=== PATIENT | female | born 1985 | race Caucasian/White ===

== ENCOUNTER 2016-06-29 01:50 | Observation (INO) | payer BC, OTHER ==
[2016-06-29] MEDS ORDERED: Sodium Chloride 0.9% 100 ML IVPB 100 ML IV ONE (02:11)
[2016-06-29] MEDS ORDERED: ROCEPHIN 1 Gm-D5w 50 ml Bag** 50 ML IV ONE ×2 (02:11→02:30)
--- NOTE | 2016-06-29 02:11 | ERPHSYRPT ---
- History of Present Illness Time Seen by Provider: 06/29/16 02:08 Source: patient, family, wardsperson Patient Subjective Stated Complaint: REPORTS WITH C/O FLU-SYMPTOMS, FEVER, COUGH PRODUCTIVE OF THICK GREEN SPUTUM, MALAISE - ALL ONSET X 4 DAYS AGO Triage Nursing Assessment: AMBULATORY TO TREATMENT AREA - STEADY GAIT - MOVES ALL EXTREMITIES WITH EQUAL STRENGTH. ALERT/ORIENTED - UNPLEASANT AFFECT. SKIN FLUSHED/HOT/DRY - NO RASH/INJURY. RESPS EASY - NON-LABORED Physician History: pt had similar 5 years ago , has lost voice and has cough , can swallow but gets nauseated when she drinks anything; not short of breath Timing/Duration: day(s) Cough Quality/Degree: productive cough Possible Cause: occasional episodes Modifying Factors: Improves With: nothing Associated Symptoms: fever, cough Allergies/Adverse Reactions: Penicillins Allergy (Verified 06/29/16 01:57) strawberry Allergy (Verified 06/29/16 02:51) Home Medications: Metformin HCl 850 mg [Glucophage 850 MG] 850 mg PO BID 06/29/16 [History] Hx Tetanus, Diphtheria Vaccination/Date Given: Yes Hx Influenza Vaccination/Date Given: No Hx Pneumococcal Vaccination/Date Given: No Immunizations Up to Date: Yes - Review of Systems Constitutional: No Fever, No Chills Eyes: No Symptoms Ears, Nose, & Throat: No Symptoms Respiratory: Cough, No Dyspnea Cardiac: No Chest Pain, No Edema, No Syncope Abdominal/Gastrointestinal: Nausea, No Abdominal Pain, No Vomiting, No Diarrhea Genitourinary Symptoms: No Dysuria Musculoskeletal: No Back Pain, No Neck Pain Skin: No Rash Neurological: No Dizziness, No Focal Weakness, No Sensory Changes Psychological: No Symptoms Endocrine: No Symptoms All Other Systems: Reviewed and Negative - Past Medical History Pertinent Past Medical History: Yes Female Reproductive Disorders: Other Other Medical History: pcos - Past Surgical History Past Surgical History: Yes Gastrointestinal: Cholecystectomy - Social History Smoking Status: Current every day smoker Exposure to second hand smoke: No Drug Use: none Patient Lives Alone: No - Female History Hx Last Menstrual Period: 3 WEEKS - Nursing Vital Signs Nursing Vital Signs: Initial Vital Signs Temperature 100.6 F Temperature Source Oral Pulse Rate 112 Respiratory Rate 16 Blood Pressure [Right Arm] 107/63 Pain Intensity 4 - Physical Exam General Appearance: no apparent distress, alert Eye Exam: PERRL/EOMI, eyes nml inspection Ears, Nose, Throat Exam: normal ENT inspection, TMs normal, moist mucous membranes, pharyngeal erythema Neck Exam: normal inspection, non-tender, supple, full range of motion, lymphadenopathy Respiratory Exam: lungs clear, airway intact, rhonchi (right), No respiratory distress, No wheezing, No stridor Cardiovascular Exam: regular rate/rhythm, normal heart sounds Gastrointestinal/Abdomen Exam: soft, No tenderness Pelvic Exam: deferred Rectal Exam: deferred Back Exam: normal inspection, No CVA tenderness, No vertebral tenderness Extremity Exam: normal inspection, normal range of motion Neurologic Exam: alert, oriented x 3, cooperative, normal mood/affect, sensation nml, No motor deficits Skin Exam: normal color, warm, dry, No rash Lymphatic Exam: No adenopathy SpO2 Interpretation: borderline oxygenation SpO2: 92 Oxygen Delivery: Room Air Comments: 06/29/16 04:29 placed on o2 - Course Nursing assessment & vital signs reviewed: Yes - Radiology Exams Chest X-ray Interpretation: Reviewed by me, Infiltrates (RML) Other X-ray Interpretation: Reviewed by me, Other (laryngeal swelling) Ordered Tests: Active Orders 24 hr Category Date Time Status IV Insertion STAT Care 06/29/16 02:11 Active PO Popsicle STAT Care 06/29/16 02:11 Active Pulse Oximetry (ED) STAT Care 06/29/16 02:11 Active CHEST 2 VIEWS (PA AND LAT) Stat Exams 06/29/16 02:11 Taken NECK SOFT TISSUE Stat Exams 06/29/16 02:12 Taken CBC W DIFF Stat Lab 06/29/16 02:20 Completed CULTURE, THROAT Stat Lab 06/29/16 02:30 Received HCG,QUALITATIVE URINE Stat Lab 06/29/16 03:02 Completed Sharp Screen Stat Lab 06/29/16 02:20 Completed STREP SCREEN-BETA A Stat Lab 06/29/16 02:30 Completed Respiratory Nebulizer STAT RT 06/29/16 02:15 Completed Medication Summary Discontinued Medications Generic Name Dose Route Start Last Admin Trade Name Freq PRN Reason Stop Dose Admin Acetaminophen 500 mg 06/29/16 02:31 06/29/16 02:37 Tylenol Extra Strength 500 Mg PO 06/29/16 02:32 500 mg STAT STA Administration Acetaminophen Confirm 06/29/16 02:37 Tylenol Extra Strength 500 Mg Administered 06/29/16 02:38 Dose 500 mg .ROUTE .STK-MED ONE Albuterol Sulfate 2.5 mg 06/29/16 02:14 06/29/16 02:34 Proventil 2.5 Mg/3 Ml Neb IH 06/29/16 02:15 2.5 mg STAT ONE Administration Albuterol Sulfate Confirm 06/29/16 02:21 Proventil 2.5 Mg/3 Ml Neb Administered 06/29/16 02:22 Dose 2.5 mg IH .STK-MED ONE Dexamethasone Sodium Phosphate 10 mg 06/29/16 02:14 06/29/16 02:35 Decadron 10mg Inj. IV 06/29/16 02:15 10 mg STAT ONE Administration Dexamethasone Sodium Phosphate Confirm 06/29/16 02:30 Decadron 10mg Inj. Administered 06/29/16 02:31 Dose 10 mg .ROUTE .STK-MED ONE Ceftriaxone Sodium/Dextrose 50 mls @ 100 mls/hr 06/29/16 02:11 06/29/16 02:35 Rocephin 1 Gm-D5w 50 Ml Bag IV 06/29/16 02:40 100 mls/hr STAT ONE Administration Sodium Chloride 100 mls @ 100 mls/hr 06/29/16 02:11 06/29/16 02:35 Sodium Chloride 0.9% 100 Ml Ivpb IV 06/29/16 03:10 100 mls/hr .Q1H ONE Administration Sodium Chloride Confirm 06/29/16 02:30 Sodium Chloride 0.9% 1000 Ml Administered 06/29/16 02:31 Dose 1,000 mls @ ud .ROUTE .STK-MED ONE Ceftriaxone Sodium/Dextrose Confirm 06/29/16 02:30 Rocephin 1 Gm-D5w 50 Ml Bag Administered 06/29/16 02:31 Dose 50 mls @ ud IV .STK-MED ONE Ondansetron HCl 4 mg 06/29/16 04:01 06/29/16 04:07 Zofran 4 Mg/2 Ml Vial IV 06/29/16 04:02 4 mg STAT ONE Administration Ondansetron HCl Confirm 06/29/16 04:04 Zofran 4 Mg/2 Ml Vial Administered 06/29/16 04:05 Dose 4 mg .ROUTE .STK-MED ONE Oseltamivir Phosphate 75 mg 06/29/16 04:00 06/29/16 04:10 Tamiflu 75mg Capsule PO 06/29/16 04:01 75 mg STAT ONE Administration Oseltamivir Phosphate Confirm 06/29/16 04:04 Tamiflu 75mg Capsule Administered 06/29/16 04:05 Dose 75 mg PO .STK-MED ONE Lab/Rad Data: Laboratory Result Diagrams 06/29/16 02:20 Laboratory Results 06/29/16 06/29/16 06/29/16 Range/Units 03:02 02:30 02:30 WBC (4.0-10.5) K/mm3 RBC (4.1-5.4) M/mm3 Hgb (12.0-16.0) gm/dl Hct (35-47) % MCV (78-100) fl MCH (26-32) pg MCHC (32-36) g/dl RDW (11.5-14.0) % Plt Count (150-450) K/mm3 MPV (6-9.5) fl Gran % (36.0-66.0) % Lymphocytes % (24.0-44.0) % Monocytes % (0.0-12.0) % Eosinophils % (0.00-5.0) % Basophils % (0.0-0.4) % Basophils # (0-0.4) Urine HCG, Qual NEGATIVE (Negative) Monoscreen (Negative) Influenza Type A Ag POSITIVE (NEGATIVE) Influenza Type B Ag NEGATIVE (NEGATIVE) RSV (PCR) NEGATIVE (Negative) Streptococcus Screen NEGATIVE (Negative) 06/29/16 06/29/16 Range/Units 02:20 02:20 WBC 13.0 H (4.0-10.5) K/mm3 RBC 4.55 (4.1-5.4) M/mm3 Hgb 13.0 (12.0-16.0) gm/dl Hct 39.9 (35-47) % MCV 87.7 (78-100) fl MCH 28.6 (26-32) pg MCHC 32.6 (32-36) g/dl RDW 14.0 (11.5-14.0) % Plt Count 249 (150-450) K/mm3 MPV 10.7 H (6-9.5) fl Gran % 80.2 H (36.0-66.0) % Lymphocytes % 10.4 L (24.0-44.0) % Monocytes % 8.9 (0.0-12.0) % Eosinophils % 0.3 (0.00-5.0) % Basophils % 0.2 (0.0-0.4) % Basophils # 0.02 (0-0.4) Urine HCG, Qual (Negative) Monoscreen NEGATIVE (Negative) Influenza Type A Ag (NEGATIVE) Influenza Type B Ag (NEGATIVE) RSV (PCR) (Negative) Streptococcus Screen (Negative) - Progress Progress: improved, re-examined Air Movement: good Progress Note: 06/29/16 02:52 discussed risk and benefit of rocephin with pcn allergy and possible preg and pt wishes to proceed and has naren keflex in past with no problems. 06/29/16 04:25 pt naren rocephin OK discussed with pt , family and Dr. Roberts and all agree best to place pt in on obs restore fluids , monitor airway and o2 sat , and treat with tamiflu and rocephin Blood Culture(s) Obtained: No Antibiotics given: Yes Discussed with : Armando Will see patient in: hospital (observation) Counseled pt/family regarding: lab results, diagnosis, need for follow-up, rad results - Departure Time of Disposition: 04:26 Departure Disposition: Observation Clinical Impression: Influenza A, RML pneumonia, Dehydration, Laryngitis without obstruction, acute Condition: Good Critical Care Time: No
[2016-06-29] MEDS ORDERED: DECADRON 10MG INJ. IV ONE (02:14)
[2016-06-29] MEDS ORDERED: PROVENTIL 2.5 MG/3 ML NEB IH ONE ×2 (02:14→02:21)
[2016-06-29] MEDS ORDERED: Sodium Chloride 0.9% 1000 ML 1,000 ML ONE (02:30)
[2016-06-29] MEDS ORDERED: DECADRON 10MG INJ. ONE (02:30)
[2016-06-29] MEDS ORDERED: TYLENOL EXTRA STRENGTH 500 MG PO STA (02:31)
[2016-06-29 02:34] LABS: BASOPHIL % 0.2 % (0.0-0.4); Eosinophil % 0.3 % (0.00-5.0); Granulocytes % 80.2 % (36.0-66.0); Lymphocytes % 10.4 % (24.0-44.0); Mean Cell Volume 87.7 fl (78-100); Mean Corpuscular Hemoglobin 28.6 pg (26-32); Mean Platelet Volume 10.7 fl (6-9.5); Monocytes % 8.9 % (0.0-12.0); Platelet Count 249 K/mm3 (150-450); Red Blood Count 4.55 M/mm3 (4.1-5.4)
[2016-06-29] MEDS ORDERED: TYLENOL EXTRA STRENGTH 500 MG ONE (02:37)
[2016-06-29] MEDS ORDERED: Tamiflu 75MG Capsule PO ONE ×2 (04:00→04:04)
[2016-06-29] MEDS ORDERED: Zofran 4 MG/2 ML VIAL IV ONE (04:01)
[2016-06-29] MEDS ORDERED: Zofran 4 MG/2 ML VIAL ONE (04:04)
[2016-06-29] MEDS ORDERED: Sodium Chloride 0.9% 1000 ML 1,000 ML IV STA (04:24)
[2016-06-29] MEDS ORDERED: NovoLIN R SQ PRN (04:59)
[2016-06-29] MEDS ORDERED: DILAUDID 2 MG INJECTION IV PRN (04:59)
[2016-06-29] MEDS ORDERED: Zofran 4 MG/2 ML VIAL IV PRN (04:59)
[2016-06-29] MEDS ORDERED: solu-MEDROL 125 MG IV SCH (05:00)
[2016-06-29] MEDS ORDERED: solu-MEDROL 125 MG ONE (05:08)
[2016-06-29] MEDS: Sodium Chloride 0.9% 1000 ML 1,000 ML IV SCH ×4 (05:25→20:08)
--- NOTE | 2016-06-29 06:41 | PCM.HP ---
History of Present Illness - Chief Complaint Chief Complaint: Shortness of Breath History of Present Illness: is a 30 year old female with no local physician who became ill with a cough about 4 days prior to arrival, she has had green sputum production, hoarseness and fever for the last several days. She has a history of pcos and insulin resistance, no other medical problems. She denies vomiting, blood in the stool or other associated complaints. - Review of Systems Constitutional: Fever, Chills Respiratory: Cough Cardiac: No Chest Pain, No Edema, No Syncope Abdominal/Gastrointestinal: No Abdominal Pain, No Nausea, No Vomiting, No Diarrhea Skin: No Rash All Other Systems: Reviewed and Negative Medications & Allergies Home Medications: Home Medication List Metformin HCl 850 mg [Glucophage 850 MG] 850 mg PO BID 06/29/16 [History Confirmed 06/29/16] Pnv with Ca,No.72/Iron/FA [ Plus Tablet] 1 each PO DAILY 06/29/16 [ History Confirmed 06/29/16] Ranitidine HCl [Zantac] 150 mg PO DAILY 06/29/16 [History Confirmed 06/29/16] Allergies/Adverse Reactions: Allergies Allergy/AdvReac Type Severity Reaction Status Date / Time Penicillins Allergy Verified 06/29/16 01:57 strawberry Allergy Verified 06/29/16 02:51 - Past Medical History Past Medical History: Yes ENT History: No Pertinent History Cardiac History: No Pertinent History Respiratory History: No Pertinent History Endocrine Medical History: Other Reproductive Disorders: Other Comment: pcos, Insulin resistant - Female History Hx Last Menstrual Period: 3 WEEKS Are you now?: No - Past Surgical History Past Surgical History: Yes GI Surgical History: Cholecystectomy - Social History Smoking Status: Current every day smoker Exposure to second hand smoke: No Alcohol: Rarely Drug Use: none - Physical Exam Vital Signs: Vital Signs - 24 hr Temp Pulse Resp BP Pulse Ox 06/29/16 05:47 98.1 F 101 H 24 111/56 94 L 06/29/16 05:14 101 H 18 91 L 06/29/16 04:30 92 L 06/29/16 04:11 112 H 16 90 L 06/29/16 03:16 124 H 22 107/63 92 L 06/29/16 02:51 124 H 20 98 06/29/16 02:37 100.6 F 06/29/16 02:36 113 H 24 94 L 06/29/16 02:15 96 06/29/16 01:59 101.0 F 124 H 24 96/49 99 Oxygen-Last 24 hours O2 Percentage 2 Liters = 28% O2 Percentage 2 Liters = 28% General Appearance: mild distress Neurologic Exam: alert, oriented x 3 Eye Exam: PERRL/EOMI, eyes nml inspection Respiratory Exam: crackles/rales Cardiovascular Exam: regular rate/rhythm, normal heart sounds, normal peripheral pulses Gastrointestinal/Abdomen Exam: soft, normal bowel sounds, No tenderness, No mass Extremity Exam: normal inspection, normal range of motion, pelvis stable Skin Exam: normal color, warm, dry, No rash Results - Other Procedures and Tests Respiratory Therapy 06/29/16 06:11 Oxygen NASAL CANNULA 2 lpm Assessment/Plan (1) Influenza A Current Visit: Yes Status: Acute Assessment & Plan: continue tamiflu at this time and supportive care Code(s): J10.1 - FLU DUE TO OTH IDENT INFLUENZA VIRUS W OTH RESP MANIFEST (2) Dehydration Current Visit: Yes Status: Acute Assessment & Plan: IV fluids Code(s): E86.0 - DEHYDRATION (3) RML pneumonia Current Visit: Yes Status: Acute Assessment & Plan: rocephin and zithromax Code(s): J18.1 - LOBAR PNEUMONIA, UNSPECIFIED ORGANISM
[2016-06-29] MEDS ORDERED: MOTRIN 600 MG PO PRN (06:42)
--- NOTE | 2016-06-29 08:57 | XRAY ---
Indication: Fever and cough. Comparison: None PA/lateral chest demonstrates subtle right middle lobe infiltrate/atelectasis without consolidation or large effusion. Remaining heart, lungs, and bony thorax unremarkable.
--- NOTE | 2016-06-29 08:57 | XRAY ---
Indication: Laryngitis. Comparison: None AP/lateral soft tissue neck demonstrates patent supra and infraglottic airway with normal appearing epiglottis. Visualized cervical spine intact. Impression: Negative soft tissue neck.
[2016-06-29] MEDS: Zithromax 500 MG/ 250 ML NaCl Premix 250 ML IV SCH (09:47)
[2016-06-29] MEDS: Tamiflu 75MG Capsule PO SCH ×2 (09:47→21:19)
[2016-06-29] MEDS: Robitussin 100 MG/5 ML PO PRN (10:18)
[2016-06-29] MEDS: PROVENTIL 2.5 MG/3 ML NEB IH SCH ×4 (15:13→19:46)
[2016-06-29] MEDS: TYLENOL 325 MG PO PRN (16:16)
[2016-06-29] MEDS: ROCEPHIN 1 Gm-D5w 50 ml Bag** 50 ML IV SCH (21:19)
[2016-06-29] MEDS: Ambien 5 MG Tablet PO PRN (23:09)
[2016-06-30] MEDS: PROVENTIL 2.5 MG/3 ML NEB IH SCH ×7 (00:19→23:06)
[2016-06-30] MEDS: Robitussin 100 MG/5 ML PO PRN ×3 (01:08→23:44)
[2016-06-30] MEDS: Sodium Chloride 0.9% 1000 ML 1,000 ML IV SCH ×3 (01:31→20:12)
[2016-06-30 06:15] LABS: BASOPHIL % 0.2 % (0.0-0.4); Eosinophil % 0.1 % (0.00-5.0); Granulocytes % 79.5 % (36.0-66.0); Lymphocytes % 12.9 % (24.0-44.0); Mean Cell Volume 90.1 fl (78-100); Mean Platelet Volume 10.9 fl (6-9.5); Monocytes % 7.3 % (0.0-12.0); Platelet Count 264 K/mm3 (150-450); Red Blood Count 3.84 M/mm3 (4.1-5.4); Red Cell Distribution Width 14.1 % (11.5-14.0); White Blood Count 12.7 K/mm3 (4.0-10.5)
[2016-06-30 06:23] LABS: Mean Corpuscular Hemoglobin 28.3 pg (26-32)
[2016-06-30 06:31] LABS: ANION GAP 12.2 MEQ/L (5-15); BLOOD UREA NITROGEN 11 mg/dL (9-20); CHLORIDE 108 mEq/L (98-107); Carbon Dioxide 25.7 mEq/L (21-32); Glucose 123 MG/DL (70-110); Potassium 3.8 mEq/L (3.5-5.1); SODIUM 142 mEq/L (136-145)
--- NOTE | 2016-06-30 07:55 | PCM.NOTE ---
Date and Time: 06/30/16 0754 Subjective Assessment: patient still has significant cough and feels poorly, requiring oxygen. no new complaints Objective Exam General Appearance: no apparent distress, alert Respiratory Exam: wheezing, No respiratory distress Cardiovascular Exam: regular rate/rhythm, normal heart sounds Gastrointestinal/Abdomen Exam: soft, No tenderness, No mass Extremity Exam: normal inspection, normal range of motion OBJECTIVE DATA Vital Signs: Vital Signs - 24 hr Temp Pulse Resp BP Pulse Ox 06/30/16 06:37 75 18 94 L 06/30/16 04:38 102 H 20 94 L 06/30/16 04:00 98.2 F 89 26 H 111/58 96 06/30/16 00:20 86 20 93 L 06/30/16 00:00 98.6 F 91 H 22 94/53 92 L 06/29/16 20:00 98.4 F 116 H 24 123/72 91 L 06/29/16 19:46 91 H 18 89 L 06/29/16 16:52 99 F 68 20 103/58 98 06/29/16 15:15 89 18 94 L 06/29/16 12:16 98.2 F 95 H 20 106/73 92 L Oxygen-Last 24 hours O2 Percentage 2 Liters = 28% O2 Percentage 2 Liters = 28% O2 Percentage 2 Liters = 28% O2 Percentage 2 Liters = 28% Pain Assessment - Last Documented Pain Intensity 7 Pain Scale Used FLACC Intake and Output: Intake & Output 06/27/16 06/28/16 06/29/16 06/30/16 11:59 11:59 11:59 11:59 Intake Total 240 5247 Output Total 750 2200 Balance -510 3047 Weight 111.947 kg Lab Results: Lab Results-Last 24 Hours 06/30/16 06/30/16 Range/Units 05:50 05:50 WBC 12.7 H (4.0-10.5) K/mm3 RBC 3.84 L (4.1-5.4) M/mm3 Hgb 10.9 L (12.0-16.0) gm/dl Hct 34.6 L (35-47) % MCV 90.1 (78-100) fl MCH 28.3 (26-32) pg MCHC 31.5 L (32-36) g/dl RDW 14.1 H (11.5-14.0) % Plt Count 264 (150-450) K/mm3 MPV 10.9 H (6-9.5) fl Gran % 79.5 H (36.0-66.0) % Lymphocytes % 12.9 L (24.0-44.0) % Monocytes % 7.3 (0.0-12.0) % Eosinophils % 0.1 (0.00-5.0) % Basophils % 0.2 (0.0-0.4) % Basophils # 0.02 (0-0.4) Sodium 142 (136-145) mEq/L Potassium 3.8 (3.5-5.1) mEq/L Chloride 108 H (98-107) mEq/L Carbon Dioxide 25.7 (21-32) mEq/L Anion Gap 12.2 (5-15) MEQ/L BUN 11 (9-20) mg/dL Creatinine 0.75 (0.55-1.30) mg/dl Estimated GFR > 60 ML/MIN Glucose 123 H (70-110) MG/DL Calcium 7.8 L (8.5-10.1) mg/dL Assessment/Plan (1) Influenza A Current Visit: Yes Status: Acute Assessment & Plan: continue supportive care Code(s): J10.1 - FLU DUE TO OTH IDENT INFLUENZA VIRUS W OTH RESP MANIFEST (2) Dehydration Current Visit: Yes Status: Acute Assessment & Plan: has been replaced, reduce fluids to 70mL/hr Code(s): E86.0 - DEHYDRATION (3) RML pneumonia Current Visit: Yes Status: Acute Assessment & Plan: continue rocephin/zithromax and nebs Code(s): J18.1 - LOBAR PNEUMONIA, UNSPECIFIED ORGANISM (4) Acute bronchospasm Current Visit: Yes Status: Acute Assessment & Plan: IV solu medrol ordered along with nebs
[2016-06-30] MEDS: solu-MEDROL 40 MG IV SCH ×3 (08:18→23:44)
[2016-06-30] MEDS: Tamiflu 75MG Capsule PO SCH ×2 (08:19→23:44)
[2016-06-30] MEDS: Zithromax 500 MG/ 250 ML NaCl Premix 250 ML IV SCH (08:19)
[2016-06-30] MEDS: Nicoderm CQ 21 MG TOP SCH (15:07)
[2016-06-30] MEDS ORDERED: Glucophage 850 MG PO SCH (22:00)
[2016-06-30] MEDS: TYLENOL 325 MG PO PRN (23:43)
[2016-06-30] MEDS: ROCEPHIN 1 Gm-D5w 50 ml Bag** 50 ML IV SCH (23:43)
[2016-07-01] MEDS: Pepcid 20 MG PO SCH ×2 (00:13→10:08)
[2016-07-01] MEDS: Ambien 5 MG Tablet PO PRN (00:14)
[2016-07-01] MEDS: THERAGRAN MULTIVITAMIN PO SCH ×2 (00:16→10:08)
[2016-07-01] MEDS: PROVENTIL 2.5 MG/3 ML NEB IH SCH ×3 (02:52→11:01)
[2016-07-01 06:00] LABS: Mean Cell Volume 90.4 fl (78-100); Platelet Count 292 K/mm3 (150-450); Red Blood Count 3.76 M/mm3 (4.1-5.4); Red Cell Distribution Width 14.7 % (11.5-14.0); White Blood Count 13.3 K/mm3 (4.0-10.5)
[2016-07-01 06:09] LABS: Mean Corpuscular Hemoglobin 29.2 pg (26-32)
[2016-07-01] MEDS: solu-MEDROL 40 MG IV SCH (06:19)
[2016-07-01] MEDS: TYLENOL 325 MG PO PRN (06:19)
[2016-07-01 06:27] LABS: Basophil 1 % (0.0-1.0); Total Cells Counted 100
[2016-07-01 06:28] LABS: Platelet Estimate NORMAL (NORMAL)
[2016-07-01 06:37] LABS: ALBUMIN 2.9 g/dL (3.4-5.0); ALKALINE PHOSPHATASE 69 U/L (46-116); ANION GAP 15.3 MEQ/L (5-15); BILIRUBIN,TOTAL 0.1 mg/dL (0.2-1.0); BLOOD UREA NITROGEN 15 mg/dL (9-20); CHLORIDE 107 mEq/L (98-107); Glucose 126 MG/DL (70-110); Potassium 3.7 mEq/L (3.5-5.1); SGOT/AST 48 U/L (15-37); SGPT/ALT 52 U/L (12-78); SODIUM 141 mEq/L (136-145); Total Protein 6.7 gm/dL (6.4-8.2)
[2016-07-01] MEDS ORDERED: Glucophage 850 MG PO SCH (08:00)
--- NOTE | 2016-07-01 09:46 | PCM.DS ---
Discharge Summary Date of Admission: 06/29/16 04:47 Admitting Physician: MELLY PADRON Primary Care Provider: NO FAMILY DOCTOR Allergies Allergies Penicillins Allergy (Verified 06/29/16 01:57) strawberry Allergy (Verified 06/29/16 02:51) Hospital Summary - Hospital Course Hospital Course: patient was admitted with pneumonia, flu and acute bronchospasm. has responded well to treatment. is taking po normally, off oxygen and cough is improved. - Vitals & Intake/Output Vital Signs: Vital Signs Temperature 98.6 F 07/01/16 08:00 Pulse Rate 96 H 07/01/16 08:00 Respiratory Rate 18 07/01/16 08:00 Blood Pressure 128/61 07/01/16 08:00 O2 Sat by Pulse Oximetry 92 L 07/01/16 08:00 Oxygen-Last Documented O2 Percentage 2 Liters = 28% Intake & Output: Intake & Output 06/28/16 06/29/16 06/30/16 07/01/16 11:59 11:59 11:59 11:59 Intake Total 240 5247 3077 Output Total 750 2200 1400 Balance -510 3047 1677 Weight 111.947 kg 119.794 kg - Lab Result Diagrams: 07/01/16 05:30 07/01/16 05:30 Lab Results-Last 24 Hrs: Lab Results-Last 24 Hours 07/01/16 07/01/16 Range/Units 05:30 05:30 WBC 13.3 H (4.0-10.5) K/mm3 RBC 3.76 L (4.1-5.4) M/mm3 Hgb 11.0 L (12.0-16.0) gm/dl Hct 34.0 L (35-47) % MCV 90.4 (78-100) fl MCH 29.2 (26-32) pg MCHC 32.4 (32-36) g/dl RDW 14.7 H (11.5-14.0) % Plt Count 292 (150-450) K/mm3 MPV 11.0 H (6-9.5) fl Segmented Neutrophils 87 H (36.0-66.0) % Lymphocytes (Manual) 11 L (24-44) % Monocytes (Manual) 1 (0.0-12.0) % Basophils (Manual) 1 (0.0-1.0) % Differential Comment NORMAL Platelet Estimate NORMAL (NORMAL) Sodium 141 (136-145) mEq/L Potassium 3.7 (3.5-5.1) mEq/L Chloride 107 (98-107) mEq/L Carbon Dioxide 22.0 (21-32) mEq/L Anion Gap 15.3 H (5-15) MEQ/L BUN 15 (9-20) mg/dL Creatinine 0.84 (0.55-1.30) mg/dl Estimated GFR > 60 ML/MIN Glucose 126 H (70-110) MG/DL Calcium 8.0 L (8.5-10.1) mg/dL Total Bilirubin 0.1 L (0.2-1.0) mg/dL AST 48 H (15-37) U/L ALT 52 (12-78) U/L Alkaline Phosphatase 69 (46-116) U/L Serum Total Protein 6.7 (6.4-8.2) gm/dL Albumin 2.9 L (3.4-5.0) g/dL - Procedures and Test Procedures and Tests throughout Hospitalization: Therapy Orders & Screens 06/29/16 06:11 Oxygen NASAL CANNULA 2 lpm Comment: Diagnosis: Shortness of Breath 06/29/16 06:39 Smoking Cessation Education Comment: Diagnosis: Shortness of Breath Smoking Status: Current every day smoker Approximately how many cigarettes per day: 0.5 packs per day Do you dip or chew tobacco: No 06/29/16 06:52 neb [Respiratory Nebulizer] Comment: Q4PRN Diagnosis: Shortness of Breath Discharge Exam General Appearance: no apparent distress, alert Respiratory Exam: normal breath sounds, lungs clear, No respiratory distress Cardiovascular Exam: regular rate/rhythm, normal heart sounds Gastrointestinal/Abdomen Exam: soft, No tenderness, No mass Extremity Exam: normal inspection, normal range of motion Final Diagnosis/Problem List - Final Discharge Diagnosis/Problem (1) Influenza A Current Visit: Yes Status: Acute Assessment & Plan: continue tamiflu to complete a 5 day course (2) Dehydration Current Visit: Yes Status: Acute Assessment & Plan: resolved (3) RML pneumonia Current Visit: Yes Status: Acute Assessment & Plan: home on po levaquin (4) Acute bronchospasm Current Visit: Yes Status: Acute Assessment & Plan: albuterol hfa and medrol leanna - Discharge Disposition: Home, Self-Care Condition: Good Prescriptions: New Albuterol Sulfate [Albuterol Sulfate Hfa] 2 puffs IH Q4-6HPRN PRN #1 hfa.aer.[email or web address] PRN Reason: Cough Levofloxacin [Levaquin] 500 mg PO DAILY #7 tablet Methylprednisolone [Medrol Dose Pack] 4 mg PO UD #1 pack Oseltamivir 75 mg [Tamiflu 75MG Capsule] 75 mg PO BID #6 cap Continue Metformin HCl 850 mg [Glucophage 850 MG] 850 mg PO BID Ranitidine HCl [Zantac] 150 mg PO DAILY Pnv with Ca,No.72/Iron/FA [ Plus Tablet] 1 each PO DAILY Instructions: Pneumonia -- Adult, Influenza -- Adult Follow up with: MELLY PADRON MD [ACTIVE STAFF] - 1 Week
[2016-07-01] MEDS: Tamiflu 75MG Capsule PO SCH (10:08)
[2016-07-01] MEDS: Zithromax 500 MG/ 250 ML NaCl Premix 250 ML IV SCH (10:08)
[2016-07-01] MEDS: Nicoderm CQ 21 MG TOP SCH (10:09)
[2016-07-01 11:14] VITALS: O2SAT 96
[2016-07-01 12:49] VITALS: BP 116/75; PULSE 71
== END 2016-07-01 13:25 | disposition home or self-care (01) ==
LOC: ED 01:50 → MED SURG 04:47
PROVIDERS: ADMIT Family Medicine; ATTEND Family Medicine
DX: J10.1 Influenza due to other identified influenza virus with other respiratory manifestations (principal); E86.0 Dehydration; J18.9 Pneumonia, unspecified organism; J98.01 Acute bronchospasm; Z79.899 Other long term (current) drug therapy
CPT/HCPCS: 36000; 36415; 70360; 71020; 80048; 80053; 84703; 85025; 86308; 87070; 87430; 87631; 93268; 94640; 94760; 96360; 96361; 96365; 96372; 96374; 99285; G0378; J0456; J0696; J1100; J2405; J2920; J2930; A9270-GY

== ENCOUNTER 2016-12-13 20:00 | Emergency (ER) | payer SELFPAY ==
--- NOTE | 2016-12-13 20:29 | ERPHSYRPT ---
- History of Present Illness Time Seen by Provider: 12/13/16 20:25 Source: patient, family Exam Limitations: no limitations Physician History: pt has had left eyelid inflammation for one week - no trauma, no FB sensation, vision is normal near bilateral in ER; no drainage; neg FB with double lid eversion ; fundi benign, ant chamber clear; no visible abrasion on magnification no conjunctival erythema; sty seen at medial upper left lid margin ; discussed conservative measures and pt wishes to proceed ; advised that sometimes op intervention required and to f/u eye dr / PCP; Timing/Duration: day(s), gradual onset Location: right eye Severity: moderate Apparent Injury: no Associated Symptoms: eyelid swelling Visual Assistive Devices: None Chemical Exposure: No Trauma: No Welding Arc/Tanning Bed Exposure: No Allergies/Adverse Reactions: Penicillins Allergy (Verified 06/29/16 01:57) strawberry Allergy (Verified 06/29/16 02:51) Home Medications: Metformin HCl 850 mg [Glucophage 850 MG] 850 mg PO BID 06/29/16 [History] Pnv with Ca,No.72/Iron/FA [ Plus Tablet] 1 each PO DAILY 06/29/16 [ History] Ranitidine HCl [Zantac] 150 mg PO DAILY 06/29/16 [History] Hx Tetanus, Diphtheria Vaccination/Date Given: Yes Hx Influenza Vaccination/Date Given: No Hx Pneumococcal Vaccination/Date Given: No - Review of Systems Constitutional: No Fever, No Chills Eyes: Other (right eyelid swelling) Ears, Nose, & Throat: Nose Congestion Respiratory: Cough, No Dyspnea Cardiac: No Chest Pain, No Edema, No Syncope Abdominal/Gastrointestinal: No Abdominal Pain, No Nausea, No Vomiting, No Diarrhea Genitourinary Symptoms: No Dysuria Musculoskeletal: No Back Pain, No Neck Pain Skin: No Rash Neurological: No Dizziness, No Focal Weakness, No Sensory Changes Psychological: No Symptoms Endocrine: No Symptoms All Other Systems: Reviewed and Negative - Past Medical History Pertinent Past Medical History: Yes ENT History: No Pertinent History Cardiac History: No Pertinent History Respiratory History: No Pertinent History Endocrine Medical History: Other Female Reproductive Disorders: Other Other Medical History: pcos, Insulin resistant - Past Surgical History Past Surgical History: Yes Gastrointestinal: Cholecystectomy - Social History Smoking Status: Current every day smoker Exposure to second hand smoke: No Drug Use: none Patient Lives Alone: No - Nursing Vital Signs Nursing Vital Signs: Initial Vital Signs Temperature 97.9 F 12/13/16 20:12 Pulse Rate 71 12/13/16 20:12 Respiratory Rate 16 12/13/16 20:12 Blood Pressure 115/73 12/13/16 20:12 O2 Sat by Pulse Oximetry 100 12/13/16 20:12 Pain Scale Pain Intensity 4 - Physical Exam General Appearance: no apparent distress Vision Acuity Degree Evaluation Phase: Uncorrected Vision Acuity Right Eye: 20/20 Vision Acuity Left Eye: 20/20 (near vision both but 20/30 distant both) Eye Exam: right eye: eyelid inflammation, stye, bilateral eye: normal inspection , PERRL, EOMI Ears, Nose, Throat Exam: pharynx normal Neck Exam: normal inspection, non-tender, supple, full range of motion Respiratory Exam: normal breath sounds, lungs clear, airway intact Cardiovascular Exam: regular rate/rhythm, normal heart sounds Gastrointestinal Exam: soft, No tenderness, No distention Extremity Exam: normal inspection, normal range of motion Neurologic: alert, oriented x 3, cooperative, long term care administrator II-XII nml as tested, normal mood/affect, nml station & gait Skin Exam: normal color, warm, dry SpO2 Interpretation: normal SpO2: 100 Oxygen Delivery: Room Air - Course Nursing assessment & vital signs reviewed: Yes Ordered Tests: Active Orders 24 hr Category Date Time Status Visual Acuity STAT Care 12/13/16 20:30 Active Medication Summary Discontinued Medications Generic Name Dose Route Start Last Admin Trade Name Luis PRN Reason Stop Dose Admin Cephalexin HCl 500 mg 12/13/16 20:41 12/13/16 20:48 Keflex 500 Mg PO 12/13/16 20:42 500 mg STAT ONE Administration Cephalexin HCl Confirm 12/13/16 20:47 Keflex 500 Mg Administered 12/13/16 20:48 Dose 500 mg .ROUTE .STK-MED ONE Erythromycin 3.5 gm 12/13/16 20:30 12/13/16 20:34 Erythromycin 3.5 Gm Ophth. OP 12/13/16 20:31 3.5 gm STAT ONE Administration Erythromycin Confirm 12/13/16 20:33 Erythromycin 1 Gm Administered 12/13/16 20:34 Dose 1 gm .ROUTE .STK-MED ONE Tetracaine HCl 4 ml 12/13/16 20:30 12/13/16 20:33 Tetracaine 0.5% Steri-Unit Laura OP 12/13/16 20:31 4 ml STAT STA Administration Tetracaine HCl Confirm 12/13/16 20:33 Tetracaine 0.5% Steri-Unit Laura Administered 12/13/16 20:34 Dose 4 ml OP .STK-MED ONE - Progress Progress: improved, re-examined Progress Note: 12/13/16 20:50 pt previously naren keflex OK Counseled pt/family regarding: diagnosis, need for follow-up - Departure Time of Disposition: 20:45 Departure Disposition: Home Clinical Impression: Sty, external Condition: Good Critical Care Time: No Referrals: MELLY PADRON MD [Primary Care Provider] - Instructions: [facility] Additional Instructions: followup with your Dr for [facility] referral if not resolving this week or return meantime if any concerns; use wet compress several times a day and apply antibiotic 4 times a day ; Prescriptions: Cephalexin Mh 500 mg [Keflex 500 mg] 500 mg PO Q8H #30 capsule Hydrocodone/Acetaminophen [[place] 5-325 Tablet] 1 each PO Q4-6HPRN PRN #14 tablet PRN Reason: Pain
[2016-12-13] MEDS ORDERED: Erythromycin 3.5 GM OPHTH. OP ONE (20:30)
[2016-12-13] MEDS ORDERED: TETRACAINE 0.5% STERI-UNIT SOL OP STA (20:30)
[2016-12-13] MEDS ORDERED: Erythromycin 1 GM ONE (20:33)
[2016-12-13] MEDS ORDERED: TETRACAINE 0.5% STERI-UNIT SOL OP ONE (20:33)
[2016-12-13] MEDS ORDERED: KEFLEX 500 MG PO ONE (20:41)
[2016-12-13] MEDS ORDERED: KEFLEX 500 MG ONE (20:47)
[2016-12-13 21:01] VITALS: BP 107/68; PULSE 76; O2SAT 98
== END 2016-12-13 21:01 | disposition home or self-care (01) ==
LOC: ED 20:00
DX: H00.013 Hordeolum externum right eye, unspecified eyelid (principal); H02.843 Edema of right eye, unspecified eyelid
CPT/HCPCS: 99283; A9270-GY

== ENCOUNTER 2017-03-21 22:49 | Observation (INO) | payer SELFPAY ==
[2017-03-21] MEDS ORDERED: ROCEPHIN 1 Gm-D5w 50 ml Bag** 1 G/50 ML IVPB IV STA (23:13)
[2017-03-21] MEDS ORDERED: DUONEB 0.5-3 MG/3 ml Neb IH ONE ×2 (23:13→23:22)
[2017-03-21] MEDS ORDERED: Zithromax 500 MG/ 250 ML NaCl Premix 500 MG/250 ML IVPB IV STA (23:13)
[2017-03-21] MEDS ORDERED: Sodium Chloride 0.9% 1000 ML 1,000 ML IV STA ×2 (23:13→23:16)
[2017-03-21] MEDS ORDERED: Sodium Chloride 0.9% 1000 ML 1,000 ML ONE (23:18)
[2017-03-21] MEDS ORDERED: Zithromax 500 MG/ 250 ML NaCl Premix 500 MG/250 ML IVPB IV ONE (23:18)
[2017-03-21] MEDS ORDERED: ROCEPHIN 1 Gm-D5w 50 ml Bag** 1 G/50 ML IVPB IV ONE (23:20)
--- NOTE | 2017-03-21 23:23 | ERPHSYRPT ---
- History of Present Illness Source: patient Exam Limitations: clinical condition Patient Subjective Stated Complaint: Pt with cough x 2-3 days, fever, sneezing, headache. Cough is productive with green sputum. Highest temp 99.5. Pt has taken tylenol for discomfort. Rates discomfort 8/10 with pain in head, chest with cough, back. Vomiting after eating. Intermittent nausea. Triage Nursing Assessment: Pt alert, oriented, answers questions appropriately. Skin pink, warm, dry. Resps non-labored. Pt ambulatory to tx room, steady gait noted. Deep dry cough noted. Lung sounds diminished with expiratory wheezes noted right anterior chest. ABD soft, non-tender. Timing/Duration: day(s) Cough Quality/Degree: severe, productive cough Possible Cause: frequent episodes Modifying Factors: Improves With: coughing Associated Symptoms: fever, nasal congestion International travel in last 2 weeks: No Hx Tetanus, Diphtheria Vaccination/Date Given: Yes Hx Influenza Vaccination/Date Given: No Hx Pneumococcal Vaccination/Date Given: No Immunizations Up to Date: Yes <NASIM MERRITT - Last Filed: 03/21/17 23:38> <CHRISTAL RAND - Last Filed: 03/22/17 01:41> - History of Present Illness Time Seen by Provider: 03/21/17 23:20 Physician History: PATIENT WITH A HISTORY OF PNEUMONIA COMPLAIN OF PRODUCTIVE COUGH FOR 3 DAYS, LOW GRADE FEVER, CHEST AND BACK PAINS UPON COUGHING. DENIES SORETHROAT AND FACIAL PAIN. (NASIM MERRITT) Pt recieved in changeover from Dr. Merritt after discussion of pending labs, imaging and potential pathologies for ultimate disposition, and pt introduction. pt now does state that she has had cold symptoms with sore throat also recently and has at this time. (CHRISTAL RAND) Allergies/Adverse Reactions: Penicillins Allergy (Verified 03/21/17 22:55) strawberry Allergy (Verified 03/21/17 22:55) Home Medications: Metformin HCl 850 mg [Glucophage 850 MG] 850 mg PO BID 06/29/16 [History] Pnv,Calcium 72/Iron/Folic Acid [ Plus Tablet] 1 each PO DAILY 06/29/16 [ History] Ranitidine HCl [Zantac] 150 mg PO DAILY 06/29/16 [History] Clomiphene Citrate [Serophene] 50 mg PO DAILY 03/21/17 [History] Sertraline HCl 50 mg PO DAILY 03/21/17 [History] - Review of Systems Constitutional: Fever, No Chills Eyes: No Symptoms Ears, Nose, & Throat: No Symptoms Respiratory: Cough, No Dyspnea Cardiac: No Chest Pain, No Edema, No Syncope Abdominal/Gastrointestinal: No Symptoms, No Abdominal Pain, No Nausea, No Vomiting, No Diarrhea Genitourinary Symptoms: No Symptoms, No Dysuria Musculoskeletal: Arthralgias, No Back Pain, No Neck Pain Skin: No Symptoms, No Rash Neurological: Headache, No Dizziness, No Focal Weakness, No Sensory Changes Psychological: No Symptoms Endocrine: No Symptoms All Other Systems: Reviewed and Negative <NASIM MERRITT Filed: 03/21/17 23:38> - Past Medical History Pertinent Past Medical History: Yes ENT History: No Pertinent History Cardiac History: No Pertinent History Respiratory History: No Pertinent History Endocrine Medical History: Other Female Reproductive Disorders: Other Other Medical History: pcos, Insulin resistant - Past Surgical History Past Surgical History: Yes Gastrointestinal: Cholecystectomy - Social History Smoking Status: Current every day smoker How long have you smoked: 10 Exposure to second hand smoke: Yes Drug Use: none Patient Lives Alone: No - Female History Hx Last Menstrual Period: 2.5 weeks ago Hx Now: No <NASIM MERRITT Filed: 03/21/17 23:38> - Physical Exam General Appearance: no apparent distress, alert Eye Exam: PERRL/EOMI, eyes nml inspection Ears, Nose, Throat Exam: normal ENT inspection, TMs normal, pharynx normal, moist mucous membranes Neck Exam: normal inspection, non-tender, supple, full range of motion Respiratory Exam: normal breath sounds, lungs clear (AT BASES, NO WHEEZES OR RHONCHI.), diminished breath sounds, No respiratory distress Cardiovascular Exam: regular rate/rhythm, normal heart sounds Gastrointestinal/Abdomen Exam: soft, No tenderness Back Exam: normal inspection, No CVA tenderness, No vertebral tenderness Extremity Exam: normal inspection, normal range of motion Neurologic Exam: alert, oriented x 3, cooperative, normal mood/affect, sensation nml, No motor deficits Skin Exam: normal color, warm, dry, No rash Lymphatic Exam: No adenopathy SpO2 Interpretation: normal SpO2: 98 Oxygen Delivery: Room Air <NASIM MERRITT Filed: 03/21/17 23:38> - Nursing Vital Signs Nursing Vital Signs: Initial Vital Signs Temperature 98.3 F 03/21/17 22:56 Pulse Rate 99 H 03/21/17 22:56 Respiratory Rate 16 03/21/17 22:56 Blood Pressure 87/43 03/21/17 22:56 O2 Sat by Pulse Oximetry 98 03/21/17 22:56 Pain Scale Pain Intensity 8 - Course Nursing assessment & vital signs reviewed: Yes EKG Interpreted by Me: Sinus Rhythm, NORMAL AXIS, NORMAL INTERVALS, NORMAL QRS, NORMAL ST-T - Radiology Exams Chest X-ray Interpretation: Interpreted by me, Reviewed by me, Infiltrates, Pneumonia <CHRISTAL RAND - Last Filed: 03/22/17 01:41> Ordered Tests: Active Orders 24 hr Category Date Time Status Clean Catch Urine Specimen STAT Care 03/21/17 23:13 Active EKG-ER Only STAT Care 03/21/17 23:23 Active IV Insertion STAT Care 03/21/17 23:10 Active CHEST 2 VIEWS (PA AND LAT) Stat Exams 03/21/17 23:24 Taken BLOOD CULTURE Stat Lab 03/21/17 23:40 Received BMP Stat Lab 03/21/17 23:05 Completed CBC W DIFF Stat Lab 03/21/17 23:05 Completed CULTURE, THROAT Stat Lab 03/21/17 23:40 Received D-DIMER QUANTITATION Stat Lab 03/21/17 23:05 Completed HCG QUALITATIVE,SERUM Stat Lab 03/21/17 23:30 Completed Lactic Acid Stat Lab 03/21/17 23:40 Completed PROTIME WITH INR Stat Lab 03/21/17 23:05 Completed STREP SCREEN-BETA A Stat Lab 03/21/17 23:40 Completed TROPONIN Q3H Lab 03/21/17 23:30 Completed TROPONIN Q3H Lab 03/22/17 02:30 Ordered TROPONIN Q3H Lab 03/22/17 05:30 Ordered TROPONIN Q3H Lab 03/22/17 08:30 Ordered TROPONIN Q3H Lab 03/22/17 11:30 Ordered UA W/RFX UR CULTURE Stat Lab 03/21/17 23:13 Ordered Respiratory Nebulizer STAT RT 03/21/17 23:15 Completed Medication Summary Generic Name Dose Route Start Last Admin Trade Name Freq PRN Reason Stop Dose Admin Sodium Chloride 1,000 mls @ 999 mls/hr 03/21/17 23:30 03/22/17 01:38 Sodium Chloride 0.9% 1000 Ml IV 03/22/17 02:30 999 mls/hr .Q1H1M LI Administration Discontinued Medications Generic Name Dose Route Start Last Admin Trade Name Siddharthq PRN Reason Stop Dose Admin Albuterol/Ipratropium 3 ml 03/21/17 23:13 03/21/17 23:25 Duoneb 0.5-3 Mg/3 Ml Neb IH 03/21/17 23:14 3 ml STAT ONE Administration Albuterol/Ipratropium Confirm 03/21/17 23:22 Duoneb 0.5-3 Mg/3 Ml Neb Administered 03/21/17 23:23 Dose 3 ml IH .STK-MED ONE Ceftriaxone Sodium/Dextrose 1 g in 50 mls @ 100 mls/hr 03/21/17 23:13 23:25 Rocephin 1 Gm-D5w 50 Ml Bag IV 03/21/17 23:42 100 mls/hr STAT STA Administration Sodium Chloride 1,000 mls @ 999 mls/hr 03/21/17 23:13 03/21/17 23:25 Sodium Chloride 0.9% 1000 Ml IV 03/22/17 00:13 999 mls/hr .Q1H1M STA Administration Azithromycin 500 mg in 250 mls @ 250 mls/hr 03/21/17 23:13 03/21/17 23:25 Zithromax 500 Mg/ 250 Ml Nacl Premix IV 03/22/17 00:12 250 mls/hr STAT STA Administration Sodium Chloride 1,000 mls @ 999 mls/hr 03/21/17 23:16 03/22/17 00:17 Sodium Chloride 0.9% 1000 Ml IV 03/22/17 00:16 999 mls/hr .Q1H1M STA Administration Azithromycin Confirm 03/21/17 23:18 Zithromax 500 Mg/ 250 Ml Nacl Premix Administered 03/21/17 23:19 Dose 500 mg in 250 mls @ ud IV .STK-MED ONE Sodium Chloride Confirm 03/21/17 23:18 Sodium Chloride 0.9% 1000 Ml Administered 03/21/17 23:19 Dose 1,000 mls @ ud .ROUTE .STK-MED ONE Ceftriaxone Sodium/Dextrose Confirm 03/21/17 23:20 Rocephin 1 Gm-D5w 50 Ml Bag Administered 03/21/17 23:21 Dose 1 g in 50 mls @ ud IV .STK-MED ONE Promethazine HCl 18.75 mg 03/22/17 00:27 03/22/17 00:46 Phenergan 6.25 Mg/5 Ml Syrup PO 03/22/17 00:28 18.75 mg STAT ONE Administration Lab/Rad Data: Laboratory Result Diagrams 03/21/17 23:05 03/21/17 23:05 Laboratory Results 03/21/17 03/21/17 03/21/17 Range/Units 23:40 23:40 23:40 WBC (4.0-10.5) K/mm3 RBC (4.1-5.4) M/mm3 Hgb (12.0-16.0) gm/dl Hct (35-47) % MCV (78-100) fl MCH (26-32) pg MCHC (32-36) g/dl RDW (11.5-14.0) % Plt Count (150-450) K/mm3 MPV (6-9.5) fl Gran % (36.0-66.0) % Lymphocytes % (24.0-44.0) % Monocytes % (0.0-12.0) % Eosinophils % (0.00-5.0) % Basophils % (0.0-0.4) % Basophils # (0-0.4) INR (0.8-3.0) D-Dimer (0-500) ng/mL Sodium (136-145) mEq/L Potassium (3.5-5.1) mEq/L Chloride (98-107) mEq/L Carbon Dioxide (21-32) mEq/L Anion Gap (5-15) MEQ/L BUN (9-20) mg/dL Creatinine (0.55-1.30) mg/dl Estimated GFR ML/MIN Glucose (70-110) MG/DL Lactic Acid 1.1 (0.4-2.0) Calcium (8.5-10.1) mg/dL Troponin I (0.000-0.056) ng/ml Serum , Qual (Negative) Influenza Type A Ag NEGATIVE (NEGATIVE) Influenza Type B Ag NEGATIVE (NEGATIVE) RSV (PCR) NEGATIVE (Negative) Streptococcus Screen NEGATIVE (Negative) 03/21/17 03/21/17 03/21/17 Range/Units 23:30 23:30 23:05 WBC (4.0-10.5) K/mm3 RBC (4.1-5.4) M/mm3 Hgb (12.0-16.0) gm/dl Hct (35-47) % MCV (78-100) fl MCH (26-32) pg MCHC (32-36) g/dl RDW (11.5-14.0) % Plt Count (150-450) K/mm3 MPV (6-9.5) fl Gran % (36.0-66.0) % Lymphocytes % (24.0-44.0) % Monocytes % (0.0-12.0) % Eosinophils % (0.00-5.0) % Basophils % (0.0-0.4) % Basophils # (0-0.4) INR 1.19 (0.8-3.0) D-Dimer < 146.58 (0-500) ng/mL Sodium (136-145) mEq/L Potassium (3.5-5.1) mEq/L Chloride (98-107) mEq/L Carbon Dioxide (21-32) mEq/L Anion Gap (5-15) MEQ/L BUN (9-20) mg/dL Creatinine (0.55-1.30) mg/dl Estimated GFR ML/MIN Glucose (70-110) MG/DL Lactic Acid (0.4-2.0) Calcium (8.5-10.1) mg/dL Troponin I < 0.017 (0.000-0.056) ng/ml Serum , Qual NEGATIVE (Negative) Influenza Type A Ag (NEGATIVE) Influenza Type B Ag (NEGATIVE) RSV (PCR) (Negative) Streptococcus Screen (Negative) 03/21/17 03/21/17 Range/Units 23:05 23:05 WBC 9.0 (4.0-10.5) K/mm3 RBC 4.38 (4.1-5.4) M/mm3 Hgb 12.3 (12.0-16.0) gm/dl Hct 38.7 (35-47) % MCV 88.4 (78-100) fl MCH 28.1 (26-32) pg MCHC 31.8 L (32-36) g/dl RDW 14.2 H (11.5-14.0) % Plt Count 298 (150-450) K/mm3 MPV 10.8 H (6-9.5) fl Gran % 56.9 (36.0-66.0) % Lymphocytes % 28.0 (24.0-44.0) % Monocytes % 10.5 (0.0-12.0) % Eosinophils % 4.2 (0.00-5.0) % Basophils % 0.4 (0.0-0.4) % Basophils # 0.04 (0-0.4) INR (0.8-3.0) D-Dimer (0-500) ng/mL Sodium 138 (136-145) mEq/L Potassium 3.4 L (3.5-5.1) mEq/L Chloride 105 (98-107) mEq/L Carbon Dioxide 23.9 (21-32) mEq/L Anion Gap 12.9 (5-15) MEQ/L BUN 14 (9-20) mg/dL Creatinine 0.82 (0.55-1.30) mg/dl Estimated GFR > 60 ML/MIN Glucose 90 (70-110) MG/DL Lactic Acid (0.4-2.0) Calcium 8.6 (8.5-10.1) mg/dL Troponin I (0.000-0.056) ng/ml Serum , Qual (Negative) Influenza Type A Ag (NEGATIVE) Influenza Type B Ag (NEGATIVE) RSV (PCR) (Negative) Streptococcus Screen (Negative) <NASIM MERRITT - Last Filed: 03/21/17 23:38> - Progress Progress: improved, re-examined Air Movement: good Blood Culture(s) Obtained: Yes Antibiotics given: Yes Discussed with : Armando Will see patient in: hospital (observation) Counseled pt/family regarding: lab results, diagnosis, need for follow-up, rad results, smoking cessation <CHRISTAL RAND - Last Filed: 03/22/17 01:41> - Progress Progress Note: 03/21/17 23:41 BLOOD CULTURES X 2 PLACED ON SESPIS PROTOCOL AT 2330, IV FLUIDS 99KG/30MG-3 LITER BOLUS OVER 2 HOURS, ROCEPHIN 1GM, ZITHROMAX 500GM IVPB. DUONEB AEROSOL TX. PATIENT CARE ENDORSED TO DR RAND AT 2330 (NASIM MERRITT) 03/22/17 00:55 BP improved to 105 and HR decreased to 90s after fluid bolus. 03/22/17 01:40 discussed with pt and Dr. Roberts and all agree best to place in hosp on observation and replenish fluids and continue antibiotics. (CHRISTAL RAND) <NASIM MERRITT - Last Filed: 03/21/17 23:38> - Departure Time of Disposition: 01:39 Departure Disposition: Observation Critical Care Time: No <CHRISTAL RAND - Last Filed: 03/22/17 01:41> - Departure Clinical Impression: RML pneumonia, LLL pneumonia Condition: Good Referrals: MELLY ROBERTS MD [Primary Care Provider] -
[2017-03-21 23:27] LABS: BASOPHIL % 0.4 % (0.0-0.4); Eosinophil % 4.2 % (0.00-5.0); Granulocytes % 56.9 % (36.0-66.0); Mean Cell Volume 88.4 fl (78-100); Mean Corpuscular Hemoglobin 28.1 pg (26-32); Mean Platelet Volume 10.8 fl (6-9.5); Monocytes % 10.5 % (0.0-12.0); Platelet Count 298 K/mm3 (150-450); Red Blood Count 4.38 M/mm3 (4.1-5.4); Red Cell Distribution Width 14.2 % (11.5-14.0)
[2017-03-21] MEDS ORDERED: Sodium Chloride 0.9% 1000 ML 1,000 ML IV SCH (23:30)
[2017-03-21 23:47] LABS: INR 1.19 (0.8-3.0); PROTIME 13.3 SECONDS (9.95-12.35)
[2017-03-22 00:14] LABS: ANION GAP 12.9 MEQ/L (5-15); BLOOD UREA NITROGEN 14 mg/dL (9-20); CHLORIDE 105 mEq/L (98-107); Carbon Dioxide 23.9 mEq/L (21-32); Glucose 90 MG/DL (70-110); Potassium 3.4 mEq/L (3.5-5.1); SODIUM 138 mEq/L (136-145)
[2017-03-22] MEDS ORDERED: Sodium Chloride 0.9% 1000 ML 2,000 ML ONE (00:15)
[2017-03-22] MEDS ORDERED: HYDROCODONE-ACETAMIN 2.5-108/5 ML SOLUTION PO STA (00:24)
[2017-03-22] MEDS ORDERED: PHENERGAN 6.25 MG/5 ML PO ONE (00:27)
[2017-03-22] MEDS ORDERED: HYDROCODONE-ACETAMIN 2.5-108/5 ML SOLUTION ONE (00:32)
[2017-03-22] MEDS ORDERED: Phenergan 25 MG INJ IM PRN (02:43)
[2017-03-22] MEDS ORDERED: POTASSIUM CHLORIDE 20 mEq IN WATER 100ML 20 MEQ/100 ML BAG IV ONE (02:43)
[2017-03-22] MEDS ORDERED: PHENERGAN 6.25 MG/5 ML PO PRN (02:43)
[2017-03-22 05:38] LABS: BASOPHIL % 0.5 % (0.0-0.4); Eosinophil % 5.5 % (0.00-5.0); Granulocytes % 45.2 % (36.0-66.0); Lymphocytes % 39.4 % (24.0-44.0); Mean Cell Volume 91.1 fl (78-100); Mean Platelet Volume 11.2 fl (6-9.5); Monocytes % 9.4 % (0.0-12.0); Platelet Count 247 K/mm3 (150-450); Red Blood Count 3.71 M/mm3 (4.1-5.4); Red Cell Distribution Width 14.3 % (11.5-14.0); White Blood Count 7.4 K/mm3 (4.0-10.5)
[2017-03-22 06:04] LABS: ALBUMIN 3.1 g/dL (3.4-5.0); ALKALINE PHOSPHATASE 62 U/L (46-116); ANION GAP 9.7 MEQ/L (5-15); BLOOD UREA NITROGEN 10 mg/dL (9-20); CHLORIDE 109 mEq/L (98-107); Carbon Dioxide 25.7 mEq/L (21-32); Glucose 91 MG/DL (70-110); Potassium 3.8 mEq/L (3.5-5.1); SGOT/AST 10 U/L (15-37); SGPT/ALT 26 U/L (12-78); SODIUM 141 mEq/L (136-145); Total Protein 6.1 gm/dL (6.4-8.2)
[2017-03-22] MEDS: Sodium Chloride 0.9% 1000 ML 1,000 ML IV SCH ×4 (07:32→20:09)
--- NOTE | 2017-03-22 08:07 | PCM.HP ---
History of Present Illness - Chief Complaint Chief Complaint: RML and LLL pneumonia History of Present Illness: is a 31 year old female who arrived to the ER last night with a 3 day history of productive cough, fever and feeling poorly. she was tachycardic on arrival, was admitted for pneumonia and hydration. still feels poorly today. - Review of Systems Constitutional: Fever, Chills Respiratory: Cough, Short Of Breath Cardiac: No Chest Pain, No Edema, No Syncope Abdominal/Gastrointestinal: No Abdominal Pain, No Nausea, No Vomiting, No Diarrhea Skin: No Rash All Other Systems: Reviewed and Negative Medications & Allergies Home Medications: Home Medication List Metformin HCl 850 mg [Glucophage 850 MG] 850 mg PO BID 06/29/16 [History Confirmed 03/21/17] Pnv,Calcium 72/Iron/Folic Acid [ Plus Tablet] 1 each PO DAILY 06/29/16 [ History Confirmed 03/21/17] Ranitidine HCl [Zantac] 150 mg PO DAILY 06/29/16 [History Confirmed 03/21/17] Clomiphene Citrate [Serophene] 50 mg PO DIRECTIONS UNKNOWN 03/21/17 [History Confirmed 03/22/17] Sertraline HCl 50 mg PO DAILY 03/21/17 [History Confirmed 03/21/17] Allergies/Adverse Reactions: Allergies Allergy/AdvReac Type Severity Reaction Status Date / Time Penicillins Allergy Verified 03/21/17 22:55 strawberry Allergy Verified 03/21/17 22:55 - Past Medical History Past Medical History: Yes ENT History: No Pertinent History Cardiac History: No Pertinent History Respiratory History: No Pertinent History Endocrine Medical History: Other Reproductive Disorders: Other Comment: pcos, Insulin resistant - Female History Hx Last Menstrual Period: 2.5 weeks ago Are you now?: No - Past Surgical History Past Surgical History: Yes GI Surgical History: Cholecystectomy - Social History Smoking Status: Current every day smoker How long have you smoked: 10+yrs Exposure to second hand smoke: No Alcohol: Rarely Drug Use: none - Physical Exam Vital Signs: Vital Signs - 24 hr Temp Pulse Resp BP Pulse Ox 03/22/17 06:48 98 F 82 20 112/66 98 03/22/17 04:27 75 24 97 03/22/17 02:59 98.5 F 75 24 113/58 97 03/22/17 01:13 100 H 16 105/62 98 03/21/17 23:47 121 H 16 98/69 97 03/21/17 23:42 98 03/21/17 23:27 88 16 98 03/21/17 22:56 98.3 F 99 H 16 87/43 98 General Appearance: no apparent distress, alert Respiratory Exam: rhonchi Cardiovascular Exam: regular rate/rhythm, normal heart sounds, normal peripheral pulses Gastrointestinal/Abdomen Exam: soft, normal bowel sounds, No tenderness, No mass Extremity Exam: normal inspection, normal range of motion, pelvis stable Skin Exam: normal color, warm, dry, No rash Results - Labs Lab/Micro Results: Lab Results-Last 24 Hours 03/22/17 03/22/17 03/22/17 Range/Units 05:04 05:04 05:04 WBC 7.4 (4.0-10.5) K/mm3 RBC 3.71 L (4.1-5.4) M/mm3 Hgb 10.4 L (12.0-16.0) gm/dl Hct 33.8 L (35-47) % MCV 91.1 (78-100) fl MCH 28.0 (26-32) pg MCHC 30.8 L (32-36) g/dl RDW 14.3 H (11.5-14.0) % Plt Count 247 (150-450) K/mm3 MPV 11.2 H (6-9.5) fl Gran % 45.2 (36.0-66.0) % Lymphocytes % 39.4 (24.0-44.0) % Monocytes % 9.4 (0.0-12.0) % Eosinophils % 5.5 H (0.00-5.0) % Basophils % 0.5 (0.0-0.4) % Basophils # 0.04 (0-0.4) Sodium 141 (136-145) mEq/L Potassium 3.8 (3.5-5.1) mEq/L Chloride 109 H (98-107) mEq/L Carbon Dioxide 25.7 (21-32) mEq/L Anion Gap 9.7 (5-15) MEQ/L BUN 10 (9-20) mg/dL Creatinine 0.73 (0.55-1.30) mg/dl Estimated GFR > 60 ML/MIN Glucose 91 (70-110) MG/DL Calcium 7.6 L (8.5-10.1) mg/dL Total Bilirubin 0.10 L (0.2-1.0) mg/dL AST 10 L (15-37) U/L ALT 26 (12-78) U/L Alkaline Phosphatase 62 (46-116) U/L Troponin I < 0.017 (0.000-0.056) ng/ml Serum Total Protein 6.1 L (6.4-8.2) gm/dL Albumin 3.1 L (3.4-5.0) g/dL - Other Procedures and Tests Respiratory Therapy 03/22/17 07:00 neb [Respiratory Nebulizer] PRN Assessment/Plan (1) Pneumonia Current Visit: Yes Status: Acute Assessment & Plan: continue rocephin/zithromax and IV fluids. tachycardia has resolved now. Code(s): J18.9 - PNEUMONIA, UNSPECIFIED ORGANISM
[2017-03-22] MEDS: HYDROCODONE-ACETAMIN 2.5-108/5 ML SOLUTION PO PRN ×2 (08:23→12:51)
--- NOTE | 2017-03-22 08:25 | XRAY ---
Indication: Fever and cough. Comparison: June 29, 2016. PA/lateral chest clear. Heart and mediastinal structures within normal limits. Bony thorax intact. Impression: Nonacute chest.
[2017-03-22] MEDS ORDERED: Pepcid 20 MG VIAL IV SCH (10:00)
[2017-03-22] MEDS ORDERED: FLUCELVAX QUAD 2017-2018 SYR IM ONE (10:00)
[2017-03-22] MEDS ORDERED: NON-FORMULARY ITEM (Ranitidine Hcl [Zantac] 150 MG) PO SCH (10:00)
[2017-03-22] MEDS: ZOLOFT 50 MG TABLET PO SCH (10:05)
[2017-03-22] MEDS: Pepcid 20 MG PO SCH (10:05)
[2017-03-22] MEDS: NICODERM CQ 14 MG TOP SCH (10:05)
[2017-03-22] MEDS: MORPHINE SULFATE 4 MG INJ IV PRN ×2 (10:07→20:55)
[2017-03-22] MEDS: ROCEPHIN 1 Gm-D5w 50 ml Bag** 1 G/50 ML IVPB IV SCH (20:56)
[2017-03-22] MEDS: Zithromax 500 MG/ 250 ML NaCl Premix 500 MG/250 ML IVPB IV SCH (21:45)
[2017-03-22 22:41] LABS: ADD URINE CULTURE? NO (NO); Bilirubin NEGATIVE (NEGATIVE); Blood NEGATIVE Ery/ul (0-5); COMPLETE URINE MICROSCOPIC? NO; Collection Type CLEAN CATCH; Glucose NEGATIVE (NEGATIVE); Leukocyte Esterase NEGATIVE (NEGATIVE)
[2017-03-23] MEDS: MORPHINE SULFATE 4 MG INJ IV PRN ×3 (04:36→21:43)
[2017-03-23 06:07] LABS: BASOPHIL % 0.9 % (0.0-0.4); Granulocytes % 45.7 % (36.0-66.0); Lymphocytes % 36.7 % (24.0-44.0); Mean Cell Volume 91.8 fl (78-100); Mean Platelet Volume 10.9 fl (6-9.5); Monocytes % 8.7 % (0.0-12.0); Platelet Count 224 K/mm3 (150-450); Red Blood Count 3.78 M/mm3 (4.1-5.4); Red Cell Distribution Width 14.8 % (11.5-14.0); White Blood Count 5.6 K/mm3 (4.0-10.5)
[2017-03-23 06:28] LABS: ALKALINE PHOSPHATASE 64 U/L (46-116); ANION GAP 11.6 MEQ/L (5-15); BLOOD UREA NITROGEN 8 mg/dL (9-20); CHLORIDE 108 mEq/L (98-107); Glucose 96 MG/DL (70-110); Potassium 3.8 mEq/L (3.5-5.1); SGOT/AST 13 U/L (15-37); SGPT/ALT 21 U/L (12-78); SODIUM 142 mEq/L (136-145); Total Protein 6.1 gm/dL (6.4-8.2)
[2017-03-23 06:46] LABS: Mean Corpuscular Hemoglobin 27.7 pg (26-32)
--- NOTE | 2017-03-23 07:46 | PCM.NOTE ---
Date and Time: 03/23/17 0744 Subjective Assessment: patient continues to feel poorly, blood cultures with gram positive cocci. ID and sens pending. Objective Exam General Appearance: no apparent distress, alert Skin Exam: normal color, warm, dry Respiratory Exam: normal breath sounds, lungs clear, No respiratory distress Cardiovascular Exam: regular rate/rhythm, normal heart sounds Gastrointestinal/Abdomen Exam: soft, No tenderness, No mass Extremity Exam: normal inspection, normal range of motion OBJECTIVE DATA Vital Signs: Vital Signs - 24 hr Temp Pulse Resp BP Pulse Ox 03/23/17 07:16 98.4 F 81 20 132/74 96 03/23/17 04:33 98.1 F 80 22 120/73 96 03/23/17 04:00 22 03/23/17 00:00 20 03/22/17 23:31 98.9 F 84 20 139/63 97 03/22/17 20:15 93 H 17 97 03/22/17 20:00 18 03/22/17 19:39 98.3 F 88 24 118/57 96 03/22/17 16:06 97.8 F 84 22 108/60 93 L 03/22/17 12:00 20 03/22/17 11:21 98.4 F 76 20 96/51 95 03/22/17 08:00 20 Pain Assessment - Last Documented Pain Intensity 8 Pain Scale Used 0-10 Pain Scale Intake and Output: Intake & Output 03/20/17 03/21/17 03/22/17 03/23/17 11:59 11:59 11:59 11:59 Intake Total 574 4711 Output Total 200 3500 Balance 374 1211 Weight 110.586 kg 110.705 kg Lab Results: Lab Results-Last 24 Hours 03/22/17 03/22/17 03/22/17 Range/Units 07:30 07:35 11:41 WBC (4.0-10.5) K/mm3 RBC (4.1-5.4) M/mm3 Hgb (12.0-16.0) gm/dl Hct (35-47) % MCV (78-100) fl MCH (26-32) pg MCHC (32-36) g/dl RDW (11.5-14.0) % Plt Count (150-450) K/mm3 MPV (6-9.5) fl Gran % (36.0-66.0) % Lymphocytes % (24.0-44.0) % Monocytes % (0.0-12.0) % Eosinophils % (0.00-5.0) % Basophils % (0.0-0.4) % Basophils # (0-0.4) Sodium (136-145) mEq/L Potassium 3.8 (3.5-5.1) mEq/L Chloride (98-107) mEq/L Carbon Dioxide (21-32) mEq/L Anion Gap (5-15) MEQ/L BUN (9-20) mg/dL Creatinine (0.55-1.30) mg/dl Estimated GFR ML/MIN Glucose (70-110) MG/DL Calcium (8.5-10.1) mg/dL Total Bilirubin (0.2-1.0) mg/dL AST (15-37) U/L ALT (12-78) U/L Alkaline Phosphatase (46-116) U/L Troponin I < 0.017 < 0.017 (0.000-0.056) ng/ml Serum Total Protein (6.4-8.2) gm/dL Albumin (3.4-5.0) g/dL 03/23/17 03/23/17 Range/Units 05:45 05:45 WBC 5.6 (4.0-10.5) K/mm3 RBC 3.78 L (4.1-5.4) M/mm3 Hgb 10.5 L (12.0-16.0) gm/dl Hct 34.7 L (35-47) % MCV 91.8 (78-100) fl MCH 27.7 (26-32) pg MCHC 30.3 L (32-36) g/dl RDW 14.8 H (11.5-14.0) % Plt Count 224 (150-450) K/mm3 MPV 10.9 H (6-9.5) fl Gran % 45.7 (36.0-66.0) % Lymphocytes % 36.7 (24.0-44.0) % Monocytes % 8.7 (0.0-12.0) % Eosinophils % 8.0 H (0.00-5.0) % Basophils % 0.9 (0.0-0.4) % Basophils # 0.05 (0-0.4) Sodium 142 (136-145) mEq/L Potassium 3.8 (3.5-5.1) mEq/L Chloride 108 H (98-107) mEq/L Carbon Dioxide 26.0 (21-32) mEq/L Anion Gap 11.6 (5-15) MEQ/L BUN 8 L (9-20) mg/dL Creatinine 0.83 (0.55-1.30) mg/dl Estimated GFR > 60 ML/MIN Glucose 96 (70-110) MG/DL Calcium 7.9 L (8.5-10.1) mg/dL Total Bilirubin 0.20 (0.2-1.0) mg/dL AST 13 L (15-37) U/L ALT 21 (12-78) U/L Alkaline Phosphatase 64 (46-116) U/L Troponin I (0.000-0.056) ng/ml Serum Total Protein 6.1 L (6.4-8.2) gm/dL Albumin 3.0 L (3.4-5.0) g/dL Assessment/Plan (1) Bacteremia Current Visit: Yes Status: Acute Assessment & Plan: ID and sens pending, currently afebrile and white count is normal. continue rocephin and flagyl while we await blood culture results. Code(s): R78.81 - BACTEREMIA (2) Pneumonia Current Visit: Yes Status: Acute Code(s): J18.9 - PNEUMONIA, UNSPECIFIED ORGANISM
[2017-03-23] MEDS: Sodium Chloride 0.9% 1000 ML 1,000 ML IV SCH ×3 (08:06→22:39)
[2017-03-23] MEDS: HYDROCODONE-ACETAMIN 2.5-108/5 ML SOLUTION PO PRN ×2 (11:16→18:24)
[2017-03-23] MEDS: NICODERM CQ 14 MG TOP SCH (11:17)
[2017-03-23] MEDS: ZOLOFT 50 MG TABLET PO SCH (11:18)
[2017-03-23] MEDS: Pepcid 20 MG PO SCH (11:18)
[2017-03-23] MEDS: DUONEB 0.5-3 MG/3 ml Neb IH PRN (16:18)
[2017-03-23] MEDS: ROCEPHIN 1 Gm-D5w 50 ml Bag** 1 G/50 ML IVPB IV SCH (21:43)
[2017-03-23] MEDS: Zithromax 500 MG/ 250 ML NaCl Premix 500 MG/250 ML IVPB IV SCH (22:41)
[2017-03-24] MEDS: MORPHINE SULFATE 4 MG INJ IV PRN ×3 (03:47→20:52)
[2017-03-24 05:36] LABS: BASOPHIL % 0.5 % (0.0-0.4); Eosinophil % 5.5 % (0.00-5.0); Granulocytes % 51.3 % (36.0-66.0); Lymphocytes % 35.8 % (24.0-44.0); Mean Cell Volume 91.7 fl (78-100); Mean Platelet Volume 10.8 fl (6-9.5); Monocytes % 6.9 % (0.0-12.0); Platelet Count 255 K/mm3 (150-450); Red Blood Count 3.72 M/mm3 (4.1-5.4); Red Cell Distribution Width 14.5 % (11.5-14.0); White Blood Count 7.7 K/mm3 (4.0-10.5)
[2017-03-24 05:39] LABS: Mean Corpuscular Hemoglobin 27.6 pg (26-32)
[2017-03-24 06:01] LABS: ANION GAP 10.9 MEQ/L (5-15); BLOOD UREA NITROGEN 9 mg/dL (9-20); CHLORIDE 107 mEq/L (98-107); Carbon Dioxide 25.8 mEq/L (21-32); Glucose 85 MG/DL (70-110); SODIUM 140 mEq/L (136-145)
[2017-03-24] MEDS ORDERED: Compazine 5 MG PO PRN (08:14)
[2017-03-24] MEDS ORDERED: Cyclobenzaprine 10 MG PO PRN (08:17)
--- NOTE | 2017-03-24 08:18 | PCM.NOTE ---
Date and Time: 03/24/17811 Subjective Assessment: Pt c/o PAINTING since last night, having back pain secondary to coughing that is radiating up to the head. Throbbing pain. Had morphine at 0330 then woke up at 6:30 with PAINTING. Still having cough. Jonah supper last night. Hasn't eaten breakfast yet this morning. - Review of Systems Constitutional: No Fever Respiratory: Cough Objective Exam General Appearance: mild distress (has cold rag on forehead), alert Neurologic Exam: oriented x 3, cooperative Skin Exam: normal color, warm, dry Respiratory Exam: normal breath sounds, wheezing (exp, throughout), No crackles/ rales, No rhonchi Cardiovascular Exam: regular rate/rhythm, normal heart sounds, No murmur Back Exam: normal inspection, No rash OBJECTIVE DATA Vital Signs: Vital Signs - 24 hr Temp Pulse Resp BP Pulse Ox 03/24/17 06:50 97.5 F 82 18 116/62 98 03/24/17 04:00 98.8 F 84 15 115/57 97 03/23/17 23:58 98.7 F 69 18 113/55 95 03/23/17 20:00 98.4 F 84 20 127/59 96 03/23/17 16:20 75 16 96 03/23/17 16:00 98.6 F 82 14 126/64 97 03/23/17 12:28 98.1 F 94 H 20 115/64 96 03/23/17 12:00 20 Pain Assessment - Last Documented Pain Intensity 9 Pain Scale Used 0-10 Pain Scale Intake and Output: Intake & Output 03/21/17 03/22/17 03/23/17 03/24/17 11:59 11:59 11:59 11:59 Intake Total 574 4711 2455 Output Total 200 3500 2300 Balance 374 1211 155 Weight 110.586 kg 110.705 kg 114.759 kg Lab Results: Lab Results-Last 24 Hours 03/24/17 03/24/17 Range/Units 05:29 05:29 WBC 7.7 (4.0-10.5) K/mm3 RBC 3.72 L (4.1-5.4) M/mm3 Hgb 10.3 L (12.0-16.0) gm/dl Hct 34.1 L (35-47) % MCV 91.7 (78-100) fl MCH 27.6 (26-32) pg MCHC 30.2 L (32-36) g/dl RDW 14.5 H (11.5-14.0) % Plt Count 255 (150-450) K/mm3 MPV 10.8 H (6-9.5) fl Gran % 51.3 (36.0-66.0) % Lymphocytes % 35.8 (24.0-44.0) % Monocytes % 6.9 (0.0-12.0) % Eosinophils % 5.5 H (0.00-5.0) % Basophils % 0.5 (0.0-0.4) % Basophils # 0.04 (0-0.4) Sodium 140 (136-145) mEq/L Potassium 4.0 (3.5-5.1) mEq/L Chloride 107 (98-107) mEq/L Carbon Dioxide 25.8 (21-32) mEq/L Anion Gap 10.9 (5-15) MEQ/L BUN 9 (9-20) mg/dL Creatinine 0.73 (0.55-1.30) mg/dl Estimated GFR > 60 ML/MIN Glucose 85 (70-110) MG/DL Calcium 8.2 L (8.5-10.1) mg/dL Assessment/Plan (1) Headache Current Visit: Yes Status: Acute Qualifiers: Headache type: tension-type Headache chronicity pattern: acute headache Intractability: intractable Qualified Code(s): G44.201 - Tension-type headache , unspecified, intractable Assessment & Plan: Try compazine +/- flexeril for PAINTING. Code(s): R51 - HEADACHE (2) Bacteremia Current Visit: Yes Status: Acute Assessment & Plan: Verbal report from lab is for coagulase negative staph, possible contaminant. Will stop the flagyl. Code(s): R78.81 - BACTEREMIA (3) Pneumonia Current Visit: Yes Status: Acute Qualifiers: Pneumonia type: due to unspecified organism Laterality: unspecified laterality Lung location: unspecified part of lung Qualified Code(s): J18.9 - Pneumonia, unspecified organism Assessment & Plan: Add steroid today for her wheezing. She is still not feeling well. Was afebrile overnight. Stay on IV rocephin. Code(s): J18.9 - PNEUMONIA, UNSPECIFIED ORGANISM
[2017-03-24] MEDS: Sodium Chloride 0.9% 1000 ML 1,000 ML IV SCH ×2 (09:12→19:50)
[2017-03-24] MEDS: NICODERM CQ 14 MG TOP SCH (09:55)
[2017-03-24] MEDS: solu-MEDROL 40 MG IV SCH ×3 (09:55→22:15)
[2017-03-24] MEDS: ZOLOFT 50 MG TABLET PO SCH (09:55)
[2017-03-24] MEDS: Pepcid 20 MG PO SCH (09:55)
[2017-03-24] MEDS: Norco 10/325 MG Tablet PO PRN (10:52)
[2017-03-24] MEDS: ROCEPHIN 1 Gm-D5w 50 ml Bag** 1 G/50 ML IVPB IV SCH (20:52)
[2017-03-24] MEDS: DUONEB 0.5-3 MG/3 ml Neb IH PRN (21:40)
[2017-03-24] MEDS: Zithromax 500 MG/ 250 ML NaCl Premix 500 MG/250 ML IVPB IV SCH (22:15)
[2017-03-25] MEDS: MORPHINE SULFATE 4 MG INJ IV PRN ×2 (01:54→06:33)
[2017-03-25] MEDS: Sodium Chloride 0.9% 1000 ML 1,000 ML IV SCH (03:26)
[2017-03-25 07:52] VITALS: BP 104/50; PULSE 66; O2SAT 99
[2017-03-25] MEDS: solu-MEDROL 40 MG IV SCH (09:16)
[2017-03-25] MEDS: ZOLOFT 50 MG TABLET PO SCH (09:16)
[2017-03-25] MEDS: NICODERM CQ 14 MG TOP SCH (09:16)
[2017-03-25] MEDS: Pepcid 20 MG PO SCH (09:16)
--- NOTE | 2017-03-25 09:37 | PCM.DS ---
Discharge Summary Date of Admission: 03/22/17 02:32 Admitting Physician: MELLY PADRON Primary Care Provider: MELLY PADRON Allergies Allergies Penicillins Allergy (Verified 03/21/17 22:55) strawberry Allergy (Verified 03/21/17 22:55) Hospital Summary - Hospital Course Hospital Course: patient was admitted with pneumonia, c/o back pain and chest pain. has been afebrile, sats are good on room air. blood cultures show coag neg staph. overall eating and drinking normally, still states she feels poorly but all clinical parameters are reassuring objectively. - Vitals & Intake/Output Vital Signs: Vital Signs Temperature 98.4 F 03/25/17 07:50 Pulse Rate 66 03/25/17 07:50 Respiratory Rate 16 03/25/17 07:50 Blood Pressure 104/50 03/25/17 07:50 O2 Sat by Pulse Oximetry 99 03/25/17 07:50 Intake & Output: Intake & Output 03/22/17 03/23/17 03/24/17 03/25/17 11:59 11:59 11:59 11:59 Intake Total 574 4711 2455 2852 Output Total 200 3500 2300 2150 Balance 374 1211 155 702 Weight 110.586 kg 110.705 kg 114.759 kg 113.761 kg - Lab Result Diagrams: 03/24/17 05:29 03/24/17 05:29 - Procedures and Test Procedures and Tests throughout Hospitalization: Therapy Orders & Screens 03/22/17 03:22 RT Screen per Nursing Assess ONCE Comment: Protocol Order Physician Instructions: Greater than 3 points order RT Admission Screen Reason For Exam: Triggered on Admission Diagnosis: RML and LLL pneumonia Diagnosis: RML and LLL pneumonia Pneumonia: Yes Home O2: No Asthma: No CHF: No Home CPAP/BIPAP: No Home Nebs/MDI: Yes Total Points: 8 Smoking Cessation Education ONCE Comment: Diagnosis: RML and LLL pneumonia Smoking Status: Current every day smoker How long have you smoked: 10+yrs Have you smoked in the past 12 months: Yes Approximately how many cigarettes per day: 5 Do you dip or chew tobacco: No 03/22/17 07:00 neb [Respiratory Nebulizer] PRN Comment: Q4HPRN Diagnosis: RML and LLL pneumonia Discharge Exam General Appearance: obese Neurologic Exam: alert, oriented x 3 Skin Exam: normal color, warm, dry Respiratory Exam: normal breath sounds, lungs clear, No respiratory distress Cardiovascular Exam: regular rate/rhythm, normal heart sounds Gastrointestinal/Abdomen Exam: soft, No tenderness, No mass Extremity Exam: normal inspection, normal range of motion Final Diagnosis/Problem List - Final Discharge Diagnosis/Problem (1) Bacteremia Current Visit: Yes Status: Acute Assessment & Plan: coag neg staph, bacteremia ruled out at time of discharge. (2) Pneumonia Current Visit: Yes Status: Acute - Discharge Disposition: Home, Self-Care Condition: Good Prescriptions: New Albuterol Sulfate [Albuterol Sulfate Hfa] 2 puffs IH Q4-6HPRN PRN #1 [id number] PRN Reason: Cough Levofloxacin [Levaquin] 500 mg PO DAILY #7 tablet Hydrocodone/APAP 10/325 mg [[place] 10/325 MG Tablet] 1 tab PO QID PRN PRN #10 tablet MDD 4 PRN Reason: Pain Continue Metformin HCl 850 mg [Glucophage 850 MG] 850 mg PO BID Ranitidine HCl [Zantac] 150 mg PO DAILY Pnv,Calcium 72/Iron/Folic Acid [ Plus Tablet] 1 each PO DAILY Sertraline HCl 50 mg PO DAILY Clomiphene Citrate [Serophene] 50 mg PO DIRECTIONS UNKNOWN Follow up with: MELLY PADRON MD [Primary Care Provider] -
[2017-03-25] MEDS: Norco 10/325 MG Tablet PO PRN (09:44)
== END 2017-03-25 10:40 | disposition home or self-care (01) ==
LOC: ED 22:49 → MED SURG 03-22 02:32
PROVIDERS: ADMIT Family Medicine; ATTEND Family Medicine
DX: J18.9 Pneumonia, unspecified organism (principal); R51 Headache; Z72.0 Tobacco use
CPT/HCPCS: 36000; 36415; 71020; 80048; 80053; 81002; 82962; 83036; 83605; 84132; 84484; 84703; 85025; 85379; 85610; 87040; 87070; 87430; 87631; 93005; 93268; 94640; 94760; 96360; 96361; 96365; 96367; 99285; G0008; G0378; J0456; J0696; J2270; J2920; J3480; 90682; A9270-GY

== ENCOUNTER 2017-08-22 23:49 | Emergency (ER) | payer SELFPAY ==
[2017-08-23] MEDS ORDERED: TORAdol 30 mg Injection IM ONE (00:09)
--- NOTE | 2017-08-23 00:13 | ERPHSYRPT ---
- History of Present Illness Time Seen by Provider: 08/23/17 00:10 Historian: patient Exam Limitations: no limitations Patient Subjective Stated Complaint: abdominal pain that she believes is related to her menstrual cycle Triage Nursing Assessment: Pt A&O x3, complains of abdominal pain that starts at the right ovary and radiates up to the right side, pain during palpation but more on release, hx of Polycystic ovary syndrome, pulses normal, vitals wnl, afebrile, appears to be uncomfortable but not in any distress Physician History: Patient is 32-year-old female with significant past medical history of polycystic ovarian syndrome has also recurrent ovarian cyst rupture problem started having a right lower quadrant pain to 3 days ago, which did got better yesterday but then came back again today. She also has had. Menstrual period Recently. Patient denies any fever, chills, nausea, vomiting, blood in the urine or stool. She denies any appetite change. She states that this is a same type of problem happens with her. Menstrual periods In the past. Quality: cramping Abdominal Pain Onset Location: RLQ Pain Radiation: no radiation Modifying Factors: Improves With: nothing Associated Symptoms: denies symptoms Allergies/Adverse Reactions: Penicillins Allergy (Verified 08/23/17 00:10) strawberry Allergy (Verified 03/21/17 22:55) Home Medications: Metformin HCl 850 mg [Glucophage 850 MG] 850 mg PO BID 06/29/16 [History] Pnv,Calcium 72/Iron/Folic Acid [ Plus Tablet] 1 each PO DAILY 06/29/16 [ History] Ranitidine HCl [Zantac] 150 mg PO DAILY 06/29/16 [History] Sertraline HCl 50 mg PO DAILY PRN 03/21/17 [History] Hx Tetanus, Diphtheria Vaccination/Date Given: Yes Hx Influenza Vaccination/Date Given: No Hx Pneumococcal Vaccination/Date Given: No - Review of Systems Constitutional: No Fever, No Chills Eyes: No Symptoms Ears, Nose, & Throat: No Symptoms Respiratory: No Cough, No Dyspnea Cardiac: No Chest Pain, No Edema, No Syncope Abdominal/Gastrointestinal: Abdominal Pain, No Nausea, No Vomiting, No Diarrhea Genitourinary Symptoms: No Dysuria Musculoskeletal: No Back Pain, No Neck Pain Skin: No Rash Neurological: No Dizziness, No Focal Weakness, No Sensory Changes Psychological: No Symptoms Endocrine: No Symptoms All Other Systems: Reviewed and Negative - Past Medical History Pertinent Past Medical History: Yes ENT History: No Pertinent History Cardiac History: No Pertinent History Respiratory History: No Pertinent History Endocrine Medical History: Other Female Reproductive Disorders: Other Other Medical History: pcos, Insulin resistant - Past Surgical History Past Surgical History: Yes Gastrointestinal: Cholecystectomy - Social History Smoking Status: Current every day smoker How long have you smoked: 10 Exposure to second hand smoke: Yes Drug Use: none Patient Lives Alone: No - Female History Hx Last Menstrual Period: 08/20/2017 Hx Now: (?) - Nursing Vital Signs Nursing Vital Signs: Initial Vital Signs Temperature 98.7 F 08/22/17 23:55 Pulse Rate 81 08/22/17 23:55 Blood Pressure 140/92 08/22/17 23:55 O2 Sat by Pulse Oximetry 98 08/22/17 23:55 Pain Scale Pain Intensity 8 - Physical Exam General Appearance: no apparent distress, alert Eye Exam: PERRL/EOMI, eyes nml inspection Ears, Nose, Throat Exam: normal ENT inspection, pharynx normal, moist mucous membranes Neck Exam: normal inspection, non-tender, supple, full range of motion Respiratory Exam: normal breath sounds, lungs clear, No respiratory distress Cardiovascular Exam: regular rate/rhythm, normal heart sounds Gastrointestinal/Abdomen Exam: soft, tenderness (right suprapubic area), No mass Back Exam: normal inspection, normal range of motion, No CVA tenderness, No vertebral tenderness Extremity Exam: normal inspection, normal range of motion, pelvis stable Neurologic Exam: alert, oriented x 3, cooperative, normal mood/affect, nml cerebellar function, sensation nml, No motor deficits Skin Exam: normal color, warm, dry SpO2: 98 Oxygen Delivery: Room Air - Course Nursing assessment & vital signs reviewed: Yes Ordered Tests: Active Orders 24 hr Category Date Time Status AMYLASE Stat Lab 08/23/17 01:00 Completed CBC W DIFF Stat Lab 08/23/17 01:00 Completed CMP Stat Lab 08/23/17 01:00 Completed HCG,QUALITATIVE URINE Stat Lab 08/23/17 00:30 Completed LIPASE Stat Lab 08/23/17 01:00 Completed Medication Summary Generic Name Dose Route Start Last Admin Trade Name Freq PRN Reason Stop Dose Admin Sodium Chloride 1,000 mls @ 999 mls/hr 08/23/17 01:33 08/23/17 01:38 Sodium Chloride 0.9% 1000 Ml IV 08/23/17 02:33 999 mls/hr .Q1H1M STA Administration Discontinued Medications Generic Name Dose Route Start Last Admin Trade Name Luis PRN Reason Stop Dose Admin Ketorolac Tromethamine 60 mg 08/23/17 00:09 08/23/17 00:17 Toradol 30 Mg Injection IM 08/23/17 00:10 60 mg STAT ONE Administration Ketorolac Tromethamine Confirm 08/23/17 00:15 Toradol 30 Mg Injection Administered 08/23/17 00:16 Dose 60 mg .ROUTE .STK-MED ONE Ketorolac Tromethamine Confirm 08/23/17 01:43 Toradol 30 Mg Injection Administered 08/23/17 01:44 Dose 30 mg .ROUTE .STK-MED ONE Lab/Rad Data: Laboratory Result Diagrams 08/23/17 01:00 08/23/17 01:00 Laboratory Results 08/23/17 08/23/17 08/23/17 Range/Units 01:00 01:00 00:30 WBC 9.4 (4.0-10.5) K/mm3 RBC 4.27 (4.1-5.4) M/mm3 Hgb 12.4 (12.0-16.0) gm/dl Hct 38.6 (35-47) % MCV 90.4 (78-100) fl MCH 29.0 (26-32) pg MCHC 32.1 (32-36) g/dl RDW 13.3 (11.5-14.0) % Plt Count 276 (150-450) K/mm3 MPV 10.8 H (6-9.5) fl Gran % 46.0 (36.0-66.0) % Eos # (Auto) 0.56 H (0-0.5) Absolute Lymphs (auto) 3.77 (1.0-4.6) Absolute Monos (auto) 0.70 (0.0-1.3) Lymphocytes % 40.1 (24.0-44.0) % Monocytes % 7.4 (0.0-12.0) % Eosinophils % 6.0 H (0.00-5.0) % Basophils % 0.5 (0.0-0.4) % Absolute Granulocytes 4.33 (1.4-6.9) Basophils # 0.05 (0-0.4) Sodium 141 (137-145) mmol/L Potassium 3.9 (3.5-5.1) mmol/L Chloride 106 (98-107) mmol/L Carbon Dioxide 23 (22-30) mmol/L Anion Gap 15.5 H (5-15) MEQ/L BUN 15 (7-17) mg/dL Creatinine 0.71 (0.52-1.04) mg/dL Estimated GFR > 60.0 ML/MIN Glucose 92 (74-106) mg/dL Calcium 8.9 (8.4-10.2) mg/dL Total Bilirubin < 0.10 L (0.2-1.3) mg/dL AST 15 (14-36) U/L ALT 18 (0-35) U/L Alkaline Phosphatase 91 (38-126) U/L Serum Total Protein 6.7 (6.3-8.2) g/dL Albumin 4.0 (3.5-5.0) g/dL Amylase 62 (30-110) U/L Lipase 114 (23-300) U/L Urine HCG, Qual NEGATIVE (Negative) - Progress Progress: improved, pain not gone completely Counseled pt/family regarding: lab results, diagnosis, need for follow-up - Departure Time of Disposition: 01:48 Departure Disposition: Home Clinical Impression: Ovarian cyst, right, Abdominal pain in female patient Condition: Stable Critical Care Time: No Referrals: MELLY PADRON MD [Primary Care Provider] - Instructions: Acute Abdomen (Belly Pain), Ovarian Cyst (DC) Additional Instructions: ABDOMINAL PAIN 1. There are several different causes for abdominal pain, some of which may not be able to be identified on initial examination. 2. The important thing to remember is that bodily functions can change in a short period of time. If you notice any of the following symptoms, return to the emergency department or consult your doctor immediately: A. Worsening pain or no improvement in the next 12 hours. B. Increasing, severe abdominal pain C. Blood in stool D. Black stools E. Persistent vomiting F. Fever or chills or other symptoms LUISBABATUNDE GEOFFREY was seen on 08/23/17 n the Emergency Room. At that time you were treated for an emergent condition, during your visit Laboratory, Radiology and/or other procedures may have been ordered. It is very important that you follow-up with your Primary Care Physician MELLY PADRON within the next 24-48 hours to review your Emergency Room visit and the final results of testing that was ordered. Some test results such as Urine Cultures, Blood Cultures, and other cultures if ordered will not be finalized for 24-48 hours. If you do not have a Primary Care Provider please call the medical records department at [phone] to obtain a copy of your results or you may sign into our patient portal to obtain these results by visiting us @ [email or web address] and completing the following steps: 1. Click on the Patient Portal link 2. Click the Patient Self Enrollment Link to complete the enrollment form and entering your 3. Once the enrollment form is completed you will receive an email with a temporary ID and password at the email address you provided. 4. Next choose a user name and password. Your user name must be at least 4 characters long and your password must be at least 4 characters long. 5. Choose a security question from the list and provide your answer to the question. If you already have signed into the Health Portal you may access your Health Care Information 03/11 by the following steps: 1. Login to our website @ [email or web address] 2. Enter your original user name and password. FAQS The [facility] Health Portal is an online tool that contains your Lab Results, Radiology Reports, Visit History, Discharge Instructions and Health Summary Lab and Radiology Results will not be available for 72 hours on the portal. The Portal is a secure site, passwords are encryted and URLs are re-written so they cannot be copied and pasted. You and authorized family members are the only ones who can access your Portal. Also there is a timeout feature that protects your information if you leave the Portal page open. If you have technical difficulty please use the Contact Us link on the page this will allow you to submit any questions you have regarding the Portal or you may contact the Medical Record Department at [phone]. Prescriptions: Naproxen 375 mg [Naprosyn 375 mg] 375 mg PO Q8H #30 tablet
[2017-08-23] MEDS ORDERED: TORAdol 30 mg Injection ONE ×2 (00:15→01:43)
[2017-08-23 01:08] LABS: BASOPHIL % 0.5 % (0.0-0.4); Basophil (Absolute #) 0.05 (0-0.4); Eosinophil (Absolute #) 0.56 (0-0.5); Granulocyte Absolute (ANC) 4.33 (1.4-6.9); Hematocrit 38.6 % (35-47); Hemoglobin 12.4 gm/dl (12.0-16.0); Lymphocyte (Absolute #) 3.77 (1.0-4.6); Lymphocytes % 40.1 % (24.0-44.0); Mean Cell Volume 90.4 fl (78-100); Mean Corpuscular Hgb Concent. 32.1 g/dl (32-36); Mean Platelet Volume 10.8 fl (6-9.5); Monocytes % 7.4 % (0.0-12.0); Platelet Count 276 K/mm3 (150-450); Red Blood Count 4.27 M/mm3 (4.1-5.4); Red Cell Distribution Width 13.3 % (11.5-14.0); White Blood Count 9.4 K/mm3 (4.0-10.5)
[2017-08-23 01:23] LABS: ALKALINE PHOSPHATASE 91 U/L (38-126); AMYLASE 62 U/L (30-110); ANION GAP 15.5 MEQ/L (5-15); BILIRUBIN,TOTAL < 0.10 mg/dL (0.2-1.3); BLOOD UREA NITROGEN 15 mg/dL (7-17); CHLORIDE 106 mmol/L (98-107); Calcium 8.9 mg/dL (8.4-10.2); Carbon Dioxide 23 mmol/L (22-30); Creatinine 1 0.71 mg/dL (0.52-1.04); Glucose 92 mg/dL (74-106); LIPASE 114 U/L (23-300); Potassium 3.9 mmol/L (3.5-5.1); SGOT/AST 15 U/L (14-36); SGPT/ALT 18 U/L (0-35); SODIUM 141 mmol/L (137-145); Total Protein 6.7 g/dL (6.3-8.2)
[2017-08-23] MEDS ORDERED: Sodium Chloride 0.9% 1000 ML 1,000 ML IV STA (01:33)
[2017-08-23] MEDS ORDERED: TORAdol 30 mg Injection IV ONE (01:46)
[2017-08-23 01:50] VITALS: PULSE 62; O2SAT 98
[2017-08-23 01:54] LABS: Appearance CLEAR (CLEAR); Bilirubin NEGATIVE (NEGATIVE); Blood 250 Ery/ul (0-5); Glucose NEGATIVE (NEGATIVE); Ketones NEGATIVE (NEGATIVE); Leukocyte Esterase NEGATIVE (NEGATIVE); Nitrite NEGATIVE (NEGATIVE); Protein,Urine Dip NEGATIVE (Negative); RBC 15-25 /HPF (0-2); Specific Gravity 1.025 (1.005-1.025); Urobilinogen NORMAL mg/dL (0-1); WBC 0-2 /HPF (0-5)
[2017-08-23 01:55] LABS: Bacteria FEW /HPF (NEGATIVE); Epithelial Cells MODERATE /HPF (FEW)
[2017-08-23 02:44] VITALS: BP 131/82
[2017-08-23] MEDS ORDERED: Sodium Chloride 0.9% 1000 ML 1,000 ML ONE (11:33)
== END 2017-08-23 02:44 | disposition home or self-care (01) ==
LOC: ED 23:49
DX: N83.201 Unspecified ovarian cyst, right side (principal); R10.31 Right lower quadrant pain; Z79.899 Other long term (current) drug therapy
CPT/HCPCS: 36000; 36415; 80053; 81000; 82150; 83690; 84703; 85025; 96372; 96374; 99283; 99284; J1885

== ENCOUNTER 2017-10-26 19:58 | Emergency (ER) | payer SELFPAY ==
--- NOTE | 2017-10-26 20:23 | ERPHSYRPT ---
- History of Present Illness Time Seen by Provider: 10/26/17 20:07 Source: patient Exam Limitations: no limitations Patient Subjective Stated Complaint: Pt arrives to ER with c/o cough that began 2 days ago, developed SOB and fever 100F today. States had Pneumonia in March and is concerned may have it again. C/o aching pain in chest and generalized fatigue. Triage Nursing Assessment: see above Physician History: Pt has been coughing x 2 days , developed lower sternal pain upon coughing today , coughing up green phlegm, had low grade fever (100 F) this morning. She denies severe SOB, diaphoresis, dizziness, nausea, vomiting, or high fever, no sign of severe pain or distress. she is smoker, denies significant family history of coronary disease, she takes Metformin for prediabetes. Timing/Duration: day(s) (2) Cough Quality/Degree: mild, productive cough Possible Cause: occasional episodes Modifying Factors: Improves With: nothing Associated Symptoms: fever, chills, chest pain/soreness, cough, sore throat Allergies/Adverse Reactions: Penicillins Allergy (Verified 10/26/17 20:12) Anaphylactic Reaction strawberry Allergy (Verified 03/21/17 22:55) sulfamethoxazole [From Bactrim] Adverse Reaction (Verified 10/26/17 20:12) Vomiting trimethoprim [From Bactrim] Adverse Reaction (Verified 10/26/17 20:12) Vomiting Home Medications: Metformin HCl 850 mg [Glucophage 850 MG] 850 mg PO BID 06/29/16 [History] Pnv,Calcium 72/Iron/Folic Acid [ Plus Tablet] 1 each PO DAILY 06/29/16 [ History] Ranitidine HCl [Zantac] 150 mg PO DAILY 06/29/16 [History] Sertraline HCl 50 mg PO DAILY PRN 03/21/17 [History] Hx Tetanus, Diphtheria Vaccination/Date Given: Yes Hx Influenza Vaccination/Date Given: No Hx Pneumococcal Vaccination/Date Given: No - Review of Systems Constitutional: Fever, Chills Respiratory: Cough Cardiac: Chest Pain, No Edema Abdominal/Gastrointestinal: No Abdominal Pain, No Nausea, No Vomiting All Other Systems: Reviewed and Negative - Past Medical History Pertinent Past Medical History: Yes ENT History: No Pertinent History Cardiac History: No Pertinent History Respiratory History: No Pertinent History Endocrine Medical History: Other Female Reproductive Disorders: Other Other Medical History: pcos, Insulin resistant - Past Surgical History Past Surgical History: Yes Gastrointestinal: Cholecystectomy - Social History Smoking Status: Current every day smoker How long have you smoked: 10 Exposure to second hand smoke: No Drug Use: none Patient Lives Alone: No - Female History Hx Now: No - Nursing Vital Signs Nursing Vital Signs: Initial Vital Signs Temperature 98.2 F 10/26/17 20:01 Pulse Rate 88 10/26/17 20:01 Respiratory Rate 22 10/26/17 20:01 Blood Pressure 108/78 10/26/17 20:01 O2 Sat by Pulse Oximetry 97 10/26/17 20:01 Pain Scale Pain Intensity 2 - Physical Exam General Appearance: no apparent distress Eye Exam: eyes nml inspection Ears, Nose, Throat Exam: normal ENT inspection, pharynx normal, moist mucous membranes Neck Exam: normal inspection, non-tender, supple, No carotid bruit, No JVD Respiratory Exam: normal breath sounds, lungs clear, airway intact, No chest tenderness Cardiovascular Exam: regular rate/rhythm, normal heart sounds, normal peripheral pulses, No murmur Gastrointestinal/Abdomen Exam: soft, normal bowel sounds, No tenderness, No mass , No guarding Back Exam: normal inspection, No CVA tenderness Extremity Exam: normal inspection, No calf tenderness, No luda's sign, No pedal edema Neurologic Exam: alert, oriented x 3, normal mood/affect Skin Exam: normal color, warm, dry, No rash Lymphatic Exam: No adenopathy SpO2 Interpretation: normal SpO2: 97 Oxygen Delivery: Room Air - Course Nursing assessment & vital signs reviewed: Yes EKG Interpreted by Me: RATE (89/min), NORMAL AXIS, NORMAL INTERVALS, NORMAL ST-T , Other (unchnaged since 03/22/17, repeat Ek:45 PM; unchanged.) - Radiology Exams Chest X-ray Interpretation: Interpreted by me, Negative Ordered Tests: Active Orders 24 hr Category Date Time Status Chairman President And Chief Executive Officer STAT Care 10/26/17 20:15 Active EKG-ER Only STAT Care 10/26/17 20:14 Active IV Insertion STAT Care 10/26/17 20:14 Active CHEST 2 VIEWS (PA AND LAT) Stat Exams 10/26/17 20:14 Taken BLOOD CULTURE Stat Lab 10/26/17 20:30 Received CBC W DIFF Stat Lab 10/26/17 20:30 Completed CK-Creatinine Phosphokinase Stat Lab 10/26/17 20:30 Completed CMP Stat Lab 10/26/17 20:30 Completed D-DIMER QUANTITATION Stat Lab 10/26/17 20:30 Completed HCG,QUALITATIVE URINE Stat Lab 10/26/17 20:33 Completed Lactic Acid Stat Lab 10/26/17 20:22 Completed [place] Screen Stat Lab 10/26/17 20:30 Completed NT PRO BNP Stat Lab 10/26/17 20:30 Completed PROTIME WITH INR Stat Lab 10/26/17 20:30 Completed PTT Stat Lab 10/26/17 20:30 Completed TROPONIN Q3H Lab 10/26/17 20:30 Completed TROPONIN Q3H Lab 10/26/17 23:17 Completed TROPONIN Q3H Lab 10/27/17 02:15 Ordered TROPONIN Q3H Lab 10/27/17 05:15 Ordered TROPONIN Q3H Lab 10/27/17 08:15 Ordered Urine Triage Profile Stat Lab 10/26/17 20:33 Completed Medication Summary Discontinued Medications Generic Name Dose Route Start Last Admin Trade Name Luis PRN Reason Stop Dose Admin Hydrocodone Bitart/Acetaminophen 1 tab 10/27/17 00:23 10/27/17 00:32 [place] 5/325 Mg PO 10/27/17 00:24 1 tab STAT ONE Administration Ketorolac Tromethamine 30 mg 10/26/17 22:47 10/26/17 22:53 Toradol 30 Mg Injection IV 10/26/17 22:48 30 mg STAT ONE Administration Ketorolac Tromethamine Confirm 10/26/17 22:48 Toradol 30 Mg Injection Administered 10/26/17 22:49 Dose 30 mg .ROUTE .STK-MED ONE Lab/Rad Data: Laboratory Result Diagrams 10/26/17 20:30 10/26/17 20:30 Laboratory Results 10/26/17 10/26/17 10/26/17 Range/Units 23:17 20:33 20:33 WBC (4.0-10.5) K/mm3 RBC (4.1-5.4) M/mm3 Hgb (12.0-16.0) gm/dl Hct (35-47) % MCV (78-100) fl MCH (26-32) pg MCHC (32-36) g/dl RDW (11.5-14.0) % Plt Count (150-450) K/mm3 MPV (6-9.5) fl Gran % (36.0-66.0) % Eos # (Auto) (0-0.5) Absolute Lymphs (auto) (1.0-4.6) Absolute Monos (auto) (0.0-1.3) Lymphocytes % (24.0-44.0) % Monocytes % (0.0-12.0) % Eosinophils % (0.00-5.0) % Basophils % (0.0-0.4) % Absolute Granulocytes (1.4-6.9) Basophils # (0-0.4) PT (9.95-12.35) SECONDS INR (0.8-3.0) APTT (25.3-37.0) SECONDS D-Dimer (215-500) ng/mL Sodium (137-145) mmol/L Potassium (3.5-5.1) mmol/L Chloride (98-107) mmol/L Carbon Dioxide (22-30) mmol/L Anion Gap (5-15) MEQ/L BUN (7-17) mg/dL Creatinine (0.52-1.04) mg/dL Estimated GFR ML/MIN Glucose (74-106) mg/dL Lactic Acid (0.4-2.0) Calcium (8.4-10.2) mg/dL Total Bilirubin (0.2-1.3) mg/dL AST (14-36) U/L ALT (0-35) U/L Alkaline Phosphatase (38-126) U/L Creatine Kinase (30-135) U/L Troponin I < 0.012 (0.000-0.034) ng/mL NT-Pro-B Natriuret Pep (0-450) pg/mL Serum Total Protein (6.3-8.2) g/dL Albumin (3.5-5.0) g/dL Urine HCG, Qual NEGATIVE (Negative) Urine Opiates Level NEGATIVE (NEGATIVE) Ur Methadone NEGATIVE (NEGATIVE) Urine Barbiturates NEGATIVE (NEGATIVE) Ur Phencyclidine (PCP) NEGATIVE (NEGATIVE) Urine Amphetamine NEGATIVE (NEGATIVE) U Benzodiazepine Level NEGATIVE (NEGATIVE) Urine Cocaine NEGATIVE (NEGATIVE) Urine Marijuana (THC) NEGATIVE (NEGATIVE) Monoscreen (Negative) Influenza Type A Ag (NEGATIVE) Influenza Type B Ag (NEGATIVE) RSV (PCR) (Negative) Group A Strep Antibody (NEGATIVE) 10/26/17 10/26/17 10/26/17 Range/Units 20:30 20:30 20:30 WBC (4.0-10.5) K/mm3 RBC (4.1-5.4) M/mm3 Hgb (12.0-16.0) gm/dl Hct (35-47) % MCV (78-100) fl MCH (26-32) pg MCHC (32-36) g/dl RDW (11.5-14.0) % Plt Count (150-450) K/mm3 MPV (6-9.5) fl Gran % (36.0-66.0) % Eos # (Auto) (0-0.5) Absolute Lymphs (auto) (1.0-4.6) Absolute Monos (auto) (0.0-1.3) Lymphocytes % (24.0-44.0) % Monocytes % (0.0-12.0) % Eosinophils % (0.00-5.0) % Basophils % (0.0-0.4) % Absolute Granulocytes (1.4-6.9) Basophils # (0-0.4) PT (9.95-12.35) SECONDS INR (0.8-3.0) APTT (25.3-37.0) SECONDS D-Dimer (215-500) ng/mL Sodium (137-145) mmol/L Potassium (3.5-5.1) mmol/L Chloride (98-107) mmol/L Carbon Dioxide (22-30) mmol/L Anion Gap (5-15) MEQ/L BUN (7-17) mg/dL Creatinine (0.52-1.04) mg/dL Estimated GFR ML/MIN Glucose (74-106) mg/dL Lactic Acid (0.4-2.0) Calcium (8.4-10.2) mg/dL Total Bilirubin (0.2-1.3) mg/dL AST (14-36) U/L ALT (0-35) U/L Alkaline Phosphatase (38-126) U/L Creatine Kinase (30-135) U/L Troponin I < 0.012 (0.000-0.034) ng/mL NT-Pro-B Natriuret Pep (0-450) pg/mL Serum Total Protein (6.3-8.2) g/dL Albumin (3.5-5.0) g/dL Urine HCG, Qual (Negative) Urine Opiates Level (NEGATIVE) Ur Methadone (NEGATIVE) Urine Barbiturates (NEGATIVE) Ur Phencyclidine (PCP) (NEGATIVE) Urine Amphetamine (NEGATIVE) U Benzodiazepine Level (NEGATIVE) Urine Cocaine (NEGATIVE) Urine Marijuana (THC) (NEGATIVE) Monoscreen NEGATIVE (Negative) Influenza Type A Ag NEGATIVE (NEGATIVE) Influenza Type B Ag NEGATIVE (NEGATIVE) RSV (PCR) NEGATIVE (Negative) Group A Strep Antibody NEGATIVE (NEGATIVE) 10/26/17 10/26/17 10/26/17 Range/Units 20:30 20:30 20:30 WBC 13.0 H (4.0-10.5) K/mm3 RBC 4.40 (4.1-5.4) M/mm3 Hgb 13.1 (12.0-16.0) gm/dl Hct 39.4 (35-47) % MCV 89.5 (78-100) fl MCH 29.8 (26-32) pg MCHC 33.2 (32-36) g/dl RDW 14.4 H (11.5-14.0) % Plt Count 307 (150-450) K/mm3 MPV 10.7 H (6-9.5) fl Gran % 54.9 (36.0-66.0) % Eos # (Auto) 0.71 H (0-0.5) Absolute Lymphs (auto) 4.24 (1.0-4.6) Absolute Monos (auto) 0.83 (0.0-1.3) Lymphocytes % 32.7 (24.0-44.0) % Monocytes % 6.4 (0.0-12.0) % Eosinophils % 5.5 H (0.00-5.0) % Basophils % 0.5 (0.0-0.4) % Absolute Granulocytes 7.14 H (1.4-6.9) Basophils # 0.06 (0-0.4) PT 12.4 H (9.95-12.35) SECONDS INR 1.07 (0.8-3.0) APTT 36.7 (25.3-37.0) SECONDS D-Dimer 275 (215-500) ng/mL Sodium 140 (137-145) mmol/L Potassium 3.9 (3.5-5.1) mmol/L Chloride 108 H (98-107) mmol/L Carbon Dioxide 22 (22-30) mmol/L Anion Gap 13.8 (5-15) MEQ/L BUN 11 (7-17) mg/dL Creatinine 0.65 (0.52-1.04) mg/dL Estimated GFR > 60.0 ML/MIN Glucose 93 (74-106) mg/dL Lactic Acid (0.4-2.0) Calcium 9.4 (8.4-10.2) mg/dL Total Bilirubin 0.30 (0.2-1.3) mg/dL AST 17 (14-36) U/L ALT 18 (0-35) U/L Alkaline Phosphatase 90 (38-126) U/L Creatine Kinase 96 (30-135) U/L Troponin I (0.000-0.034) ng/mL NT-Pro-B Natriuret Pep 145 (0-450) pg/mL Serum Total Protein 7.1 (6.3-8.2) g/dL Albumin 4.5 (3.5-5.0) g/dL Urine HCG, Qual (Negative) Urine Opiates Level (NEGATIVE) Ur Methadone (NEGATIVE) Urine Barbiturates (NEGATIVE) Ur Phencyclidine (PCP) (NEGATIVE) Urine Amphetamine (NEGATIVE) U Benzodiazepine Level (NEGATIVE) Urine Cocaine (NEGATIVE) Urine Marijuana (THC) (NEGATIVE) Monoscreen (Negative) Influenza Type A Ag (NEGATIVE) Influenza Type B Ag (NEGATIVE) RSV (PCR) (Negative) Group A Strep Antibody (NEGATIVE) 10/26/17 Range/Units 20:22 WBC (4.0-10.5) K/mm3 RBC (4.1-5.4) M/mm3 Hgb (12.0-16.0) gm/dl Hct (35-47) % MCV (78-100) fl MCH (26-32) pg MCHC (32-36) g/dl RDW (11.5-14.0) % Plt Count (150-450) K/mm3 MPV (6-9.5) fl Gran % (36.0-66.0) % Eos # (Auto) (0-0.5) Absolute Lymphs (auto) (1.0-4.6) Absolute Monos (auto) (0.0-1.3) Lymphocytes % (24.0-44.0) % Monocytes % (0.0-12.0) % Eosinophils % (0.00-5.0) % Basophils % (0.0-0.4) % Absolute Granulocytes (1.4-6.9) Basophils # (0-0.4) PT (9.95-12.35) SECONDS INR (0.8-3.0) APTT (25.3-37.0) SECONDS D-Dimer (215-500) ng/mL Sodium (137-145) mmol/L Potassium (3.5-5.1) mmol/L Chloride (98-107) mmol/L Carbon Dioxide (22-30) mmol/L Anion Gap (5-15) MEQ/L BUN (7-17) mg/dL Creatinine (0.52-1.04) mg/dL Estimated GFR ML/MIN Glucose (74-106) mg/dL Lactic Acid 1.5 (0.4-2.0) Calcium (8.4-10.2) mg/dL Total Bilirubin (0.2-1.3) mg/dL AST (14-36) U/L ALT (0-35) U/L Alkaline Phosphatase (38-126) U/L Creatine Kinase (30-135) U/L Troponin I (0.000-0.034) ng/mL NT-Pro-B Natriuret Pep (0-450) pg/mL Serum Total Protein (6.3-8.2) g/dL Albumin (3.5-5.0) g/dL Urine HCG, Qual (Negative) Urine Opiates Level (NEGATIVE) Ur Methadone (NEGATIVE) Urine Barbiturates (NEGATIVE) Ur Phencyclidine (PCP) (NEGATIVE) Urine Amphetamine (NEGATIVE) U Benzodiazepine Level (NEGATIVE) Urine Cocaine (NEGATIVE) Urine Marijuana (THC) (NEGATIVE) Monoscreen (Negative) Influenza Type A Ag (NEGATIVE) Influenza Type B Ag (NEGATIVE) RSV (PCR) (Negative) Group A Strep Antibody (NEGATIVE) - Progress Progress: improved Air Movement: good Progress Note: 10/27/17 00:26 Pt states, she improved after iv Toradol, denies severe pain, cough or shortness of breath, no sign of distress, second troponin is negative. I discussed our results with her and her , will discharge her in good condition to rest x 2-3 days, apply cold compresses to painful area, return if severe shortness of breath, chest pain, vomiting, or fever> 102 F, otherwise follow up with her physician in 2-3 days. She was given [place] 5/325 mg PO Q6h PRN, #10, Z-Shayan and Albuterol HFA inhaler. Blood Culture(s) Obtained: No Antibiotics given: No Counseled pt/family regarding: lab results, diagnosis, need for follow-up, rad results - Departure Time of Disposition: 00:28 Departure Disposition: Home Clinical Impression: Bronchitis Chest pain Qualifiers: Chest pain type: chest pain on breathing Qualified Code(s): R07.1 - Chest pain on breathing Condition: Stable Critical Care Time: No Referrals: MELLY PADRON MD [Primary Care Provider] - Instructions: Chest Pain That Is Not Caused by the Heart (DC), Acute Bronchitis , Adult (DC), Cough, Adult (DC) Additional Instructions: Rest x 2-3 days, apply cold compresses to painful area, follow up with your physician in 2-3 days, return if severe pain, shortness of breath, fever> 102 F or vomiting! Prescriptions: Albuterol Sulfate [Albuterol Sulfate Hfa] 8.5 gm IH Q4H #1 [email or web address] Azithromycin [Zithromax Tri-Shayan 500 mg] 500 mg PO DAILY #1 pack
[2017-10-26 20:39] LABS: BASOPHIL % 0.5 % (0.0-0.4); Basophil (Absolute #) 0.06 (0-0.4); Eosinophil % 5.5 % (0.00-5.0); Eosinophil (Absolute #) 0.71 (0-0.5); Granulocyte Absolute (ANC) 7.14 (1.4-6.9); Granulocytes % 54.9 % (36.0-66.0); Hematocrit 39.4 % (35-47); Hemoglobin 13.1 gm/dl (12.0-16.0); Lymphocyte (Absolute #) 4.24 (1.0-4.6); Lymphocytes % 32.7 % (24.0-44.0); Mean Cell Volume 89.5 fl (78-100); Mean Corpuscular Hemoglobin 29.8 pg (26-32); Mean Corpuscular Hgb Concent. 33.2 g/dl (32-36); Mean Platelet Volume 10.7 fl (6-9.5); Monocyte (Absolute #) 0.83 (0.0-1.3); Monocytes % 6.4 % (0.0-12.0); Platelet Count 307 K/mm3 (150-450); Red Cell Distribution Width 14.4 % (11.5-14.0)
[2017-10-26 20:58] LABS: Amphetamine,Urine NEGATIVE (NEGATIVE); Barbiturate,Urine NEGATIVE (NEGATIVE); Benzodiazepine,Urine NEGATIVE (NEGATIVE); Cocaine,Urine NEGATIVE (NEGATIVE); Methadone,Urine NEGATIVE (NEGATIVE); Opiate,Urine NEGATIVE (NEGATIVE); PCP,Urine NEGATIVE (NEGATIVE); THC,Urine NEGATIVE (NEGATIVE)
[2017-10-26 20:59] LABS: ALBUMIN 4.5 g/dL (3.5-5.0); ALKALINE PHOSPHATASE 90 U/L (38-126); ANION GAP 13.8 MEQ/L (5-15); BLOOD UREA NITROGEN 11 mg/dL (7-17); CHLORIDE 108 mmol/L (98-107); CK-Creatinine Phosphokinase 96 U/L (30-135); Calcium 9.4 mg/dL (8.4-10.2); Carbon Dioxide 22 mmol/L (22-30); Creatinine 1 0.65 mg/dL (0.52-1.04); Glucose 93 mg/dL (74-106); Potassium 3.9 mmol/L (3.5-5.1); SGOT/AST 17 U/L (14-36); SGPT/ALT 18 U/L (0-35); SODIUM 140 mmol/L (137-145); Total Protein 7.1 g/dL (6.3-8.2)
[2017-10-26 21:01] LABS: INR 1.07 (0.8-3.0)
[2017-10-26 21:04] LABS: PTT 36.7 SECONDS (25.3-37.0)
[2017-10-26 21:09] LABS: NT PRO BNP 145 pg/mL (0-450)
[2017-10-26 21:13] LABS: INFLUENZA A NEGATIVE (NEGATIVE); INFLUENZA B NEGATIVE (NEGATIVE); RESPIRATORY SYNCTIAL VIRUS NEGATIVE (Negative)
[2017-10-26] MEDS ORDERED: TORAdol 30 mg Injection IV ONE (22:47)
[2017-10-26 22:48] VITALS: O2SAT 97
[2017-10-26] MEDS ORDERED: TORAdol 30 mg Injection ONE (22:48)
[2017-10-27] MEDS ORDERED: NORCO 5/325 MG PO ONE (00:23)
[2017-10-27] MEDS ORDERED: NORCO 5/325 MG ONE (00:30)
[2017-10-27 00:35] VITALS: BP 117/71; PULSE 65
--- NOTE | 2017-10-27 09:02 | XRAY ---
Indication: Cough, congestion, and fever. Comparison: March 21, 2017. PA/lateral chest again demonstrates normal heart, lungs, and bony thorax.
== END 2017-10-27 00:47 | disposition home or self-care (01) ==
LOC: ED 19:58
DX: J40 Bronchitis, not specified as acute or chronic (principal); Z79.899 Other long term (current) drug therapy; R07.9 Chest pain, unspecified
CPT/HCPCS: 36000; 36415; 71046; 80053; 80307; 82550; 83605; 83880; 84484; 84703; 85025; 85379; 85610; 85730; 86308; 87040; 87631; 87651; 93005; 93041; 96374; 99284; J1885; A9270-GY

== ENCOUNTER 2018-03-11 21:47 | Emergency (ER) | payer OTHER ==
[2018-03-11] MEDS ORDERED: Zofran 4 MG/2 ML VIAL IV ONE (22:41)
[2018-03-11] MEDS ORDERED: Sodium Chloride 0.9% 1000 ML 1,000 ML IV STA (22:41)
[2018-03-11] MEDS ORDERED: Hydromorphone 1 mg/ml Ampule IV ONE (22:41)
--- NOTE | 2018-03-11 22:41 | ERPHSYRPT ---
- History of Present Illness Time Seen by Provider: 03/11/18 22:36 Historian: patient, family () Exam Limitations: no limitations Patient Subjective Stated Complaint: Right lower abdominal pain Triage Nursing Assessment: Patient ambulated back to ED and transferred self to bed. Patient A+O X 3. Patient complains of right lower abdominal pain that radiates to right side of flank 12/21. Patient states she was dx with kidney stones one month ago. Patient's abdomen soft and round with positive bowel sounds X 4. Patient denies any problems urinating. Physician History: The patient is a obese 32-year-old female with her complaining of right lower quadrant abdominal pain radiating to her right flank for one month. She was seen one month ago for this illness in [facility] and was told she had kidney stones in her kidneys. She is now moving to the region and was seen at [facility] last week for the same problem. She was told she still had kidney stones up in the kidneys. She wanted an ultrasound done of her ovaries but this was not done. Once again today she has right lower quadrant abdominal pain with radiation to her right flank. She took 2 Tylenols earlier today. She denies nausea or vomiting. She denies diarrhea. She states "I am tired of this". Her past medical history is significant for diabetes, cholecystectomy, renal stones, GERD. She has been trying to get for 5-1/2 years and has been unable to. Timing/Duration: week(s) (4), constant, gradual onset, worse Activities at Onset: none Quality: aching Abdominal Pain Onset Location: RLQ Pain Radiation: flank (right) Severity of Pain-Max: moderate Severity of Pain-Current: moderate Modifying Factors: Improves With: nothing Associated Symptoms: No diarrhea, No nausea, No vomiting Previous symptoms: same symptoms as today, recently seen, recently treated Allergies/Adverse Reactions: Penicillins Allergy (Verified 03/11/18 22:05) Anaphylactic Reaction strawberry Allergy (Verified 03/11/18 22:05) sulfamethoxazole [From Bactrim] Adverse Reaction (Verified 03/11/18 22:05) Vomiting trimethoprim [From Bactrim] Adverse Reaction (Verified 03/11/18 22:05) Vomiting Home Medications: Metformin HCl 850 mg [Glucophage 850 MG] 850 mg PO BID 06/29/16 [History] Pnv,Calcium 72/Iron/Folic Acid [ Plus Tablet] 1 each PO DAILY 06/29/16 [ History] Ranitidine HCl [Zantac] 150 mg PO DAILY 06/29/16 [History] Sertraline HCl 50 mg PO DAILY PRN 03/21/17 [History] Hx Tetanus, Diphtheria Vaccination/Date Given: Yes Hx Influenza Vaccination/Date Given: Yes Hx Pneumococcal Vaccination/Date Given: No Immunizations Up to Date: Yes - Review of Systems Constitutional: No Fever, No Chills Eyes: No Symptoms Ears, Nose, & Throat: No Symptoms Respiratory: No Cough, No Dyspnea Cardiac: No Chest Pain, No Edema, No Syncope Abdominal/Gastrointestinal: Abdominal Pain, No Nausea, No Vomiting, No Diarrhea Genitourinary Symptoms: No Dysuria Musculoskeletal: No Back Pain, No Neck Pain Skin: No Rash Neurological: No Dizziness, No Focal Weakness, No Sensory Changes Psychological: No Symptoms Endocrine: No Symptoms Hematologic/Lymphatic: No Symptoms Immunological/Allergic: No Symptoms All Other Systems: Reviewed and Negative - Past Medical History Pertinent Past Medical History: Yes ENT History: No Pertinent History Cardiac History: No Pertinent History Respiratory History: No Pertinent History Endocrine Medical History: Other Musculoskeletal History: No Pertinent History Psycho-Social History: No Pertinent History Female Reproductive Disorders: Other Other Medical History: pcos, Insulin resistant - Past Surgical History Past Surgical History: Yes Gastrointestinal: Cholecystectomy - Social History Smoking Status: Current every day smoker How long have you smoked: 10 Exposure to second hand smoke: Yes Drug Use: none Patient Lives Alone: No - Female History Hx Last Menstrual Period: Currently Hx Now: No - Nursing Vital Signs Nursing Vital Signs: Initial Vital Signs Temperature 97.9 F 03/11/18 21:54 Pulse Rate 72 03/11/18 21:54 Respiratory Rate 18 03/11/18 21:54 Blood Pressure 110/80 03/11/18 21:54 O2 Sat by Pulse Oximetry 98 03/11/18 21:54 Pain Scale Pain Intensity 9 - Physical Exam General Appearance: mild distress, obese Eye Exam: PERRL/EOMI, eyes nml inspection Ears, Nose, Throat Exam: normal ENT inspection, pharynx normal, moist mucous membranes Neck Exam: normal inspection, non-tender, supple, full range of motion Respiratory Exam: normal breath sounds, lungs clear, No respiratory distress Cardiovascular Exam: regular rate/rhythm, normal heart sounds Gastrointestinal/Abdomen Exam: tenderness (RLQ) Pelvic Exam: not done Rectal Exam: not done Back Exam: CVA tenderness (right) Extremity Exam: normal inspection, normal range of motion, pelvis stable Neurologic Exam: alert, oriented x 3, cooperative, normal mood/affect, nml cerebellar function, sensation nml, No motor deficits Skin Exam: normal color, warm, dry SpO2 Interpretation: normal SpO2: 98 Oxygen Delivery: Room Air - CT Exams Abdomen/Pelvis CT Interpretation: Negative, Tele-radiologist Report (per Dr Francisco) Ordered Tests: Active Orders 24 hr Category Date Time Status Clean Catch Urine Specimen STAT Care 03/11/18 22:41 Active IV Insertion STAT Care 03/11/18 22:41 Active ABDOMEN AND PELVIS W/0 CONTRAS [CT] Stat Exams 03/11/18 23:17 Taken CBC W DIFF Stat Lab 03/11/18 22:45 Completed CMP Stat Lab 03/11/18 22:45 Completed HCG QUALITATIVE,SERUM Stat Lab 03/11/18 22:45 Completed LIPASE Stat Lab 03/11/18 22:45 Completed Lactic Acid Stat Lab 03/11/18 22:41 Completed UA W/RFX UR CULTURE Stat Lab 03/11/18 22:45 Completed Urine Triage Profile Stat Lab 03/11/18 22:45 Completed Medication Summary Discontinued Medications Generic Name Dose Route Start Last Admin Trade Name Freq PRN Reason Stop Dose Admin Hydromorphone HCl 1 mg 03/11/18 22:41 03/11/18 22:49 Hydromorphone 1 Mg/Ml Ampule IV 03/11/18 22:42 1 mg STAT ONE Administration Hydromorphone HCl Confirm 03/11/18 22:46 Hydromorphone 1 Mg/Ml Ampule Administered 03/11/18 22:47 Dose 1 mg .ROUTE .STK-MED ONE Sodium Chloride 1,000 mls @ 999 mls/hr 03/11/18 22:41 03/11/18 22:49 Sodium Chloride 0.9% 1000 Ml IV 03/11/18 23:41 999 mls/hr .Q1H1M STA Administration Sodium Chloride Confirm 03/11/18 22:47 Sodium Chloride 0.9% 1000 Ml Administered 03/11/18 22:48 Dose 1,000 mls @ ud .ROUTE .STK-MED ONE Ketorolac Tromethamine 30 mg 03/11/18 23:36 03/11/18 23:42 Toradol 30 Mg Injection IV 03/11/18 23:37 30 mg STAT ONE Administration Ketorolac Tromethamine Confirm 03/11/18 23:40 Toradol 30 Mg Injection Administered 03/11/18 23:41 Dose 30 mg .ROUTE .STK-MED ONE Ondansetron HCl 4 mg 03/11/18 22:41 03/11/18 22:49 Zofran 4 Mg/2 Ml Vial IV 03/11/18 22:42 4 mg STAT ONE Administration Ondansetron HCl Confirm 03/11/18 22:46 Zofran 4 Mg/2 Ml Vial Administered 03/11/18 22:47 Dose 4 mg .ROUTE .STK-MED ONE Lab/Rad Data: Laboratory Result Diagrams 03/11/18 22:45 03/11/18 22:45 Laboratory Results 03/11/18 03/11/18 03/11/18 Range/Units 22:45 22:45 22:45 WBC (4.0-10.5) K/mm3 RBC (4.1-5.4) M/mm3 Hgb (12.0-16.0) gm/dl Hct (35-47) % MCV (78-100) fl MCH (26-32) pg MCHC (32-36) g/dl RDW (11.5-14.0) % Plt Count (150-450) K/mm3 MPV (6-9.5) fl Gran % (36.0-66.0) % Eos # (Auto) (0-0.5) Absolute Lymphs (auto) (1.0-4.6) Absolute Monos (auto) (0.0-1.3) Lymphocytes % (24.0-44.0) % Monocytes % (0.0-12.0) % Eosinophils % (0.00-5.0) % Basophils % (0.0-0.4) % Absolute Granulocytes (1.4-6.9) Basophils # (0-0.4) Sodium (137-145) mmol/L Potassium (3.5-5.1) mmol/L Chloride (98-107) mmol/L Carbon Dioxide (22-30) mmol/L Anion Gap (5-15) MEQ/L BUN (7-17) mg/dL Creatinine (0.52-1.04) mg/dL Estimated GFR ML/MIN Glucose (74-106) mg/dL Lactic Acid (0.4-2.0) Calcium (8.4-10.2) mg/dL Total Bilirubin (0.2-1.3) mg/dL AST (14-36) U/L ALT (0-35) U/L Alkaline Phosphatase (38-126) U/L Serum Total Protein (6.3-8.2) g/dL Albumin (3.5-5.0) g/dL Lipase (23-300) U/L Serum , Qual NEGATIVE (Negative) Urine Color YELLOW (YELLOW) Urine Appearance SLIGHTLY CLOUDY (CLEAR) Urine pH 5.0 (5-6) Ur Specific [place] 1.021 (1.005-1.025) Urine Protein 30 (Negative) Urine Ketones NEGATIVE (NEGATIVE) Urine Blood LARGE (0-5) Bry/ul Urine Nitrite NEGATIVE (NEGATIVE) Urine Bilirubin NEGATIVE (NEGATIVE) Urine Urobilinogen NEGATIVE (0-1) mg/dL Ur Leukocyte Esterase TRACE (NEGATIVE) Urine WBC (Auto) 0-2 (0-5) /HPF Urine RBC (Auto) >101 (0-2) /HPF U Epithel Cells (Auto) RARE (FEW) /HPF Urine Bacteria (Auto) RARE (NEGATIVE) /HPF Urine Mucus (Auto) SLIGHT (NEGATIVE) /HPF Urine Culture Reflexed NO (NO) Urine Glucose NEGATIVE (NEGATIVE) mg/dL Urine Opiates Level NEGATIVE (NEGATIVE) Ur Methadone NEGATIVE (NEGATIVE) Urine Barbiturates NEGATIVE (NEGATIVE) Ur Phencyclidine (PCP) NEGATIVE (NEGATIVE) Urine Amphetamine NEGATIVE (NEGATIVE) U Benzodiazepine Level NEGATIVE (NEGATIVE) Urine Cocaine NEGATIVE (NEGATIVE) Urine Marijuana (THC) NEGATIVE (NEGATIVE) 03/11/18 03/11/18 03/11/18 Range/Units 22:45 22:45 22:41 WBC 10.5 (4.0-10.5) K/mm3 RBC 4.32 (4.1-5.4) M/mm3 Hgb 12.5 (12.0-16.0) gm/dl Hct 39.1 (35-47) % MCV 90.5 (78-100) fl MCH 28.9 (26-32) pg MCHC 32.0 (32-36) g/dl RDW 14.1 H (11.5-14.0) % Plt Count 289 (150-450) K/mm3 MPV 11.1 H (6-9.5) fl Gran % 54.0 (36.0-66.0) % Eos # (Auto) 0.69 H (0-0.5) Absolute Lymphs (auto) 3.37 (1.0-4.6) Absolute Monos (auto) 0.72 (0.0-1.3) Lymphocytes % 32.0 (24.0-44.0) % Monocytes % 6.8 (0.0-12.0) % Eosinophils % 6.6 H (0.00-5.0) % Basophils % 0.6 (0.0-0.4) % Absolute Granulocytes 5.69 (1.4-6.9) Basophils # 0.06 (0-0.4) Sodium 140 (137-145) mmol/L Potassium 3.8 (3.5-5.1) mmol/L Chloride 107 (98-107) mmol/L Carbon Dioxide 22 (22-30) mmol/L Anion Gap 14.3 (5-15) MEQ/L BUN 17 (7-17) mg/dL Creatinine 0.68 (0.52-1.04) mg/dL Estimated GFR > 60.0 ML/MIN Glucose 88 (74-106) mg/dL Lactic Acid 0.8 (0.4-2.0) Calcium 9.6 (8.4-10.2) mg/dL Total Bilirubin 0.30 (0.2-1.3) mg/dL AST 25 (14-36) U/L ALT 19 (0-35) U/L Alkaline Phosphatase 84 (38-126) U/L Serum Total Protein 7.5 (6.3-8.2) g/dL Albumin 4.6 (3.5-5.0) g/dL Lipase 82 (23-300) U/L Serum , Qual (Negative) Urine Color (YELLOW) Urine Appearance (CLEAR) Urine pH (5-6) Ur Specific [place] (1.005-1.025) Urine Protein (Negative) Urine Ketones (NEGATIVE) Urine Blood (0-5) Bry/ul Urine Nitrite (NEGATIVE) Urine Bilirubin (NEGATIVE) Urine Urobilinogen (0-1) mg/dL Ur Leukocyte Esterase (NEGATIVE) Urine WBC (Auto) (0-5) /HPF Urine RBC (Auto) (0-2) /HPF U Epithel Cells (Auto) (FEW) /HPF Urine Bacteria (Auto) (NEGATIVE) /HPF Urine Mucus (Auto) (NEGATIVE) /HPF Urine Culture Reflexed (NO) Urine Glucose (NEGATIVE) mg/dL Urine Opiates Level (NEGATIVE) Ur Methadone (NEGATIVE) Urine Barbiturates (NEGATIVE) Ur Phencyclidine (PCP) (NEGATIVE) Urine Amphetamine (NEGATIVE) U Benzodiazepine Level (NEGATIVE) Urine Cocaine (NEGATIVE) Urine Marijuana (THC) (NEGATIVE) - Progress Progress: improved Progress Note: 03/12/18 00:[address] Trevino who will see pt in office. Pt has started menstrual period today. 03/12/18 00:08 Discussed all radiology and lab findings with pt. Pt will see Dr Trevino tomorrow morning at 8:45. Discussed with .: Uriel Will see patient in: office (tomorr or Thursday at 8:45.) Counseled pt/family regarding: lab results, diagnosis, need for follow-up - Departure Time of Disposition: 00:07 Departure Disposition: Home Clinical Impression: Abdominal pain Condition: Stable Critical Care Time: No Referrals: DOCTOR,NO FAMILY [Primary Care Provider] - Additional Instructions: You have abdominal pain from on explained cause. Your laboratory values including urinalysis are negative. CT of your abdomen and pelvis are normal. You were given Dilaudid 1 mg, Dilaudid 1/2 mg, Toradol 30 mg, and fluids by IV in the ER. You are to see Dr. Trevino tomorrow morning in her office at 8:45.
[2018-03-11] MEDS ORDERED: Zofran 4 MG/2 ML VIAL ONE (22:46)
[2018-03-11] MEDS ORDERED: Hydromorphone 1 mg/ml Ampule ONE (22:46)
[2018-03-11] MEDS ORDERED: Sodium Chloride 0.9% 1000 ML 1,000 ML ONE (22:47)
[2018-03-11 23:12] LABS: BASOPHIL % 0.6 % (0.0-0.4); Basophil (Absolute #) 0.06 (0-0.4); Eosinophil % 6.6 % (0.00-5.0); Eosinophil (Absolute #) 0.69 (0-0.5); Granulocyte Absolute (ANC) 5.69 (1.4-6.9); Hematocrit 39.1 % (35-47); Hemoglobin 12.5 gm/dl (12.0-16.0); Lymphocyte (Absolute #) 3.37 (1.0-4.6); Mean Cell Volume 90.5 fl (78-100); Mean Corpuscular Hemoglobin 28.9 pg (26-32); Mean Platelet Volume 11.1 fl (6-9.5); Monocyte (Absolute #) 0.72 (0.0-1.3); Monocytes % 6.8 % (0.0-12.0); Platelet Count 289 K/mm3 (150-450); Red Blood Count 4.32 M/mm3 (4.1-5.4); Red Cell Distribution Width 14.1 % (11.5-14.0); White Blood Count 10.5 K/mm3 (4.0-10.5)
[2018-03-11 23:28] LABS: Amphetamine,Urine NEGATIVE (NEGATIVE); Barbiturate,Urine NEGATIVE (NEGATIVE); Benzodiazepine,Urine NEGATIVE (NEGATIVE); Cocaine,Urine NEGATIVE (NEGATIVE); Methadone,Urine NEGATIVE (NEGATIVE); Opiate,Urine NEGATIVE (NEGATIVE); PCP,Urine NEGATIVE (NEGATIVE); THC,Urine NEGATIVE (NEGATIVE)
[2018-03-11 23:32] LABS: ALBUMIN 4.6 g/dL (3.5-5.0); ALKALINE PHOSPHATASE 84 U/L (38-126); ANION GAP 14.3 MEQ/L (5-15); BLOOD UREA NITROGEN 17 mg/dL (7-17); CHLORIDE 107 mmol/L (98-107); Calcium 9.6 mg/dL (8.4-10.2); Carbon Dioxide 22 mmol/L (22-30); Creatinine 1 0.68 mg/dL (0.52-1.04); Glucose 88 mg/dL (74-106); LIPASE 82 U/L (23-300); Potassium 3.8 mmol/L (3.5-5.1); SGOT/AST 25 U/L (14-36); SGPT/ALT 19 U/L (0-35); SODIUM 140 mmol/L (137-145); Total Protein 7.5 g/dL (6.3-8.2)
[2018-03-11] MEDS ORDERED: TORAdol 30 mg Injection IV ONE (23:36)
[2018-03-11] MEDS ORDERED: TORAdol 30 mg Injection ONE (23:40)
[2018-03-11 23:53] LABS: Appearance SLIGHTLY CLOUDY (CLEAR); Bilirubin NEGATIVE (NEGATIVE); Blood LARGE Ery/ul (0-5); Glucose NEGATIVE (NEGATIVE); Ketones NEGATIVE (NEGATIVE); Leukocyte Esterase TRACE (NEGATIVE); Nitrite NEGATIVE (NEGATIVE); Protein,Urine Dip 30 (Negative); Specific Gravity 1.021 (1.005-1.025); Urobilinogen NEGATIVE mg/dL (0-1)
[2018-03-12] MEDS ORDERED: Hydromorphone 1 mg/ml Ampule IV ONE (00:09)
[2018-03-12] MEDS ORDERED: Hydromorphone 1 mg/ml Ampule ONE (00:27)
[2018-03-12 00:57] VITALS: BP 107/53; PULSE 77; O2SAT 95
--- NOTE | 2018-03-12 08:55 | XRAY ---
Indication: Right lower quadrant pain. History polycystic ovarian syndrome. Multiple contiguous axial images obtained through the abdomen and pelvis without contrast as ordered. Comparison: None Lung bases are clear. Heart is not enlarged. Noncontrasted stomach and bowel loops appear nonobstructed. Normal appendix. No free fluid/air. Previous cholecystectomy. Nonobstructing micro-calculus in each kidney, largest on the right measuring 3 mm. Remaining liver, pancreas, spleen, adrenal glands, kidneys, ureters, bladder, uterus, and aorta appear unremarkable for noncontrast exam. Osseous structures intact. No ventral or inguinal hernias. Impression: 1. Bilateral nonobstructing micro-calculus. 2. Remaining CT abdomen/pelvis without contrast exam is negative Comment: Preliminary interpretation was made by [facility]. No discrepancy. CT DI 34.34
== END 2018-03-12 01:04 | disposition home or self-care (01) ==
LOC: ED 21:47
DX: R10.31 Right lower quadrant pain (principal); Z79.899 Other long term (current) drug therapy
CPT/HCPCS: 36000; 36415; 74176; 80053; 80307; 81001; 81025; 83605; 83690; 85025; 96360; 96374; 96375; 99284; J1170; J1885; J2405

== ENCOUNTER 2018-03-15 14:03 | Observation (INO) | payer OTHER ==
[2018-03-15] MEDS ORDERED: MORPHINE SULFATE 10 MG/ML IV PRN (14:56)
[2018-03-15] MEDS ORDERED: Sodium Chloride 0.9% 10 ML FLUSH Syringe IV PRN (15:00)
[2018-03-15 15:10] LABS: BASOPHIL % 0.5 % (0.0-0.4); Basophil (Absolute #) 0.05 (0-0.4); Eosinophil % 7.5 % (0.00-5.0); Eosinophil (Absolute #) 0.74 (0-0.5); Granulocyte Absolute (ANC) 5.85 (1.4-6.9); Granulocytes % 59.6 % (36.0-66.0); Hematocrit 39.4 % (35-47); Hemoglobin 12.5 gm/dl (12.0-16.0); Lymphocyte (Absolute #) 2.59 (1.0-4.6); Lymphocytes % 26.4 % (24.0-44.0); Mean Cell Volume 91.8 fl (78-100); Mean Corpuscular Hemoglobin 29.1 pg (26-32); Mean Corpuscular Hgb Concent. 31.7 g/dl (32-36); Mean Platelet Volume 10.6 fl (6-9.5); Monocyte (Absolute #) 0.59 (0.0-1.3); Platelet Count 287 K/mm3 (150-450); Red Blood Count 4.29 M/mm3 (4.1-5.4); Red Cell Distribution Width 14.2 % (11.5-14.0); White Blood Count 9.8 K/mm3 (4.0-10.5)
[2018-03-15 15:27] LABS: ALBUMIN 4.5 g/dL (3.5-5.0); ALKALINE PHOSPHATASE 78 U/L (38-126); ANION GAP 15.6 MEQ/L (5-15); BLOOD UREA NITROGEN 15 mg/dL (7-17); CHLORIDE 107 mmol/L (98-107); Calcium 9.3 mg/dL (8.4-10.2); Carbon Dioxide 24 mmol/L (22-30); Creatinine 1 1.01 mg/dL (0.52-1.04); Glucose 109 mg/dL (74-106); Potassium 3.7 mmol/L (3.5-5.1); SGOT/AST 18 U/L (14-36); SGPT/ALT 18 U/L (0-35); SODIUM 143 mmol/L (137-145); Total Protein 7.2 g/dL (6.3-8.2)
[2018-03-15] MEDS: Zofran 4 MG/2 ML VIAL IV PRN ×2 (16:05→19:40)
[2018-03-15 16:08] LABS: Appearance SLIGHTLY CLOUDY (CLEAR); Bilirubin NEGATIVE (NEGATIVE); Blood MODERATE Ery/ul (0-5); Glucose NEGATIVE (NEGATIVE); Ketones NEGATIVE (NEGATIVE); Leukocyte Esterase NEGATIVE (NEGATIVE); Nitrite NEGATIVE (NEGATIVE); Protein,Urine Dip NEGATIVE (Negative); Specific Gravity 1.021 (1.005-1.025); Urobilinogen NEGATIVE mg/dL (0-1)
[2018-03-15] MEDS ORDERED: Sodium Chloride 0.9% 1000 ML 1,000 ML IV STA (16:14)
--- NOTE | 2018-03-15 16:15 | XRAY ---
Indication: Right pelvic pain. Two-dimensional transvaginal pelvic ultrasound was performed. Comparison: None Uterus anteverted measuring 6.2 x 2.5 x 3.1 cm. No focal solid/cystic mass. Endometrial stripe measures 3.6 mm. No endometrial cavity mass or fluid collection. Right ovary measures 4.1 x 1.4 x 2.5 cm and the left measures 3.4 x 2.1 x 1.9 cm. Normal follicular cysts and color perfusion bilaterally. No suspicious adnexal mass or free fluid. Impression: Negative transvaginal pelvic sonogram.
--- NOTE | 2018-03-15 16:18 | XRAY ---
Indication: Pain. Comparison: None KUB nonacute and nonobstructed with cholecystectomy clips and CT proven right upper pole renal micro-calculus. Remaining solid organs and osseous structures unremarkable. Lung bases clear. Impression: Right renal micro-calculus in an otherwise negative KUB.
[2018-03-15] MEDS: Pepcid 20 MG PO SCH (16:48)
[2018-03-15] MEDS ORDERED: DILAUDID 2 MG INJECTION IV ONE (17:10)
[2018-03-15] MEDS: Lactated Ringers 1,000 ML IV SCH ×2 (17:59→21:12)
[2018-03-15] MEDS: NICODERM CQ 14 MG TOP SCH (18:32)
[2018-03-15] MEDS: DILAUDID 2 MG INJECTION IV PRN (20:18)
[2018-03-15] MEDS: ZOLOFT 50 MG TABLET PO SCH (21:13)
[2018-03-15] MEDS ORDERED: Sodium Chloride 0.9% 10 ML FLUSH Syringe IV SCH (22:00)
[2018-03-16] MEDS: Zofran 4 MG/2 ML VIAL IV PRN ×5 (00:17→19:58)
[2018-03-16] MEDS: DILAUDID 2 MG INJECTION IV PRN ×7 (00:17→23:19)
[2018-03-16] MEDS: Pepcid 20 MG PO SCH (09:17)
--- NOTE | 2018-03-16 09:26 | PCM.NOTE ---
Date and Time: 03/16/18920 Subjective Assessment: Admitted from office - pt still c/o RLQ pain. Dilaudid helps for about 3 hours then her pain is still 8-9/10. Currently 07/21 with dilaudid. Had a runny stool yesterday. Difficulty sleeping due to pain. Would like a popsicle. - Review of Systems Constitutional: No Fever Abdominal/Gastrointestinal: Abdominal Pain Objective Exam General Appearance: no apparent distress, alert, obese Neurologic Exam: oriented x 3, cooperative Skin Exam: normal color, warm, dry Eye Exam: eyes nml inspection Respiratory Exam: normal breath sounds, lungs clear, No crackles/rales, No rhonchi, No wheezing Cardiovascular Exam: regular rate/rhythm, normal heart sounds, No murmur Gastrointestinal/Abdomen Exam: soft, normal bowel sounds, tenderness (RLQ), No distention, No mass, No guarding, No rebound Extremity Exam: No pedal edema, No swelling Back Exam: normal inspection, No rash OBJECTIVE DATA Vital Signs: Vital Signs - 24 hr Temp Pulse Resp BP BP Pulse Ox 03/16/18 07:39 98.1 F 80 18 123/66 98 03/16/18 04:00 97.5 F 77 12 106/51 97 03/16/18 00:00 97.6 F 83 12 122/66 97 03/15/18 19:33 98.3 F 94 H 16 120/58 95 03/15/18 15:53 97.9 F 105 H 18 127/78 127/78 97 03/15/18 14:45 97.9 F 105 H 18 127/78 97 03/15/18 14:37 97.9 F 105 H 18 127/78 97 Pain Assessment - Last Documented Pain Intensity 7 Pain Scale Used 0-10 Pain Scale Intake and Output: Intake & Output 03/13/18 03/14/18 03/15/18 03/16/18 11:59 11:59 11:59 11:59 Intake Total 2097 Output Total 900 Balance 1197 Weight 122.9 kg Lab Results: Lab Results-Last 24 Hours 03/15/18 03/15/18 03/15/18 Range/Units 15:00 15:00 Unknown WBC 9.8 (4.0-10.5) K/mm3 RBC 4.29 (4.1-5.4) M/mm3 Hgb 12.5 (12.0-16.0) gm/dl Hct 39.4 (35-47) % MCV 91.8 (78-100) fl MCH 29.1 (26-32) pg MCHC 31.7 L (32-36) g/dl RDW 14.2 H (11.5-14.0) % Plt Count 287 (150-450) K/mm3 MPV 10.6 H (6-9.5) fl Gran % 59.6 (36.0-66.0) % Eos # (Auto) 0.74 H (0-0.5) Absolute Lymphs (auto) 2.59 (1.0-4.6) Absolute Monos (auto) 0.59 (0.0-1.3) Lymphocytes % 26.4 (24.0-44.0) % Monocytes % 6.0 (0.0-12.0) % Eosinophils % 7.5 H (0.00-5.0) % Basophils % 0.5 (0.0-0.4) % Absolute Granulocytes 5.85 (1.4-6.9) Basophils # 0.05 (0-0.4) Sodium 143 (137-145) mmol/L Potassium 3.7 (3.5-5.1) mmol/L Chloride 107 (98-107) mmol/L Carbon Dioxide 24 (22-30) mmol/L Anion Gap 15.6 H (5-15) MEQ/L BUN 15 (7-17) mg/dL Creatinine 1.01 (0.52-1.04) mg/dL Estimated GFR > 60.0 ML/MIN Glucose 109 H (74-106) mg/dL Calcium 9.3 (8.4-10.2) mg/dL Total Bilirubin 0.20 (0.2-1.3) mg/dL AST 18 (14-36) U/L ALT 18 (0-35) U/L Alkaline Phosphatase 78 (38-126) U/L Serum Total Protein 7.2 (6.3-8.2) g/dL Albumin 4.5 (3.5-5.0) g/dL Urine Color YELLOW (YELLOW) Urine Appearance SLIGHTLY CLOUDY (CLEAR) Urine pH 5.0 (5-6) Ur Specific [place] 1.021 (1.005-1.025) Urine Protein NEGATIVE (Negative) Urine Ketones NEGATIVE (NEGATIVE) Urine Blood MODERATE (0-5) Bry/ul Urine Nitrite NEGATIVE (NEGATIVE) Urine Bilirubin NEGATIVE (NEGATIVE) Urine Urobilinogen NEGATIVE (0-1) mg/dL Ur Leukocyte Esterase NEGATIVE (NEGATIVE) Urine WBC (Auto) NONE (0-5) /HPF Urine RBC (Auto) 0-2 (0-2) /HPF U Epithel Cells (Auto) RARE (FEW) /HPF Urine Bacteria (Auto) NONE (NEGATIVE) /HPF Urine Mucus (Auto) SLIGHT (NEGATIVE) /HPF Urine Culture Reflexed NO (NO) Urine Glucose NEGATIVE (NEGATIVE) mg/dL Radiology Exams: Radiology Procedures Category Date Time Status KUB Routine Exams 03/15/18 14:45 Completed PELVIS TRANS VAGINAL [US] Routine Exams 03/15/18 15:13 Completed Assessment/Plan (1) Abdominal pain Current Visit: Yes Status: Acute Onset Date: ~03/15/18 Assessment & Plan: Unsure the etiology. Could be nephrolithiasis. Pt was so uncomfortable on admission that she was pacing in the office. Labs non acute. Will go ahead and check amylase/lipase although I don't expect this is the issue with her RLQ pain. Have requested recent CT scan done within the week at [facility] x 2 and have not received it yet. Will have to have CT scan result from there or repeat here before surgery sees her this afternoon. It was reported by pt, and verbal report from ER doctor to me, that appendix was visualized and normal. Ultrasound ovaries normal. Keep pt NPO. Code(s): R10.9 - UNSPECIFIED ABDOMINAL PAIN (2) Pelvic pain Current Visit: Yes Status: Acute Onset Date: ~03/15/18 Code(s): R10.2 - PELVIC AND PERINEAL PAIN
[2018-03-16] MEDS: Dextrose 5% -0.45 NaCl 1000 ML 1,000 ML IV SCH ×2 (09:53→18:59)
[2018-03-16] MEDS ORDERED: NON-FORMULARY ITEM (Ranitidine Hcl [Zantac] 150 MG) PO SCH (10:00)
[2018-03-16] MEDS: Phenergan 25 MG INJ IV PRN ×2 (11:09→23:20)
[2018-03-16 11:26] LABS: AMYLASE 68 U/L (30-110); LIPASE 69 U/L (23-300)
--- NOTE | 2018-03-16 14:24 | CONS ---
CONSULT DATE: 03/16/2018 REASON FOR CONSULT: Abdominal pain. HISTORY: The patient was normal until just a few months ago. She was told that she had [place]. [place] were intrarenal in nature and were not supposed to necessarily be symptomatic. She has had intermittent right flank pain radiating down towards the pelvis. All of this has been up above the pelvis. She has ovarian cystic disease and she had a normal pelvic sonogram today. She states this pain is not like her pelvic cystic disease at all. It is always on the right side of the body and is always a little up above the pelvis and more back towards the flank. PAST SURGICAL HISTORY: She has had a cholecystectomy for dyskinesia a few years ago. She does not have any general surgical disorder. PHYSICAL EXAMINATION: ABDOMEN: She has a benign abdomen. NEURO: Alert, oriented. IMPRESSION: I feel she is intermittently having pain from her renal issues and she needs to be evaluated by an urologist. She has not passed a stone yet, said she does not know the composition of the stone. She is concerned about dietary concern. I think these could all be addressed by a urologist.
[2018-03-16] MEDS: NICODERM CQ 14 MG TOP SCH (18:07)
[2018-03-16] MEDS: ZOLOFT 50 MG TABLET PO SCH (21:21)
[2018-03-17] MEDS: Zofran 4 MG/2 ML VIAL IV PRN ×4 (02:20→18:26)
[2018-03-17] MEDS: DILAUDID 2 MG INJECTION IV PRN ×6 (02:20→21:36)
[2018-03-17] MEDS ORDERED: TYLENOL 325 MG PO PRN (03:38)
[2018-03-17] MEDS: Dextrose 5% -0.45 NaCl 1000 ML 1,000 ML IV SCH ×2 (04:56→17:06)
[2018-03-17] MEDS: Phenergan 25 MG INJ IV PRN ×3 (06:07→21:39)
[2018-03-17 08:46] LABS: BASOPHIL % 0.6 % (0.0-0.4); Basophil (Absolute #) 0.04 (0-0.4); Eosinophil % 6.6 % (0.00-5.0); Eosinophil (Absolute #) 0.46 (0-0.5); Granulocyte Absolute (ANC) 3.49 (1.4-6.9); Hematocrit 36.8 % (35-47); Hemoglobin 11.5 gm/dl (12.0-16.0); Lymphocyte (Absolute #) 2.46 (1.0-4.6); Lymphocytes % 35.3 % (24.0-44.0); Mean Cell Volume 92.9 fl (78-100); Mean Corpuscular Hgb Concent. 31.3 g/dl (32-36); Monocyte (Absolute #) 0.52 (0.0-1.3); Monocytes % 7.5 % (0.0-12.0); Platelet Count 233 K/mm3 (150-450); Red Blood Count 3.96 M/mm3 (4.1-5.4); Red Cell Distribution Width 14.1 % (11.5-14.0)
[2018-03-17 09:07] LABS: ALBUMIN 4.1 g/dL (3.5-5.0); ALKALINE PHOSPHATASE 64 U/L (38-126); ANION GAP 13.9 MEQ/L (5-15); BLOOD UREA NITROGEN 13 mg/dL (7-17); CHLORIDE 105 mmol/L (98-107); Calcium 8.6 mg/dL (8.4-10.2); Carbon Dioxide 27 mmol/L (22-30); Creatinine 1 0.82 mg/dL (0.52-1.04); Glucose 83 mg/dL (74-106); Potassium 3.8 mmol/L (3.5-5.1); SGOT/AST 22 U/L (14-36); SGPT/ALT 19 U/L (0-35); SODIUM 142 mmol/L (137-145); Total Protein 6.9 g/dL (6.3-8.2)
[2018-03-17] MEDS: Pepcid 20 MG PO SCH (09:28)
--- NOTE | 2018-03-17 16:40 | PCM.NOTE ---
Date and Time: 03/17/18 1634 Subjective Assessment: She is having pain 4/10 with the med (6.5-7.5 without the dilaudid). Would like to try a popsicle. Surgery consult, thank you. They thought pain most likely related to kidney stones. Pt has never seen a urologist. Has nausea but may be because she hasn't been eating. - Review of Systems Constitutional: No Fever Abdominal/Gastrointestinal: Abdominal Pain, Nausea Objective Exam General Appearance: no apparent distress, obese Neurologic Exam: alert, oriented x 3, cooperative Skin Exam: normal color, warm, dry, No rash Respiratory Exam: normal breath sounds, lungs clear, No crackles/rales, No rhonchi, No wheezing Cardiovascular Exam: regular rate/rhythm, normal heart sounds, No murmur Gastrointestinal/Abdomen Exam: soft, tenderness (RLQ, less than yesterday), No normal bowel sounds (hypoactive but present) Extremity Exam: normal inspection, No pedal edema, No swelling Back Exam: normal inspection, No rash OBJECTIVE DATA Vital Signs: Vital Signs - 24 hr Temp Pulse Resp BP Pulse Ox 03/17/18 12:00 98.5 F 84 18 121/67 99 03/17/18 07:31 98.7 F 80 18 117/63 90 L 03/17/18 04:00 98.4 F 79 18 117/68 95 03/17/18 00:00 98.8 F 84 20 120/58 95 03/16/18 19:59 98.4 F 86 19 107/65 96 Oxygen-Last 24 hours O2 Percentage 2 Liters = 28% Pain Assessment - Last Documented Pain Intensity 7 Pain Scale Used 0-10 Pain Scale Intake and Output: Intake & Output 03/15/18 03/16/18 03/17/18 03/18/18 11:59 11:59 11:59 11:59 Intake Total 2117 3178 40 Output Total 900 2950 600 Balance 1217 228 -560 Weight 122.9 kg Lab Results: Lab Results-Last 24 Hours 03/17/18 03/17/18 Range/Units 07:41 07:41 WBC 7.0 (4.0-10.5) K/mm3 RBC 3.96 L (4.1-5.4) M/mm3 Hgb 11.5 L (12.0-16.0) gm/dl Hct 36.8 (35-47) % MCV 92.9 (78-100) fl MCH 29.0 (26-32) pg MCHC 31.3 L (32-36) g/dl RDW 14.1 H (11.5-14.0) % Plt Count 233 (150-450) K/mm3 MPV 11.0 H (6-9.5) fl Gran % 50.0 (36.0-66.0) % Eos # (Auto) 0.46 (0-0.5) Absolute Lymphs (auto) 2.46 (1.0-4.6) Absolute Monos (auto) 0.52 (0.0-1.3) Lymphocytes % 35.3 (24.0-44.0) % Monocytes % 7.5 (0.0-12.0) % Eosinophils % 6.6 H (0.00-5.0) % Basophils % 0.6 (0.0-0.4) % Absolute Granulocytes 3.49 (1.4-6.9) Basophils # 0.04 (0-0.4) Sodium 142 (137-145) mmol/L Potassium 3.8 (3.5-5.1) mmol/L Chloride 105 (98-107) mmol/L Carbon Dioxide 27 (22-30) mmol/L Anion Gap 13.9 (5-15) MEQ/L BUN 13 (7-17) mg/dL Creatinine 0.82 (0.52-1.04) mg/dL Estimated GFR > 60.0 ML/MIN Glucose 83 (74-106) mg/dL Calcium 8.6 (8.4-10.2) mg/dL Total Bilirubin 0.40 (0.2-1.3) mg/dL AST 22 (14-36) U/L ALT 19 (0-35) U/L Alkaline Phosphatase 64 (38-126) U/L Serum Total Protein 6.9 (6.3-8.2) g/dL Albumin 4.1 (3.5-5.0) g/dL Radiology Exams: Radiology Procedures Category Date Time Status Renal Ultrasound [KIDNEY] [US] Routine Exams 03/18/18 08:00 Ordered Assessment/Plan (1) Abdominal pain Current Visit: Yes Status: Acute Onset Date: ~03/15/18 Qualifiers: Abdominal location: right lower quadrant Qualified Code(s): R10.31 - Right lower quadrant pain Assessment & Plan: Appreciate surgery consult. CT scan from 03/05/18 showed neg appendix and small stones in renal cortex. U/s pelvis neg. I would like to repeat the CT scan but insurance does not agree to pay. I spoke with urology (Richa Nunez) and she suggested renal u/s, which will be done tomorrow. Will also check for gonorrhea and chlamydia. Pt on dilaudid. Starting CLD. Code(s): R10.9 - UNSPECIFIED ABDOMINAL PAIN (2) Pelvic pain Current Visit: Yes Status: Acute Onset Date: ~03/15/18 Code(s): R10.2 - PELVIC AND PERINEAL PAIN
[2018-03-17] MEDS: NICODERM CQ 14 MG TOP SCH (18:18)
[2018-03-17] MEDS: ZOLOFT 50 MG TABLET PO SCH (21:35)
[2018-03-18] MEDS: Zofran 4 MG/2 ML VIAL IV PRN ×3 (01:59→14:04)
[2018-03-18] MEDS: DILAUDID 2 MG INJECTION IV PRN ×2 (01:59→05:20)
[2018-03-18] MEDS: Dextrose 5% -0.45 NaCl 1000 ML 1,000 ML IV SCH ×2 (02:09→12:11)
[2018-03-18] MEDS: Phenergan 25 MG INJ IV PRN (05:27)
[2018-03-18 06:18] LABS: BASOPHIL % 0.6 % (0.0-0.4); Basophil (Absolute #) 0.04 (0-0.4); Eosinophil % 6.8 % (0.00-5.0); Eosinophil (Absolute #) 0.48 (0-0.5); Granulocyte Absolute (ANC) 4.13 (1.4-6.9); Granulocytes % 58.3 % (36.0-66.0); Hematocrit 35.1 % (35-47); Lymphocyte (Absolute #) 1.78 (1.0-4.6); Lymphocytes % 25.2 % (24.0-44.0); Mean Cell Volume 93.4 fl (78-100); Mean Corpuscular Hgb Concent. 31.3 g/dl (32-36); Mean Platelet Volume 10.7 fl (6-9.5); Monocyte (Absolute #) 0.64 (0.0-1.3); Monocytes % 9.1 % (0.0-12.0); Platelet Count 238 K/mm3 (150-450); Red Blood Count 3.76 M/mm3 (4.1-5.4); White Blood Count 7.1 K/mm3 (4.0-10.5)
[2018-03-18 06:22] LABS: ALKALINE PHOSPHATASE 64 U/L (38-126); ANION GAP 13.1 MEQ/L (5-15); BLOOD UREA NITROGEN 9 mg/dL (7-17); CHLORIDE 105 mmol/L (98-107); Calcium 8.6 mg/dL (8.4-10.2); Carbon Dioxide 27 mmol/L (22-30); Creatinine 1 0.77 mg/dL (0.52-1.04); Glucose 98 mg/dL (74-106); Potassium 3.6 mmol/L (3.5-5.1); SGOT/AST 23 U/L (14-36); SGPT/ALT 20 U/L (0-35); SODIUM 141 mmol/L (137-145); Total Protein 6.5 g/dL (6.3-8.2)
[2018-03-18 06:36] LABS: Mean Corpuscular Hemoglobin 29.2 pg (26-32)
[2018-03-18 07:45] VITALS: O2SAT 96
[2018-03-18] MEDS ORDERED: PHENERGAN 25 MG PO PRN (08:43)
--- NOTE | 2018-03-18 08:49 | PCM.NOTE ---
Date and Time: 03/18/18 0845 Subjective Assessment: Pt still having RLQ pain, a "pulling," from -12/21 with some R lower back pain. She was NPO overnight for renal u/s this morning, suggested by urology when I spoke wiht them yesterday. Pt c/o feeling "achy" all over and also bilateral sinus pressure, both x 1 d. Did tolerate popsicle yesterday. Interested in some ice cream. - Review of Systems Constitutional: Chills, No Fever Ears, Nose, & Throat: Other (sinus pressure) Objective Exam General Appearance: no apparent distress, alert, obese Neurologic Exam: oriented x 3, cooperative Skin Exam: normal color, warm, dry, No rash Ears, Nose, Throat Exam: moist mucous membranes Respiratory Exam: normal breath sounds, lungs clear, No crackles/rales, No rhonchi, No wheezing Cardiovascular Exam: regular rate/rhythm, normal heart sounds, No murmur Gastrointestinal/Abdomen Exam: soft, normal bowel sounds, tenderness (RLQ), No mass, No guarding, No rebound Extremity Exam: normal inspection, No pedal edema, No swelling Back Exam: normal inspection, No rash OBJECTIVE DATA Vital Signs: Vital Signs - 24 hr Temp Pulse Resp BP BP Pulse Ox 03/18/18 07:45 96 03/18/18 07:20 98.8 F 78 17 102/55 95 03/18/18 03:48 99.0 F 81 17 122/56 94 L 03/18/18 00:00 98.9 F 79 17 135/65 95 03/17/18 20:00 98.6 F 68 18 121/68 94 L 03/17/18 19:38 96 03/17/18 16:00 98.0 F 65 18 122/61 99 03/17/18 12:00 98.5 F 84 18 121/67 99 Oxygen-Last 24 hours O2 Percentage 2 Liters = 28% Pain Assessment - Last Documented Pain Intensity 6 Pain Scale Used 0-10 Pain Scale Intake and Output: Intake & Output 03/15/18 03/16/18 03/17/18 03/18/18 11:59 11:59 11:59 11:59 Intake Total 2795 0808 7583 Output Total 900 2950 2600 Balance 1217 228 263 Weight 122.9 kg Lab Results: Lab Results-Last 24 Hours 03/17/18 03/17/18 03/17/18 Range/Units 07:41 07:41 Unknown WBC 7.0 (4.0-10.5) K/mm3 RBC 3.96 L (4.1-5.4) M/mm3 Hgb 11.5 L (12.0-16.0) gm/dl Hct 36.8 (35-47) % MCV 92.9 (78-100) fl MCH 29.0 (26-32) pg MCHC 31.3 L (32-36) g/dl RDW 14.1 H (11.5-14.0) % Plt Count 233 (150-450) K/mm3 MPV 11.0 H (6-9.5) fl Gran % 50.0 (36.0-66.0) % Eos # (Auto) 0.46 (0-0.5) Absolute Lymphs (auto) 2.46 (1.0-4.6) Absolute Monos (auto) 0.52 (0.0-1.3) Lymphocytes % 35.3 (24.0-44.0) % Monocytes % 7.5 (0.0-12.0) % Eosinophils % 6.6 H (0.00-5.0) % Basophils % 0.6 (0.0-0.4) % Absolute Granulocytes 3.49 (1.4-6.9) Basophils # 0.04 (0-0.4) Sodium 142 (137-145) mmol/L Potassium 3.8 (3.5-5.1) mmol/L Chloride 105 (98-107) mmol/L Carbon Dioxide 27 (22-30) mmol/L Anion Gap 13.9 (5-15) MEQ/L BUN 13 (7-17) mg/dL Creatinine 0.82 (0.52-1.04) mg/dL Estimated GFR > 60.0 ML/MIN Glucose 83 (74-106) mg/dL Calcium 8.6 (8.4-10.2) mg/dL Total Bilirubin 0.40 (0.2-1.3) mg/dL AST 22 (14-36) U/L ALT 19 (0-35) U/L Alkaline Phosphatase 64 (38-126) U/L Serum Total Protein 6.9 (6.3-8.2) g/dL Albumin 4.1 (3.5-5.0) g/dL Ur Chlamydia DNA Probe NEGATIVE Urine GC DNA Probe NEGATIVE 03/18/18 03/18/18 Range/Units 05:46 05:46 WBC 7.1 (4.0-10.5) K/mm3 RBC 3.76 L (4.1-5.4) M/mm3 Hgb 11.0 L (12.0-16.0) gm/dl Hct 35.1 (35-47) % MCV 93.4 (78-100) fl MCH 29.2 (26-32) pg MCHC 31.3 L (32-36) g/dl RDW 14.0 (11.5-14.0) % Plt Count 238 (150-450) K/mm3 MPV 10.7 H (6-9.5) fl Gran % 58.3 (36.0-66.0) % Eos # (Auto) 0.48 (0-0.5) Absolute Lymphs (auto) 1.78 (1.0-4.6) Absolute Monos (auto) 0.64 (0.0-1.3) Lymphocytes % 25.2 (24.0-44.0) % Monocytes % 9.1 (0.0-12.0) % Eosinophils % 6.8 H (0.00-5.0) % Basophils % 0.6 (0.0-0.4) % Absolute Granulocytes 4.13 (1.4-6.9) Basophils # 0.04 (0-0.4) Sodium 141 (137-145) mmol/L Potassium 3.6 (3.5-5.1) mmol/L Chloride 105 (98-107) mmol/L Carbon Dioxide 27 (22-30) mmol/L Anion Gap 13.1 (5-15) MEQ/L BUN 9 (7-17) mg/dL Creatinine 0.77 (0.52-1.04) mg/dL Estimated GFR > 60.0 ML/MIN Glucose 98 (74-106) mg/dL Calcium 8.6 (8.4-10.2) mg/dL Total Bilirubin 0.40 (0.2-1.3) mg/dL AST 23 (14-36) U/L ALT 20 (0-35) U/L Alkaline Phosphatase 64 (38-126) U/L Serum Total Protein 6.5 (6.3-8.2) g/dL Albumin 4.0 (3.5-5.0) g/dL Ur Chlamydia DNA Probe Urine GC DNA Probe Radiology Exams: Radiology Procedures Category Date Time Status Renal Ultrasound [KIDNEY] [US] Routine Exams 03/18/18 08:00 Ordered Assessment/Plan (1) Abdominal pain Current Visit: Yes Status: Acute Onset Date: ~03/15/18 Qualifiers: Abdominal location: right lower quadrant Qualified Code(s): R10.31 - Right lower quadrant pain Assessment & Plan: Still of uncertain etiology. U/S kidneys today to r/o hydronephrosis or obstruction. If negative, urology would not be accepting pt in transfer. Would then more seriously consider adhesions (pt with prior cholecystectomy approx 5 yrs ago) or endometriosis. after u/s, try to transition to FLD, po pain meds, po phenergan. Will add PPI. Code(s): R10.9 - UNSPECIFIED ABDOMINAL PAIN (2) Pelvic pain Current Visit: Yes Status: Acute Onset Date: ~03/15/18 Assessment & Plan: negative for gonorrhea/chlamydia Code(s): R10.2 - PELVIC AND PERINEAL PAIN (3) Myalgia Current Visit: Yes Status: Acute Assessment & Plan: check flu swab Code(s): M79.10 - MYALGIA, UNSPECIFIED SITE (4) Sinus pressure Current Visit: Yes Status: Acute Assessment & Plan: add flonase Code(s): J34.89 - OTHER SPECIFIED DISORDERS OF NOSE AND NASAL SINUSES
[2018-03-18] MEDS: Pepcid 20 MG PO SCH (09:39)
[2018-03-18] MEDS: OXYCODONE-ACETAMINOPHEN 10-325 PO PRN ×2 (09:39→14:04)
[2018-03-18] MEDS ORDERED: PROTONIX 40 MG IV IV SCH (10:00)
[2018-03-18] MEDS ORDERED: Flonase NASAL NS SCH (10:00)
--- NOTE | 2018-03-18 10:41 | XRAY ---
Indication: Kidney stone. Two-dimensional renal sonogram performed. Comparison: None Garment Sewing Machine Operator notes technically difficult exam due to patient body habitus. Both kidneys normal in reniform shape with normal color perfusion. Right kidney measures 11.9 x 3.7 x 4.3 cm and the left measures 11.6 x 4.8 x 4.9 cm. Tiny 2 mm hyperechogenicity in the left upper renal calyx probable calculus. No hydronephrosis or evidence for obstructive uropathy in either system. Cortical medullary differentiation preserved without cortical thinning. Images of the minimally distended urinary bladder are unremarkable with normal left and right ureteral jets. Impression: Left renal micro-calculus. Otherwise negative for hydronephrosis or obstructive uropathy.
[2018-03-18 11:24] LABS: INFLUENZA A NEGATIVE (NEGATIVE); INFLUENZA B NEGATIVE (NEGATIVE); RESPIRATORY SYNCTIAL VIRUS NEGATIVE (Negative)
[2018-03-18 12:09] VITALS: BP 114/56; PULSE 87
--- NOTE | 2018-03-18 14:39 | PCM.DS ---
Discharge Summary Date of Admission: 03/15/18 14:03 Admitting Physician: PHILIPP STRICKLAND Consults: Consults on Case 03/15/18 16:42 Consult Surgery ROUTINE Primary Care Provider: PHILIPP STRICKLAND Allergies Allergies strawberry Allergy (Severe, Verified 03/15/18 14:33) Tightness of Throat Penicillins Allergy (Verified 03/15/18 14:33) Anaphylactic Reaction sulfamethoxazole [From Bactrim] Adverse Reaction (Verified 03/15/18 14:33) Vomiting trimethoprim [From Bactrim] Adverse Reaction (Verified 03/15/18 14:33) Vomiting Hospital Summary - Hospital Course Hospital Course: Pt is a 32 yo female admitted from office with R lower quadrant abdominal pain. Had been to outside ER and gotten CT abd/pelvis without contrast showing bilat renal calculi, nl appendix, nonacute. She was quite uncomfortable in the office and was admitted for further workup. Ultrasound pelvis was normal. Surgery was consulted, who did not feel the patient needed surgery. I attempted to get a CT scan with contrast but was denied by her insurance. Labs were unremarkable, including CMP, CBC, UA, urine CT/NG, amylase, and lipase. I spoke with Richa Nunez for Dr. Guajardo, urologist, and ordered a renal ultrasound, which showed L renal calculus only, no hydronephrosis. Pt started taking po last night and has been tolerating it. Her WBC continues to be normal with no left shift, so quite unlikely to be infectious or appendicitis. She continues to have abdominal pain, whether from passing tiny renal stone or from endometriosis or other unknown abnormality. She will be discharged to home on po percocet prn x 1 week, follow up with urology [facility] (will have to find a urologist in her network), and f/u with GI within the week. - Vitals & Intake/Output Vital Signs: Vital Signs Temperature 98.9 F 03/18/18 12:00 Pulse Rate 87 03/18/18 12:00 Respiratory Rate 16 03/18/18 12:00 Blood Pressure 114/56 03/18/18 12:00 O2 Sat by Pulse Oximetry 96 03/18/18 12:00 Oxygen-Last Documented O2 Percentage 2 Liters = 28% Intake & Output: Intake & Output 03/16/18 03/17/18 03/18/18 03/19/18 11:59 11:59 11:59 11:59 Intake Total 9475 3058 5044 Output Total 409 1340 3200 250 Balance 4434 915 9527 -250 Weight 122.9 kg - Lab Result Diagrams: 03/18/18 05:46 03/18/18 05:46 Lab Results-Last 24 Hrs: Lab Results-Last 24 Hours 03/17/18 03/18/18 03/18/18 Range/Units Unknown 05:46 05:46 WBC 7.1 (4.0-10.5) K/mm3 RBC 3.76 L (4.1-5.4) M/mm3 Hgb 11.0 L (12.0-16.0) gm/dl Hct 35.1 (35-47) % MCV 93.4 (78-100) fl MCH 29.2 (26-32) pg MCHC 31.3 L (32-36) g/dl RDW 14.0 (11.5-14.0) % Plt Count 238 (150-450) K/mm3 MPV 10.7 H (6-9.5) fl Gran % 58.3 (36.0-66.0) % Eos # (Auto) 0.48 (0-0.5) Absolute Lymphs (auto) 1.78 (1.0-4.6) Absolute Monos (auto) 0.64 (0.0-1.3) Lymphocytes % 25.2 (24.0-44.0) % Monocytes % 9.1 (0.0-12.0) % Eosinophils % 6.8 H (0.00-5.0) % Basophils % 0.6 (0.0-0.4) % Absolute Granulocytes 4.13 (1.4-6.9) Basophils # 0.04 (0-0.4) Sodium 141 (137-145) mmol/L Potassium 3.6 (3.5-5.1) mmol/L Chloride 105 (98-107) mmol/L Carbon Dioxide 27 (22-30) mmol/L Anion Gap 13.1 (5-15) MEQ/L BUN 9 (7-17) mg/dL Creatinine 0.77 (0.52-1.04) mg/dL Estimated GFR > 60.0 ML/MIN Glucose 98 (74-106) mg/dL Calcium 8.6 (8.4-10.2) mg/dL Total Bilirubin 0.40 (0.2-1.3) mg/dL AST 23 (14-36) U/L ALT 20 (0-35) U/L Alkaline Phosphatase 64 (38-126) U/L Serum Total Protein 6.5 (6.3-8.2) g/dL Albumin 4.0 (3.5-5.0) g/dL Ur Chlamydia DNA Probe NEGATIVE Urine GC DNA Probe NEGATIVE Influenza Type A Ag (NEGATIVE) Influenza Type B Ag (NEGATIVE) RSV (PCR) (Negative) 03/18/18 Range/Units 11:05 WBC (4.0-10.5) K/mm3 RBC (4.1-5.4) M/mm3 Hgb (12.0-16.0) gm/dl Hct (35-47) % MCV (78-100) fl MCH (26-32) pg MCHC (32-36) g/dl RDW (11.5-14.0) % Plt Count (150-450) K/mm3 MPV (6-9.5) fl Gran % (36.0-66.0) % Eos # (Auto) (0-0.5) Absolute Lymphs (auto) (1.0-4.6) Absolute Monos (auto) (0.0-1.3) Lymphocytes % (24.0-44.0) % Monocytes % (0.0-12.0) % Eosinophils % (0.00-5.0) % Basophils % (0.0-0.4) % Absolute Granulocytes (1.4-6.9) Basophils # (0-0.4) Sodium (137-145) mmol/L Potassium (3.5-5.1) mmol/L Chloride (98-107) mmol/L Carbon Dioxide (22-30) mmol/L Anion Gap (5-15) MEQ/L BUN (7-17) mg/dL Creatinine (0.52-1.04) mg/dL Estimated GFR ML/MIN Glucose (74-106) mg/dL Calcium (8.4-10.2) mg/dL Total Bilirubin (0.2-1.3) mg/dL AST (14-36) U/L ALT (0-35) U/L Alkaline Phosphatase (38-126) U/L Serum Total Protein (6.3-8.2) g/dL Albumin (3.5-5.0) g/dL Ur Chlamydia DNA Probe Urine GC DNA Probe Influenza Type A Ag NEGATIVE (NEGATIVE) Influenza Type B Ag NEGATIVE (NEGATIVE) RSV (PCR) NEGATIVE (Negative) - Radiology Exams Ordered Rad Exams-Entire Visit: Radiology Procedures Category Date Time Status Renal Ultrasound [KIDNEY] [US] Routine Exams 03/18/18 08:00 Completed - Procedures and Test Procedures and Tests throughout Hospitalization: Therapy Orders & Screens 03/15/18 15:08 Smoking Cessation Education ONCE Comment: Diagnosis: Abdominal pain, Pelvic pain Smoking Status: Current every day smoker How long have you smoked: 10 years Have you smoked in the past 12 months: Yes Approximately how many cigarettes per day: 1/2 pack Do you dip or chew tobacco: No 03/17/18 19:37 Oxygen NASAL CANNULA 2 lpm Comment: Diagnosis: Abdominal pain, Pelvic pain Discharge Exam General Appearance: no apparent distress, alert, other (pt examined this morning ) Neurologic Exam: oriented x 3, cooperative Skin Exam: normal color, warm, dry Respiratory Exam: normal breath sounds, lungs clear, No crackles/rales, No rhonchi, No wheezing Cardiovascular Exam: regular rate/rhythm, normal heart sounds, No murmur Gastrointestinal/Abdomen Exam: soft, normal bowel sounds, tenderness (RLQ), No distention, No mass, No guarding, No rebound Extremity Exam: No pedal edema, No swelling Back Exam: normal inspection, No rash Final Diagnosis/Problem List - Final Discharge Diagnosis/Problem (1) Abdominal pain Current Visit: Yes Status: Acute Onset Date: ~03/15/18 Assessment & Plan: Etiology could be related to renal calculus - on u/s there was a stone visible on the L but not on the R, where patient's pain was. On CT there were bilateral calculi. She will follow up with urology - appointment will be called to patient. She will follow up with GI within the week. Also consider endometriosis. (2) Pelvic pain Current Visit: Yes Status: Acute Onset Date: ~03/15/18 (3) Myalgia Current Visit: Yes Status: Acute Assessment & Plan: rapid flu swabs negative. (4) Sinus pressure Current Visit: Yes Status: Acute - Discharge Disposition: Home, Self-Care Condition: Stable Prescriptions: New Oxycodone / APAP 10/325 mg [Oxycodone-Acetaminophen 10-325] 1 tab PO Q4H PRN #42 tablet MDD 6 PRN Reason: Pain Promethazine HCl 25 mg [Phenergan 25 mg] 12.5 mg PO BID PRN PRN #8 tablet MDD 2 PRN Reason: Nausea Tamsulosin HCl 0.4 mg [Flomax 0.4 MG] 0.4 mg PO DAILY #7 cap Continue Metformin HCl 850 mg [Glucophage 850 MG] 850 mg PO BID Ranitidine HCl [Zantac] 150 mg PO DAILY Pnv,Calcium 72/Iron/Folic Acid [ Plus Tablet] 1 each PO DAILY Sertraline HCl 50 mg PO HS Follow up with: PHILIPP STRICKLAND [Primary Care Provider] - 03/24/18 11:45 am LORI SIBLEY FNP, [NON-STAFF PHY W/O PRIVILEGES] - 03/23/18 2:15 pm ( Follow up with 's DISPLAY DEPARTMENT MANAGER Lori Sibley at [facility] at [facility] [address].)
== END 2018-03-18 15:35 | disposition home or self-care (01) ==
LOC: MED SURG 14:03
PROVIDERS: ADMIT Family Medicine; ATTEND Family Medicine
DX: R10.31 Right lower quadrant pain (principal); R10.2 Pelvic and perineal pain; M79.10 Myalgia, unspecified site; J34.89 Other specified disorders of nose and nasal sinuses; E28.2 Polycystic ovarian syndrome; E88.81 Metabolic syndrome and other insulin resistance
CPT/HCPCS: 36415; 74018; 76770; 76830; 80053; 81001; 82150; 83690; 85025; 87491; 87591; 87631; 93268; 94760; G0378; J1170; J2270; J2405; J2550; A9270-GY

== ENCOUNTER 2018-05-16 20:27 | Emergency (ER) | payer MEDICAID, OTHER ==
[2018-05-16] MEDS ORDERED: Sodium Chloride 0.9% 1000 ML 1,000 ML IV STA (20:50)
[2018-05-16] MEDS ORDERED: Zofran 4 MG/2 ML VIAL IV ONE (21:04)
[2018-05-16] MEDS ORDERED: Hydromorphone 1 mg/ml Ampule IV ONE (21:05)
[2018-05-16] MEDS ORDERED: Zofran 4 MG/2 ML VIAL ONE (21:06)
[2018-05-16] MEDS ORDERED: Sodium Chloride 0.9% 1000 ML 1,000 ML ONE (21:06)
[2018-05-16] MEDS ORDERED: Hydromorphone 1 mg/ml Ampule ONE (21:13)
--- NOTE | 2018-05-16 21:16 | ERPHSYRPT ---
- History of Present Illness Time Seen by Provider: 05/16/18 20:45 Historian: patient Exam Limitations: clinical condition Patient Subjective Stated Complaint: Hypotension Triage Nursing Assessment: Patient ambulated into ED and transferred to bed. Patient A+O X 3. Patient's skin pink, warm and dry. Patient complains of low blood pressure. Patient checked blood pressure by an automatic arm blood pressure cuff at 1845, which read 98/76. Patient stated she cont not feeling well and ate causing her to be nauseaous. Patient re-checked her blood pressure using the same automatic cuff 1 hour and half after the first check and b/p read 78/64. Patient complains of right lower abdomen and back pain she thinks related to her menstrual cycle. BS present x 4. Lungs clear a/p denise. Physician History: PATIENT WITH A HISTORY OF POLYCYSTIC OVARIAN DISEASE, AND KIDNEY STONES COMPLAINS OF RIGHT FLANK PAIN SINCE LAST NIGHT WITH OCCASIONAL RADIATION INTO RIGHT LOWER ABDOMEN. DENIES URINARY SYMPTOMS, FEVER, COUGH, NAUSEA, EMESIS OR DIARRHEA. Timing/Duration: yesterday Activities at Onset: none Quality: sharpness, throbbing Abdominal Pain Onset Location: flank Pain Radiation: RLQ Severity of Pain-Max: moderate Severity of Pain-Current: moderate Modifying Factors: Improves With: nothing Associated Symptoms: nausea, vomiting Previous symptoms: same symptoms as today Allergies/Adverse Reactions: strawberry Allergy (Severe, Verified 05/16/18 20:43) Tightness of Throat Penicillins Allergy (Verified 05/16/18 20:43) Anaphylactic Reaction sulfamethoxazole [From Bactrim] Adverse Reaction (Verified 05/16/18 20:43) Vomiting trimethoprim [From Bactrim] Adverse Reaction (Verified 05/16/18 20:43) Vomiting Home Medications: Metformin HCl 850 mg [Glucophage 850 MG] 850 mg PO BID 06/29/16 [History] Pnv,Calcium 72/Iron/Folic Acid [ Plus Tablet] 1 each PO DAILY 06/29/16 [ History] Ranitidine HCl [Zantac] 150 mg PO DAILY 06/29/16 [History] Sertraline HCl 50 mg PO HS 03/21/17 [History] Hx Tetanus, Diphtheria Vaccination/Date Given: Yes Hx Influenza Vaccination/Date Given: Yes Hx Pneumococcal Vaccination/Date Given: No Immunizations Up to Date: Yes - Review of Systems Constitutional: No Fever, No Chills Eyes: No Symptoms Ears, Nose, & Throat: No Symptoms Respiratory: No Symptoms, No Cough, No Dyspnea Cardiac: No Symptoms, No Chest Pain, No Edema, No Syncope Abdominal/Gastrointestinal: Abdominal Pain, No Nausea, No Vomiting, No Diarrhea Genitourinary Symptoms: No Dysuria Musculoskeletal: No Back Pain, No Neck Pain Skin: No Rash Neurological: No Dizziness, No Focal Weakness, No Sensory Changes Psychological: No Symptoms Endocrine: No Symptoms All Other Systems: Reviewed and Negative - Past Medical History Pertinent Past Medical History: Yes ENT History: No Pertinent History Cardiac History: No Pertinent History Respiratory History: No Pertinent History Endocrine Medical History: Other Musculoskeletal History: No Pertinent History Psycho-Social History: No Pertinent History Female Reproductive Disorders: Other Other Medical History: pcos, Insulin resistant - Past Surgical History Past Surgical History: Yes Neuro Surgical History: No Pertinent History Cardiac: No Pertinent History Respiratory: No Pertinent History Gastrointestinal: Cholecystectomy Genitourinary: No Pertinent History Musculoskeletal: No Pertinent History Female Surgical History: No Pertinent History - Social History Smoking Status: Current every day smoker How long have you smoked: 10 years Exposure to second hand smoke: Yes Drug Use: none Patient Lives Alone: No - Female History Hx Last Menstrual Period: Currently on Hx Now: (unknown) - Nursing Vital Signs Nursing Vital Signs: Initial Vital Signs Temperature 98.2 F 05/16/18 20:28 Pulse Rate 100 H 05/16/18 20:28 Respiratory Rate 20 05/16/18 20:28 Blood Pressure 124/75 05/16/18 20:28 O2 Sat by Pulse Oximetry 97 05/16/18 20:28 Pain Scale Pain Intensity 8 - Physical Exam General Appearance: no apparent distress, alert Eye Exam: PERRL/EOMI, eyes nml inspection Ears, Nose, Throat Exam: normal ENT inspection, pharynx normal, moist mucous membranes Neck Exam: normal inspection, non-tender, supple, full range of motion Respiratory Exam: normal breath sounds, lungs clear, No respiratory distress Cardiovascular Exam: regular rate/rhythm, normal heart sounds Gastrointestinal/Abdomen Exam: soft, normal bowel sounds, tenderness (RIGHT LATERAL ABDOMINAL TENDERNESS ANTERIOR TO RIGHT CVA AREA), No mass Back Exam: normal inspection, normal range of motion, CVA tenderness (BILATERAL CVA TENDERNESS R > L), No vertebral tenderness Extremity Exam: normal inspection, normal range of motion, pelvis stable Neurologic Exam: alert, oriented x 3, cooperative, normal mood/affect, nml cerebellar function, sensation nml, No motor deficits Skin Exam: normal color, warm, dry SpO2: 97 - CT Exams Abdomen/Pelvis CT Interpretation: Tele-radiologist Report (NORMAL APPENDIX, THERE ARE 1 OR MORE NONOBSTRUCTING RIGHT RENAL CALYCEAL STONES, THERE ARE 1 OR MORE NONOBSTRUCTING LEFT RENAL CALYCEAL STONE) Ordered Tests: Active Orders 24 hr Category Date Time Status IV Insertion STAT Care 05/16/18 20:50 Active ABDOMEN AND PELVIS W/0 CONTRAS [CT] Stat Exams 05/16/18 21:03 Taken AMYLASE Stat Lab 05/16/18 20:50 Completed CBC W DIFF Stat Lab 05/16/18 20:50 Completed CMP Stat Lab 05/16/18 20:50 Completed HCG,QUALITATIVE URINE Stat Lab 05/16/18 21:15 Completed LIPASE Stat Lab 05/16/18 20:50 Completed UA W/RFX UR CULTURE Stat Lab 05/16/18 21:15 Completed Urine Triage Profile Stat Lab 05/16/18 21:15 Completed Medication Summary Discontinued Medications Generic Name Dose Route Start Last Admin Trade Name Freq PRN Reason Stop Dose Admin Hydromorphone HCl 1 mg 05/16/18 21:05 05/16/18 21:14 Hydromorphone 1 Mg/Ml Ampule IV 05/16/18 21:06 1 mg STAT ONE Administration Hydromorphone HCl Confirm 05/16/18 21:13 Hydromorphone 1 Mg/Ml Ampule Administered 05/16/18 21:14 Dose 1 mg .ROUTE .STK-MED ONE Sodium Chloride 1,000 mls @ 999 mls/hr 05/16/18 20:50 05/16/18 21:11 Sodium Chloride 0.9% 1000 Ml IV 05/16/18 21:50 999 mls/hr .Q1H1M STA Administration Sodium Chloride Confirm 05/16/18 21:06 Sodium Chloride 0.9% 1000 Ml Administered 05/16/18 21:07 Dose 1,000 mls @ ud .ROUTE .STK-MED ONE Ketorolac Tromethamine 30 mg 05/16/18 22:35 05/16/18 22:38 Toradol 30 Mg Injection IV 05/16/18 22:36 30 mg STAT ONE Administration Ketorolac Tromethamine Confirm 05/16/18 22:36 Toradol 30 Mg Injection Administered 05/16/18 22:37 Dose 30 mg .ROUTE .STK-MED ONE Ondansetron HCl 4 mg 05/16/18 21:04 05/16/18 21:09 Zofran 4 Mg/2 Ml Vial IV 05/16/18 21:05 4 mg STAT ONE Administration Ondansetron HCl Confirm 05/16/18 21:06 Zofran 4 Mg/2 Ml Vial Administered 05/16/18 21:07 Dose 4 mg .ROUTE .K-MED ONE Lab/Rad Data: Laboratory Result Diagrams 05/16/18 20:50 05/16/18 20:50 Laboratory Results 05/16/18 05/16/18 05/16/18 Range/Units 21:15 21:15 21:15 WBC (4.0-10.5) K/mm3 RBC (4.1-5.4) M/mm3 Hgb (12.0-16.0) gm/dl Hct (35-47) % MCV (78-100) fl MCH (26-32) pg MCHC (32-36) g/dl RDW (11.5-14.0) % Plt Count (150-450) K/mm3 MPV (6-9.5) fl Gran % (36.0-66.0) % Eos # (Auto) (0-0.5) Absolute Lymphs (auto) (1.0-4.6) Absolute Monos (auto) (0.0-1.3) Lymphocytes % (24.0-44.0) % Monocytes % (0.0-12.0) % Eosinophils % (0.00-5.0) % Basophils % (0.0-0.4) % Absolute Granulocytes (1.4-6.9) Basophils # (0-0.4) Sodium (137-145) mmol/L Potassium (3.5-5.1) mmol/L Chloride (98-107) mmol/L Carbon Dioxide (22-30) mmol/L Anion Gap (5-15) MEQ/L BUN (7-17) mg/dL Creatinine (0.52-1.04) mg/dL Estimated GFR ML/MIN Glucose (74-106) mg/dL Calcium (8.4-10.2) mg/dL Total Bilirubin (0.2-1.3) mg/dL AST (14-36) U/L ALT (0-35) U/L Alkaline Phosphatase (38-126) U/L Serum Total Protein (6.3-8.2) g/dL Albumin (3.5-5.0) g/dL Amylase (30-110) U/L Lipase (23-300) U/L Urine Color YELLOW (YELLOW) Urine Appearance CLEAR (CLEAR) Urine pH 7.0 (5-6) Ur Specific [place] 1.021 (1.005-1.025) Urine Protein NEGATIVE (Negative) Urine Ketones NEGATIVE (NEGATIVE) Urine Blood NEGATIVE (0-5) Bry/ul Urine Nitrite NEGATIVE (NEGATIVE) Urine Bilirubin NEGATIVE (NEGATIVE) Urine Urobilinogen 2 (0-1) mg/dL Ur Leukocyte Esterase NEGATIVE (NEGATIVE) Urine WBC (Auto) NONE (0-5) /HPF Urine RBC (Auto) NONE (0-2) /HPF U Epithel Cells (Auto) RARE (FEW) /HPF Urine Bacteria (Auto) NONE (NEGATIVE) /HPF Urine Mucus (Auto) SLIGHT (NEGATIVE) /HPF Urine Culture Reflexed NO (NO) Urine Glucose NEGATIVE (NEGATIVE) mg/dL Urine HCG, Qual NEGATIVE (Negative) Urine Opiates Level NEGATIVE (NEGATIVE) Ur Methadone NEGATIVE (NEGATIVE) Urine Barbiturates NEGATIVE (NEGATIVE) Ur Phencyclidine (PCP) NEGATIVE (NEGATIVE) Urine Amphetamine NEGATIVE (NEGATIVE) U Benzodiazepine Level NEGATIVE (NEGATIVE) Urine Cocaine NEGATIVE (NEGATIVE) Urine Marijuana (THC) NEGATIVE (NEGATIVE) 05/16/18 05/16/18 Range/Units 20:50 20:50 WBC 8.1 (4.0-10.5) K/mm3 RBC 4.40 (4.1-5.4) M/mm3 Hgb 12.7 (12.0-16.0) gm/dl Hct 40.6 (35-47) % MCV 92.3 (78-100) fl MCH 28.9 (26-32) pg MCHC 31.3 L (32-36) g/dl RDW 13.9 (11.5-14.0) % Plt Count 312 (150-450) K/mm3 MPV 10.7 H (6-9.5) fl Gran % 47.0 (36.0-66.0) % Eos # (Auto) 0.55 H (0-0.5) Absolute Lymphs (auto) 3.10 (1.0-4.6) Absolute Monos (auto) 0.62 (0.0-1.3) Lymphocytes % 38.1 (24.0-44.0) % Monocytes % 7.6 (0.0-12.0) % Eosinophils % 6.8 H (0.00-5.0) % Basophils % 0.5 (0.0-0.4) % Absolute Granulocytes 3.82 (1.4-6.9) Basophils # 0.04 (0-0.4) Sodium 141 (137-145) mmol/L Potassium 3.6 (3.5-5.1) mmol/L Chloride 105 (98-107) mmol/L Carbon Dioxide 26 (22-30) mmol/L Anion Gap 13.4 (5-15) MEQ/L BUN 13 (7-17) mg/dL Creatinine 0.85 (0.52-1.04) mg/dL Estimated GFR > 60.0 ML/MIN Glucose 82 (74-106) mg/dL Calcium 9.1 (8.4-10.2) mg/dL Total Bilirubin 0.30 (0.2-1.3) mg/dL AST 16 (14-36) U/L ALT 18 (0-35) U/L Alkaline Phosphatase 94 (38-126) U/L Serum Total Protein 7.2 (6.3-8.2) g/dL Albumin 4.3 (3.5-5.0) g/dL Amylase 56 (30-110) U/L Lipase 110 (23-300) U/L Urine Color (YELLOW) Urine Appearance (CLEAR) Urine pH (5-6) Ur Specific [place] (1.005-1.025) Urine Protein (Negative) Urine Ketones (NEGATIVE) Urine Blood (0-5) Bry/ul Urine Nitrite (NEGATIVE) Urine Bilirubin (NEGATIVE) Urine Urobilinogen (0-1) mg/dL Ur Leukocyte Esterase (NEGATIVE) Urine WBC (Auto) (0-5) /HPF Urine RBC (Auto) (0-2) /HPF U Epithel Cells (Auto) (FEW) /HPF Urine Bacteria (Auto) (NEGATIVE) /HPF Urine Mucus (Auto) (NEGATIVE) /HPF Urine Culture Reflexed (NO) Urine Glucose (NEGATIVE) mg/dL Urine HCG, Qual (Negative) Urine Opiates Level (NEGATIVE) Ur Methadone (NEGATIVE) Urine Barbiturates (NEGATIVE) Ur Phencyclidine (PCP) (NEGATIVE) Urine Amphetamine (NEGATIVE) U Benzodiazepine Level (NEGATIVE) Urine Cocaine (NEGATIVE) Urine Marijuana (THC) (NEGATIVE) - Progress Progress Note: 05/16/18 22:34 IV NORMAL SALINE 500ML/HR, ZOFRAN 4MG, DILAUDID 1 MG IV, TORADOL 30MG IV Counseled pt/family regarding: lab results, diagnosis, need for follow-up, rad results - Departure Time of Disposition: 23:20 Departure Disposition: Home Clinical Impression: ACUTE RIGHT RENAL COLIC, BILATERAL RENAL NONOBSTRUCTIVE STONES Condition: Stable Critical Care Time: No Referrals: PHILIPP STRICKLAND [Primary Care Provider] - Additional Instructions: STRAIN YOUR URINE WITH A STRAINER FOR 4 DAYS. FLOMAX 0.4MG DAILY FOR 10 DAYS TO HELP RELAX THE URETERS. TORADOL 10MG EVERY 6 HOURS FOR PAIN NEEDED. FOLLOWUP WITH YOUR FAMILY PHYSICIAN TOMORROW FOR REVIEW OF EMERGENCY ROOM RECORD. CALL UROLOGIST DR STONER FOR APPOINTMENT. TAKE COPY OF CT SCAN DISK TO YOUR UROLOGY APPOINTMENT. RETURN TO EMERGENCY ROOM FOR INCREASING PAIN. Prescriptions: Tamsulosin HCl 0.4 mg [Flomax 0.4 MG] 0.4 mg PO QHS #10 cap Ketorolac Tromethamine [Toradol] 10 mg PO Q6HPRN PRN #20 tablet PRN Reason: Pain
[2018-05-16 21:34] LABS: BASOPHIL % 0.5 % (0.0-0.4); Basophil (Absolute #) 0.04 (0-0.4); Eosinophil % 6.8 % (0.00-5.0); Eosinophil (Absolute #) 0.55 (0-0.5); Granulocyte Absolute (ANC) 3.82 (1.4-6.9); Hematocrit 40.6 % (35-47); Hemoglobin 12.7 gm/dl (12.0-16.0); Lymphocytes % 38.1 % (24.0-44.0); Mean Cell Volume 92.3 fl (78-100); Mean Corpuscular Hemoglobin 28.9 pg (26-32); Mean Corpuscular Hgb Concent. 31.3 g/dl (32-36); Mean Platelet Volume 10.7 fl (6-9.5); Monocyte (Absolute #) 0.62 (0.0-1.3); Monocytes % 7.6 % (0.0-12.0); Platelet Count 312 K/mm3 (150-450); Red Cell Distribution Width 13.9 % (11.5-14.0); White Blood Count 8.1 K/mm3 (4.0-10.5)
[2018-05-16 21:43] LABS: Appearance CLEAR (CLEAR); Bilirubin NEGATIVE (NEGATIVE); Blood NEGATIVE Ery/ul (0-5); Epithelial Cells RARE /HPF (FEW); Glucose NEGATIVE (NEGATIVE); Ketones NEGATIVE (NEGATIVE); Leukocyte Esterase NEGATIVE (NEGATIVE); Mucus SLIGHT /HPF (NEGATIVE); Nitrite NEGATIVE (NEGATIVE); Protein,Urine Dip NEGATIVE (Negative); Specific Gravity 1.021 (1.005-1.025); Urobilinogen 2 mg/dL (0-1)
[2018-05-16 21:45] LABS: ALBUMIN 4.3 g/dL (3.5-5.0); ALKALINE PHOSPHATASE 94 U/L (38-126); AMYLASE 56 U/L (30-110); ANION GAP 13.4 MEQ/L (5-15); BLOOD UREA NITROGEN 13 mg/dL (7-17); CHLORIDE 105 mmol/L (98-107); Calcium 9.1 mg/dL (8.4-10.2); Carbon Dioxide 26 mmol/L (22-30); Creatinine 1 0.85 mg/dL (0.52-1.04); Glucose 82 mg/dL (74-106); LIPASE 110 U/L (23-300); Potassium 3.6 mmol/L (3.5-5.1); SGOT/AST 16 U/L (14-36); SGPT/ALT 18 U/L (0-35); SODIUM 141 mmol/L (137-145); Total Protein 7.2 g/dL (6.3-8.2)
[2018-05-16 21:57] LABS: Amphetamine,Urine NEGATIVE (NEGATIVE); Barbiturate,Urine NEGATIVE (NEGATIVE); Benzodiazepine,Urine NEGATIVE (NEGATIVE); Methadone,Urine NEGATIVE (NEGATIVE); Opiate,Urine NEGATIVE (NEGATIVE); PCP,Urine NEGATIVE (NEGATIVE); THC,Urine NEGATIVE (NEGATIVE)
[2018-05-16 22:05] LABS: Cocaine,Urine NEGATIVE (NEGATIVE)
[2018-05-16] MEDS ORDERED: TORAdol 30 mg Injection IV ONE (22:35)
[2018-05-16 22:36] VITALS: O2SAT 97
[2018-05-16] MEDS ORDERED: TORAdol 30 mg Injection ONE (22:36)
[2018-05-16 23:05] VITALS: BP 115/67; PULSE 68
[2018-05-16] MEDS ORDERED: NORCO 5/325 MG ONE (23:19)
[2018-05-16] MEDS ORDERED: NORCO 5/325 MG PO ONE (23:20)
--- NOTE | 2018-05-17 08:46 | XRAY ---
Indication: Right flank pain. Multiple contiguous axial images obtained through the abdomen and pelvis without contrast as ordered. Comparison: March 11, 2018. Lung bases remain clear. Heart is not enlarged. Stomach is distended with food/fluid. Noncontrasted stomach and bowel loops appear nonobstructed. Normal appendix. There is mild diffuse scattered colonic fecal debris throughout. No free fluid/air. Stable nonobstructing micro-calculus in each kidney and previous cholecystectomy. Remaining liver, pancreas, spleen, adrenal glands, kidneys, ureters, bladder, uterus, and aorta appear unremarkable for noncontrast exam. Osseous structures intact. No ventral or inguinal hernias. Impression: 1. New fecal stasis without obstruction. 2. Stable bilateral nonobstructing micro-calculus. 3. Remaining CT abdomen/pelvis without contrast exam is negative Comment: Preliminary interpretation was made by [facility]. No critical discrepancy. CT DI 23.68
== END 2018-05-16 23:30 | disposition home or self-care (01) ==
LOC: ED 20:27
DX: N23 Unspecified renal colic (principal); N20.0 Calculus of kidney; Z79.899 Other long term (current) drug therapy
CPT/HCPCS: 36000; 36415; 74176; 80053; 80307; 81001; 82150; 83690; 84703; 85025; 96360; 96374; 96375; 99284; J1170; J1885; J2405; A9270-GY

== ENCOUNTER 2018-10-28 20:25 | Emergency (ER) | payer OTHER ==
[2018-10-28] MEDS ORDERED: BABY ASPIRIN 81 MG CHEW PO ONE (20:46)
--- NOTE | 2018-10-28 20:46 | ERPHSYRPT ---
- History of Present Illness Time Seen by Provider: 10/28/18 20:45 Source: patient, family Exam Limitations: no limitations Physician History: 33 y/o diabetic obese female pt of dr. du who has been placed on bp meds in the last couple of months, and has h/o gerdz. they have been adjusting her bp. pt complains of dizziness, chest tightness and cardiac palpitations. pt has h/o pcos and an acute renal injury recently. Timing/Duration: today, intermittent, worse Quality: tightness Location: substernal Chest Pain Radiation: no radiation Severity of Pain-Max: mild Severity of Pain-Current: mild Nitro Today/Relief: no nitro taken today Aspirin Treatment Today: 81 mg x 4 Associated Symptoms: heartburn, chest pain, No nausea, No vomiting, No abdominal pain, No shortness of breath Prior Chest Pain/Cardiac Workup: recently seen/treated Allergies/Adverse Reactions: strawberry Allergy (Severe, Verified 05/16/18 20:43) Tightness of Throat Penicillins Allergy (Verified 05/16/18 20:43) Anaphylactic Reaction sulfamethoxazole [From Bactrim] Adverse Reaction (Verified 05/16/18 20:43) Vomiting trimethoprim [From Bactrim] Adverse Reaction (Verified 05/16/18 20:43) Vomiting Home Medications: Metformin HCl 850 mg [Glucophage 850 MG] 850 mg PO BID 06/29/16 [History] Pnv,Calcium 72/Iron/Folic Acid [ Plus Tablet] 1 each PO DAILY 06/29/16 [ History] raNITIdine HCl [Zantac] 150 mg PO DAILY 06/29/16 [History] Sertraline HCl 50 mg PO HS 03/21/17 [History] Hx Tetanus, Diphtheria Vaccination/Date Given: Yes Hx Influenza Vaccination/Date Given: Yes Hx Pneumococcal Vaccination/Date Given: No - Review of Systems Constitutional: No Symptoms Eyes: No Symptoms Ears, Nose, & Throat: No Symptoms, Throat Swelling Respiratory: No Symptoms Cardiac: Chest Pain (described as tightness), Palpitations Abdominal/Gastrointestinal: No Symptoms Genitourinary Symptoms: No Symptoms Musculoskeletal: No Symptoms Skin: No Symptoms Neurological: No Symptoms Psychological: Anxiety Endocrine: No Symptoms Hematologic/Lymphatic: No Symptoms Immunological/Allergic: No Symptoms All Other Systems: Reviewed and Negative - Past Medical History Pertinent Past Medical History: Yes ENT History: No Pertinent History Cardiac History: No Pertinent History Respiratory History: No Pertinent History Endocrine Medical History: Other Musculoskeletal History: No Pertinent History Psycho-Social History: No Pertinent History Female Reproductive Disorders: Other Other Medical History: pcos, Insulin resistant - Past Surgical History Past Surgical History: Yes Neuro Surgical History: No Pertinent History Cardiac: No Pertinent History Respiratory: No Pertinent History Gastrointestinal: Cholecystectomy Genitourinary: No Pertinent History Musculoskeletal: No Pertinent History Female Surgical History: No Pertinent History - Social History Smoking Status: Current every day smoker How long have you smoked: 10 years Exposure to second hand smoke: Yes Drug Use: none Patient Lives Alone: No - Nursing Vital Signs Nursing Vital Signs: Initial Vital Signs Pulse Rate 83 10/28/18 20:38 Respiratory Rate 18 10/28/18 20:38 Blood Pressure 127/68 10/28/18 20:38 O2 Sat by Pulse Oximetry 100 10/28/18 20:38 Pain Scale Pain Intensity 6 - Physical Exam General Appearance: no apparent distress, alert, anxiety Ears, Nose, Throat Exam: normal ENT inspection, moist mucous membranes Neck Exam: normal inspection, non-tender, supple, full range of motion Respiratory Exam: normal breath sounds, chest tenderness, lungs clear, airway intact, No respiratory distress Cardiovascular Exam: regular rate/rhythm, normal heart sounds, normal peripheral pulses Gastrointestinal/Abdomen Exam: soft, normal bowel sounds, No tenderness Pelvic Exam: not done Rectal Exam: not done Back Exam: normal inspection, normal range of motion, No CVA tenderness, No vertebral tenderness Extremity Exam: normal inspection, normal range of motion, pelvis stable Neurologic Exam: alert, oriented x 3, cooperative, special librarian II-XII nml as tested Skin Exam: normal color, warm, dry Lymphatic Exam: No adenopathy SpO2 Interpretation: normal O2 Delivery: Room Air - Course Nursing assessment & vital signs reviewed: Yes EKG Interpreted by Me: RATE (73), Sinus Rhythm, NORMAL AXIS, NORMAL INTERVALS, NORMAL QRS, Other (no changes from normal comparison ekg dated 10/26/17) Ordered Tests: Active Orders 24 hr Category Date Time Status Psychologist Personnel STAT Care 10/28/18 20:46 Active EKG-ER Only STAT Care 10/28/18 20:46 Active IV Insertion STAT Care 10/28/18 20:46 Active Pulse Oximetry (ED) STAT Care 10/28/18 20:46 Active CHEST 1 VIEW (PORTABLE) Stat Exams 10/28/18 21:00 Taken CBC W DIFF Stat Lab 10/28/18 21:10 Completed CMP Stat Lab 10/28/18 21:10 Completed D-DIMER QUANTITATION Stat Lab 10/28/18 21:10 Completed NT PRO BNP Stat Lab 10/28/18 21:10 Completed TROPONIN Q3H Lab 10/28/18 21:10 Completed TROPONIN Q3H Lab 10/29/18 00:00 Ordered TROPONIN Q3H Lab 10/29/18 03:00 Ordered TROPONIN Q3H Lab 10/29/18 06:00 Ordered TROPONIN Q3H Lab 10/29/18 09:00 Ordered Medication Summary Discontinued Medications Generic Name Dose Route Start Last Admin Trade Name Freq PRN Reason Stop Dose Admin Al Hydrox/Mg Hydrox/Simethicone Confirm 10/28/18 21:29 Maalox Es 30 Ml Unit Dose Administered 10/28/18 21:30 Dose 30 ml .ROUTE .STK-MED ONE Aspirin 324 mg 10/28/18 20:46 10/28/18 21:16 Baby Aspirin 81 Mg Chew PO 10/28/18 20:47 324 mg STAT ONE Administration Aspirin Confirm 10/28/18 21:28 Baby Aspirin 81 Mg Chew Administered 10/28/18 21:29 Dose 324 mg .ROUTE .STK-MED ONE Lidocaine HCl Confirm 10/28/18 21:29 Xylocaine Hcl Viscous * Administered 10/28/18 21:30 Dose 15 ml .ROUTE .STK-MED ONE Magnesium Hydroxide 45 ml 10/28/18 21:26 10/28/18 21:35 Gi Cocktail 45 Ml (Maalox/Lidocaine) PO 10/28/18 21:27 45 ml STAT ONE Administration Morphine Sulfate 2 mg 10/28/18 21:42 Morphine Sulfate 2 Mg Inj IV 10/28/18 21:43 STAT ONE Morphine Sulfate Confirm 10/28/18 21:59 Morphine Sulfate 2 Mg Inj Administered 10/28/18 22:00 Dose 2 mg .ROUTE .STK-MED ONE Lab/Rad Data: Laboratory Result Diagrams 10/28/18 21:10 10/28/18 21:10 Laboratory Results 10/28/18 10/28/18 10/28/18 Range/Units 21:10 21:10 21:10 WBC (4.0-10.5) K/mm3 RBC (4.1-5.4) M/mm3 Hgb (12.0-16.0) gm/dl Hct (35-47) % MCV (78-100) fl MCH (26-32) pg MCHC (32-36) g/dl RDW (11.5-14.0) % Plt Count (150-450) K/mm3 MPV (6-9.5) fl Gran % (36.0-66.0) % Eos # (Auto) (0-0.5) Absolute Lymphs (auto) (1.0-4.6) Absolute Monos (auto) (0.0-1.3) Lymphocytes % (24.0-44.0) % Monocytes % (0.0-12.0) % Eosinophils % (0.00-5.0) % Basophils % (0.0-0.4) % Absolute Granulocytes (1.4-6.9) Basophils # (0-0.4) D-Dimer 367 (215-500) ng/mL Sodium 140 (137-145) mmol/L Potassium 3.8 (3.5-5.1) mmol/L Chloride 107 (98-107) mmol/L Carbon Dioxide 26 (22-30) mmol/L Anion Gap 11.9 (5-15) MEQ/L BUN 17 (7-17) mg/dL Creatinine 0.73 (0.52-1.04) mg/dL Estimated GFR > 60.0 ML/MIN Glucose 84 (74-106) mg/dL Calcium 9.5 (8.4-10.2) mg/dL Total Bilirubin 0.30 (0.2-1.3) mg/dL AST 15 (14-36) U/L ALT 15 (0-35) U/L Alkaline Phosphatase 81 (38-126) U/L Troponin I < 0.012 (0.000-0.034) ng/mL NT-Pro-B Natriuret Pep 69.1 (0-450) pg/mL Serum Total Protein 7.2 (6.3-8.2) g/dL Albumin 4.2 (3.5-5.0) g/dL 10/28/18 Range/Units 21:10 WBC 10.1 (4.0-10.5) K/mm3 RBC 4.34 (4.1-5.4) M/mm3 Hgb 12.4 (12.0-16.0) gm/dl Hct 39.0 (35-47) % MCV 89.9 (78-100) fl MCH 28.6 (26-32) pg MCHC 31.8 L (32-36) g/dl RDW 14.6 H (11.5-14.0) % Plt Count 311 (150-450) K/mm3 MPV 10.7 H (6-9.5) fl Gran % 57.3 (36.0-66.0) % Eos # (Auto) 0.64 H (0-0.5) Absolute Lymphs (auto) 2.77 (1.0-4.6) Absolute Monos (auto) 0.86 (0.0-1.3) Lymphocytes % 27.4 (24.0-44.0) % Monocytes % 8.5 (0.0-12.0) % Eosinophils % 6.3 H (0.00-5.0) % Basophils % 0.5 (0.0-0.4) % Absolute Granulocytes 5.79 (1.4-6.9) Basophils # 0.05 (0-0.4) D-Dimer (215-500) ng/mL Sodium (137-145) mmol/L Potassium (3.5-5.1) mmol/L Chloride (98-107) mmol/L Carbon Dioxide (22-30) mmol/L Anion Gap (5-15) MEQ/L BUN (7-17) mg/dL Creatinine (0.52-1.04) mg/dL Estimated GFR ML/MIN Glucose (74-106) mg/dL Calcium (8.4-10.2) mg/dL Total Bilirubin (0.2-1.3) mg/dL AST (14-36) U/L ALT (0-35) U/L Alkaline Phosphatase (38-126) U/L Troponin I (0.000-0.034) ng/mL NT-Pro-B Natriuret Pep (0-450) pg/mL Serum Total Protein (6.3-8.2) g/dL Albumin (3.5-5.0) g/dL - Progress Progress: re-examined Air Movement: good Progress Note: 07/18/19 21:48 cxr no acute process Blood Culture(s) Obtained: No Antibiotics given: No Counseled pt/family regarding: lab results, diagnosis, need for follow-up, rad results - Departure Departure Disposition: Home Clinical Impression: Palpitations, Tightness in chest, Dizziness Condition: Stable Critical Care Time: No Referrals: PHILIPP DU [Primary Care Provider] - Additional Instructions: hold tonights blood pressure medication. follow up with your primary doctor next week. return to ED for worsening symptoms
[2018-10-28 21:16] LABS: BASOPHIL % 0.5 % (0.0-0.4); Basophil (Absolute #) 0.05 (0-0.4); Eosinophil % 6.3 % (0.00-5.0); Eosinophil (Absolute #) 0.64 (0-0.5); Granulocyte Absolute (ANC) 5.79 (1.4-6.9); Granulocytes % 57.3 % (36.0-66.0); Hemoglobin 12.4 gm/dl (12.0-16.0); Lymphocyte (Absolute #) 2.77 (1.0-4.6); Lymphocytes % 27.4 % (24.0-44.0); Mean Cell Volume 89.9 fl (78-100); Mean Corpuscular Hemoglobin 28.6 pg (26-32); Mean Corpuscular Hgb Concent. 31.8 g/dl (32-36); Mean Platelet Volume 10.7 fl (6-9.5); Monocyte (Absolute #) 0.86 (0.0-1.3); Monocytes % 8.5 % (0.0-12.0); Platelet Count 311 K/mm3 (150-450); Red Blood Count 4.34 M/mm3 (4.1-5.4); Red Cell Distribution Width 14.6 % (11.5-14.0); White Blood Count 10.1 K/mm3 (4.0-10.5)
[2018-10-28] MEDS ORDERED: GI COCKTAIL 45 ML (Maalox/Lidocaine) PO ONE (21:26)
[2018-10-28 21:27] VITALS: O2SAT 96
[2018-10-28] MEDS ORDERED: BABY ASPIRIN 81 MG CHEW ONE (21:28)
[2018-10-28] MEDS ORDERED: MAALOX ES 30 ML UNIT DOSE ONE (21:29)
[2018-10-28] MEDS ORDERED: XYLOCAINE HCl Viscous ONE (21:29)
[2018-10-28 21:34] LABS: ALBUMIN 4.2 g/dL (3.5-5.0); ALKALINE PHOSPHATASE 81 U/L (38-126); ANION GAP 11.9 MEQ/L (5-15); BLOOD UREA NITROGEN 17 mg/dL (7-17); CHLORIDE 107 mmol/L (98-107); Calcium 9.5 mg/dL (8.4-10.2); Carbon Dioxide 26 mmol/L (22-30); Creatinine 1 0.73 mg/dL (0.52-1.04); Glucose 84 mg/dL (74-106); NT PRO BNP 69.1 pg/mL (0-450); Potassium 3.8 mmol/L (3.5-5.1); SGOT/AST 15 U/L (14-36); SGPT/ALT 15 U/L (0-35); SODIUM 140 mmol/L (137-145); Total Protein 7.2 g/dL (6.3-8.2)
[2018-10-28] MEDS ORDERED: MORPHINE SULFATE 2 MG INJ IV ONE (21:42)
[2018-10-28] MEDS ORDERED: MORPHINE SULFATE 2 MG INJ ONE (21:59)
[2018-10-28 22:44] VITALS: BP 98/63; PULSE 72
--- NOTE | 2018-10-29 09:29 | XRAY ---
Indication: Short of breath. Comparison: October 26, 2017. Portable chest again demonstrates normal heart, lungs, and bony thorax.
== END 2018-10-28 22:46 | disposition home or self-care (01) ==
LOC: ED 20:25
DX: R07.89 Other chest pain (principal); R00.2 Palpitations; R42 Dizziness and giddiness; Z79.899 Other long term (current) drug therapy
CPT/HCPCS: 36000; 36415; 71045; 80053; 83880; 84484; 85025; 85379; 93041; 94760; 96374; 99284; J2270; A9270-GY

== ENCOUNTER 2018-11-30 12:00 | Emergency (ER) | payer OTHER ==
[2018-11-30] MEDS ORDERED: Zofran 4 MG/2 ML VIAL IV ONE (12:19)
[2018-11-30] MEDS ORDERED: Sodium Chloride 0.9% 1000 ML 1,000 ML IV STA (12:19)
[2018-11-30] MEDS ORDERED: Pepcid 20 MG VIAL IV ONE ×2 (12:19→12:34)
[2018-11-30] MEDS ORDERED: TORAdol 30 mg Injection IV ONE (12:19)
--- NOTE | 2018-11-30 12:26 | ERPHSYRPT ---
- History of Present Illness Time Seen by Provider: 11/30/18 12:14 Historian: patient Exam Limitations: no limitations Patient Subjective Stated Complaint: Pt states "I got a flu and a pneumonia shot on thursday and ever since, I have had body aches, diarrhea and just felt horrible." Triage Nursing Assessment: Pt presented through the front, alert and oriented X 3, skin pwd. Pt ambulates with an upright steady gait, able to speak, in clear full sentences Physician History: Pt states, she has received Pneumonia and Flu shots 3 days ago, she became ill, started vomiting, had diarrhea and diffuse abdominal pain ever since. She denies fever, chills, cough, congestion, chest pain ( except some tightness upon sneezing), no bloody or black diarrhea, no hematemesis, or urinary complaints. Timing/Duration: day(s) (3) Activities at Onset: none Quality: sharpness Abdominal Pain Onset Location: generalized abdomen Pain Radiation: no radiation Severity of Pain-Max: severe Severity of Pain-Current: moderate Modifying Factors: Improves With: nothing Associated Symptoms: diarrhea, loss of appetite, nausea, vomiting Previous symptoms: no prior history Allergies/Adverse Reactions: strawberry Allergy (Severe, Verified 05/16/18 20:43) Tightness of Throat shrimp Allergy (Intermediate, Verified 11/30/18 12:12) itch Penicillins Allergy (Verified 05/16/18 20:43) Anaphylactic Reaction sulfamethoxazole [From Bactrim] Adverse Reaction (Verified 05/16/18 20:43) Vomiting trimethoprim [From Bactrim] Adverse Reaction (Verified 05/16/18 20:43) Vomiting Home Medications: Metformin HCl 850 mg [Glucophage 850 MG] 850 mg PO BID 06/29/16 [History] Pnv,Calcium 72/Iron/Folic Acid [ Plus Tablet] 1 each PO DAILY 06/29/16 [ History] raNITIdine HCl [Zantac] 150 mg PO DAILY 06/29/16 [History] Sertraline HCl 100 mg PO HS 03/21/17 [History] Hx Tetanus, Diphtheria Vaccination/Date Given: Yes Hx Influenza Vaccination/Date Given: Yes Hx Pneumococcal Vaccination/Date Given: Yes Immunizations Up to Date: Yes - Review of Systems Constitutional: No Symptoms Eyes: No Symptoms Ears, Nose, & Throat: No Symptoms Respiratory: No Symptoms Cardiac: No Symptoms Abdominal/Gastrointestinal: Abdominal Pain, Nausea, Vomiting, Diarrhea Genitourinary Symptoms: No Symptoms Musculoskeletal: No Symptoms Skin: No Symptoms Neurological: No Symptoms All Other Systems: Reviewed and Negative - Past Medical History Pertinent Past Medical History: Yes ENT History: No Pertinent History Cardiac History: No Pertinent History Respiratory History: No Pertinent History Endocrine Medical History: Other Musculoskeletal History: No Pertinent History GI Medical History: No Pertinent History History: Other Psycho-Social History: No Pertinent History Female Reproductive Disorders: Other Other Medical History: pcos, Insulin resistant - Past Surgical History Past Surgical History: Yes Neuro Surgical History: No Pertinent History Cardiac: No Pertinent History Respiratory: No Pertinent History Gastrointestinal: Cholecystectomy Genitourinary: No Pertinent History Musculoskeletal: No Pertinent History Female Surgical History: No Pertinent History - Social History Smoking Status: Current every day smoker How long have you smoked: years Exposure to second hand smoke: Yes Drug Use: none Patient Lives Alone: No - Female History Hx Last Menstrual Period: 11/04/2018 Hx Now: (unknown) - Nursing Vital Signs Nursing Vital Signs: Initial Vital Signs Temperature 99.3 F 11/30/18 12:07 Pulse Rate 94 H 11/30/18 12:07 Respiratory Rate 20 11/30/18 12:07 Blood Pressure 101/75 11/30/18 12:07 O2 Sat by Pulse Oximetry 99 11/30/18 12:07 Pain Scale Pain Intensity 4 - Physical Exam General Appearance: no apparent distress Eye Exam: eyes nml inspection Ears, Nose, Throat Exam: normal ENT inspection, pharynx normal, moist mucous membranes Neck Exam: normal inspection, non-tender, supple, No JVD Respiratory Exam: normal breath sounds, lungs clear, airway intact, No chest tenderness Cardiovascular Exam: regular rate/rhythm, normal heart sounds, normal peripheral pulses, capillary refill <2 sec, No murmur Gastrointestinal/Abdomen Exam: soft, tenderness (mild, diffuse), other ( diminished bowel sounds), No distention, No mass, No guarding, No ecchymosis, No pulsatile mass, No rebound, No organomegaly Back Exam: normal inspection, No CVA tenderness Extremity Exam: normal inspection, No calf tenderness, No pedal edema Neurologic Exam: alert, oriented x 3, cooperative, normal mood/affect Skin Exam: normal color, warm, dry, No rash, No petechiae, No jaundice, No cyanosis, No diaphoresis Lymphatic Exam: No adenopathy SpO2 Interpretation: normal SpO2: 99 O2 Delivery: Room Air - Course Nursing assessment & vital signs reviewed: Yes EKG Interpreted by Me: RATE (77/min), NORMAL AXIS, NORMAL INTERVALS, NORMAL QRS , Non-specific ST Changes - Radiology Exams Chest X-ray Interpretation: Reviewed by me, Negative - CT Exams Abdomen/Pelvis CT Interpretation: Tele-radiologist Report, Normal Appendix, Other (ileus vs enteritis) Ordered Tests: Active Orders 24 hr Category Date Time Status EKG-ER Only STAT Care 11/30/18 12:19 Active IV Insertion STAT Care 11/30/18 12:19 Active ABDOMEN AND PELVIS W/0 CONTRAS [CT] Stat Exams 11/30/18 13:30 Completed CHEST 1 VIEW (PORTABLE) Stat Exams 11/30/18 12:20 Completed AMYLASE Stat Lab 11/30/18 12:30 Completed CBC W DIFF Stat Lab 11/30/18 12:30 Completed CK-Creatinine Phosphokinase Stat Lab 11/30/18 12:30 Completed CMP Stat Lab 11/30/18 12:30 Completed HCG QUALITATIVE,SERUM Stat Lab 11/30/18 12:30 Completed LIPASE Stat Lab 11/30/18 12:30 Completed Lactic Acid Stat Lab 11/30/18 12:19 Completed TROPONIN Q3H Lab 11/30/18 12:30 Completed TROPONIN Q3H Lab 11/30/18 15:30 Ordered TROPONIN Q3H Lab 11/30/18 18:30 Ordered TROPONIN Q3H Lab 11/30/18 21:30 Ordered TROPONIN Q3H Lab 12/01/18 00:30 Ordered UA W/RFX UR CULTURE Stat Lab 11/30/18 14:12 Completed Medication Summary Discontinued Medications Generic Name Dose Route Start Last Admin Trade Name Freq PRN Reason Stop Dose Admin Famotidine 20 mg 11/30/18 12:19 11/30/18 12:36 Pepcid 20 Mg Vial IV 11/30/18 12:20 20 mg STAT ONE Administration Famotidine Confirm 11/30/18 12:34 Pepcid 20 Mg Vial Administered 11/30/18 12:35 Dose 20 mg IV .STK-MED ONE Fentanyl Citrate 50 mcg 11/30/18 13:30 11/30/18 13:44 Sublimaze 100 Mcg/2 Ml IV 11/30/18 13:31 50 mcg STAT ONE Administration Fentanyl Citrate Confirm 11/30/18 13:43 Sublimaze 100 Mcg/2 Ml Administered 11/30/18 13:44 Dose 100 mcg .ROUTE .STK-MED ONE Sodium Chloride 1,000 mls @ 999 mls/hr 11/30/18 12:19 11/30/18 13:55 Sodium Chloride 0.9% 1000 Ml IV 11/30/18 13:19 Infused .Q1H1M STA Infusion Sodium Chloride Confirm 11/30/18 12:34 Sodium Chloride 0.9% 1000 Ml Administered 11/30/18 12:35 Dose 1,000 mls @ ud .ROUTE .STK-MED ONE Ketorolac Tromethamine 30 mg 11/30/18 12:19 11/30/18 12:37 Toradol 30 Mg Injection IV 11/30/18 12:20 30 mg STAT ONE Administration Ketorolac Tromethamine Confirm 11/30/18 12:34 Toradol 30 Mg Injection Administered 11/30/18 12:35 Dose 30 mg .ROUTE .STK-MED ONE Ondansetron HCl 4 mg 11/30/18 12:19 11/30/18 12:37 Zofran 4 Mg/2 Ml Vial IV 11/30/18 12:20 4 mg STAT ONE Administration Ondansetron HCl Confirm 11/30/18 12:34 Zofran 4 Mg/2 Ml Vial Administered 11/30/18 12:35 Dose 4 mg .ROUTE .STK-MED ONE Lab/Rad Data: Laboratory Result Diagrams 11/30/18 12:30 11/30/18 12:30 Laboratory Results 11/30/18 11/30/18 11/30/18 Range/Units 14:12 12:30 12:30 WBC (4.0-10.5) K/mm3 RBC (4.1-5.4) M/mm3 Hgb (12.0-16.0) gm/dl Hct (35-47) % MCV (78-100) fl MCH (26-32) pg MCHC (32-36) g/dl RDW (11.5-14.0) % Plt Count (150-450) K/mm3 MPV (6-9.5) fl Gran % (36.0-66.0) % Eos # (Auto) (0-0.5) Absolute Lymphs (auto) (1.0-4.6) Absolute Monos (auto) (0.0-1.3) Lymphocytes % (24.0-44.0) % Monocytes % (0.0-12.0) % Eosinophils % (0.00-5.0) % Basophils % (0.0-0.4) % Absolute Granulocytes (1.4-6.9) Basophils # (0-0.4) Sodium (137-145) mmol/L Potassium (3.5-5.1) mmol/L Chloride (98-107) mmol/L Carbon Dioxide (22-30) mmol/L Anion Gap (5-15) MEQ/L BUN (7-17) mg/dL Creatinine (0.52-1.04) mg/dL Estimated GFR ML/MIN Glucose (74-106) mg/dL Lactic Acid (0.4-2.0) Calcium (8.4-10.2) mg/dL Total Bilirubin (0.2-1.3) mg/dL AST (14-36) U/L ALT (0-35) U/L Alkaline Phosphatase (38-126) U/L Creatine Kinase (30-135) U/L Troponin I < 0.012 (0.000-0.034) ng/mL Serum Total Protein (6.3-8.2) g/dL Albumin (3.5-5.0) g/dL Amylase (30-110) U/L Lipase (23-300) U/L Serum , Qual NEGATIVE (Negative) Urine Color YELLOW (YELLOW) Urine Appearance SLIGHTLY CLOUDY (CLEAR) Urine pH 5.0 (5-6) Ur Specific Waterman 1.025 (1.005-1.025) Urine Protein NEGATIVE (Negative) Urine Ketones NEGATIVE (NEGATIVE) Urine Blood NEGATIVE (0-5) Bry/ul Urine Nitrite NEGATIVE (NEGATIVE) Urine Bilirubin NEGATIVE (NEGATIVE) Urine Urobilinogen NEGATIVE (0-1) mg/dL Ur Leukocyte Esterase NEGATIVE (NEGATIVE) Urine WBC (Auto) 0-2 (0-5) /HPF Urine RBC (Auto) NONE (0-2) /HPF U Epithel Cells (Auto) RARE (FEW) /HPF Urine Bacteria (Auto) NONE (NEGATIVE) /HPF Urine Mucus (Auto) SLIGHT (NEGATIVE) /HPF Urine Culture Reflexed NO (NO) Urine Glucose NEGATIVE (NEGATIVE) mg/dL 11/30/18 11/30/18 11/30/18 Range/Units 12:30 12:30 12:19 WBC 10.7 H (4.0-10.5) K/mm3 RBC 4.45 (4.1-5.4) M/mm3 Hgb 12.6 (12.0-16.0) gm/dl Hct 40.0 (35-47) % MCV 89.9 (78-100) fl MCH 28.3 (26-32) pg MCHC 31.5 L (32-36) g/dl RDW 14.3 H (11.5-14.0) % Plt Count 314 (150-450) K/mm3 MPV 10.2 H (6-9.5) fl Gran % 67.7 H (36.0-66.0) % Eos # (Auto) 0.74 H (0-0.5) Absolute Lymphs (auto) 1.91 (1.0-4.6) Absolute Monos (auto) 0.80 (0.0-1.3) Lymphocytes % 17.8 L (24.0-44.0) % Monocytes % 7.4 (0.0-12.0) % Eosinophils % 6.9 H (0.00-5.0) % Basophils % 0.2 (0.0-0.4) % Absolute Granulocytes 7.27 H (1.4-6.9) Basophils # 0.02 (0-0.4) Sodium 141 (137-145) mmol/L Potassium 3.7 (3.5-5.1) mmol/L Chloride 108 H (98-107) mmol/L Carbon Dioxide 23 (22-30) mmol/L Anion Gap 13.7 (5-15) MEQ/L BUN 16 (7-17) mg/dL Creatinine 0.61 (0.52-1.04) mg/dL Estimated GFR > 60.0 ML/MIN Glucose 85 (74-106) mg/dL Lactic Acid 0.7 (0.4-2.0) Calcium 8.6 (8.4-10.2) mg/dL Total Bilirubin 0.40 (0.2-1.3) mg/dL AST 21 (14-36) U/L ALT 16 (0-35) U/L Alkaline Phosphatase 90 (38-126) U/L Creatine Kinase 77 (30-135) U/L Troponin I (0.000-0.034) ng/mL Serum Total Protein 7.5 (6.3-8.2) g/dL Albumin 4.3 (3.5-5.0) g/dL Amylase 59 (30-110) U/L Lipase 55 (23-300) U/L Serum , Qual (Negative) Urine Color (YELLOW) Urine Appearance (CLEAR) Urine pH (5-6) Ur Specific Waterman (1.005-1.025) Urine Protein (Negative) Urine Ketones (NEGATIVE) Urine Blood (0-5) Bry/ul Urine Nitrite (NEGATIVE) Urine Bilirubin (NEGATIVE) Urine Urobilinogen (0-1) mg/dL Ur Leukocyte Esterase (NEGATIVE) Urine WBC (Auto) (0-5) /HPF Urine RBC (Auto) (0-2) /HPF U Epithel Cells (Auto) (FEW) /HPF Urine Bacteria (Auto) (NEGATIVE) /HPF Urine Mucus (Auto) (NEGATIVE) /HPF Urine Culture Reflexed (NO) Urine Glucose (NEGATIVE) mg/dL - Progress Progress: improved Progress Note: 11/30/18 14:41 Pt feels better, denies pain, nausea resolved, afebrile, reviewed her results, discussed with her, she had a popsickle, will discharge her to rest x 1-2 days and drink plenty of fluids, follow up with her physician in 2-3 days. Counseled pt/family regarding: lab results, diagnosis, need for follow-up, rad results - Departure Departure Disposition: Home Clinical Impression: Gastroenteritis Condition: Stable Critical Care Time: No Referrals: PHILIPP STRICKLAND [Primary Care Provider] - Instructions: Vomiting -- Adult, Diarrhea and Traveler's Diarrhea -- Adult Additional Instructions: Rest x 1-2 days, drink plenty of fluids, and follow up with your physician in 2- 3 days, return if severe pain, vomiting, fever> 102 F! Prescriptions: Ondansetron ODT 4 MG [Zofran Odt 4 mg] 4 mg PO Q6H PRN PRN #10 tab.rapdis PRN Reason: Nausea/Vomiting
[2018-11-30] MEDS ORDERED: Zofran 4 MG/2 ML VIAL ONE (12:34)
[2018-11-30] MEDS ORDERED: Sodium Chloride 0.9% 1000 ML 1,000 ML ONE (12:34)
[2018-11-30] MEDS ORDERED: TORAdol 30 mg Injection ONE (12:34)
[2018-11-30 12:35] LABS: BASOPHIL % 0.2 % (0.0-0.4); Basophil (Absolute #) 0.02 (0-0.4); Eosinophil % 6.9 % (0.00-5.0); Eosinophil (Absolute #) 0.74 (0-0.5); Granulocyte Absolute (ANC) 7.27 (1.4-6.9); Granulocytes % 67.7 % (36.0-66.0); Hemoglobin 12.6 gm/dl (12.0-16.0); Lymphocyte (Absolute #) 1.91 (1.0-4.6); Lymphocytes % 17.8 % (24.0-44.0); Mean Cell Volume 89.9 fl (78-100); Mean Corpuscular Hemoglobin 28.3 pg (26-32); Mean Corpuscular Hgb Concent. 31.5 g/dl (32-36); Mean Platelet Volume 10.2 fl (6-9.5); Monocytes % 7.4 % (0.0-12.0); Platelet Count 314 K/mm3 (150-450); Red Blood Count 4.45 M/mm3 (4.1-5.4); Red Cell Distribution Width 14.3 % (11.5-14.0); White Blood Count 10.7 K/mm3 (4.0-10.5)
[2018-11-30 12:57] LABS: ALBUMIN 4.3 g/dL (3.5-5.0); ALKALINE PHOSPHATASE 90 U/L (38-126); AMYLASE 59 U/L (30-110); ANION GAP 13.7 MEQ/L (5-15); BLOOD UREA NITROGEN 16 mg/dL (7-17); CHLORIDE 108 mmol/L (98-107); CK-Creatinine Phosphokinase 77 U/L (30-135); Calcium 8.6 mg/dL (8.4-10.2); Carbon Dioxide 23 mmol/L (22-30); Creatinine 1 0.61 mg/dL (0.52-1.04); Glucose 85 mg/dL (74-106); LIPASE 55 U/L (23-300); Potassium 3.7 mmol/L (3.5-5.1); SGOT/AST 21 U/L (14-36); SGPT/ALT 16 U/L (0-35); SODIUM 141 mmol/L (137-145); Total Protein 7.5 g/dL (6.3-8.2)
--- NOTE | 2018-11-30 13:20 | XRAY ---
Indication: Chest pain and vomiting. Comparison: October 28, 2018. Portable chest again demonstrates normal heart, lungs, and bony thorax.
[2018-11-30] MEDS ORDERED: SUBLIMAZE 100 MCG/2 ML IV ONE (13:30)
[2018-11-30] MEDS ORDERED: SUBLIMAZE 100 MCG/2 ML ONE (13:43)
--- NOTE | 2018-11-30 14:22 | XRAY ---
Indication: Vomiting, diarrhea, weakness, and flulike symptoms. Multiple contiguous axial images obtained through the abdomen and pelvis without contrast as ordered. Comparison: May 16, 2018. Lung bases remain clear. Heart is not enlarged. Noncontrasted stomach and bowel loops appear nonobstructed. Several small bowel loops are now mildly fluid distended with some fluid leveling, ileus versus enteritis. Normal appendix. No free fluid/air. Faint bilateral nephrocalcinosis without hydronephrosis or hydroureter. Again previous cholecystectomy. Remaining liver, pancreas, spleen, adrenal glands, kidneys, ureters, bladder, uterus, and aorta appear unremarkable for noncontrast exam. Osseous structures intact. Impression: 1. Mild fluid distended small bowel loops with fluid leveling, ileus versus enteritis. 2. Faint nonobstructing bilateral nephrocalcinosis. 3. Remaining CT abdomen/pelvis without contrast exam is negative. CTDI 28.13
[2018-11-30 14:30] LABS: Appearance SLIGHTLY CLOUDY (CLEAR); Bilirubin NEGATIVE (NEGATIVE); Blood NEGATIVE Ery/ul (0-5); Epithelial Cells RARE /HPF (FEW); Glucose NEGATIVE (NEGATIVE); Ketones NEGATIVE (NEGATIVE); Leukocyte Esterase NEGATIVE (NEGATIVE); Mucus SLIGHT /HPF (NEGATIVE); Nitrite NEGATIVE (NEGATIVE); Protein,Urine Dip NEGATIVE (Negative); Specific Gravity 1.025 (1.005-1.025); Urobilinogen NEGATIVE mg/dL (0-1); WBC 0-2 /HPF (0-5)
[2018-11-30 14:44] VITALS: O2SAT 99
[2018-11-30 14:45] VITALS: BP 99/55; PULSE 70
== END 2018-11-30 15:00 | disposition home or self-care (01) ==
LOC: ED 12:00
DX: K52.9 Noninfective gastroenteritis and colitis, unspecified (principal)
CPT/HCPCS: 36000; 36415; 71045; 74176; 80053; 81001; 81025; 82150; 82550; 83605; 83690; 84484; 85025; 93005; 96360; 96374; 96375; 99285; J1885; J2405; J3010

== ENCOUNTER 2019-01-02 19:20 | Emergency (ER) | payer OTHER ==
[2019-01-02 19:33] VITALS: PULSE 90
[2019-01-02] MEDS ORDERED: MORPHINE SULFATE 4 MG INJ IV ONE ×2 (20:30→22:32)
[2019-01-02] MEDS ORDERED: Sodium Chloride 0.9% 1000 ML 1,000 ML IV STA (20:30)
[2019-01-02] MEDS ORDERED: BENADRYL 50 MG/ML IV ONE (20:30)
--- NOTE | 2019-01-02 20:30 | ERPHSYRPT ---
- History of Present Illness Time Seen by Provider: 01/02/19 20:20 Historian: patient Exam Limitations: no limitations Patient Subjective Stated Complaint: pt states, "low back pain on right side x24 hrs, denies any n,v,d". Triage Nursing Assessment: pt c/o rt flank pain, rates it a 8 on 0-10 scale, lungs clear, heart tones reg, abd lg, obese with active bs x4 quad. Pt has hx of kidney stones, states, "I think it's another one". Physician History: Patient has had right flank pain for 24 hours that has been constant. Patient has a history of kidney stones and it feels similar. Timing/Duration: hour(s) (24) Activities at Onset: none Quality: aching, cramping, dullness, stabbing Abdominal Pain Onset Location: flank (right) Pain Radiation: no radiation Severity of Pain-Max: severe Severity of Pain-Current: severe Modifying Factors: Improves With: nothing Associated Symptoms: No back, No chest pain, No diaphoresis, No diarrhea, No fever/chills, No fatigue, No headache, No heartburn, No loss of appetite, No nausea, No neck pain, No rash, No shortness of breath, No syncope, No vomiting, No weakness Previous symptoms: same symptoms as today (history of kidney stones) Allergies/Adverse Reactions: strawberry Allergy (Severe, Verified 05/16/18 20:43) Tightness of Throat shrimp Allergy (Intermediate, Verified 11/30/18 12:12) itch Penicillins Allergy (Verified 05/16/18 20:43) Anaphylactic Reaction sulfamethoxazole [From Bactrim] Adverse Reaction (Verified 05/16/18 20:43) Vomiting trimethoprim [From Bactrim] Adverse Reaction (Verified 05/16/18 20:43) Vomiting Home Medications: Metformin HCl 850 mg [Glucophage 850 MG] 850 mg PO BID 06/29/16 [History] Pnv,Calcium 72/Iron/Folic Acid [ Plus Tablet] 1 each PO DAILY 06/29/16 [ History] raNITIdine HCl [Zantac] 150 mg PO DAILY 06/29/16 [History] Sertraline HCl 100 mg PO HS 03/21/17 [History] Amlodipine Besylate 5 mg [Norvasc 5 mg] 5 mg PO BID 01/02/19 [History] Carvedilol 3.125 mg [Coreg 3.125 MG] 3.125 mg PO BID 01/02/19 [History] Ergocalciferol (Vitamin D2) [Vitamin D2] 50,000 unit PO Q7D 01/02/19 [History] Ferrous Gluconate 324 mg PO BID 01/02/19 [History] Hx Tetanus, Diphtheria Vaccination/Date Given: Yes Hx Influenza Vaccination/Date Given: Yes Hx Pneumococcal Vaccination/Date Given: Yes Immunizations Up to Date: Yes - Review of Systems Constitutional: No Fever, No Chills Eyes: No Eye Pain, No Photophobia Ears, Nose, & Throat: No Nose Pain, No Nose Discharge, No Epistaxis, No Mouth Swelling Respiratory: No Cough, No Dyspnea Cardiac: No Chest Pain, No Edema, No Syncope Abdominal/Gastrointestinal: No Abdominal Pain, No Nausea, No Vomiting, No Diarrhea Genitourinary Symptoms: Flank Pain, No Dysuria, No Frequency, No Hematuria, No Vaginal Bleeding, No Vaginal Discharge Musculoskeletal: No Back Pain, No Neck Pain Skin: No Rash Neurological: No Dizziness, No Focal Weakness, No Sensory Changes Psychological: No Anxiety Endocrine: No Polyuria, No Excessive Sweating Hematologic/Lymphatic: No Easy Bleeding, No Easy Bruising All Other Systems: Reviewed and Negative - Past Medical History Pertinent Past Medical History: Yes Neurological History: No Pertinent History ENT History: No Pertinent History Cardiac History: Hypertension Respiratory History: No Pertinent History Endocrine Medical History: Other Musculoskeletal History: No Pertinent History GI Medical History: Gallbladder Disease History: Other Psycho-Social History: Anxiety, Depression Female Reproductive Disorders: Other Other Medical History: pcos, Insulin resistant, kidney stone - Past Surgical History Past Surgical History: Yes Neuro Surgical History: No Pertinent History Cardiac: No Pertinent History Respiratory: No Pertinent History Gastrointestinal: Cholecystectomy Genitourinary: No Pertinent History Musculoskeletal: No Pertinent History Female Surgical History: No Pertinent History - Social History Smoking Status: Current every day smoker How long have you smoked: 15 yrs Exposure to second hand smoke: Yes Drug Use: none Patient Lives Alone: No - Female History Hx Last Menstrual Period: 2 weeks ago Hx Now: No - Nursing Vital Signs Nursing Vital Signs: Initial Vital Signs Temperature 98.0 F 01/02/19 19:32 Pulse Rate 90 09/22/19 19:32 Respiratory Rate 18 01/02/19 19:32 Blood Pressure 126/74 01/02/19 19:32 O2 Sat by Pulse Oximetry 97 01/02/19 19:32 Pain Scale Pain Intensity 7 - Physical Exam General Appearance: no apparent distress, alert Eye Exam: PERRL/EOMI, eyes nml inspection Ears, Nose, Throat Exam: pharynx normal, moist mucous membranes Neck Exam: normal inspection, non-tender, supple, full range of motion Respiratory Exam: normal breath sounds, lungs clear, airway intact, No respiratory distress, No crackles/rales Cardiovascular Exam: regular rate/rhythm, normal heart sounds, capillary refill <2 sec Gastrointestinal/Abdomen Exam: soft, normal bowel sounds, No tenderness, No distention, No mass, No guarding, No ecchymosis, No rebound Back Exam: normal inspection, normal range of motion, No CVA tenderness, No vertebral tenderness Extremity Exam: normal inspection, normal range of motion, pelvis stable Neurologic Exam: alert, oriented x 3, cooperative, rate setter II-XII nml as tested, normal mood/affect, nml cerebellar function, sensation nml, No motor deficits Skin Exam: normal color, warm, dry SpO2 Interpretation: normal SpO2: 97 O2 Delivery: Room Air - Course Nursing assessment & vital signs reviewed: Yes - CT Exams Abdomen/Pelvis CT Interpretation: Tele-radiologist Report, Other (per radiologist interpretation: negative for acute inflammatory process. Cholecystectomy. Constipation. No signs of hydronephrosis. No signs of nephrolithiasis. No free air or any significant fluid collection. Liver, pancreas, spleen, adrenal , kidneys, stomach, appendix, normal; no evidence of appendicitis. No abdominal aortic aneurysm. No large lymph nodes.) Ordered Tests: Active Orders 24 hr Category Date Time Status IV Insertion STAT Care 01/02/19 20:30 Active ABDOMEN AND PELVIS W/0 CONTRAS [CT] Stat Exams 01/02/19 22:33 Taken CBC W DIFF Stat Lab 01/02/19 20:46 Completed CMP Stat Lab 01/02/19 20:46 Completed HCG,QUALITATIVE URINE Stat Lab 01/02/19 22:20 Completed Lactic Acid Stat Lab 01/02/19 20:45 Completed UA W/RFX UR CULTURE Stat Lab 01/02/19 20:41 Completed Medication Summary Discontinued Medications Generic Name Dose Route Start Last Admin Trade Name Freq PRN Reason Stop Dose Admin Diphenhydramine HCl 25 mg 01/02/19 20:30 01/02/19 21:06 Benadryl 50 Mg/Ml IV 01/02/19 20:31 25 mg STAT ONE Administration Diphenhydramine HCl Confirm 01/02/19 21:00 Benadryl 50 Mg/Ml Administered 01/02/19 21:01 Dose 50 mg .ROUTE .STK-MED ONE Sodium Chloride 1,000 mls @ 999 mls/hr 01/02/19 20:30 01/02/19 22:33 Sodium Chloride 0.9% 1000 Ml IV 01/02/19 21:30 Infused .Q1H1M STA Infusion Sodium Chloride Confirm 01/02/19 21:01 Sodium Chloride 0.9% 1000 Ml Administered 01/02/19 21:02 Dose 1,000 mls @ ud .ROUTE .STK-MED ONE Morphine Sulfate 4 mg 01/02/19 20:30 01/02/19 21:11 Morphine Sulfate 4 Mg Inj IV 01/02/19 20:31 4 mg STAT ONE Administration Morphine Sulfate Confirm 01/02/19 21:01 Morphine Sulfate 4 Mg Inj Administered 01/02/19 21:02 Dose 4 mg .ROUTE .STK-MED ONE Morphine Sulfate 4 mg 01/02/19 22:32 01/02/19 22:43 Morphine Sulfate 4 Mg Inj IV 01/02/19 22:33 4 mg STAT ONE Administration Morphine Sulfate Confirm 01/02/19 22:41 Morphine Sulfate 4 Mg Inj Administered 01/02/19 22:42 Dose 4 mg .ROUTE .STK-MED ONE Lab/Rad Data: Laboratory Result Diagrams 01/02/19 20:46 01/02/19 20:46 Laboratory Results 01/02/19 01/02/19 01/02/19 Range/Units 22:20 20:46 20:46 WBC 10.2 (4.0-10.5) K/mm3 RBC 4.36 (4.1-5.4) M/mm3 Hgb 12.5 (12.0-16.0) gm/dl Hct 39.4 (35-47) % MCV 90.4 (78-100) fl MCH 28.7 (26-32) pg MCHC 31.7 L (32-36) g/dl RDW 14.9 H (11.5-14.0) % Plt Count 322 (150-450) K/mm3 MPV 10.6 H (6-9.5) fl Gran % 54.6 (36.0-66.0) % Eos # (Auto) 0.98 H (0-0.5) Absolute Lymphs (auto) 2.87 (1.0-4.6) Absolute Monos (auto) 0.71 (0.0-1.3) Lymphocytes % 28.2 (24.0-44.0) % Monocytes % 7.0 (0.0-12.0) % Eosinophils % 9.6 H (0.00-5.0) % Basophils % 0.6 (0.0-0.4) % Absolute Granulocytes 5.57 (1.4-6.9) Basophils # 0.06 (0-0.4) Sodium 142 (137-145) mmol/L Potassium 4.3 (3.5-5.1) mmol/L Chloride 106 (98-107) mmol/L Carbon Dioxide 27 (22-30) mmol/L Anion Gap 13.2 (5-15) MEQ/L BUN 17 (7-17) mg/dL Creatinine 0.62 (0.52-1.04) mg/dL Estimated GFR > 60.0 ML/MIN Glucose 88 (74-106) mg/dL Lactic Acid (0.4-2.0) Calcium 9.3 (8.4-10.2) mg/dL Total Bilirubin 0.20 (0.2-1.3) mg/dL AST 27 (14-36) U/L ALT 15 (0-35) U/L Alkaline Phosphatase 78 (38-126) U/L Serum Total Protein 7.2 (6.3-8.2) g/dL Albumin 4.1 (3.5-5.0) g/dL Urine Color (YELLOW) Urine Appearance (CLEAR) Urine pH (5-6) Ur Specific [place] (1.005-1.025) Urine Protein (Negative) Urine Ketones (NEGATIVE) Urine Blood (0-5) Bry/ul Urine Nitrite (NEGATIVE) Urine Bilirubin (NEGATIVE) Urine Urobilinogen (0-1) mg/dL Ur Leukocyte Esterase (NEGATIVE) Urine WBC (Auto) (0-5) /HPF Urine RBC (Auto) (0-2) /HPF U Epithel Cells (Auto) (FEW) /HPF Urine Bacteria (Auto) (NEGATIVE) /HPF Urine Mucus (Auto) (NEGATIVE) /HPF Urine Culture Reflexed (NO) Urine Glucose (NEGATIVE) mg/dL Urine HCG, Qual NEGATIVE (Negative) 01/02/19 01/02/19 Range/Units 20:45 20:41 WBC (4.0-10.5) K/mm3 RBC (4.1-5.4) M/mm3 Hgb (12.0-16.0) gm/dl Hct (35-47) % MCV (78-100) fl MCH (26-32) pg MCHC (32-36) g/dl RDW (11.5-14.0) % Plt Count (150-450) K/mm3 MPV (6-9.5) fl Gran % (36.0-66.0) % Eos # (Auto) (0-0.5) Absolute Lymphs (auto) (1.0-4.6) Absolute Monos (auto) (0.0-1.3) Lymphocytes % (24.0-44.0) % Monocytes % (0.0-12.0) % Eosinophils % (0.00-5.0) % Basophils % (0.0-0.4) % Absolute Granulocytes (1.4-6.9) Basophils # (0-0.4) Sodium (137-145) mmol/L Potassium (3.5-5.1) mmol/L Chloride (98-107) mmol/L Carbon Dioxide (22-30) mmol/L Anion Gap (5-15) MEQ/L BUN (7-17) mg/dL Creatinine (0.52-1.04) mg/dL Estimated GFR ML/MIN Glucose (74-106) mg/dL Lactic Acid 1.0 (0.4-2.0) Calcium (8.4-10.2) mg/dL Total Bilirubin (0.2-1.3) mg/dL AST (14-36) U/L ALT (0-35) U/L Alkaline Phosphatase (38-126) U/L Serum Total Protein (6.3-8.2) g/dL Albumin (3.5-5.0) g/dL Urine Color YELLOW (YELLOW) Urine Appearance CLEAR (CLEAR) Urine pH 6.0 (5-6) Ur Specific [place] 1.020 (1.005-1.025) Urine Protein NEGATIVE (Negative) Urine Ketones NEGATIVE (NEGATIVE) Urine Blood NEGATIVE (0-5) Bry/ul Urine Nitrite NEGATIVE (NEGATIVE) Urine Bilirubin NEGATIVE (NEGATIVE) Urine Urobilinogen NEGATIVE (0-1) mg/dL Ur Leukocyte Esterase NEGATIVE (NEGATIVE) Urine WBC (Auto) 0-2 (0-5) /HPF Urine RBC (Auto) NONE (0-2) /HPF U Epithel Cells (Auto) RARE (FEW) /HPF Urine Bacteria (Auto) NONE SEEN (NEGATIVE) /HPF Urine Mucus (Auto) SLIGHT (NEGATIVE) /HPF Urine Culture Reflexed NO (NO) Urine Glucose NEGATIVE (NEGATIVE) mg/dL Urine HCG, Qual (Negative) - Progress Progress: improved Counseled pt/family regarding: lab results, diagnosis, need for follow-up, rad results - Departure Departure Disposition: Home Clinical Impression: Right flank pain, Elevated blood pressure reading without diagnosis of hypertension Constipation Qualifiers: Constipation type: unspecified constipation type Qualified Code(s): K59.00 - Constipation, unspecified Condition: Good Critical Care Time: No Referrals: PHILIPP STRICKLAND [Primary Care Provider] - 01/04/19 Instructions: DASH Diet, Flank Pain Additional Instructions: Return immediately back to the emergency room if any worsening pain, any fever, new blood in the urine, any change in bowel habits, any weakness, or any other concerning signs or symptoms that were not present at today's visit for immediate reevaluation in the emergency department. Prescriptions: Etodolac 400 mg [Lodine 400 mg] 400 mg PO BID PRN PRN #20 tablet PRN Reason: Pain Polyethylene Glycol 3350 17 gm [Miralax Powder 17GM PACKET] 17 gm PO DAILY PRN #7 packet PRN Reason: Constipation
[2019-01-02] MEDS ORDERED: BENADRYL 50 MG/ML ONE (21:00)
[2019-01-02] MEDS ORDERED: Sodium Chloride 0.9% 1000 ML 1,000 ML ONE (21:01)
[2019-01-02] MEDS ORDERED: MORPHINE SULFATE 4 MG INJ ONE ×2 (21:01→22:41)
[2019-01-02 21:04] LABS: BASOPHIL % 0.6 % (0.0-0.4); Basophil (Absolute #) 0.06 (0-0.4); Eosinophil % 9.6 % (0.00-5.0); Eosinophil (Absolute #) 0.98 (0-0.5); Granulocyte Absolute (ANC) 5.57 (1.4-6.9); Granulocytes % 54.6 % (36.0-66.0); Hematocrit 39.4 % (35-47); Hemoglobin 12.5 gm/dl (12.0-16.0); Lymphocyte (Absolute #) 2.87 (1.0-4.6); Lymphocytes % 28.2 % (24.0-44.0); Mean Cell Volume 90.4 fl (78-100); Mean Corpuscular Hemoglobin 28.7 pg (26-32); Mean Corpuscular Hgb Concent. 31.7 g/dl (32-36); Mean Platelet Volume 10.6 fl (6-9.5); Monocyte (Absolute #) 0.71 (0.0-1.3); Platelet Count 322 K/mm3 (150-450); Red Blood Count 4.36 M/mm3 (4.1-5.4); Red Cell Distribution Width 14.9 % (11.5-14.0); White Blood Count 10.2 K/mm3 (4.0-10.5)
[2019-01-02 21:16] LABS: CHLORIDE 106 mmol/L (98-107)
[2019-01-02 22:14] LABS: ALBUMIN 4.1 g/dL (3.5-5.0); ALKALINE PHOSPHATASE 78 U/L (38-126); ANION GAP 13.2 MEQ/L (5-15); BLOOD UREA NITROGEN 17 mg/dL (7-17); Calcium 9.3 mg/dL (8.4-10.2); Carbon Dioxide 27 mmol/L (22-30); Creatinine 1 0.62 mg/dL (0.52-1.04); Glucose 88 mg/dL (74-106); Potassium 4.3 mmol/L (3.5-5.1); SGOT/AST 27 U/L (14-36); SGPT/ALT 15 U/L (0-35); SODIUM 142 mmol/L (137-145); Total Protein 7.2 g/dL (6.3-8.2)
[2019-01-02 22:31] LABS: Appearance CLEAR (CLEAR); Bilirubin NEGATIVE (NEGATIVE); Blood NEGATIVE Ery/ul (0-5); Epithelial Cells RARE /HPF (FEW); Glucose NEGATIVE (NEGATIVE); Ketones NEGATIVE (NEGATIVE); Leukocyte Esterase NEGATIVE (NEGATIVE); Mucus SLIGHT /HPF (NEGATIVE); Nitrite NEGATIVE (NEGATIVE); Protein,Urine Dip NEGATIVE (Negative); Urobilinogen NEGATIVE mg/dL (0-1); WBC 0-2 /HPF (0-5)
[2019-01-02 22:43] LABS: Bacteria NONE SEEN /HPF (NEGATIVE)
[2019-01-03 00:41] VITALS: BP 111/66; O2SAT 97
--- NOTE | 2019-01-03 16:57 | XRAY ---
Exam: CT of the abdomen and pelvis without IV contrast from 01/02/2019. CTDI: 28.13 mGy Comparison: CT of the abdomen and pelvis without IV contrast from 11/30/2018. Indication: 33-year-old female with right flank pain for 2 days with frequent urination, history of renal stones and prior cholecystectomy, no hematuria. Technique: Non-IV contrast axial images were obtained through the abdomen and pelvis. Reconstructed coronal and sagittal images were created and reviewed. Findings: The lung bases appear clear. Evaluation of the solid organs is limited on a non-IV contrast study, but no gross abnormality of the liver, spleen, pancreas, or adrenal glands is seen. Surgical clips consistent with prior cholecystectomy are seen within the right upper quadrant. I believe there are a couple tiny calcifications within the right kidney, best seen on coronal image #100. Faint nephrocalcinosis was seen on the prior CT study from 11/30/2018 as well. There is a question of a tiny cortical calcification at the medial margin of the lower pole of the left kidney representing no change. No other renal calculi or hydronephrosis is seen. No definite renal mass is seen. The ureters are not dilated and reveal no definite ureterolith. The urinary bladder is almost completely empty. The abdominal aorta appears of normal diameter. No abnormal retroperitoneal lymphadenopathy is seen. The patient is noted to be obese. Moderate intraperitoneal fat is seen. There is no evidence of free intraperitoneal air or bowel containing ventral hernia. There is minimal protrusion of intraperitoneal fat into the subcutaneous fat at the level of the umbilicus on sagittal images #88 through #91. The bowel is not distended. Scattered colonic stool is evident. The appendix appears normal. There is no free intraperitoneal fluid or enlarged pelvic lymph nodes. The deep pelvic sidewalls appear unremarkable. The uterus is markedly anteflexed. The urinary bladder is again noted to be almost completely empty. No other pelvic mass seen. The inguinal/femoral regions reveal no significant abnormality. The skeleton reveals no acute fracture or aggressive bone lesion. I again see minimal focal sclerosis on both sides of a portion of the left sacroiliac joint on axial image #88, no change. Impression: 1. I note a couple tiny nonobstructing stones within the right kidney, best seen on coronal image #100. I don't believe this represents significant change from 11/30/2018. There is also a suggestion of a tiny cortical calcification at the medial margin of the lower pole of the left kidney, stable. 2. No obstructing renal calculi, hydronephrosis, ureterolith, or bladder stone is seen. The urinary bladder appears essentially empty. 3. Normal appendix. 4. Status post cholecystectomy. 5. Mild colonic stool retention.
== END 2019-01-03 01:11 | disposition home or self-care (01) ==
LOC: ED 19:20
DX: R10.9 Unspecified abdominal pain (principal); R03.0 Elevated blood-pressure reading, without diagnosis of hypertension; I10 Essential (primary) hypertension; K59.00 Constipation, unspecified
CPT/HCPCS: 36000; 36415; 74176; 80053; 81001; 83605; 84703; 85025; 96360; 96374; 96375; 96376; 99284; J1200; J2270

== ENCOUNTER 2019-02-18 16:52 | Emergency (ER) | payer OTHER ==
--- NOTE | 2019-02-18 17:53 | ERPHSYRPT ---
- History of Present Illness Time Seen by Provider: 02/18/19 17:23 Source: patient Exam Limitations: no limitations Patient Subjective Stated Complaint: Dee Dee states she has had sore throat since Thursday with chest tighness and back pain. Patient talks in a whisper Triage Nursing Assessment: patient wtih complaint of chest conjestion and sore throat Physician History: 33-year-old female endorses 2 days of constant coughing unable to sleep accompanied by upper back pain. Endorses subjective fevers and chills at home. Yesterday with several episodes of nausea and vomiting without abdominal pain diarrhea or constipation. No recent travel rashes or sick contacts. No sore throat or ear pain or sinus congestion. PMH: Patient has PCOS and hypertension Social: Patient endorses continued tobacco use Allergies/Adverse Reactions: strawberry Allergy (Severe, Verified 02/18/19 17:39) Tightness of Throat shrimp Allergy (Intermediate, Verified 02/18/19 17:39) itch Iodinated Contrast Media Allergy (Verified 02/18/19 17:39) Itching Penicillins Allergy (Verified 02/18/19 17:39) Anaphylactic Reaction sulfamethoxazole [From Bactrim] Adverse Reaction (Verified 02/18/19 17:39) Vomiting trimethoprim [From Bactrim] Adverse Reaction (Verified 02/18/19 17:39) Vomiting Home Medications: Metformin HCl 850 mg [Glucophage 850 MG] 1,000 mg PO BID 06/29/16 [History ] Pnv,Calcium 72/Iron/Folic Acid [ Plus Tablet] 1 each PO DAILY 06/29/16 [ History] raNITIdine HCl [Zantac] 150 mg PO DAILY 06/29/16 [History] Sertraline HCl 100 mg PO HS 03/21/17 [History] Amlodipine Besylate 5 mg [Norvasc 5 mg] 5 mg PO BID 01/02/19 [History] Carvedilol 3.125 mg [Coreg 3.125 MG] 3.125 mg PO BID 01/02/19 [History] Ergocalciferol (Vitamin D2) [Vitamin D2] 50,000 unit PO Q7D 01/02/19 [History] Ferrous Gluconate 324 mg PO BID 01/02/19 [History] Hx Tetanus, Diphtheria Vaccination/Date Given: Yes Hx Influenza Vaccination/Date Given: Yes Hx Pneumococcal Vaccination/Date Given: Yes Immunizations Up to Date: Yes - Review of Systems Constitutional: No Fever, No Chills Eyes: No Symptoms Ears, Nose, & Throat: No Symptoms Respiratory: Cough, No Dyspnea, No Wheezing Cardiac: No Chest Pain, No Edema, No Syncope Abdominal/Gastrointestinal: Nausea, Vomiting, No Abdominal Pain, No Diarrhea Genitourinary Symptoms: No Dysuria Musculoskeletal: Back Pain (upper thoracic), No Neck Pain Skin: No Rash Neurological: No Dizziness, No Focal Weakness, No Sensory Changes Psychological: No Symptoms Endocrine: No Symptoms All Other Systems: Reviewed and Negative - Past Medical History Pertinent Past Medical History: Yes Neurological History: No Pertinent History ENT History: No Pertinent History Cardiac History: Hypertension Respiratory History: No Pertinent History Endocrine Medical History: Other Musculoskeletal History: No Pertinent History GI Medical History: Gallbladder Disease History: Other Psycho-Social History: Anxiety, Depression Female Reproductive Disorders: Other Other Medical History: pcos, Insulin resistant, kidney stone - Past Surgical History Past Surgical History: Yes Neuro Surgical History: No Pertinent History Cardiac: No Pertinent History Respiratory: No Pertinent History Gastrointestinal: Cholecystectomy Genitourinary: No Pertinent History Musculoskeletal: No Pertinent History Female Surgical History: No Pertinent History - Social History Smoking Status: Current every day smoker How long have you smoked: 15 yrs Exposure to second hand smoke: Yes Drug Use: none Patient Lives Alone: No - Female History Hx Last Menstrual Period: one month ago Hx Now: No - Nursing Vital Signs Nursing Vital Signs: Initial Vital Signs Temperature 97.5 F 02/18/19 17:30 Pulse Rate 88 02/18/19 17:30 Respiratory Rate 20 02/18/19 17:30 Blood Pressure 156/81 02/18/19 17:30 Pain Scale Pain Intensity 0 - Physical Exam General Appearance: no apparent distress, alert Eye Exam: PERRL/EOMI, eyes nml inspection Ears, Nose, Throat Exam: normal ENT inspection, TMs normal, pharynx normal, moist mucous membranes Neck Exam: normal inspection, non-tender, supple, full range of motion Respiratory Exam: normal breath sounds, lungs clear, No respiratory distress Cardiovascular Exam: regular rate/rhythm, normal heart sounds, normal peripheral pulses Gastrointestinal/Abdomen Exam: soft, normal bowel sounds, No tenderness, No mass Back Exam: normal inspection, normal range of motion, No CVA tenderness, No vertebral tenderness Extremity Exam: normal inspection, normal range of motion, pelvis stable Neurologic Exam: alert, oriented x 3, cooperative, normal mood/affect, nml cerebellar function, nml station & gait, sensation nml, No motor deficits Skin Exam: normal color, warm, dry, No rash Lymphatic Exam: No adenopathy - Radiology Exams Chest X-ray Interpretation: Interpreted by me, Reviewed by me, Infiltrates Ordered Tests: Active Orders 24 hr Category Date Time Status CHEST 2 VIEWS (PA AND LAT) Stat Exams 02/18/19 17:46 Completed Medication Summary Discontinued Medications Generic Name Dose Route Start Last Admin Trade Name Luis PRN Reason Stop Dose Admin Dexamethasone 12 mg 02/18/19 17:55 02/18/19 18:49 Decadron 4 Mg PO 02/18/19 17:56 Not Given ONCE ONE Dexamethasone Sodium Phosphate Confirm 02/18/19 18:12 Decadron 4 Mg Inj Administered 02/18/19 18:13 Dose 12 mg .ROUTE .STK-MED ONE Dexamethasone Sodium Phosphate 12 mg 02/18/19 18:26 02/18/19 18:29 Decadron 10mg Inj. PO 02/18/19 18:27 12 mg STAT ONE Administration Ondansetron HCl 4 mg 02/18/19 17:56 02/18/19 18:16 Zofran Odt 4 Mg PO 02/18/19 17:57 4 mg STAT ONE Administration Ondansetron HCl Confirm 02/18/19 18:12 Zofran Odt 4 Mg Administered 02/18/19 18:13 Dose 4 mg .ROUTE .STK-MED ONE - Progress Progress: unchanged Progress Note: normal vital signs. Nontoxic and hemodynamically stable. Nontender requirement. Possible early infiltrate on chest x-ray which is consistent with her presentation, will treat accordingly for pneumonia. Antibiotics prescribed. History as given in the emergency department. Patient appropriate for discharge with outpatient management, recommended primary care followup or return here for new or concerning symptoms. 02/19/19 01:42 - Departure Departure Disposition: Home Clinical Impression: Cough, Fever and chills Back pain Qualifiers: Back pain location: thoracic back pain Chronicity: acute Back pain laterality: bilateral Qualified Code(s): M54.6 - Pain in thoracic spine Condition: Good Critical Care Time: No Referrals: PHILIPP STRICKLAND [Primary Care Provider] - Instructions: Fever, Adult (DC) Prescriptions: Doxycycline Hyclate 100 mg [Vibramycin 100 MG] 100 mg PO BID #14 tab
[2019-02-18] MEDS ORDERED: Decadron 4 MG INJ ONE (18:12)
[2019-02-18] MEDS ORDERED: ZOFRAN ODT 4 MG ONE (18:12)
[2019-02-18] MEDS: ZOFRAN ODT 4 MG PO ONE (18:16)
[2019-02-18 18:26] VITALS: BP 142/74; O2SAT 98
[2019-02-18] MEDS: DECADRON 10MG INJ. PO ONE (18:29)
[2019-02-18] MEDS: Decadron 4 MG PO ONE (18:49)
[2019-02-18 18:58] VITALS: PULSE 80
--- NOTE | 2019-02-18 22:48 | XRAY ---
Indication: Cough, short of breath, and fever. Comparison: November 30, 2018. PA/lateral chest now demonstrates subtle right lower lobe infiltrate. Remaining heart, left lung, and bony thorax normal.
== END 2019-02-18 18:58 | disposition home or self-care (01) ==
LOC: ED 16:52
DX: R05 Cough (principal); R50.9 Fever, unspecified; M54.6 Pain in thoracic spine
CPT/HCPCS: 71046; 99283; 99291; 99292; J1100; Q0162

== ENCOUNTER 2019-04-08 20:05 | Emergency (ER) | payer OTHER ==
[2019-04-08] MEDS ORDERED: Tussionex Pennkinetic Susp PO ONE (20:41)
--- NOTE | 2019-04-08 20:41 | ERPHSYRPT ---
- History of Present Illness Time Seen by Provider: 04/08/19 20:39 Source: patient, family Exam Limitations: no limitations Patient Subjective Stated Complaint: pt states that she has been congested for the past 3 days, pt states that she feels like she has pneumonia again, pt states that she has had n/v/d for the past few days, pt states that she has fever for the past few days, pt states that she has pain in chest and back 10/20 Triage Nursing Assessment: pt ambulated into the er, pt axo x4, lung sound are clear, no redness present to throat, pt lost voice, vital wnl Physician History: patient states that she has been congested for the past 3 days, She states that she feels like she has pneumonia again, She states that she has had n/v/d for the past few days, patient states that she has fever for the past few days, She states that she has pain in chest and back 10/20 Timing/Duration: day(s) (2-3 days) Cough Quality/Degree: dry cough Possible Cause: frequent episodes Modifying Factors: Improves With: nothing Associated Symptoms: chest pain/soreness, cough International travel in last 2 weeks: No Allergies/Adverse Reactions: strawberry Allergy (Severe, Verified 04/08/19 20:25) Tightness of Throat shrimp Allergy (Intermediate, Verified 04/08/19 20:25) itch Iodinated Contrast Media Allergy (Verified 04/08/19 20:25) Itching Penicillins Allergy (Verified 04/08/19 20:25) Anaphylactic Reaction sulfamethoxazole [From Bactrim] Adverse Reaction (Verified 04/08/19 20:25) Vomiting trimethoprim [From Bactrim] Adverse Reaction (Verified 04/08/19 20:25) Vomiting Home Medications: Metformin HCl 850 mg [Glucophage 850 MG] 1,000 mg PO BID 06/29/16 [History ] Pnv,Calcium 72/Iron/Folic Acid [ Plus Tablet] 1 each PO DAILY 06/29/16 [ History] Sertraline HCl 100 mg PO HS 03/21/17 [History] Amlodipine Besylate 5 mg [Norvasc 5 mg] 5 mg PO BID 01/02/19 [History] Carvedilol 3.125 mg [Coreg 3.125 MG] 3.125 mg PO BID 01/02/19 [History] Ergocalciferol (Vitamin D2) [Vitamin D2] 50,000 unit PO Q7D 01/02/19 [History] Ferrous Gluconate 324 mg PO BID 01/02/19 [History] Omeprazole 20 mg PO HS 04/08/19 [History] Hx Tetanus, Diphtheria Vaccination/Date Given: Yes Hx Influenza Vaccination/Date Given: Yes Hx Pneumococcal Vaccination/Date Given: Yes - Review of Systems Constitutional: No Fever, No Chills Eyes: No Symptoms Ears, Nose, & Throat: No Symptoms Respiratory: Cough, No Dyspnea Cardiac: Chest Pain, No Edema, No Syncope Abdominal/Gastrointestinal: No Abdominal Pain, No Nausea, No Vomiting, No Diarrhea Genitourinary Symptoms: No Dysuria Musculoskeletal: No Back Pain, No Neck Pain Skin: No Rash Neurological: No Dizziness, No Focal Weakness, No Sensory Changes Psychological: No Symptoms Endocrine: No Symptoms All Other Systems: Reviewed and Negative - Past Medical History Pertinent Past Medical History: Yes Neurological History: No Pertinent History ENT History: No Pertinent History Cardiac History: Hypertension Respiratory History: No Pertinent History Endocrine Medical History: Other Musculoskeletal History: No Pertinent History GI Medical History: Gallbladder Disease History: Other Psycho-Social History: Anxiety, Depression Female Reproductive Disorders: Other Other Medical History: pcos, Insulin resistant, kidney stone, iron def - Past Surgical History Past Surgical History: Yes Neuro Surgical History: No Pertinent History Cardiac: No Pertinent History Respiratory: No Pertinent History Gastrointestinal: Cholecystectomy Genitourinary: No Pertinent History Musculoskeletal: No Pertinent History Female Surgical History: No Pertinent History - Social History Smoking Status: Current every day smoker How long have you smoked: 15 yrs Exposure to second hand smoke: Yes Drug Use: none Patient Lives Alone: No - Female History Hx Last Menstrual Period: 04/08/19 Hx Now: No - Nursing Vital Signs Nursing Vital Signs: Initial Vital Signs Temperature 98.4 F 04/08/19 20:13 Pulse Rate 104 H 04/08/19 20:13 Respiratory Rate 22 04/08/19 20:13 Blood Pressure 127/73 04/08/19 20:13 O2 Sat by Pulse Oximetry 99 04/08/19 20:13 Pain Scale Pain Intensity 8 - Physical Exam General Appearance: no apparent distress, alert Eye Exam: PERRL/EOMI, eyes nml inspection Ears, Nose, Throat Exam: normal ENT inspection, TMs normal, pharynx normal, moist mucous membranes Neck Exam: normal inspection, non-tender, supple, full range of motion Respiratory Exam: normal breath sounds, lungs clear, No respiratory distress Cardiovascular Exam: regular rate/rhythm, normal heart sounds Gastrointestinal/Abdomen Exam: soft, No tenderness Back Exam: normal inspection, No CVA tenderness, No vertebral tenderness Extremity Exam: normal inspection, normal range of motion Neurologic Exam: alert, oriented x 3, cooperative, normal mood/affect, sensation nml, No motor deficits Skin Exam: normal color, warm, dry, No rash Lymphatic Exam: No adenopathy SpO2: 99 - Course Nursing assessment & vital signs reviewed: Yes - Radiology Exams Chest X-ray Interpretation: Reviewed by me (right lower lobe infiltrate) Ordered Tests: Active Orders 24 hr Category Date Time Status CHEST 2 VIEWS (PA AND LAT) Stat Exams 04/08/19 21:12 Taken BMP Stat Lab 04/08/19 21:15 Completed CBC W DIFF Stat Lab 04/08/19 21:15 Completed Medication Summary Generic Name Dose Route Start Last Admin Trade Name Freq PRN Reason Stop Dose Admin Azithromycin 500 mg in 250 mls @ 250 mls/hr 04/08/19 21:45 Zithromax 500 Mg/ 250 Ml Nacl Premix IV 04/08/19 22:44 STAT STA Discontinued Medications Generic Name Dose Route Start Last Admin Trade Name Freq PRN Reason Stop Dose Admin Chlorphenir/Hydrocodone Polistirex 5 ml 04/08/19 20:41 04/08/19 21:21 Tussionex Pennkinetic Susp PO 04/08/19 20:42 5 ml STAT ONE Administration Sodium Chloride 1,000 mls @ 999 mls/hr 04/08/19 20:42 04/08/19 21:20 Sodium Chloride 0.9% 1000 Ml IV 04/08/19 21:42 999 mls/hr .Q1H1M STA Administration Sodium Chloride Confirm 04/08/19 21:16 Sodium Chloride 0.9% 1000 Ml Administered 04/08/19 21:17 Dose 1,000 mls @ ud .ROUTE .STK-MED ONE Ketorolac Tromethamine 30 mg 04/08/19 21:28 04/08/19 21:31 Toradol 30 Mg Injection IV 04/08/19 21:29 30 mg STAT ONE Administration Ketorolac Tromethamine Confirm 04/08/19 21:30 Toradol 30 Mg Injection Administered 04/08/19 21:31 Dose 30 mg .ROUTE .STK-MED ONE Ondansetron HCl 4 mg 04/08/19 21:03 04/08/19 21:20 Zofran 4 Mg/2 Ml Vial IV 04/08/19 21:04 4 mg STAT ONE Administration Ondansetron HCl Confirm 04/08/19 21:16 Zofran 4 Mg/2 Ml Vial Administered 04/08/19 21:17 Dose 4 mg .ROUTE .STK-MED ONE Lab/Rad Data: Laboratory Result Diagrams 04/08/19 21:15 04/08/19 21:15 Laboratory Results 04/08/19 04/08/19 04/08/19 Range/Units 21:15 21:15 20:50 WBC 12.1 H (4.0-10.5) K/mm3 RBC 4.29 (4.1-5.4) M/mm3 Hgb 12.3 (12.0-16.0) gm/dl Hct 38.5 (35-47) % MCV 89.7 (78-100) fl MCH 28.7 (26-32) pg MCHC 31.9 L (32-36) g/dl RDW 14.5 H (11.5-14.0) % Plt Count 307 (150-450) K/mm3 MPV 10.7 H (6-9.5) fl Gran % 60.0 (36.0-66.0) % Eos # (Auto) 0.76 H (0-0.5) Absolute Lymphs (auto) 3.26 (1.0-4.6) Absolute Monos (auto) 0.78 (0.0-1.3) Lymphocytes % 26.9 (24.0-44.0) % Monocytes % 6.4 (0.0-12.0) % Eosinophils % 6.3 H (0.00-5.0) % Basophils % 0.4 (0.0-0.4) % Absolute Granulocytes 7.27 H (1.4-6.9) Basophils # 0.05 (0-0.4) Sodium 139 (137-145) mmol/L Potassium 3.4 L (3.5-5.1) mmol/L Chloride 106 (98-107) mmol/L Carbon Dioxide 25 (22-30) mmol/L Anion Gap 10.6 (5-15) MEQ/L BUN 16 (7-17) mg/dL Creatinine 0.61 (0.52-1.04) mg/dL Estimated GFR > 60.0 ML/MIN Glucose 99 (74-106) mg/dL Calcium 9.2 (8.4-10.2) mg/dL Influenza Type A Ag NEGATIVE (NEGATIVE) Influenza Type B Ag NEGATIVE (NEGATIVE) RSV (PCR) NEGATIVE (Negative) Group A Strep Antibody NEGATIVE (NEGATIVE) - Progress Progress: improved Air Movement: good Blood Culture(s) Obtained: No Antibiotics given: Yes Counseled pt/family regarding: lab results, diagnosis, need for follow-up, rad results - Departure Departure Disposition: Home Clinical Impression: Pneumonia of right lower lobe due to infectious organism Condition: Stable Critical Care Time: Yes Critical Care Time(excluding separately billable procedures): Critical 30-74 mins Referrals: PHILIPP STRICKLAND [Primary Care Provider] - Instructions: Pneumonia, Adult (DC) Additional Instructions: Discharge/Care Plan BABATUNDE SMITH GEOFFREY was seen on 04/08/19 in the Emergency Room. The patient was counseled regarding Diagnosis,Lab results, Imaging studies, need for follow up and when to return to the Emergency Room. Prescriptions given: Discharge Note I have spoken with the patient and/or caregivers. I have explained the patient' s condition, diagnosis and treatment plan based on the information available to me at this time. I have answered the patient's and/or caregiver's questions and addressed any concerns. The patient and/or caregivers have as good understanding of the patient's diagnosis, condition and treatment plan as can be expected at this point. The vital signs have been stable. The patient's condition is stable and appropriate for discharge from the emergency department. The patient will pursue further outpatient evaluation with the primary care physician or other designated or consulting physician as outlined in the discharge instructions. The patient and/or caregivers are agreeable to this plan of care and follow-up instructions have been explained in detail. The patient and/or caregivers have received these instruction. The patient/and or caregivers are aware that any significant change in condition or worsening of symptoms should prompt an immediate return to this or the closest emergency department or call 911. BABATUNDE SMITH was seen on 04/08/19 n the Emergency Room. At that time you were treated for an emergent condition, during your visit Laboratory, Radiology and/or other procedures may have been ordered. It is very important that you follow-up with your Primary Care Physician PHILIPP STRICKLAND within the next 24-48 hours to review your Emergency Room visit and the final results of testing that was ordered. Some test results such as Urine Cultures, Blood Cultures, and other cultures if ordered will not be finalized for 24-48 hours. If you do not have a Primary Care Provider please call the medical records department at [phone] ext [phone] to obtain a copy of your results or you may sign into our patient portal to obtain these results by visiting us @ [email or web address] and completing the following steps: 1. Click on the Patient Portal link 2. Click the Patient Self Enrollment Link to complete the enrollment form and entering your 3. Once the enrollment form is completed you will receive an email with a temporary ID and password at the email address you provided. 4. Next choose a user name and password. Your user name must be at least 4 characters long and your password must be at least 4 characters long. 5. Choose a security question from the list and provide your answer to the question. If you already have signed into the Health Portal you may access your Health Care Information 03/11 by the following steps: 1. Login to our website @ [email or web address] 2. Enter your original user name and password. FAQS The [facility] Health Portal is an online tool that contains your Lab Results, Radiology Reports, Visit History, Discharge Instructions and Health Summary Lab and Radiology Results will not be available for 72 hours on the portal. The Portal is a secure site, passwords are encryted and URLs are re-written so they cannot be copied and pasted. You and authorized family members are the only ones who can access your Portal. Also there is a timeout feature that protects your information if you leave the Portal page open. If you have technical difficulty please use the Contact Us link on the page this will allow you to submit any questions you have regarding the Portal or you may contact the Medical Record Department at [phone] ext [phone]. Prescriptions: Benzonatate [Tessalon Perle] 100 mg PO QID #30 capsule Azithromycin [Zithromax] 250 mg PO UD 5 Days #6 tablet
[2019-04-08] MEDS ORDERED: Sodium Chloride 0.9% 1000 ML 1,000 ML IV STA (20:42)
[2019-04-08] MEDS ORDERED: Zofran 4 MG/2 ML VIAL IV ONE (21:03)
[2019-04-08] MEDS ORDERED: Zofran 4 MG/2 ML VIAL ONE (21:16)
[2019-04-08] MEDS ORDERED: Sodium Chloride 0.9% 1000 ML 1,000 ML ONE (21:16)
[2019-04-08] MEDS ORDERED: TORAdol 30 mg Injection IV ONE (21:28)
[2019-04-08 21:29] LABS: Group A Strep NEGATIVE (NEGATIVE)
[2019-04-08 21:29] LABS: Absolute Neutrophil Ct (ANC) 7.27 (1.4-6.9); BASOPHIL % 0.4 % (0.0-0.4); Basophil (Absolute #) 0.05 (0-0.4); Eosinophil % 6.3 % (0.00-5.0); Eosinophil (Absolute #) 0.76 (0-0.5); Hematocrit 38.5 % (35-47); Hemoglobin 12.3 gm/dl (12.0-16.0); Lymphocyte (Absolute #) 3.26 (1.0-4.6); Lymphocytes % 26.9 % (24.0-44.0); Mean Cell Volume 89.7 fl (78-100); Mean Corpuscular Hemoglobin 28.7 pg (26-32); Mean Corpuscular Hgb Concent. 31.9 g/dl (32-36); Mean Platelet Volume 10.7 fl (6-9.5); Monocyte (Absolute #) 0.78 (0.0-1.3); Monocytes % 6.4 % (0.0-12.0); Platelet Count 307 K/mm3 (150-450); Red Blood Count 4.29 M/mm3 (4.1-5.4); Red Cell Distribution Width 14.5 % (11.5-14.0); White Blood Count 12.1 K/mm3 (4.0-10.5)
[2019-04-08 21:30] LABS: INFLUENZA A NEGATIVE (NEGATIVE); INFLUENZA B NEGATIVE (NEGATIVE); RESPIRATORY SYNCTIAL VIRUS NEGATIVE (Negative)
[2019-04-08] MEDS ORDERED: TORAdol 30 mg Injection ONE (21:30)
[2019-04-08 21:43] LABS: ANION GAP 10.6 MEQ/L (5-15); BLOOD UREA NITROGEN 16 mg/dL (7-17); CHLORIDE 106 mmol/L (98-107); Calcium 9.2 mg/dL (8.4-10.2); Carbon Dioxide 25 mmol/L (22-30); Creatinine 1 0.61 mg/dL (0.52-1.04); Glucose 99 mg/dL (74-106); Potassium 3.4 mmol/L (3.5-5.1); SODIUM 139 mmol/L (137-145)
[2019-04-08] MEDS ORDERED: Zithromax 500 MG/ 250 ML NaCl Premix 500 MG/250 ML IVPB IV STA (21:45)
[2019-04-08] MEDS ORDERED: K-LYTE 25 MEQ PO ONE (21:46)
[2019-04-08] MEDS ORDERED: Zithromax 500 MG/ 250 ML NaCl Premix 500 MG/250 ML IVPB IV ONE (21:47)
[2019-04-08] MEDS ORDERED: SUBLIMAZE 100 MCG/2 ML IV ONE (21:54)
[2019-04-08] MEDS ORDERED: SUBLIMAZE 100 MCG/2 ML ONE (21:58)
[2019-04-08] MEDS ORDERED: K-LYTE 25 MEQ ONE (21:58)
[2019-04-08 22:54] VITALS: BP 103/58; PULSE 89; O2SAT 97
--- NOTE | 2019-04-09 11:35 | XRAY ---
Indication: Fever and cough. Comparison: February 18, 2019. PA/lateral chest again demonstrates subtle right base infiltrate/atelectasis. Remaining heart, left lung, and bony thorax are normal.
== END 2019-04-08 23:07 | disposition home or self-care (01) ==
LOC: ED 20:05
DX: J16.8 Pneumonia due to other specified infectious organisms (principal); R11.2 Nausea with vomiting, unspecified; R19.7 Diarrhea, unspecified; R07.89 Other chest pain; R05 Cough; R07.9 Chest pain, unspecified; Z79.899 Other long term (current) drug therapy; I10 Essential (primary) hypertension
CPT/HCPCS: 36415; 71046; 80048; 85025; 87631; 87651; 96360; 96361; 96365; 96374; 96375; 99284; 99291; J0456; J1885; J2405; J3010; A9270-GY

== ENCOUNTER 2019-04-11 18:51 | Inpatient (IN) | payer OTHER ==
[2019-04-11] MEDS ORDERED: PROVENTIL 2.5 MG/3 ML NEB IH ONE (20:36)
[2019-04-11] MEDS: PROVENTIL 2.5 MG/3 ML NEB IH SCH (20:54)
[2019-04-11] MEDS ORDERED: Zithromax 500 MG/ 250 ML NaCl Premix 500 MG/250 ML IVPB IV SCH (23:00)
[2019-04-11] MEDS ORDERED: ROCEPHIN 1 Gm-D5w 50 ml Bag** 1 G/50 ML IVPB IV SCH (23:00)
[2019-04-11] MEDS ORDERED: Tussionex Pennkinetic Susp PO PRN (23:08)
[2019-04-11] MEDS ORDERED: NORCO 5/325 MG PO PRN (23:08)
[2019-04-11] MEDS ORDERED: NORCO 5/325 MG ONE (23:59)
[2019-04-12] MEDS: Lactated Ringers 1,000 ML IV SCH ×2 (00:09→13:48)
[2019-04-12] MEDS: solu-MEDROL 40 MG IV SCH ×3 (00:09→22:06)
[2019-04-12] MEDS ORDERED: Protonix 40MG Tablet PO SCH (01:23)
[2019-04-12] MEDS ORDERED: ZOLOFT 50 MG TABLET PO SCH (01:25)
[2019-04-12] MEDS ORDERED: Norco 10/325 MG Tablet PO PRN (01:28)
[2019-04-12] MEDS ORDERED: Norco 10/325 MG Tablet ONE (01:36)
[2019-04-12] MEDS: Zofran 4 MG/2 ML VIAL IV PRN ×3 (01:42→13:40)
[2019-04-12] MEDS: Coreg 3.125 MG PO SCH ×3 (01:43→22:05)
[2019-04-12] MEDS: NORVASC 5 MG PO SCH ×2 (01:43→22:05)
[2019-04-12] MEDS: NICODERM CQ 14 MG TOP SCH (01:43)
[2019-04-12] MEDS ORDERED: MORPHINE SULFATE 4 MG INJ IV ONE (04:43)
[2019-04-12] MEDS ORDERED: OXYCODONE-ACETAMINOPHEN 10-325 PO PRN (05:00)
[2019-04-12] MEDS ORDERED: MORPHINE SULFATE 4 MG INJ IV PRN ×2 (05:23→08:34)
[2019-04-12 06:06] LABS: ANION GAP 12.1 MEQ/L (5-15); BLOOD UREA NITROGEN 13 mg/dL (7-17); CHLORIDE 105 mmol/L (98-107); Calcium 9.1 mg/dL (8.4-10.2); Carbon Dioxide 24 mmol/L (22-30); Creatinine 1 0.63 mg/dL (0.52-1.04); Glucose 145 mg/dL (74-106); SODIUM 137 mmol/L (137-145)
[2019-04-12 06:29] LABS: Hematocrit 37.6 % (35-47); Hemoglobin 11.9 gm/dl (12.0-16.0); Mean Cell Volume 91.3 fl (78-100); Mean Corpuscular Hemoglobin 28.9 pg (26-32); Mean Corpuscular Hgb Concent. 31.6 g/dl (32-36); Mean Platelet Volume 11.2 fl (6-9.5); Platelet Count 296 K/mm3 (150-450); Red Blood Count 4.12 M/mm3 (4.1-5.4); Red Cell Distribution Width 14.7 % (11.5-14.0); White Blood Count 9.3 K/mm3 (4.0-10.5)
[2019-04-12] MEDS: PROVENTIL 2.5 MG/3 ML NEB IH SCH ×2 (06:49→11:00)
[2019-04-12] MEDS ORDERED: Ativan 2 MG/1 ML VIAL IV PRN (08:34)
--- NOTE | 2019-04-12 08:34 | PCM.HP ---
History of Present Illness - Chief Complaint Chief Complaint: Pneumonia History of Present Illness: is a 33 year old female pt of mine from [facility] with HTN who was admitted directly yesterday with pneumonia. She had been dx 3d previously at [facility] ER with pneumonia and started on zithromax po. Yesterday she called the office still not feeling well. Repeat CXR and labs were done- they were non acute and CXR unchanged but I did see the pt in radiology, she c/o running fevers, lots of cough and not feeling better so was admitted for failed OP therapy. - Review of Systems Constitutional: Fever, Weakness Respiratory: Cough, Short Of Breath (at night) Abdominal/Gastrointestinal: Abdominal Pain (cramps, currently on menses) Musculoskeletal: Back Pain All Other Systems: Reviewed and Negative Medications & Allergies Home Medications: Home Medication List Metformin HCl 850 mg [Glucophage 850 MG] 1,000 mg PO BID 06/29/16 [ History Confirmed 04/12/19] Pnv,Calcium 72/Iron/Folic Acid [ Plus Tablet] 1 each PO DAILY 06/29/16 [ History Confirmed 04/12/19] Sertraline HCl 100 mg PO HS 03/21/17 [History Confirmed 04/12/19] Ondansetron ODT 4 MG [Zofran Odt 4 mg] 4 mg PO Q6H PRN PRN #10 tab.rapdis 11/30/18 [Rx Confirmed 04/12/19] Amlodipine Besylate 5 mg [Norvasc 5 mg] 5 mg PO HS 01/02/19 [History Confirmed 04/12/19] Carvedilol 3.125 mg [Coreg 3.125 MG] 3.125 mg PO BID 01/02/19 [History Confirmed 04/12/19] Ergocalciferol (Vitamin D2) [Vitamin D2] 50,000 unit PO Q7D 01/02/19 [History Confirmed 04/12/19] Ferrous Gluconate 324 mg PO BID 01/02/19 [History Confirmed 04/12/19] Azithromycin [Zithromax] 250 mg PO UD 5 Days #6 tablet 04/08/19 [Rx Confirmed ] Omeprazole 20 mg PO HS 04/08/19 [History Confirmed 04/12/19] Meloxicam 15 mg PO BID PRN 04/12/19 [History Confirmed 04/12/19] Allergies/Adverse Reactions: Allergies Allergy/AdvReac Type Severity Reaction Status Date / Time strawberry Allergy Severe Tightness Verified 04/08/19 20:25 of Throat shrimp Allergy Intermediate itch Verified 04/08/19 20:25 Iodinated Contrast Media Allergy Itching Verified 04/08/19 20:25 Penicillins Allergy Anaphylactic Verified 04/08/19 20:25 Reaction sulfamethoxazole AdvReac Vomiting Verified 04/08/19 20:25 [From Bactrim] trimethoprim [From Bactrim] AdvReac Vomiting Verified 04/08/19 20:25 - Past Medical History Past Medical History: No Neurological History: No Pertinent History ENT History: No Pertinent History Cardiac History: No Pertinent History Respiratory History: No Pertinent History Endocrine Medical History: No Pertinent History Musculoskelatal History: No Pertinent History GI Medical History: No Pertinent History History: No Pertinent History Pyscho-Social History: No Pertinent History Reproductive Disorders: No Pertinent History Comment: pcos, Insulin resistant, kidney stone, iron def - Female History Are you now?: No - Past Surgical History Past Surgical History: No Neuro Surgical History: No Pertinent History Cardiac History: No Pertinent History Respiratory Surgery: No Pertinent History GI Surgical History: No Pertinent History Genitourinary Surgical Hx: No Pertinent History Musculskeletal Surgical Hx: No Pertinent History Female Surgical History: No Pertinent History - Social History Smoking Status: Current every day smoker How long have you smoked: 10 years Exposure to second hand smoke: Yes Alcohol: Rarely Drug Use: none - Physical Exam Vital Signs: Vital Signs - 24 hr Temp Pulse Resp BP Pulse Ox 04/12/19 07:11 86 18 95 04/12/19 04:00 98.2 F 84 18 111/59 96 04/12/19 00:58 97.9 F 82 20 127/71 96 04/11/19 22:47 83 18 98 04/11/19 21:00 98.9 F 84 20 134/73 97 04/11/19 19:23 98.9 F 84 20 134/73 97 Oxygen-Last 24 hours Oxygen Flowrate (L/min)-RT 0 General Appearance: mild distress, alert Neurologic Exam: oriented x 3, cooperative Eye Exam: eyes nml inspection Ears, Nose, Throat Exam: moist mucous membranes Neck Exam: normal inspection, non-tender, No lymphadenopathy Respiratory Exam: lungs clear, diminished breath sounds, No crackles/rales, No rhonchi, No wheezing Cardiovascular Exam: regular rate/rhythm, normal heart sounds, No murmur Gastrointestinal/Abdomen Exam: soft, normal bowel sounds, No tenderness, No distention, No mass, No guarding, No rebound Extremity Exam: normal inspection, No pedal edema, No swelling Skin Exam: normal color, warm, dry, No rash Results - Labs Lab/Micro Results: Lab Results-Last 24 Hours 04/11/19 04/12/19 04/12/19 Range/Units 19:45 05:00 05:00 WBC 9.3 (4.0-10.5) K/mm3 RBC 4.12 (4.1-5.4) M/mm3 Hgb 11.9 L (12.0-16.0) gm/dl Hct 37.6 (35-47) % MCV 91.3 (78-100) fl MCH 28.9 (26-32) pg MCHC 31.6 L (32-36) g/dl RDW 14.7 H (11.5-14.0) % Plt Count 296 (150-450) K/mm3 MPV 11.2 H (6-9.5) fl Sodium 137 (137-145) mmol/L Potassium 4.0 (3.5-5.1) mmol/L Chloride 105 (98-107) mmol/L Carbon Dioxide 24 (22-30) mmol/L Anion Gap 12.1 (5-15) MEQ/L BUN 13 (7-17) mg/dL Creatinine 0.63 (0.52-1.04) mg/dL Estimated GFR > 60.0 ML/MIN Glucose 145 H (74-106) mg/dL Calcium 9.1 (8.4-10.2) mg/dL Troponin I < 0.012 (0.000-0.034) ng/mL - Other Procedures and Tests Respiratory Therapy 04/11/19 20:58 Respiratory Therapy Assessment DAILY 04/11/19 20:59 Peak Expiratory Flow Rate ONCE Assessment/Plan (1) Pneumonia of right lower lobe due to infectious organism Current Visit: No Status: Acute Assessment & Plan: On rocephin and zithromax IV day #2; if not feeling better by this evening would change her to [facility] or tomorrow. Code(s): J18.9 - PNEUMONIA, UNSPECIFIED ORGANISM (2) Back pain Current Visit: No Status: Acute Assessment & Plan: sometimes has some radiation of pain from her cough into her back. Code(s): M54.9 - DORSALGIA, UNSPECIFIED (3) Menorrhagia Current Visit: Yes Status: Acute Qualifiers: Menorrahagia type: with regular cycle Qualified Code(s): N92.0 - Excessive and frequent menstruation with regular cycle Assessment & Plan: will try some NSAIDs. Code(s): N92.0 - EXCESSIVE AND FREQUENT MENSTRUATION WITH REGULAR CYCLE
[2019-04-12] MEDS ORDERED: MOTRIN 600 MG PO PRN (08:35)
[2019-04-12] MEDS: Mucinex 600MG ER Tabs PO SCH ×3 (10:09→22:05)
[2019-04-12] MEDS ORDERED: PROVENTIL 2.5 MG/3 ML NEB IH PRN (15:00)
[2019-04-12] MEDS ORDERED: Levofloxacin 500MG/100ML D5W 500 MG/100 ML BAG IV SCH (18:00)
[2019-04-12] MEDS: DILAUDID 2 MG INJECTION IV PRN ×2 (18:55→22:04)
[2019-04-12] MEDS: Phenergan 25 MG INJ IV PRN (20:13)
[2019-04-12] MEDS ORDERED: Zithromax 500 MG/ 250 ML NaCl Premix 500 MG/250 ML IVPB IV SCH (22:00)
[2019-04-12] MEDS ORDERED: ROCEPHIN 1 Gm-D5w 50 ml Bag** 1 G/50 ML IVPB IV SCH (22:00)
[2019-04-12] MEDS: Protonix 40MG Tablet PO SCH (22:06)
[2019-04-12] MEDS: ZOLOFT 50 MG TABLET PO SCH (22:15)
[2019-04-13] MEDS: Lactated Ringers 1,000 ML IV SCH ×3 (01:12→23:37)
[2019-04-13] MEDS: NICODERM CQ 14 MG TOP SCH (01:17)
[2019-04-13] MEDS: DILAUDID 2 MG INJECTION IV PRN ×4 (03:09→21:23)
[2019-04-13] MEDS: Phenergan 25 MG INJ IV PRN ×3 (04:49→23:30)
[2019-04-13 06:34] LABS: ANION GAP 12.4 MEQ/L (5-15); BLOOD UREA NITROGEN 13 mg/dL (7-17); CHLORIDE 105 mmol/L (98-107); Carbon Dioxide 25 mmol/L (22-30); Creatinine 1 0.57 mg/dL (0.52-1.04); Glucose 147 mg/dL (74-106); Potassium 4.1 mmol/L (3.5-5.1); SODIUM 138 mmol/L (137-145)
[2019-04-13 06:40] LABS: Hematocrit 35.8 % (35-47); Mean Cell Volume 92.7 fl (78-100); Mean Corpuscular Hemoglobin 28.5 pg (26-32); Mean Corpuscular Hgb Concent. 30.7 g/dl (32-36); Mean Platelet Volume 11.4 fl (6-9.5); Platelet Count 302 K/mm3 (150-450); Red Blood Count 3.86 M/mm3 (4.1-5.4); Red Cell Distribution Width 14.9 % (11.5-14.0); White Blood Count 14.3 K/mm3 (4.0-10.5)
[2019-04-13] MEDS: Mucinex 600MG ER Tabs PO SCH ×2 (09:19→21:09)
[2019-04-13] MEDS: Coreg 3.125 MG PO SCH ×2 (09:19→21:09)
[2019-04-13] MEDS: solu-MEDROL 40 MG IV SCH ×2 (09:19→21:07)
[2019-04-13] MEDS ORDERED: Colace 100 MG PO PRN (13:01)
--- NOTE | 2019-04-13 14:30 | PCM.NOTE ---
Date and Time: 04/13/19 142 Subjective Assessment: Patient reports no stool but does not feel constipated. She does not take pain medication at home. She reports her cough is better. She continues to have some right upper shoulder blade pain at times. She reports she gets winded with activity. Objective Exam General Appearance: no apparent distress, obese Neurologic Exam: alert, cooperative, normal mood/affect Skin Exam: normal color, warm, dry, No rash Respiratory Exam: other (decreased breath sounds in right lower lung field, no crackles, no wheezes, good air exchange in right upper and left lung carter) Gastrointestinal/Abdomen Exam: soft, normal bowel sounds, No tenderness, No distention, No mass Extremity Exam: normal inspection, other (no c/c/e) OBJECTIVE DATA Vital Signs: Vital Signs - 24 hr Temp Pulse Resp BP Pulse Ox 04/13/19 12:24 98 F 72 18 130/65 96 04/13/19 12:17 75 16 95 04/13/19 07:48 98.6 F 80 20 118/66 96 04/13/19 04:00 98.7 F 87 16 116/58 97 04/13/19 00:00 98.5 F 74 20 118/57 95 04/12/19 20:47 66 16 96 04/12/19 20:00 97.8 F 89 17 124/71 96 04/12/19 16:11 92 H 20 04/12/19 16:00 98.4 F 78 17 122/61 93 L Pain Assessment - Last Documented Pain Intensity 4 Pain Scale Used 0-10 Pain Scale Intake and Output: Intake & Output 04/11/19 04/12/19 04/13/19 04/14/19 06:59 06:59 06:59 06:59 Intake Total 1620 2899 Output Total 300 500 Balance 1320 2399 Weight 119.6 kg Lab Results: Lab Results-Last 24 Hours 04/12/19 04/13/19 04/13/19 Range/Units 18:10 06:00 06:00 WBC 14.3 H (4.0-10.5) K/mm3 RBC 3.86 L (4.1-5.4) M/mm3 Hgb 11.0 L (12.0-16.0) gm/dl Hct 35.8 (35-47) % MCV 92.7 (78-100) fl MCH 28.5 (26-32) pg MCHC 30.7 L (32-36) g/dl RDW 14.9 H (11.5-14.0) % Plt Count 302 (150-450) K/mm3 MPV 11.4 H (6-9.5) fl D-Dimer 345 (215-500) ng/mL Sodium 138 (137-145) mmol/L Potassium 4.1 (3.5-5.1) mmol/L Chloride 105 (98-107) mmol/L Carbon Dioxide 25 (22-30) mmol/L Anion Gap 12.4 (5-15) MEQ/L BUN 13 (7-17) mg/dL Creatinine 0.57 (0.52-1.04) mg/dL Estimated GFR > 60.0 ML/MIN Glucose 147 H (74-106) mg/dL Calcium 9.0 (8.4-10.2) mg/dL Assessment/Plan (1) Pneumonia Current Visit: Yes Status: Acute Qualifiers: Laterality: right Lung location: lower lobe of lung Assessment & Plan: Changed to levofloxacin yesterday. Continue this. Code(s): J18.9 - PNEUMONIA, UNSPECIFIED ORGANISM (2) Essential hypertension Current Visit: Yes Status: Acute Assessment & Plan: Continue home medication. Code(s): I10 - ESSENTIAL (PRIMARY) HYPERTENSION (3) Chest wall pain Current Visit: Yes Status: Acute Assessment & Plan: D-dimer neg, on IV pain medication per Dr. Trevino at this time. Code(s): R07.89 - OTHER CHEST PAIN
[2019-04-13] MEDS ORDERED: Levofloxacin 500MG/100ML D5W 500 MG/100 ML BAG IV SCH (18:00)
[2019-04-13] MEDS: Protonix 40MG Tablet PO SCH (21:07)
[2019-04-13] MEDS: NORVASC 5 MG PO SCH (21:08)
[2019-04-13] MEDS: ZOLOFT 50 MG TABLET PO SCH (21:09)
[2019-04-13] MEDS ORDERED: NICODERM CQ 14 MG TOP SCH (22:00)
[2019-04-14] MEDS ORDERED: Hydromorphone 1 mg/ml Ampule ONE (04:14)
[2019-04-14] MEDS: DILAUDID 2 MG INJECTION IV PRN (04:20)
[2019-04-14 07:49] VITALS: O2SAT 95
[2019-04-14] MEDS ORDERED: Norco 10/325 MG Tablet PO PRN (09:26)
--- NOTE | 2019-04-14 09:26 | PCM.DS ---
Discharge Summary Date of Admission: 04/11/19 18:51 Admitting Physician: PHILIPP STRICKLAND Primary Care Provider: PHILIPP STRICKLAND Allergies Allergies strawberry Allergy (Severe, Verified 04/08/19 20:25) Tightness of Throat shrimp Allergy (Intermediate, Verified 04/08/19 20:25) itch Iodinated Contrast Media Allergy (Verified 04/08/19 20:25) Itching Penicillins Allergy (Verified 04/08/19 20:25) Anaphylactic Reaction sulfamethoxazole [From Bactrim] Adverse Reaction (Verified 04/08/19 20:25) Vomiting trimethoprim [From Bactrim] Adverse Reaction (Verified 04/08/19 20:25) Vomiting Hospital Summary - Hospital Course Hospital Course: Pt is 33 yo female pt of mine from [facility] with HTN who was admitted directly with pneumonia, failed outpatient treatment. She was feeling poorly despite zithromax at home, short of breath, with pain in R shoulder blade area and chest pain. Her d-dimer was negative. She did not require oxygen during her stay. Initially she received rocephin and zithromax IV, changed to IV levaquin after 24 hours. Has received IV steroid as well, 40mg BID. Today she is feeling better, though still tired. Will change to po pain meds today and will be sent home on levaquin, prednisone, small amt of pain med, and po phenergan. Discussed return to work, pt wants to return in 3d, I stated ok to try, if having any issues she will call and would put off work until next Thursday. - Vitals & Intake/Output Vital Signs: Vital Signs Temperature 97.8 F 04/14/19 07:20 Pulse Rate 71 04/14/19 07:20 Respiratory Rate 16 04/14/19 07:20 Blood Pressure 118/61 04/14/19 07:20 O2 Sat by Pulse Oximetry 95 04/14/19 07:48 Intake & Output: Intake & Output 04/11/19 04/12/19 04/13/19 04/14/19 11:59 11:59 11:59 11:59 Intake Total 1620 2899 3175 Output Total 342 307 4686 Balance 1320 2399 175 Weight 119.6 kg - Lab Result Diagrams: 04/13/19 06:00 04/13/19 06:00 - Procedures and Test Procedures and Tests throughout Hospitalization: Therapy Orders & Screens 04/11/19 19:45 EKG ROUTINE Comment: Diagnosis: pne Respiratory Nebulizer UD Comment: alb QID Diagnosis: pne 04/11/19 20:58 Respiratory Therapy Assessment DAILY Comment: Diagnosis: pne 04/11/19 20:59 Peak Expiratory Flow Rate ONCE Comment: Reason For Exam: Diagnosis: pne Discharge Exam General Appearance: no apparent distress, alert Neurologic Exam: oriented x 3, cooperative Eye Exam: eyes nml inspection Ears, Nose, Throat Exam: moist mucous membranes Neck Exam: normal inspection Respiratory Exam: normal breath sounds, lungs clear, No crackles/rales, No rhonchi, No wheezing Cardiovascular Exam: regular rate/rhythm, normal heart sounds, No murmur Gastrointestinal/Abdomen Exam: soft, normal bowel sounds, No tenderness, No distention, No mass, No guarding, No rebound Extremity Exam: normal inspection, No pedal edema, No swelling Skin Exam: normal color, warm, dry, No rash Final Diagnosis/Problem List - Final Discharge Diagnosis/Problem (1) Pneumonia of right lower lobe due to infectious organism Current Visit: No Status: Acute Assessment & Plan: Improved. Home on levaquin today. Code(s): J18.9 - PNEUMONIA, UNSPECIFIED ORGANISM (2) Back pain Current Visit: No Status: Acute Assessment & Plan: Trial po pain meds today and anticipate home this afternoon. Code(s): M54.9 - DORSALGIA, UNSPECIFIED (3) Menorrhagia Current Visit: Yes Status: Acute Assessment & Plan: still c/o lower abd cramps. Code(s): N92.0 - EXCESSIVE AND FREQUENT MENSTRUATION WITH REGULAR CYCLE - Discharge Disposition: Home, Self-Care Condition: Good Prescriptions: New Prednisone 20 mg [Deltasone 20 mg] 20 mg PO DAILY #17 tablet Levofloxacin [Levaquin] 500 mg PO DAILY #7 tablet Nicotine 14 mg [Nicoderm Cq 14 mg] 14 mg TOP HS #10 patch Hydrocodone/Acetaminophen [[place] 10-325 Tablet] 1 each PO TID PRN #10 tablet MDD 3 PRN Reason: Severe Pain Promethazine HCl 25 mg [Phenergan 25 mg] 25 mg PO BID PRN #14 tablet PRN Reason: Nausea Continue Metformin HCl 850 mg [Glucophage 850 MG] 1,000 mg PO BID Pnv,Calcium 72/Iron/Folic Acid [ Plus Tablet] 1 each PO DAILY Sertraline HCl 100 mg PO HS Ondansetron ODT 4 MG [Zofran Odt 4 mg] 4 mg PO Q6H PRN PRN #10 tab.rapdis PRN Reason: Nausea/Vomiting Ferrous Gluconate 324 mg PO BID Carvedilol 3.125 mg [Coreg 3.125 MG] 3.125 mg PO BID Amlodipine Besylate 5 mg [Norvasc 5 mg] 5 mg PO HS Ergocalciferol (Vitamin D2) [Vitamin D2] 50,000 unit PO Q7D Omeprazole 20 mg PO HS Meloxicam 15 mg PO BID PRN PRN Reason: PERIODS Discontinued Azithromycin [Zithromax] 250 mg PO UD 5 Days #6 tablet Follow up with: PHILIPP STRICKLAND [Primary Care Provider] - 1 Week Forms: Work/School Release Form
[2019-04-14] MEDS: Mucinex 600MG ER Tabs PO SCH (09:55)
[2019-04-14] MEDS: solu-MEDROL 40 MG IV SCH (09:55)
[2019-04-14] MEDS: Coreg 3.125 MG PO SCH (09:55)
[2019-04-14] MEDS: Phenergan 25 MG INJ IV PRN (10:03)
[2019-04-14 11:44] VITALS: BP 133/67; PULSE 75
== END 2019-04-14 13:27 | disposition home or self-care (01) | DRG 195 ==
LOC: INTOOBSV 18:51 → OBSVTOIN 18:51 → MED SURG 18:51
PROVIDERS: ADMIT Family Medicine; ATTEND Family Medicine
DX: J18.9 Pneumonia, unspecified organism (principal); I10 Essential (primary) hypertension; R07.9 Chest pain, unspecified; M25.511 Pain in right shoulder; M54.9 Dorsalgia, unspecified; N92.0 Excessive and frequent menstruation with regular cycle; Z79.899 Other long term (current) drug therapy
CPT/HCPCS: 36415; 71046; 80048; 83735; 84484; 85025; 85027; 85379; 87631; 87651; 93005; 94150; 94640; 94760; 94762; 96360; 96361; 96365; 96374; 96375; 99284; 99291; J0456; J0696; J1170; J1885; J1956; J2060; J2270; J2405; J2550; J2920; J3010; J7609; A9270-GY

== ENCOUNTER 2019-06-23 13:18 | Observation (INO) | payer OTHER ==
[2019-06-23] MEDS ORDERED: MORPHINE SULFATE 10 MG/ML IV PRN (13:39)
[2019-06-23] MEDS ORDERED: Zofran 4 MG/2 ML VIAL IV PRN (13:40)
[2019-06-23] MEDS ORDERED: Sodium Chloride 0.9% 1000 ML 1,000 ML IV SCH (14:00)
[2019-06-23] MEDS: VANCOMYCIN 1 GRAM/200 ML BAG 1 GM/200 ML PIGGYBACK IV SCH ×2 (14:15→22:48)
[2019-06-23 14:19] LABS: BASOPHIL % 0.4 % (0.0-0.4); Basophil (Absolute #) 0.04 (0-0.4); Eosinophil % 7.7 % (0.00-5.0); Eosinophil (Absolute #) 0.69 (0-0.5); Hematocrit 37.8 % (35-47); Hemoglobin 12.1 gm/dl (12.0-16.0); Lymphocyte (Absolute #) 2.51 (1.0-4.6); Mean Cell Volume 90.4 fl (78-100); Mean Corpuscular Hemoglobin 28.9 pg (26-32); Mean Platelet Volume 10.4 fl (7.5-11.0); Monocyte (Absolute #) 0.62 (0.0-1.3); Monocytes % 6.9 % (0.0-12.0); Platelet Count 338 K/mm3 (150-450); Red Blood Count 4.18 M/mm3 (4.1-5.4); Red Cell Distribution Width 14.9 % (11.5-14.0)
[2019-06-23 14:34] LABS: ALBUMIN 4.5 g/dL (3.5-5.0); ALKALINE PHOSPHATASE 76 U/L (38-126); ANION GAP 12.4 MEQ/L (5-15); BLOOD UREA NITROGEN 15 mg/dL (7-17); CHLORIDE 106 mmol/L (98-107); Calcium 9.2 mg/dL (8.4-10.2); Carbon Dioxide 24 mmol/L (22-30); Creatinine 1 0.56 mg/dL (0.52-1.04); Glucose 88 mg/dL (74-106); Potassium 3.8 mmol/L (3.5-5.1); SGOT/AST 23 U/L (14-36); SGPT/ALT 20 U/L (0-35); SODIUM 138 mmol/L (137-145); Total Protein 7.8 g/dL (6.3-8.2)
[2019-06-23] MEDS: Lactated Ringers 1,000 ML IV SCH ×2 (14:52→17:19)
[2019-06-23] MEDS ORDERED: SUBLIMAZE 100 MCG/2 ML ONE ×3 (14:56→16:35)
[2019-06-23] MEDS ORDERED: Versed 2 MG/2 ML Injection ONE (14:56)
[2019-06-23] MEDS ORDERED: DIPRIVAN 200 MG/20 ML IV ONE (14:56)
[2019-06-23] MEDS ORDERED: Sensorcaine 0.25% 10 ML ONE (15:09)
[2019-06-23] MEDS ORDERED: Lactated Ringers 1,000 ML IV SCH (15:30)
[2019-06-23 15:54] LABS: Appearance SLIGHTLY CLOUDY (CLEAR); Bilirubin NEGATIVE (NEGATIVE); Blood NEGATIVE Ery/ul (0-5); Epithelial Cells FEW /HPF (FEW); Glucose NEGATIVE (NEGATIVE); Ketones NEGATIVE (NEGATIVE); Leukocyte Esterase NEGATIVE (NEGATIVE); Mucus SLIGHT /HPF (NEGATIVE); Nitrite NEGATIVE (NEGATIVE); Protein,Urine Dip NEGATIVE (Negative); Specific Gravity 1.017 (1.005-1.025); Urobilinogen NEGATIVE mg/dL (0-1)
[2019-06-23] MEDS ORDERED: MORPHINE SULFATE 10 MG/ML ONE (16:35)
[2019-06-23] MEDS ORDERED: SUBLIMAZE 100 MCG/2 ML IV ONE (17:26)
[2019-06-23] MEDS ORDERED: Morphine PCA 1 MG/ML 30 ML IV PRN (18:19)
[2019-06-23] MEDS ORDERED: NON-FORMULARY ITEM (Ferrous Gluconate [Ferrous Gluconate] 324 MG) PO SCH (22:00)
[2019-06-23] MEDS ORDERED: Protonix 40MG Tablet PO SCH (22:00)
[2019-06-23] MEDS ORDERED: NORVASC 5 MG PO SCH (22:00)
[2019-06-23] MEDS ORDERED: ZOLOFT 50 MG TABLET PO SCH (22:00)
[2019-06-23] MEDS: Coreg 3.125 MG PO SCH (22:47)
[2019-06-23] MEDS: FEOSOL 325 MG PO SCH (22:47)
[2019-06-23] MEDS ORDERED: NICODERM CQ 14 MG TOP SCH (23:15)
[2019-06-24] MEDS: Lactated Ringers 1,000 ML IV SCH (05:11)
[2019-06-24] MEDS: VANCOMYCIN 1 GRAM/200 ML BAG 1 GM/200 ML PIGGYBACK IV SCH ×2 (05:45→14:12)
[2019-06-24] MEDS ORDERED: BENADRYL 25 MG CAPSULE PO PRN (06:20)
--- NOTE | 2019-06-24 08:47 | CONS ---
CONSULT DATE: 06/23/2019 REASON FOR CONSULT: Infection right chest wall. HISTORY: The patient has an abscess right chest wall just behind the breast-mid axillary line. It is going transversely and is about 6 cm. It clearly requires I&D. She had a CT scan ordered and this has been canceled. Procedure discussed with her. She wishes to proceed.
--- NOTE | 2019-06-24 08:57 | PCM.HP.ADD ---
Addendum to History & Physical - History & Physical Addendum Addendum to History & Physical: This certifies that the History & Physical in the electronic chart reflects the current health status of the patient. If there are changes in the H&P these changes/exceptions are listed as follows.
--- NOTE | 2019-06-24 08:58 | OP ---
SURGERY DATE/TIME: 06/23/2019 1539 PREOPERATIVE DIAGNOSIS: Abscess right lateral chest wall right behind the breast in the mid axillary line. POSTOPERATIVE DIAGNOSIS: Abscess right lateral chest wall right behind the breast in the mid axillary line size 6 cm. PROCEDURE: Incision and drainage. SURGEON: Davion Smiley M.D. BINDER CHAINSTITCH: Juju Andersen N.P. ANESTHESIA: General. COMPLICATIONS: None. CONDITION: Stable. DRAIN: One drain. INDICATION: A patient with acute abscess verified at the bedside. Procedure discussed. DESCRIPTION OF PROCEDURE: Taken to surgery. General anesthetic. Routine prep and drape. This side was also bumped up. The field was excellent. A 1.25 inch incision was marked transversely along the skin line in the axilla. The initial score was with electrocautery then it was taken down with coagulation cautery. In the mid portion purulence is expressed. A plastic suction was pushed in and then the superior portion, inferior portion were widened with cautery. The field was totally dry. A 0.75 inch modern nonsuctioning fluted drain was placed. It was secured in mid portion with 0 chromic and then the residual anterior corner was closed with vertical mattress sutures loosely of 0 chromic. This looked excellent. It had been drained well. It had been irrigated. It was closed loosely. Drain was clearly functional. Sterile dressing applied. The patient should be able to be discharged tomorrow. She is on Vancomycin IV. I presume this is a Staph infection.
--- NOTE | 2019-06-24 09:02 | PCM.DS ---
Discharge Summary Date of Admission: 06/23/19 13:21 Admitting Physician: PHILIPP STRICKLAND Consults: Consults on Case 06/23/19 14:06 Consult Surgery ROUTINE Primary Care Provider: PHILIPP STRICKLAND Allergies Allergies strawberry Allergy (Severe, Verified 04/08/19 20:25) Tightness of Throat shrimp Allergy (Intermediate, Verified 04/08/19 20:25) itch Iodinated Contrast Media Allergy (Verified 04/08/19 20:25) Itching Penicillins Allergy (Verified 04/08/19 20:25) Anaphylactic Reaction sulfamethoxazole [From Bactrim] Adverse Reaction (Verified 04/08/19 20:25) Vomiting trimethoprim [From Bactrim] Adverse Reaction (Verified 04/08/19 20:25) Vomiting Hospital Summary - Hospital Course Hospital Course: Pt is 33 yo female pt of mine from [facility] with metabolic syndrome and PCOS who came to see me in office yesterday complaining of cellulitis. She had been to ER and received po clindamycin, which she took for several days with no improvement. In office there was felt to be abscess on palpation; pt was admitted to [facility] on IV vancomycin and surgery was consulted. I&D done, thank you, and wound culture pending. Pt is still having 7-8/10 pain in the area, better with morphine STREETCAR DISPATCHER and ice pack. She's only using the STREETCAR DISPATCHER about every 2h per her report. If we can control pt's pain with po pain meds, and if surgery agrees, could send pt back home today to resume her po clindamycin. - Vitals & Intake/Output Vital Signs: Vital Signs Temperature 98.1 F 06/24/19 07:29 Pulse Rate 82 06/24/19 07:29 Respiratory Rate 18 06/24/19 07:29 Blood Pressure 113/58 06/24/19 07:29 O2 Sat by Pulse Oximetry 95 06/24/19 07:32 Intake & Output: Intake & Output 06/21/19 06/22/19 06/23/19 06/24/19 11:59 11:59 11:59 11:59 Intake Total 3390 Output Total 600 Balance 2790 Weight 116.1 kg - Lab Result Diagrams: 06/23/19 14:05 06/23/19 14:05 Lab Results-Last 24 Hrs: Lab Results-Last 24 Hours 06/23/19 06/23/19 06/23/19 Range/Units 14:05 14:05 14:05 WBC 9.0 (4.0-10.5) K/mm3 RBC 4.18 (4.1-5.4) M/mm3 Hgb 12.1 (12.0-16.0) gm/dl Hct 37.8 (35-47) % MCV 90.4 (78-100) fl MCH 28.9 (26-32) pg MCHC 32.0 (32-36) g/dl RDW 14.9 H (11.5-14.0) % Plt Count 338 (150-450) K/mm3 MPV 10.4 (7.5-11.0) fl Gran % 57.0 (36.0-66.0) % Eos # (Auto) 0.69 H (0-0.5) Absolute Lymphs (auto) 2.51 (1.0-4.6) Absolute Monos (auto) 0.62 (0.0-1.3) Lymphocytes % 28.0 (24.0-44.0) % Monocytes % 6.9 (0.0-12.0) % Eosinophils % 7.7 H (0.00-5.0) % Basophils % 0.4 (0.0-0.4) % Absolute Granulocytes 5.10 (1.4-6.9) Basophils # 0.04 (0-0.4) Sodium 138 (137-145) mmol/L Potassium 3.8 (3.5-5.1) mmol/L Chloride 106 (98-107) mmol/L Carbon Dioxide 24 (22-30) mmol/L Anion Gap 12.4 (5-15) MEQ/L BUN 15 (7-17) mg/dL Creatinine 0.56 (0.52-1.04) mg/dL Estimated GFR > 60.0 ML/MIN Glucose 88 (74-106) mg/dL Hemoglobin A1c (4.5-6.0) % Calcium 9.2 (8.4-10.2) mg/dL Total Bilirubin 0.40 (0.2-1.3) mg/dL AST 23 (14-36) U/L ALT 20 (0-35) U/L Alkaline Phosphatase 76 (38-126) U/L Serum Total Protein 7.8 (6.3-8.2) g/dL Albumin 4.5 (3.5-5.0) g/dL Serum , Qual NEGATIVE (Negative) Urine Color (YELLOW) Urine Appearance (CLEAR) Urine pH (5-6) Ur Specific [place] (1.005-1.025) Urine Protein (Negative) Urine Ketones (NEGATIVE) Urine Blood (0-5) Bry/ul Urine Nitrite (NEGATIVE) Urine Bilirubin (NEGATIVE) Urine Urobilinogen (0-1) mg/dL Ur Leukocyte Esterase (NEGATIVE) Urine WBC (Auto) (0-5) /HPF Urine RBC (Auto) (0-2) /HPF U Epithel Cells (Auto) (FEW) /HPF Urine Bacteria (Auto) (NEGATIVE) /HPF Urine Mucus (Auto) (NEGATIVE) /HPF Urine Culture Reflexed (NO) Urine Glucose (NEGATIVE) mg/dL 06/23/19 06/24/19 Range/Units 14:10 08:04 WBC (4.0-10.5) K/mm3 RBC (4.1-5.4) M/mm3 Hgb (12.0-16.0) gm/dl Hct (35-47) % MCV (78-100) fl MCH (26-32) pg MCHC (32-36) g/dl RDW (11.5-14.0) % Plt Count (150-450) K/mm3 MPV (7.5-11.0) fl Gran % (36.0-66.0) % Eos # (Auto) (0-0.5) Absolute Lymphs (auto) (1.0-4.6) Absolute Monos (auto) (0.0-1.3) Lymphocytes % (24.0-44.0) % Monocytes % (0.0-12.0) % Eosinophils % (0.00-5.0) % Basophils % (0.0-0.4) % Absolute Granulocytes (1.4-6.9) Basophils # (0-0.4) Sodium (137-145) mmol/L Potassium (3.5-5.1) mmol/L Chloride (98-107) mmol/L Carbon Dioxide (22-30) mmol/L Anion Gap (5-15) MEQ/L BUN (7-17) mg/dL Creatinine (0.52-1.04) mg/dL Estimated GFR ML/MIN Glucose (74-106) mg/dL Hemoglobin A1c 5.15 (4.5-6.0) % Calcium (8.4-10.2) mg/dL Total Bilirubin (0.2-1.3) mg/dL AST (14-36) U/L ALT (0-35) U/L Alkaline Phosphatase (38-126) U/L Serum Total Protein (6.3-8.2) g/dL Albumin (3.5-5.0) g/dL Serum , Qual (Negative) Urine Color YELLOW (YELLOW) Urine Appearance SLIGHTLY CLOUDY (CLEAR) Urine pH 5.0 (5-6) Ur Specific [place] 1.017 (1.005-1.025) Urine Protein NEGATIVE (Negative) Urine Ketones NEGATIVE (NEGATIVE) Urine Blood NEGATIVE (0-5) Bry/ul Urine Nitrite NEGATIVE (NEGATIVE) Urine Bilirubin NEGATIVE (NEGATIVE) Urine Urobilinogen NEGATIVE (0-1) mg/dL Ur Leukocyte Esterase NEGATIVE (NEGATIVE) Urine WBC (Auto) NONE (0-5) /HPF Urine RBC (Auto) NONE (0-2) /HPF U Epithel Cells (Auto) FEW (FEW) /HPF Urine Bacteria (Auto) NONE (NEGATIVE) /HPF Urine Mucus (Auto) SLIGHT (NEGATIVE) /HPF Urine Culture Reflexed NO (NO) Urine Glucose NEGATIVE (NEGATIVE) mg/dL Micro Results-Entire Visit: Microbiology 06/23/19 15:55 Wound Culture - Preliminary Chest - Not Known GRAM POSITIVE ID AND SENSITIVITY PENDING - Procedures and Test Procedures and Tests throughout Hospitalization: Therapy Orders & Screens 06/23/19 14:20 OT Screen per Nursing Assess ONCE Comment: Protocol Order Physician Instructions: Greater than 3 points order OT Admission Screening Reason For Exam: Triggered on Admission Diagnosis: Cellulitis right trunk, possible abscess,Failed Outpatient Open Wound/Cellutlitis/Pressure Ulcers: Yes Acute Fx/ORIF/Change in wt bearing status: No Severe MUSCULOSKELETAL pain: No ADL Dysfunction: No Acute CVA w/Hemiparesis/Hemiplegia: No Decreased Functional Mobility/Strength: No Sprain/Strain: No Acute Post-op Mobility Dysfunction: No Total Points: 5 PT Screen per Nursing Assess ONCE Comment: Protocol Order Physician Instructions: Greater than 3 points order PT Admission Screenin Reason For Exam: Triggered on Admission Diagnosis: Cellulitis right trunk, possible abscess,Failed Outpatient Open Wound/Cellutlitis/Pressure Ulcers: Yes Acute Fx/ORIF/Change in wt bearing status: No Severe MUSCULOSKELETAL pain: No ADL Dysfunction: No Acute CVA w/Hemiparesis/Hemiplegia: No Decreased Functional Mobility/Strength: No Sprain/Strain: No Acute Post-op Mobility Dysfunction: No Total Points: 5 Smoking Cessation Education ONCE Comment: Diagnosis: Cellulitis right trunk, possible abscess,Failed Outpatient Smoking Status: Current every day smoker How long have you smoked: 10 Have you smoked in the past 12 months: Yes Approximately how many cigarettes per day: 10 Do you dip or chew tobacco: No 06/23/19 18:35 Oxygen NASAL CANNULA 2 lpm Comment: Diagnosis: Cellulitis right trunk, possible abscess,Failed Outpatient Discharge Exam General Appearance: no apparent distress, alert, obese Neurologic Exam: oriented x 3, cooperative Eye Exam: eyes nml inspection Ears, Nose, Throat Exam: moist mucous membranes Neck Exam: normal inspection Respiratory Exam: normal breath sounds, lungs clear, No crackles/rales, No rhonchi, No wheezing Cardiovascular Exam: regular rate/rhythm, normal heart sounds, No murmur Extremity Exam: normal inspection, No pedal edema, No swelling Skin Exam: warm, dry, other (Inferior to R axilla there is a dressing with some old blood medially, no extension. No surrounding erythema.), No rash Wound Assessment: Skin/Wound Assessment Wound/Incision Assessment Start: 06/23/19 13: 45 Text: Status: Active Freq: Q6H Protocol: Document 06/24/19 08:00 (Rec: 06/24/19 08:50 [id number]) Wound/Incision Assessment Right Lateral Chest Wound Assessment Shift Assessment Wound Type Incision Wound Stage Non Pressure Wound Dressing Status Dry & Intact Drainage Amount None Surrounding Tissue [place] Primary Dressing Absorbant Pad Comment I&D completed on rt lateral chest wall, dressing CDI, drainage marked Right Lateral Chest Drain Type [place] Wound Photo Photo Taken No Final Diagnosis/Problem List - Final Discharge Diagnosis/Problem (1) Abscess Current Visit: Yes Status: Acute Assessment & Plan: Drained, thank you, and culture pending. On IV vancomycin day #2 today; if can control pain & OK with surgery will send home on po pain meds and po clindamycin. Code(s): L02.91 - CUTANEOUS ABSCESS, UNSPECIFIED (2) Cellulitis Current Visit: Yes Status: Acute Code(s): L03.90 - CELLULITIS, UNSPECIFIED (3) Failure of outpatient treatment Current Visit: Yes Status: Acute Code(s): Z78.9 - OTHER SPECIFIED HEALTH STATUS - Discharge Disposition: Home, Self-Care Condition: Stable Prescriptions: Continue Metformin HCl 850 mg [Glucophage 850 MG] 1,000 mg PO BID Pnv,Calcium 72/Iron/Folic Acid [ Plus Tablet] 1 each PO DAILY Sertraline HCl 100 mg PO HS Ondansetron ODT 4 MG [Zofran Odt 4 mg] 4 mg PO Q6H PRN PRN #10 tab.rapdis PRN Reason: Nausea/Vomiting Ferrous Gluconate 324 mg PO BID Carvedilol 3.125 mg [Coreg 3.125 MG] 3.125 mg PO BID Amlodipine Besylate 5 mg [Norvasc 5 mg] 5 mg PO HS Ergocalciferol (Vitamin D2) [Vitamin D2] 50,000 unit PO Q7D Omeprazole 20 mg PO HS Meloxicam 15 mg PO Q12H PRN PRN PRN Reason: Pain Additional Instructions: F/U with on this thursday06/28/19 if released from hospital. Follow up with: FRITZ FRANCISCO [ACTIVE STAFF] - 1 Week PHILIPP STRICKLAND [Primary Care Provider] - 1 Week
[2019-06-24] MEDS: FEOSOL 325 MG PO SCH (11:22)
[2019-06-24] MEDS: Coreg 3.125 MG PO SCH (11:22)
[2019-06-24] MEDS: OXYCODONE-ACETAMINOPHEN 10-325 PO PRN ×2 (12:47→16:49)
[2019-06-24] MEDS ORDERED: Colace 100 MG PO PRN (14:20)
[2019-06-24 16:31] VITALS: BP 105/57; PULSE 80; O2SAT 97
[2019-06-25] MEDS ORDERED: TROUGH DRUG LEVELS IJ ONE (05:30)
== END 2019-06-24 18:20 | disposition home or self-care (01) ==
LOC: INTOOBSV 13:21 → MED SURG 13:21
PROVIDERS: ADMIT Family Medicine; ATTEND Family Medicine
DX: L02.213 Cutaneous abscess of chest wall (principal); L03.313 Cellulitis of chest wall; E88.81 Metabolic syndrome and other insulin resistance; E28.2 Polycystic ovarian syndrome; Z79.899 Other long term (current) drug therapy
CPT/HCPCS: 36415; 80053; 81001; 81025; 83036; 85025; 87070; 87077; 87186; 94762; G0378; J2250; J2270; J2405; J2704; J3010; A9270-GY; J3370

== ENCOUNTER 2019-09-24 20:50 | Emergency (ER) | payer OTHER ==
[2019-09-24] MEDS ORDERED: Sodium Chloride 0.9% 1000 ML 1,000 ML IV STA (22:15)
--- NOTE | 2019-09-24 22:15 | ERPHSYRPT ---
- History of Present Illness Time Seen by Provider: 09/24/19 22:11 Source: patient, family Exam Limitations: no limitations Patient Subjective Stated Complaint: pt states she had an unprovoked coughing spell, bystanders say she got very red in the face, went stiff and then went lethargic. pt states she stayed sitting in a chair during this episode, and pt "woke" to her tapping her on the shoulder. pt states she is not sure if she lost consciousness or not. pt states she now feels muscle weakness and soreness. Triage Nursing Assessment: pt appears tired, but is a/o x3 and ambulatory. pt states she has not had any other coughing this past 2 weeks. Physician History: pt seemed to have loss of awareness/LOC with eyes open after coughing spell - no further coughing. 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 no chest or abd pain no trauma no fever, no vomiting or nausea. but has muscle aches now Timing/Duration: today Severity: moderate Modifying Factors: Improves With: nothing Associated Symptoms: syncope Allergies/Adverse Reactions: strawberry Allergy (Severe, Verified 04/08/19 20:25) Tightness of Throat shrimp Allergy (Intermediate, Verified 04/08/19 20:25) itch Iodinated Contrast Media Allergy (Verified 04/08/19 20:25) Itching Penicillins Allergy (Verified 04/08/19 20:25) Anaphylactic Reaction sulfamethoxazole [From Bactrim] Adverse Reaction (Verified 04/08/19 20:25) Vomiting trimethoprim [From Bactrim] Adverse Reaction (Verified 04/08/19 20:25) Vomiting Home Medications: Metformin HCl 850 mg [Glucophage 850 MG] 1,000 mg PO BID 06/29/16 [History ] Pnv,Calcium 72/Iron/Folic Acid [ Plus Tablet] 1 each PO DAILY 06/29/16 [ History] Sertraline HCl 100 mg PO HS 03/21/17 [History] Amlodipine Besylate 5 mg [Norvasc 5 mg] 5 mg PO HS 01/02/19 [History] Carvedilol 3.125 mg [Coreg 3.125 MG] 3.125 mg PO BID 01/02/19 [History] Ergocalciferol (Vitamin D2) [Vitamin D2] 50,000 unit PO Q7D 01/02/19 [History] Ferrous Gluconate 324 mg PO BID 01/02/19 [History] Omeprazole 20 mg PO HS 04/08/19 [History] Meloxicam 15 mg PO Q12H PRN PRN 06/23/19 [History] Hx Tetanus, Diphtheria Vaccination/Date Given: Yes Hx Influenza Vaccination/Date Given: Yes Hx Pneumococcal Vaccination/Date Given: Yes Immunizations Up to Date: Yes Travel Risk - International Travel Have you traveled outside of the country in past 3 weeks: No (n) If Yes, where;: n - Coronavirus Screening Are you exhibiting any of the following symptoms?: No Close contact with a COVID-19 positive Pt in past 14-21 Days: No - Review of Systems Constitutional: No Fever, No Chills Eyes: No Symptoms Ears, Nose, & Throat: No Symptoms Respiratory: No Cough, No Dyspnea Cardiac: No Chest Pain, No Edema, No Syncope Abdominal/Gastrointestinal: No Abdominal Pain, No Nausea, No Vomiting, No Diarrhea Genitourinary Symptoms: No Dysuria Musculoskeletal: Myalgias, No Back Pain, No Neck Pain Skin: No Rash Neurological: No Dizziness, No Focal Weakness, No Sensory Changes Psychological: No Symptoms Endocrine: No Symptoms All Other Systems: Reviewed and Negative - Past Medical History Pertinent Past Medical History: No Neurological History: No Pertinent History ENT History: No Pertinent History Cardiac History: No Pertinent History Respiratory History: No Pertinent History Endocrine Medical History: Diabetes Type II Musculoskeletal History: No Pertinent History GI Medical History: No Pertinent History History: No Pertinent History Psycho-Social History: No Pertinent History Female Reproductive Disorders: Other Other Medical History: pcos, Insulin resistant, kidney stone, iron def, VIT D DEF - Past Surgical History Past Surgical History: No Neuro Surgical History: No Pertinent History Cardiac: No Pertinent History Respiratory: No Pertinent History Gastrointestinal: Cholecystectomy Genitourinary: No Pertinent History Musculoskeletal: No Pertinent History Female Surgical History: No Pertinent History - Social History Smoking Status: Current every day smoker How long have you smoked: 10 Exposure to second hand smoke: No Drug Use: none Patient Lives Alone: No - Female History Hx Last Menstrual Period: 08/26/19 Hx Now: No - Nursing Vital Signs Nursing Vital Signs: Initial Vital Signs Temperature 98.7 F 09/24/19 21:41 Pulse Rate 92 H 09/24/19 21:41 Respiratory Rate 18 09/24/19 21:41 Blood Pressure 129/85 09/24/19 21:41 O2 Sat by Pulse Oximetry 98 09/24/19 21:41 Pain Scale Pain Intensity 6 - Physical Exam General Appearance: no apparent distress, alert Eye Exam: PERRL/EOMI, eyes nml inspection Ears, Nose, Throat Exam: normal ENT inspection, TMs normal, pharynx normal, moist mucous membranes Neck Exam: normal inspection, non-tender, supple, full range of motion Respiratory Exam: normal breath sounds, lungs clear, No respiratory distress Cardiovascular Exam: regular rate/rhythm, normal heart sounds, normal peripheral pulses Gastrointestinal/Abdomen Exam: soft, normal bowel sounds, No tenderness, No mass Back Exam: normal inspection, normal range of motion, No CVA tenderness, No vertebral tenderness Extremity Exam: normal inspection, normal range of motion, pelvis stable Neurologic Exam: alert, oriented x 3, cooperative, normal mood/affect, nml cerebellar function, nml station & gait, sensation nml, No motor deficits Skin Exam: normal color, warm, dry, No rash Lymphatic Exam: No adenopathy SpO2 Interpretation: normal SpO2: 98 O2 Delivery: Room Air - Course Nursing assessment & vital signs reviewed: Yes EKG Interpreted by Me: Sinus Rhythm, NORMAL AXIS, NORMAL QRS, Non-specific ST Changes Ordered Tests: Active Orders 24 hr Category Date Time Status EKG-ER Only STAT Care 09/24/19 22:15 Active IV Insertion STAT Care 09/24/19 22:15 Active CHEST 2 VIEWS (PA AND LAT) Stat Exams 09/24/19 22:16 Taken CBC W DIFF Stat Lab 09/24/19 22:47 Completed CK-Creatinine Phosphokinase Stat Lab 09/24/19 22:47 Completed CMP Stat Lab 09/24/19 22:47 Completed HCG QUALITATIVE,SERUM Stat Lab 09/24/19 22:47 Completed Lactic Acid Stat Lab 09/24/19 22:45 Completed TROPONIN Q3H Lab 09/24/19 22:47 Completed TROPONIN Q3H Lab 09/25/19 01:30 Ordered TROPONIN Q3H Lab 09/25/19 04:30 Ordered TROPONIN Q3H Lab 09/25/19 07:30 Ordered TROPONIN Q3H Lab 09/25/19 10:30 Ordered TSH [TSH, 3RD Generation] Stat Lab 09/24/19 22:47 Completed UA W/RFX UR CULTURE Stat Lab 09/24/19 22:24 Completed Medication Summary Discontinued Medications Generic Name Dose Route Start Last Admin Trade Name Luis PRN Reason Stop Dose Admin Sodium Chloride 1,000 mls @ 999 mls/hr 09/24/19 22:15 09/24/19 23:59 Sodium Chloride 0.9% 1000 Ml IV 09/24/19 23:15 Infused .Q1H1M STA Infusion Lorazepam 1 mg 09/25/19 00:08 09/25/19 00:35 Ativan 1 Mg PO 09/25/19 00:09 1 mg STAT ONE Administration Lorazepam Confirm 09/25/19 00:33 Ativan 1 Mg Administered 09/25/19 00:34 Dose 1 mg .ROUTE .STK-MED ONE Promethazine HCl 25 mg 09/24/19 23:37 09/24/19 23:42 Phenergan 25 Mg Inj IM 09/24/19 23:38 25 mg STAT ONE Administration Promethazine HCl Confirm 09/24/19 23:41 Phenergan 25 Mg Inj Administered 09/24/19 23:42 Dose 25 mg .ROUTE .STK-MED ONE Lab/Rad Data: Laboratory Result Diagrams 09/24/19 22:47 09/24/19 22:47 Laboratory Results 09/24/19 09/24/19 09/24/19 Range/Units 22:47 22:47 22:47 WBC (4.0-10.5) K/mm3 RBC (4.1-5.4) M/mm3 Hgb (12.0-16.0) gm/dl Hct (35-47) % MCV (78-100) fl MCH (26-32) pg MCHC (32-36) g/dl RDW (11.5-14.0) % Plt Count (150-450) K/mm3 MPV (7.5-11.0) fl Gran % (36.0-66.0) % Eos # (Auto) (0-0.5) Absolute Lymphs (auto) (1.0-4.6) Absolute Monos (auto) (0.0-1.3) Lymphocytes % (24.0-44.0) % Monocytes % (0.0-12.0) % Eosinophils % (0.00-5.0) % Basophils % (0.0-0.4) % Absolute Granulocytes (1.4-6.9) Basophils # (0-0.4) Sodium (137-145) mmol/L Potassium (3.5-5.1) mmol/L Chloride (98-107) mmol/L Carbon Dioxide (22-30) mmol/L Anion Gap (5-15) MEQ/L BUN (7-17) mg/dL Creatinine (0.52-1.04) mg/dL Estimated GFR ML/MIN Glucose (74-106) mg/dL Lactic Acid (0.4-2.0) Calcium (8.4-10.2) mg/dL Total Bilirubin (0.2-1.3) mg/dL AST (14-36) U/L ALT (0-35) U/L Alkaline Phosphatase (38-126) U/L Creatine Kinase (30-135) U/L Troponin I < 0.012 (0.000-0.034) ng/mL Serum Total Protein (6.3-8.2) g/dL Albumin (3.5-5.0) g/dL TSH 3rd Generation 1.840 (0.47-4.68) mIU/L Serum , Qual NEGATIVE (Negative) Urine Color (YELLOW) Urine Appearance (CLEAR) Urine pH (5-6) Ur Specific [place] (1.005-1.025) Urine Protein (Negative) Urine Ketones (NEGATIVE) Urine Blood (0-5) Bry/ul Urine Nitrite (NEGATIVE) Urine Bilirubin (NEGATIVE) Urine Urobilinogen (0-1) mg/dL Ur Leukocyte Esterase (NEGATIVE) Urine WBC (Auto) (0-5) /HPF Urine RBC (Auto) (0-2) /HPF U Epithel Cells (Auto) (FEW) /HPF Urine Bacteria (Auto) (NEGATIVE) /HPF Urine Mucus (Auto) (NEGATIVE) /HPF Urine Culture Reflexed (NO) Urine Glucose (NEGATIVE) mg/dL 09/24/19 09/24/19 09/24/19 Range/Units 22:47 22:47 22:45 WBC 10.6 H (4.0-10.5) K/mm3 RBC 4.28 (4.1-5.4) M/mm3 Hgb 12.1 (12.0-16.0) gm/dl Hct 38.1 (35-47) % MCV 89.0 (78-100) fl MCH 28.3 (26-32) pg MCHC 31.8 L (32-36) g/dl RDW 14.7 H (11.5-14.0) % Plt Count 333 (150-450) K/mm3 MPV 10.3 (7.5-11.0) fl Gran % 60.5 (36.0-66.0) % Eos # (Auto) 0.71 H (0-0.5) Absolute Lymphs (auto) 2.74 (1.0-4.6) Absolute Monos (auto) 0.68 (0.0-1.3) Lymphocytes % 25.8 (24.0-44.0) % Monocytes % 6.4 (0.0-12.0) % Eosinophils % 6.7 H (0.00-5.0) % Basophils % 0.6 (0.0-0.4) % Absolute Granulocytes 6.45 (1.4-6.9) Basophils # 0.06 (0-0.4) Sodium 141 (137-145) mmol/L Potassium 3.9 (3.5-5.1) mmol/L Chloride 106 (98-107) mmol/L Carbon Dioxide 24 (22-30) mmol/L Anion Gap 15.5 H (5-15) MEQ/L BUN 20 H (7-17) mg/dL Creatinine 0.83 (0.52-1.04) mg/dL Estimated GFR > 60.0 ML/MIN Glucose 103 (74-106) mg/dL Lactic Acid 1.2 (0.4-2.0) Calcium 9.1 (8.4-10.2) mg/dL Total Bilirubin 0.30 (0.2-1.3) mg/dL AST 20 (14-36) U/L ALT 17 (0-35) U/L Alkaline Phosphatase 87 (38-126) U/L Creatine Kinase 130 (30-135) U/L Troponin I (0.000-0.034) ng/mL Serum Total Protein 7.7 (6.3-8.2) g/dL Albumin 4.6 (3.5-5.0) g/dL TSH 3rd Generation (0.47-4.68) mIU/L Serum , Qual (Negative) Urine Color (YELLOW) Urine Appearance (CLEAR) Urine pH (5-6) Ur Specific [place] (1.005-1.025) Urine Protein (Negative) Urine Ketones (NEGATIVE) Urine Blood (0-5) Bry/ul Urine Nitrite (NEGATIVE) Urine Bilirubin (NEGATIVE) Urine Urobilinogen (0-1) mg/dL Ur Leukocyte Esterase (NEGATIVE) Urine WBC (Auto) (0-5) /HPF Urine RBC (Auto) (0-2) /HPF U Epithel Cells (Auto) (FEW) /HPF Urine Bacteria (Auto) (NEGATIVE) /HPF Urine Mucus (Auto) (NEGATIVE) /HPF Urine Culture Reflexed (NO) Urine Glucose (NEGATIVE) mg/dL 09/24/19 Range/Units 22:24 WBC (4.0-10.5) K/mm3 RBC (4.1-5.4) M/mm3 Hgb (12.0-16.0) gm/dl Hct (35-47) % MCV (78-100) fl MCH (26-32) pg MCHC (32-36) g/dl RDW (11.5-14.0) % Plt Count (150-450) K/mm3 MPV (7.5-11.0) fl Gran % (36.0-66.0) % Eos # (Auto) (0-0.5) Absolute Lymphs (auto) (1.0-4.6) Absolute Monos (auto) (0.0-1.3) Lymphocytes % (24.0-44.0) % Monocytes % (0.0-12.0) % Eosinophils % (0.00-5.0) % Basophils % (0.0-0.4) % Absolute Granulocytes (1.4-6.9) Basophils # (0-0.4) Sodium (137-145) mmol/L Potassium (3.5-5.1) mmol/L Chloride (98-107) mmol/L Carbon Dioxide (22-30) mmol/L Anion Gap (5-15) MEQ/L BUN (7-17) mg/dL Creatinine (0.52-1.04) mg/dL Estimated GFR ML/MIN Glucose (74-106) mg/dL Lactic Acid (0.4-2.0) Calcium (8.4-10.2) mg/dL Total Bilirubin (0.2-1.3) mg/dL AST (14-36) U/L ALT (0-35) U/L Alkaline Phosphatase (38-126) U/L Creatine Kinase (30-135) U/L Troponin I (0.000-0.034) ng/mL Serum Total Protein (6.3-8.2) g/dL Albumin (3.5-5.0) g/dL TSH 3rd Generation (0.47-4.68) mIU/L Serum , Qual (Negative) Urine Color YELLOW (YELLOW) Urine Appearance SLIGHTLY CLOUDY (CLEAR) Urine pH 5.0 (5-6) Ur Specific [place] 1.030 (1.005-1.025) Urine Protein NEGATIVE (Negative) Urine Ketones NEGATIVE (NEGATIVE) Urine Blood NEGATIVE (0-5) Bry/ul Urine Nitrite NEGATIVE (NEGATIVE) Urine Bilirubin NEGATIVE (NEGATIVE) Urine Urobilinogen 2 (0-1) mg/dL Ur Leukocyte Esterase NEGATIVE (NEGATIVE) Urine WBC (Auto) NONE (0-5) /HPF Urine RBC (Auto) NONE (0-2) /HPF U Epithel Cells (Auto) RARE (FEW) /HPF Urine Bacteria (Auto) NONE SEEN (NEGATIVE) /HPF Urine Mucus (Auto) SLIGHT (NEGATIVE) /HPF Urine Culture Reflexed NO (NO) Urine Glucose NEGATIVE (NEGATIVE) mg/dL - Progress Progress: improved, re-examined Progress Note: 09/25/19 00:55 pt symptoms have improved. she does not wish further w/u in ER or admission to [facility] after discussion of risks and benefits including CT and with complications including or cardic or neurologic or other conditions she understands that undetected pathology may be evolving and the need for defiinitive workup and will return meantime if any concerns or furhter symptoms. 09/25/19 01:00 Counseled pt/family regarding: lab results, diagnosis, need for follow-up, rad results - Departure Departure Disposition: Home Clinical Impression: siezure vs near syncope Condition: Good Critical Care Time: No Referrals: PHILIPP STRICKLAND [Primary Care Provider] - Instructions: Seizures, Adult (DC), Near Fainting (DC) Additional Instructions: followup with your for further workup of what may have been a seizure - we advise not driving until then. we have included seizure instructions although this may be a different condition later discovered in workup..
[2019-09-24 22:30] LABS: Appearance SLIGHTLY CLOUDY (CLEAR); Bilirubin NEGATIVE (NEGATIVE); Blood NEGATIVE Ery/ul (0-5); Epithelial Cells RARE /HPF (FEW); Glucose NEGATIVE (NEGATIVE); Ketones NEGATIVE (NEGATIVE); Leukocyte Esterase NEGATIVE (NEGATIVE); Mucus SLIGHT /HPF (NEGATIVE); Nitrite NEGATIVE (NEGATIVE); Protein,Urine Dip NEGATIVE (Negative); Urobilinogen 2 mg/dL (0-1)
[2019-09-24 22:51] LABS: Bacteria NONE SEEN /HPF (NEGATIVE)
[2019-09-24 22:51] LABS: Absolute Neutrophil Ct (ANC) 6.45 (1.4-6.9); BASOPHIL % 0.6 % (0.0-0.4); Basophil (Absolute #) 0.06 (0-0.4); Eosinophil % 6.7 % (0.00-5.0); Eosinophil (Absolute #) 0.71 (0-0.5); Hematocrit 38.1 % (35-47); Hemoglobin 12.1 gm/dl (12.0-16.0); Lymphocyte (Absolute #) 2.74 (1.0-4.6); Lymphocytes % 25.8 % (24.0-44.0); Mean Corpuscular Hemoglobin 28.3 pg (26-32); Mean Corpuscular Hgb Concent. 31.8 g/dl (32-36); Mean Platelet Volume 10.3 fl (7.5-11.0); Monocyte (Absolute #) 0.68 (0.0-1.3); Monocytes % 6.4 % (0.0-12.0); Neutrophil % 60.5 % (36.0-66.0); Platelet Count 333 K/mm3 (150-450); Red Blood Count 4.28 M/mm3 (4.1-5.4); Red Cell Distribution Width 14.7 % (11.5-14.0); White Blood Count 10.6 K/mm3 (4.0-10.5)
[2019-09-24 23:06] LABS: ALBUMIN 4.6 g/dL (3.5-5.0); ALKALINE PHOSPHATASE 87 U/L (38-126); ANION GAP 15.5 MEQ/L (5-15); BLOOD UREA NITROGEN 20 mg/dL (7-17); CHLORIDE 106 mmol/L (98-107); CK-Creatinine Phosphokinase 130 U/L (30-135); Calcium 9.1 mg/dL (8.4-10.2); Carbon Dioxide 24 mmol/L (22-30); Creatinine 1 0.83 mg/dL (0.52-1.04); Glucose 103 mg/dL (74-106); Potassium 3.9 mmol/L (3.5-5.1); SGOT/AST 20 U/L (14-36); SGPT/ALT 17 U/L (0-35); SODIUM 141 mmol/L (137-145); Total Protein 7.7 g/dL (6.3-8.2)
[2019-09-24] MEDS ORDERED: Phenergan 25 MG INJ IM ONE (23:37)
[2019-09-24] MEDS ORDERED: Phenergan 25 MG INJ ONE (23:41)
[2019-09-25] MEDS ORDERED: Ativan 1 MG PO ONE (00:08)
[2019-09-25] MEDS ORDERED: Ativan 1 MG ONE (00:33)
[2019-09-25 00:55] VITALS: O2SAT 98
[2019-09-25 01:27] VITALS: BP 111/91; PULSE 84
--- NOTE | 2019-09-25 06:58 | XRAY ---
Indication: Weakness. Seizure. Comparison: April 11, 2019. PA/lateral chest is clear. Heart is not enlarged. Bony thorax intact. Impression: Nonacute chest.
== END 2019-09-25 01:19 | disposition home or self-care (01) ==
LOC: ED 20:50
DX: R56.9 Unspecified convulsions (principal); R55 Syncope and collapse; E11.9 Type 2 diabetes mellitus without complications; Z87.442 Personal history of urinary calculi; Z87.898 Personal history of other specified conditions; Z72.0 Tobacco use
CPT/HCPCS: 36000; 36415; 71046; 80053; 81001; 81025; 82550; 83605; 84443; 84484; 85025; 93005; 96360; 96372; 99284; J2550; A9270-GY

== ENCOUNTER 2020-03-31 20:40 | Emergency (ER) | payer OTHER ==
[2020-03-31 21:15] VITALS: O2SAT 98
[2020-03-31] MEDS ORDERED: MORPHINE SULFATE 4 MG INJ IV ONE (21:17)
[2020-03-31] MEDS ORDERED: Zofran 4 MG/2 ML VIAL IV ONE (21:17)
[2020-03-31] MEDS ORDERED: Sodium Chloride 0.9% 1000 ML 1,000 ML IV STA (21:17)
[2020-03-31] MEDS ORDERED: Zofran 4 MG/2 ML VIAL ONE (21:21)
[2020-03-31] MEDS ORDERED: Sodium Chloride 0.9% 1000 ML 1,000 ML ONE (21:22)
[2020-03-31] MEDS ORDERED: MORPHINE SULFATE 4 MG INJ ONE (21:22)
--- NOTE | 2020-03-31 21:27 | ERPHSYRPT ---
- History of Present Illness Time Seen by Provider: 03/31/20 21:10 Historian: patient Exam Limitations: no limitations Patient Subjective Stated Complaint: pt states she has been having intermitent pain in the rt abd and rt lower back for the last week. pain started today at 1500 and has not stopped tonight Triage Nursing Assessment: pt alert and oriented, answers questions approp. pt ambulatory with slow steady gait noted. respirations nonlabored with lungs cta. abd soft and nontender to light palpation. skin pink warm and dry. Physician History: 44 years old female with history of kidney stones in the past presented in the ER with 1 week history of intermittent right flank/right lower quadrant pain moderate intensity, sharp in nature, radiating to right upper quadrant/back without any significant aggravating or relieving factors. Associated with nausea but no vomiting. Patient reports since 3 PM this afternoon pain is continuous and progressively getting worse. Denies any associated urinary symptoms. No vaginal bleeding or discharge. Timing/Duration: week(s) (1), intermittent, gradual onset, worse Activities at Onset: rest Quality: sharpness Abdominal Pain Onset Location: RLQ, flank Pain Radiation: back Severity of Pain-Max: moderate Severity of Pain-Current: moderate Modifying Factors: Improves With: nothing Associated Symptoms: nausea Previous symptoms: same symptoms as today Allergies/Adverse Reactions: strawberry Allergy (Severe, Verified 03/31/20 21:15) Tightness of Throat shrimp Allergy (Intermediate, Verified 03/31/20 21:15) itch Iodinated Contrast Media Allergy (Verified 03/31/20 21:15) Itching Penicillins Allergy (Verified 03/31/20 21:15) Anaphylactic Reaction sulfamethoxazole [From Bactrim] Adverse Reaction (Verified 03/31/20 21:15) Vomiting trimethoprim [From Bactrim] Adverse Reaction (Verified 03/31/20 21:15) Vomiting Home Medications: Metformin HCl 850 mg [Glucophage 850 MG] 1,000 mg PO BID 06/29/16 [History] Pnv,Calcium 72/Iron/Folic Acid [ Plus Tablet] 1 each PO DAILY 06/29/16 [History] Sertraline HCl 100 mg PO HS 03/21/17 [History] Amlodipine Besylate 5 mg [Norvasc 5 mg] 5 mg PO HS 01/02/19 [History] Carvedilol 3.125 mg [Coreg 3.125 MG] 3.125 mg PO BID 01/02/19 [History] Ergocalciferol (Vitamin D2) [Vitamin D2] 50,000 unit PO Q7D 01/02/19 [History] Ferrous Gluconate 324 mg PO BID 01/02/19 [History] Omeprazole 20 mg PO BID 04/08/19 [History] Meloxicam 15 mg PO Q12H PRN PRN 06/23/19 [History] Levetiracetam [Keppra 500 mg ] 500 mg PO BID 03/31/20 [History] Naratriptan HCl [Amerge] 2.5 mg PO UD 03/31/20 [History] Oxcarbazepine 300 mg [Trileptal 300 MG Tablet] 300 mg PO BID 03/31/20 [History] Hx Tetanus, Diphtheria Vaccination/Date Given: Yes Hx Influenza Vaccination/Date Given: Yes Hx Pneumococcal Vaccination/Date Given: Yes Immunizations Up to Date: Yes Travel Risk - International Travel Have you traveled outside of the country in past 3 weeks: No - Coronavirus Screening Are you exhibiting any of the following symptoms?: No Close contact with a COVID-19 positive Pt in past 14-21 Days: No - Review of Systems Constitutional: No Symptoms Eyes: No Symptoms Ears, Nose, & Throat: No Symptoms Respiratory: No Symptoms Cardiac: No Symptoms Abdominal/Gastrointestinal: Abdominal Pain, Nausea Genitourinary Symptoms: No Symptoms Musculoskeletal: No Symptoms Skin: No Symptoms Neurological: No Symptoms Psychological: No Symptoms Endocrine: No Symptoms Hematologic/Lymphatic: No Symptoms Immunological/Allergic: No Symptoms - Past Medical History Pertinent Past Medical History: Yes Neurological History: No Pertinent History ENT History: No Pertinent History Cardiac History: No Pertinent History Respiratory History: No Pertinent History Endocrine Medical History: Diabetes Type II Musculoskeletal History: No Pertinent History GI Medical History: No Pertinent History History: No Pertinent History Psycho-Social History: No Pertinent History Female Reproductive Disorders: Other Other Medical History: pcos, Insulin resistant, kidney stone, iron def, VIT D DEF - Past Surgical History Past Surgical History: Yes Neuro Surgical History: No Pertinent History Cardiac: No Pertinent History Respiratory: No Pertinent History Gastrointestinal: Cholecystectomy Genitourinary: No Pertinent History Musculoskeletal: No Pertinent History Female Surgical History: No Pertinent History - Social History Smoking Status: Current every day smoker How long have you smoked: 12 Exposure to second hand smoke: No Drug Use: none Patient Lives Alone: No - Female History Hx Last Menstrual Period: 2.5wks Hx Now: No - Nursing Vital Signs Nursing Vital Signs: Initial Vital Signs Temperature 98.6 F 03/31/20 21:05 Pulse Rate 95 H 03/31/20 21:05 Respiratory Rate 18 03/31/20 21:05 Blood Pressure 126/66 03/31/20 21:05 O2 Sat by Pulse Oximetry 98 03/31/20 21:05 Pain Scale Pain Intensity 6 - Physical Exam General Appearance: no apparent distress Eye Exam: eyes nml inspection Ears, Nose, Throat Exam: normal ENT inspection, pharynx normal Neck Exam: normal inspection, non-tender, supple, full range of motion Respiratory Exam: normal breath sounds, lungs clear Cardiovascular Exam: regular rate/rhythm, normal heart sounds Gastrointestinal/Abdomen Exam: soft, normal bowel sounds, tenderness (Right lower quadrant/flank) Back Exam: normal inspection, normal range of motion, CVA tenderness (Right) Extremity Exam: normal inspection, normal range of motion Neurologic Exam: alert, oriented x 3, cooperative Skin Exam: normal color SpO2 Interpretation: normal SpO2: 98 O2 Delivery: Room Air Ordered Tests: Active Orders 24 hr Category Date Time Status IV Insertion STAT Care 03/31/20 21:17 Active ABDOMEN AND PELVIS W/0 CONTRAS [CT] Stat Exams 03/31/20 21:17 Taken CBC W DIFF Stat Lab 03/31/20 21:22 Completed CMP Stat Lab 03/31/20 21:22 Completed HCG,QUALITATIVE URINE Stat Lab 03/31/20 21:22 Completed LIPASE Stat Lab 03/31/20 21:22 Completed UA W/RFX UR CULTURE Stat Lab 03/31/20 21:22 Completed Medication Summary Discontinued Medications Generic Name Dose Route Start Last Admin Trade Name Freq PRN Reason Stop Dose Admin Sodium Chloride 1,000 mls @ 999 mls/hr 03/31/20 21:17 03/31/20 22:55 Sodium Chloride 0.9% 1000 Ml IV 03/31/20 22:17 Infused .Q1H1M STA Infusion Sodium Chloride Confirm 03/31/20 21:22 Sodium Chloride 0.9% 1000 Ml Administered 03/31/20 21:23 Dose 1,000 mls @ ud .ROUTE .STK-MED ONE Ketorolac Tromethamine 30 mg 03/31/20 22:26 03/31/20 22:27 Toradol 30 Mg Injection IV 03/31/20 22:27 30 mg STAT ONE Administration Ketorolac Tromethamine Confirm 03/31/20 22:26 Toradol 30 Mg Injection Administered 03/31/20 22:27 Dose 30 mg .ROUTE .STK-MED ONE Morphine Sulfate 4 mg 03/31/20 21:17 03/31/20 21:27 Morphine Sulfate 4 Mg Inj IV 03/31/20 21:18 4 mg STAT ONE Administration Morphine Sulfate Confirm 03/31/20 21:22 Morphine Sulfate 4 Mg Inj Administered 03/31/20 21:23 Dose 4 mg .ROUTE .STK-MED ONE Ondansetron HCl 4 mg 03/31/20 21:17 03/31/20 21:25 Zofran 4 Mg/2 Ml Vial IV 03/31/20 21:18 4 mg STAT ONE Administration Ondansetron HCl Confirm 03/31/20 21:21 Zofran 4 Mg/2 Ml Vial Administered 03/31/20 21:22 Dose 4 mg .ROUTE .STK-MED ONE Oxycodone/Acetaminophen 2 tab 03/31/20 23:36 Percocet Tablet 5/325mg PO 03/31/20 23:37 STAT ONE Lab/Rad Data: Laboratory Result Diagrams 03/31/20 21:22 03/31/20 21:22 Laboratory Results 03/31/20 03/31/20 03/31/20 Range/Units 21:22 21:22 21:22 WBC 12.0 H (4.0-10.5) K/mm3 RBC 4.17 (4.1-5.4) M/mm3 Hgb 11.6 L (12.0-16.0) gm/dl Hct 37.2 (35-47) % MCV 89.2 (78-100) fl MCH 27.8 (26-32) pg MCHC 31.2 L (32-36) g/dl RDW 15.4 H (11.5-14.0) % Plt Count 305 (150-450) K/mm3 MPV 10.6 (7.5-11.0) fl Gran % 56.4 (36.0-66.0) % Eos # (Auto) 1.01 H (0-0.5) Absolute Lymphs (auto) 3.34 (1.0-4.6) Absolute Monos (auto) 0.82 (0.0-1.3) Lymphocytes % 27.9 (24.0-44.0) % Monocytes % 6.9 (0.0-12.0) % Eosinophils % 8.4 H (0.00-5.0) % Basophils % 0.4 (0.0-0.4) % Absolute Granulocytes 6.74 (1.4-6.9) Basophils # 0.05 (0-0.4) Sodium 138 (137-145) mmol/L Potassium 3.7 (3.5-5.1) mmol/L Chloride 106 (98-107) mmol/L Carbon Dioxide 24 (22-30) mmol/L Anion Gap 11.3 (5-15) MEQ/L BUN 17 (7-17) mg/dL Creatinine 0.62 (0.52-1.04) mg/dL Estimated GFR > 60.0 ML/MIN Glucose 97 (74-106) mg/dL Calcium 9.2 (8.4-10.2) mg/dL Total Bilirubin 0.20 (0.2-1.3) mg/dL AST 22 (14-36) U/L ALT 19 (0-35) U/L Alkaline Phosphatase 79 (38-126) U/L Serum Total Protein 7.4 (6.3-8.2) g/dL Albumin 4.3 (3.5-5.0) g/dL Lipase 139 (23-300) U/L Urine Color (YELLOW) Urine Appearance (CLEAR) Urine pH (5-6) Ur Specific [place] (1.005-1.025) Urine Protein (Negative) Urine Ketones (NEGATIVE) Urine Blood (0-5) Bry/ul Urine Nitrite (NEGATIVE) Urine Bilirubin (NEGATIVE) Urine Urobilinogen (0-1) mg/dL Ur Leukocyte Esterase (NEGATIVE) Urine WBC (Auto) (0-5) /HPF Urine RBC (Auto) (0-2) /HPF U Epithel Cells (Auto) (FEW) /HPF Urine Bacteria (Auto) (NEGATIVE) /HPF Urine Mucus (Auto) (NEGATIVE) /HPF Urine Culture Reflexed (NO) Urine Glucose (NEGATIVE) mg/dL Urine HCG, Qual NEGATIVE (Negative) 03/31/20 Range/Units 21:22 WBC (4.0-10.5) K/mm3 RBC (4.1-5.4) M/mm3 Hgb (12.0-16.0) gm/dl Hct (35-47) % MCV (78-100) fl MCH (26-32) pg MCHC (32-36) g/dl RDW (11.5-14.0) % Plt Count (150-450) K/mm3 MPV (7.5-11.0) fl Gran % (36.0-66.0) % Eos # (Auto) (0-0.5) Absolute Lymphs (auto) (1.0-4.6) Absolute Monos (auto) (0.0-1.3) Lymphocytes % (24.0-44.0) % Monocytes % (0.0-12.0) % Eosinophils % (0.00-5.0) % Basophils % (0.0-0.4) % Absolute Granulocytes (1.4-6.9) Basophils # (0-0.4) Sodium (137-145) mmol/L Potassium (3.5-5.1) mmol/L Chloride (98-107) mmol/L Carbon Dioxide (22-30) mmol/L Anion Gap (5-15) MEQ/L BUN (7-17) mg/dL Creatinine (0.52-1.04) mg/dL Estimated GFR ML/MIN Glucose (74-106) mg/dL Calcium (8.4-10.2) mg/dL Total Bilirubin (0.2-1.3) mg/dL AST (14-36) U/L ALT (0-35) U/L Alkaline Phosphatase (38-126) U/L Serum Total Protein (6.3-8.2) g/dL Albumin (3.5-5.0) g/dL Lipase (23-300) U/L Urine Color YELLOW (YELLOW) Urine Appearance CLEAR (CLEAR) Urine pH 6.0 (5-6) Ur Specific [place] 1.028 (1.005-1.025) Urine Protein NEGATIVE (Negative) Urine Ketones TRACE (NEGATIVE) Urine Blood NEGATIVE (0-5) Bry/ul Urine Nitrite NEGATIVE (NEGATIVE) Urine Bilirubin NEGATIVE (NEGATIVE) Urine Urobilinogen 2 (0-1) mg/dL Ur Leukocyte Esterase NEGATIVE (NEGATIVE) Urine WBC (Auto) NONE (0-5) /HPF Urine RBC (Auto) NONE (0-2) /HPF U Epithel Cells (Auto) RARE (FEW) /HPF Urine Bacteria (Auto) NONE (NEGATIVE) /HPF Urine Mucus (Auto) SLIGHT (NEGATIVE) /HPF Urine Culture Reflexed NO (NO) Urine Glucose NEGATIVE (NEGATIVE) mg/dL Urine HCG, Qual (Negative) - Progress Progress: improved, pain not gone completely, re-examined Progress Note: 03/31/20 23:37 She is given fluid bolus and morphine along with Toradol, on reevaluation her pain is much better but still have some discomfort. Work-up showed white count of 12, grossly unremarkable chemistries, no UTI. I have obtained CT abdomen pelvis without contrast which did not show any obstructive stone, negative for appendicitis but does have some ovarian cyst. Patient does have history of polycystic ovarian disease and has similar pains in the past with cyst rupture. This could be the reason for her pain. She is given Percocet here for tonight and recommended taking Tylenol ibuprofen to go home and outpatient follow-up with her primary care. With her symptoms going on for a week I do not think patient has ovarian torsion going on and do not think patient needs immediate ultrasound in the ER but can have outpatient. Discussed signs symptoms of worsening needing return to ER which she seemed understanding. Counseled pt/family regarding: lab results, diagnosis, need for follow-up, rad results - Departure Departure Disposition: Home Clinical Impression: Right ovarian cyst Condition: Stable Critical Care Time: No Referrals: PHILIPP EATON [Primary Care Provider] - Follow Up with PCP/3 days Instructions: Ovarian Cyst (DC) Additional Instructions: Take Tylenol/meloxicam as needed for pain. Follow-up with your primary care for reevaluation as scheduled in 3 days. Return to ER for worsening pain.
[2020-03-31 21:40] LABS: ALBUMIN 4.3 g/dL (3.5-5.0); ALKALINE PHOSPHATASE 79 U/L (38-126); ANION GAP 11.3 MEQ/L (5-15); Appearance CLEAR (CLEAR); BLOOD UREA NITROGEN 17 mg/dL (7-17); Bilirubin NEGATIVE (NEGATIVE); Blood NEGATIVE Ery/ul (0-5); CHLORIDE 106 mmol/L (98-107); Calcium 9.2 mg/dL (8.4-10.2); Carbon Dioxide 24 mmol/L (22-30); Creatinine 1 0.62 mg/dL (0.52-1.04); EST GLOMERULAR FILTRATION RATE > 60.0 ML/MIN; Epithelial Cells RARE /HPF (FEW); Glucose 97 mg/dL (74-106); Glucose NEGATIVE (NEGATIVE); Ketones TRACE (NEGATIVE); LIPASE 139 U/L (23-300); Leukocyte Esterase NEGATIVE (NEGATIVE); Mucus SLIGHT /HPF (NEGATIVE); Nitrite NEGATIVE (NEGATIVE); Potassium 3.7 mmol/L (3.5-5.1); Protein,Urine Dip NEGATIVE (Negative); SGOT/AST 22 U/L (14-36); SGPT/ALT 19 U/L (0-35); SODIUM 138 mmol/L (137-145); Specific Gravity 1.028 (1.005-1.025); Total Protein 7.4 g/dL (6.3-8.2); Urobilinogen 2 mg/dL (0-1)
[2020-03-31 21:41] LABS: Absolute Neutrophil Ct (ANC) 6.74 (1.4-6.9); BASOPHIL % 0.4 % (0.0-0.4); Basophil (Absolute #) 0.05 (0-0.4); Eosinophil % 8.4 % (0.00-5.0); Eosinophil (Absolute #) 1.01 (0-0.5); Hematocrit 37.2 % (35-47); Hemoglobin 11.6 gm/dl (12.0-16.0); Lymphocyte (Absolute #) 3.34 (1.0-4.6); Lymphocytes % 27.9 % (24.0-44.0); Mean Cell Volume 89.2 fl (78-100); Mean Corpuscular Hemoglobin 27.8 pg (26-32); Mean Corpuscular Hgb Concent. 31.2 g/dl (32-36); Mean Platelet Volume 10.6 fl (7.5-11.0); Monocyte (Absolute #) 0.82 (0.0-1.3); Monocytes % 6.9 % (0.0-12.0); Neutrophil % 56.4 % (36.0-66.0); Platelet Count 305 K/mm3 (150-450); Red Blood Count 4.17 M/mm3 (4.1-5.4); Red Cell Distribution Width 15.4 % (11.5-14.0)
[2020-03-31] MEDS ORDERED: TORAdol 30 mg Injection ONE (22:26)
[2020-03-31] MEDS ORDERED: TORAdol 30 mg Injection IV ONE (22:26)
[2020-03-31] MEDS ORDERED: PERCOCET TABLET 5/325MG PO ONE (23:36)
[2020-03-31] MEDS ORDERED: PERCOCET TABLET 5/325MG ONE (23:53)
[2020-04-01 00:53] VITALS: BP 99/58; PULSE 97
--- NOTE | 2020-04-01 08:06 | XRAY ---
Indication: Right flank pain and elevated WBC. History renal stone. Multiple contiguous axial images obtained through the abdomen and pelvis without contrast as ordered. Comparison: January 02, 2019. Lung bases are clear. Heart is not enlarged. Stomach is mildly fluid distended with intraluminal radiodensities either medication versus bismuth versus barium. Noncontrasted bowel loops appear nonobstructed. Normal appendix. No free fluid/air. Stable nonobstructing right renal punctate calculus and cholecystectomy. Right ovary is now prominent measuring 2.8 x 4.3 cm. Remaining liver, pancreas, spleen, adrenal glands, kidneys, ureters, bladder, uterus, and aorta appear unremarkable for noncontrast exam. Osseous structures intact. Impression: 1. New prominent right ovary better evaluated with sonogram if clinically warranted. 2. Again nonobstructing renal microcalculus. 3. Remaining CT abdomen/pelvis without contrast exam is negative.. Comment: Preliminary interpretation was made by [facility]. No critical discrepancy.
== END 2020-04-01 00:05 | disposition home or self-care (01) ==
LOC: ED 20:40
DX: N83.201 Unspecified ovarian cyst, right side (principal)
CPT/HCPCS: 36000; 36415; 74176; 80053; 81001; 83690; 84703; 85025; 96374; 96375; 99284; J1885; J2270; J2405; A9270-GY

== ENCOUNTER 2020-07-18 19:35 | Emergency (ER) | payer OTHER ==
[2020-07-18] MEDS ORDERED: TORAdol 30 mg Injection IV ONE (20:18)
[2020-07-18] MEDS ORDERED: BENADRYL 50 MG/ML IV ONE (20:18)
[2020-07-18] MEDS ORDERED: Sodium Chloride 0.9% 1000 ML 1,000 ML IV STA (20:18)
[2020-07-18] MEDS ORDERED: Reglan 10 MG/2 ML IV ONE (20:18)
[2020-07-18] MEDS ORDERED: BENADRYL 50 MG/ML ONE (20:21)
[2020-07-18] MEDS ORDERED: TORAdol 30 mg Injection ONE (20:21)
[2020-07-18] MEDS ORDERED: Reglan 10 MG/2 ML ONE (20:22)
[2020-07-18] MEDS ORDERED: Sodium Chloride 0.9% 1000 ML 1,000 ML ONE (20:22)
[2020-07-18] MEDS ORDERED: MORPHINE SULFATE 4 MG INJ IV ONE (21:19)
[2020-07-18] MEDS ORDERED: MORPHINE SULFATE 4 MG INJ ONE (21:19)
--- NOTE | 2020-07-18 21:55 | ERPHSYRPT ---
- History of Present Illness Time Seen by Provider: 07/18/20 19:43 Source: patient Exam Limitations: no limitations Patient Subjective Stated Complaint: Patient states " I have had a migraine since I woke up yesterday morning and I have tried everything from lights off, medication, sleep, and other numerous tricks and I cannot get it to ease up". Triage Nursing Assessment: Patient arrived to ED and ambulated to room without difficulty. Patient gait steady. Patient A/O times 4. Patient able to follow instructions without difficulty. Lungs clear bilateral A/P throughout. Patient denies SOB. Patient denies any chest pain. Cap refill < 3 seconds. 02 sat > 95% on room air. No S/S of respiratory distress noted. Bilateral pupils brisk and reactive to light. Bilateral hand transport company manager strong and equal. Neuro WNL. + BS times 4 quads. ABD soft, round, non-distended. Patient denies any pain upon palpitation. No dependent edema noted. + radial and pedal pulses bilateral. Patient denies any dizziness. Patient states she has had nausea and she did take a zofran early this am but it didn't help. Patient denies any vomiting. Patient states pain is in the back of head and it feels like her head is going to explode. Patient stated she was at [facility] ER last week where she had a CT of her head which she states the MD stated it was negative. Patient stated they gave her a phenergan IM in right hip where she states she hasn't been able to feel since they gave her the injection. Patient states she does see a neurologist. Call light given to patient upon leaving room. Physician History: 34 years old female with history of PCOS, hypertension, poorly controlled migraines on multiple medications presented in the ER with sudden onset occipital headache waking her up from sleep yesterday morning, continuous, moderate to severe intensity, sharp throbbing in nature, aggravated with light, noise and partial relief with taking her routine migraine medications. Denies any neck pain or stiffness. No difficulty vision. No numbness tingling or focal weakness. Patient report having multiple episodes every week and lately getting worse. She was evaluated at [facility] last week with a negative CT head. Patient does not think this is the worst headache of her life and her headache is similar to previous episodes but is not getting controlled with her medications. No fever or chills reported Timing/Duration: day(s) (1), sudden, worse Quality: sharpness Head Pain Location: frontal, occipital Severity of Pain-Max: moderate Severity of Pain-Current: moderate Recent Head Trauma: no recent headache/trauma, frequent headaches Modifying Factors: Improves With: medication, noise. Worsens With: exposure to light Associated Symptoms: sensitive to light, No confusion, No dizziness, No facial pain, No fever/chills, No light-headedness, No loss of consciousness, No nasal congestion, No nasal drainage, No neck pain, No numbness in legs/feet, No rash, No sweating, No seizures, No sinus infection, No speech problems, No stiff neck, No trouble walking, No vision changes, No visual disturbance, No weakness Previous symptoms: same symptoms as today Allergies/Adverse Reactions: strawberry Allergy (Severe, Verified 07/18/20 19:49) Tightness of Throat shrimp Allergy (Intermediate, Verified 07/18/20 19:49) itch Iodinated Contrast Media Allergy (Verified 07/18/20 19:49) Itching Penicillins Allergy (Verified 07/18/20 19:49) Anaphylactic Reaction sulfamethoxazole [From Bactrim] Adverse Reaction (Verified 07/18/20 19:49) Vomiting Home Medications: Metformin HCl 850 mg [Glucophage 850 MG] 1,000 mg PO BID 06/29/16 [History] Pnv,Calcium 72/Iron/Folic Acid [ Plus Tablet] 1 each PO DAILY 06/29/16 [History] Sertraline HCl 50 mg PO HS 03/21/17 [History] Amlodipine Besylate 5 mg [Norvasc 5 mg] 5 mg PO HS 01/02/19 [History] Carvedilol 3.125 mg [Coreg 3.125 MG] 3.125 mg PO BID 01/02/19 [History] Ergocalciferol (Vitamin D2) [Vitamin D2] 50,000 unit PO Q7D 01/02/19 [History] Ferrous Gluconate 324 mg PO DAILY 01/02/19 [History] Omeprazole 20 mg PO BID 04/08/19 [History] Meloxicam 15 mg PO Q12H PRN PRN 06/23/19 [History] Levetiracetam [Keppra 500 mg ] 500 mg PO BID 03/31/20 [History] Naratriptan HCl [Amerge] 2.5 mg PO UD 03/31/20 [History] Oxcarbazepine 300 mg [Trileptal 300 MG Tablet] 300 mg PO BID 03/31/20 [History] Topiramate 25 mg PO BID 07/18/20 [History] Hx Tetanus, Diphtheria Vaccination/Date Given: Yes Hx Influenza Vaccination/Date Given: Yes Hx Pneumococcal Vaccination/Date Given: Yes Immunizations Up to Date: Yes Travel Risk - International Travel Have you traveled outside of the country in past 3 weeks: No - Coronavirus Screening Are you exhibiting any of the following symptoms?: No - Vaccine Status Have you recieved a Covid-19 vaccination: No - Review of Systems Constitutional: No Symptoms Eyes: No Symptoms Ears, Nose, & Throat: No Symptoms Respiratory: No Symptoms Cardiac: No Symptoms Abdominal/Gastrointestinal: Nausea, No Vomiting Genitourinary Symptoms: No Symptoms Musculoskeletal: No Symptoms Neurological: Headache Psychological: No Symptoms Endocrine: No Symptoms Hematologic/Lymphatic: No Symptoms Immunological/Allergic: No Symptoms - Past Medical History Pertinent Past Medical History: Yes Neurological History: No Pertinent History ENT History: No Pertinent History Cardiac History: No Pertinent History Respiratory History: No Pertinent History Endocrine Medical History: Diabetes Type II Musculoskeletal History: No Pertinent History GI Medical History: No Pertinent History History: No Pertinent History Psycho-Social History: No Pertinent History Female Reproductive Disorders: Other Other Medical History: PCOS, HX Kidney Stone, Iron Def, VIT D DEF - Past Surgical History Past Surgical History: Yes Neuro Surgical History: No Pertinent History Cardiac: No Pertinent History Respiratory: No Pertinent History Gastrointestinal: Cholecystectomy Genitourinary: No Pertinent History Musculoskeletal: No Pertinent History Female Surgical History: No Pertinent History - Social History Smoking Status: Current every day smoker How long have you smoked: 12 years Exposure to second hand smoke: Yes Drug Use: none Patient Lives Alone: No - Female History Hx Last Menstrual Period: 07/05/20 Hx Now: No - Nursing Vital Signs Nursing Vital Signs: Initial Vital Signs Temperature 98.3 F 07/18/20 19:56 Pulse Rate 93 H 07/18/20 19:56 Respiratory Rate 20 07/18/20 19:56 Blood Pressure 117/71 07/18/20 19:56 O2 Sat by Pulse Oximetry 97 07/18/20 19:56 Pain Scale Pain Intensity 6 - Physical Exam General Appearance: no apparent distress, alert Eye Exam: PERRL/EOMI, eyes nml inspection Ears, Nose, Throat Exam: normal ENT inspection, TMs normal, pharynx normal Neck Exam: normal inspection, non-tender, supple, full range of motion, No Brudzinski, No Kernig's Respiratory Exam: normal breath sounds, lungs clear Cardiovascular Exam: regular rate/rhythm, normal heart sounds Gastrointestinal/Abdominal Exam: soft, No tenderness Back Exam: normal inspection, normal range of motion Extremity Exam: normal inspection, normal range of motion, pelvis stable Mental Status Exam: alert, oriented x 3, cooperative attendant self service store Exam: normal hearing, normal speech, PERRL Coordination/Gait Exam: normal finger to nose, normal gait, normal cerebellar function, negative Romberg's sign Motor/Sensory Exam: no motor deficit, no sensory deficit, no pronator drift, negative Babinski's sign DTR Exam: bicep (R): 2+, bicep (L): 2+, knee (R): 2+, knee (L): 2+ Skin Exam: normal color SpO2 Interpretation: normal SpO2: 97 O2 Delivery: Room Air Ordered Tests: Active Orders 24 hr Category Date Time Status IV Insertion STAT Care 07/18/20 20:18 Active Medication Summary Discontinued Medications Generic Name Dose Route Start Last Admin Trade Name Luis PRN Reason Stop Dose Admin Diphenhydramine HCl 25 mg 07/18/20 20:18 07/18/20 20:26 Benadryl 50 Mg/Ml IV 07/18/20 20:19 25 mg STAT ONE Administration Diphenhydramine HCl Confirm 07/18/20 20:21 Benadryl 50 Mg/Ml Administered 07/18/20 20:22 Dose 50 mg .ROUTE .STK-MED ONE Sodium Chloride 1,000 mls @ 999 mls/hr 07/18/20 20:18 07/18/20 21:26 Sodium Chloride 0.9% 1000 Ml IV 07/18/20 21:18 Infused .Q1H1M STA Infusion Sodium Chloride Confirm 07/18/20 20:22 Sodium Chloride 0.9% 1000 Ml Administered 07/18/20 20:23 Dose 1,000 mls @ ud .ROUTE .STK-MED ONE Ketorolac Tromethamine 30 mg 07/18/20 20:18 07/18/20 20:26 Toradol 30 Mg Injection IV 07/18/20 20:19 30 mg STAT ONE Administration Ketorolac Tromethamine Confirm 07/18/20 20:21 Toradol 30 Mg Injection Administered 07/18/20 20:22 Dose 30 mg .ROUTE .STK-MED ONE Metoclopramide HCl 10 mg 07/18/20 20:18 07/18/20 20:25 Reglan 10 Mg/2 Ml IV 07/18/20 20:19 10 mg STAT ONE Administration Metoclopramide HCl Confirm 07/18/20 20:22 Reglan 10 Mg/2 Ml Administered 07/18/20 20:23 Dose 10 mg .ROUTE .STK-MED ONE Morphine Sulfate 4 mg 07/18/20 21:19 07/18/20 21:20 Morphine Sulfate 4 Mg Inj IV 07/18/20 21:20 4 mg STAT ONE Administration Morphine Sulfate Confirm 07/18/20 21:19 Morphine Sulfate 4 Mg Inj Administered 07/18/20 21:20 Dose 4 mg .ROUTE .STK-MED ONE - Progress Progress: improved, re-examined Air Movement: good Progress Note: 07/18/20 21:54 She is given fluid bolus and migraine cocktail with much improvement in her headache but still not completely resolved, given 1 dose morphine and on reevaluation feeling better. Her headache is almost resolved. Nonfocal neuro exam throughout her stay in the ER. Headache is similar to previous episodes, no signs of meningismus, do not think needs imaging or any other work-up and is stable for discharge. Recommended outpatient follow-up with primary care and neurology for medication adjustment. Discussed signs symptoms of worsening needing return to ER which she seems understanding. Blood Culture(s) Obtained: No Antibiotics given: No Counseled pt/family regarding: diagnosis, need for follow-up - Departure Departure Disposition: Home Clinical Impression: Migraine headache without aura Qualifiers: Status migrainosus presence: without status migrainosus Intractability: not intractable Qualified Code(s): G43.009 - Migraine without aura, not intractable, without status migrainosus Condition: Stable Critical Care Time: No Referrals: PHILIPP EATON [Primary Care Provider] - (1-2 days for reevaluation) DURAN CASTANEDA [NON-STAFF PHY W/O PRIVILEGES] - (1-2 days for reevaluation) Instructions: Headache, Adult (DC) Additional Instructions: Continue with your current migraine medications as recommended. Follow-up with primary care and neurology for reevaluation. Return to ER for intractable headache or if develop numbness tingling weakness, visual disturbance, difficulty speech etc.
[2020-07-18 22:14] VITALS: BP 102/65; PULSE 86; O2SAT 98
== END 2020-07-18 22:15 | disposition home or self-care (01) ==
LOC: ED 19:35
DX: G43.009 Migraine without aura, not intractable, without status migrainosus (principal)
CPT/HCPCS: 36000; 96360; 96374; 96375; 99284; J1200; J1885; J2270

== ENCOUNTER 2020-08-01 21:53 | Emergency (ER) | payer OTHER ==
[2020-08-01] MEDS ORDERED: PERCOCET TABLET 5/325MG PO ONE (22:45)
[2020-08-01] MEDS ORDERED: PERCOCET TABLET 5/325MG ONE ×2 (23:13→23:15)
--- NOTE | 2020-08-01 23:23 | ERPHSYRPT ---
- History of Present Illness Time Seen by Provider: 08/01/20 22:01 Source: patient Exam Limitations: no limitations Patient Subjective Stated Complaint: pt states she has had pain in her rt hip since she had an IM phenergan shot 1 month ago. states she has numbness and tin gling and tenderness to light touch. Triage Nursing Assessment: pt alert and oriented, answers questions approp. pt ambulatory with steady gait noted. slight limping noted. pt reports tenderness to rt outer thigh with light palpation. Physician History: 34 years old female with history of PCOS, migraines poorly controlled presented in the ER with chief complaint of right lateral hip/upper thigh pain for almost 1 month. Patient reports she was seen at [facility] for migraine, was given IM Phenergan shot and later on started to have pain with some numbness in the upper lateral thigh/hip area. Patient was evaluated outpatient with negative DVT scan. She has a CT right lower extremity with contrast done yesterday which did not show any acute findings in the area of pain but does have some heterogenous mass in the right ovarian area but no pain in the pelvis. Pain is moderate to severe sharp shooting, aggravated with touching, movements and palpation. She is currently on Medrol Dosepak as well. She is taking Tylenol with no significant relief. No weakness in right lower extremity. No apparent redness or swelling of involved area. No limitation of movements of right hip. Timing/Duration: week(s) (4), gradual onset, worse Context: other Quality: sharpness Hip Pain Location: hip (R) Severity of Pain-Max: severe Severity of Pain-Current: moderate Modifying Factors: Improves With: immobilization. Worsens With: movement Symptoms prior to fall: none Associated Symptoms: muscle aches Allergies/Adverse Reactions: strawberry Allergy (Severe, Verified 08/01/20 23:09) Tightness of Throat shrimp Allergy (Intermediate, Verified 08/01/20 23:09) itch Iodinated Contrast Media Allergy (Verified 08/01/20 23:09) Itching Penicillins Allergy (Verified 08/01/20 23:09) Anaphylactic Reaction sulfamethoxazole [From Bactrim] Adverse Reaction (Verified 08/01/20 23:09) Vomiting Home Medications: Metformin HCl 850 mg [Glucophage 850 MG] 1,000 mg PO BID 06/29/16 [History] Pnv,Calcium 72/Iron/Folic Acid [ Plus Tablet] 1 each PO DAILY 06/29/16 [History] Sertraline HCl 50 mg PO HS 03/21/17 [History] Amlodipine Besylate 5 mg [Norvasc 5 mg] 5 mg PO HS 01/02/19 [History] Carvedilol 3.125 mg [Coreg 3.125 MG] 3.125 mg PO BID 01/02/19 [History] Ergocalciferol (Vitamin D2) [Vitamin D2] 50,000 unit PO Q7D 01/02/19 [History] Ferrous Gluconate 324 mg PO DAILY 01/02/19 [History] Omeprazole 20 mg PO BID 04/08/19 [History] Meloxicam 15 mg PO Q12H PRN PRN 06/23/19 [History] Levetiracetam [Keppra 500 mg ] 500 mg PO BID 03/31/20 [History] Naratriptan HCl [Amerge] 2.5 mg PO UD 03/31/20 [History] Oxcarbazepine 300 mg [Trileptal 300 MG Tablet] 300 mg PO BID 03/31/20 [History] Topiramate 25 mg PO BID 07/18/20 [History] Hx Tetanus, Diphtheria Vaccination/Date Given: Yes Hx Influenza Vaccination/Date Given: Yes Hx Pneumococcal Vaccination/Date Given: Yes Immunizations Up to Date: Yes Travel Risk - International Travel Have you traveled outside of the country in past 3 weeks: No - Coronavirus Screening Are you exhibiting any of the following symptoms?: No Close contact with a COVID-19 positive Pt in past 14-21 Days: No - Vaccine Status Have you recieved a Covid-19 vaccination: No - Review of Systems Constitutional: No Symptoms Eyes: No Symptoms Ears, Nose, & Throat: No Symptoms Respiratory: No Symptoms Cardiac: No Symptoms Abdominal/Gastrointestinal: No Symptoms Genitourinary Symptoms: No Symptoms Musculoskeletal: Myalgias Skin: No Symptoms Neurological: No Symptoms Psychological: Anxiety Endocrine: No Symptoms Hematologic/Lymphatic: No Symptoms - Past Medical History Pertinent Past Medical History: Yes Neurological History: Migraines ENT History: No Pertinent History Cardiac History: No Pertinent History Respiratory History: No Pertinent History Endocrine Medical History: Diabetes Type II Musculoskeletal History: No Pertinent History GI Medical History: No Pertinent History History: No Pertinent History Psycho-Social History: No Pertinent History Female Reproductive Disorders: Other Other Medical History: PCOS, HX Kidney Stone, Iron Def, VIT D DEF - Past Surgical History Past Surgical History: Yes Neuro Surgical History: No Pertinent History Cardiac: No Pertinent History Respiratory: No Pertinent History Gastrointestinal: Cholecystectomy Genitourinary: No Pertinent History Musculoskeletal: No Pertinent History Female Surgical History: No Pertinent History - Social History Smoking Status: Current every day smoker How long have you smoked: 12 years Exposure to second hand smoke: Yes Drug Use: none Patient Lives Alone: No - Female History Hx Last Menstrual Period: current Hx Now: No - Nursing Vital Signs Nursing Vital Signs: Initial Vital Signs Temperature 97.8 F 08/01/20 22:36 Pulse Rate 94 H 08/01/20 22:36 Respiratory Rate 18 08/01/20 22:36 Blood Pressure 129/73 08/01/20 22:36 O2 Sat by Pulse Oximetry 96 08/01/20 22:36 Pain Scale Pain Intensity 4 - Physical Exam General Appearance: no apparent distress, alert, anxiety Ears, Nose, Throat Exam: normal ENT inspection, pharynx normal Neck Exam: normal inspection, non-tender, supple, full range of motion Respiratory Exam: normal breath sounds, lungs clear Cardiovascular Exam: regular rate/rhythm, normal heart sounds Gastrointestinal Exam: soft, normal bowel sounds, No tenderness Back Exam: normal inspection, normal range of motion, No CVA tenderness Extremity Exam: normal inspection, normal range of motion, pelvis stable, other (Tenderness in upper lateral hip with wrapping around in a strip fashion. Tenderness is exacerbated with minimal touch. No obvious swelling redness or signs of cellulitis. Intact range of motion of right hip. No swelling in the right lower extremity otherwise. 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ROUTE .STK-MED ONE - Progress Progress: improved, pain not gone completely, re-examined Progress Note: 08/01/20 23:23 34 years old is evaluated for right upper thigh/hip area pain. She has no restricted range of motion. Pain is exacerbated with light touch. It seems like the patient has symptoms with reflex sympathetic dystrophy syndrome with her recent injection stimulating nerve. She has extensive work-up done outpatient which is negative. Her pain is not seems to be related to ovarian mass at all. I have given her pain medication in here. She is advised to continue with Medrol Dosepak and I will give her a few pain pills to go home and outpatient follow-up is recommended. Discussed signs symptoms of worsening needing return to ER which she seems understanding. Counseled pt/family regarding: diagnosis, need for follow-up - Departure Departure Disposition: Home Clinical Impression: Acute right hip pain Condition: Stable Critical Care Time: No Referrals: PHILIPP EATON [Primary Care Provider] - (1 to 2 days for reevaluation) Instructions: Complex Regional Pain Syndrome Additional Instructions: Take pain medications as needed. Take Tylenol/ibuprofen as needed. Follow-up with your primary care physician for reevaluation. Return to ER for intractable pain, difficulty movements of right hip, numbness tingling weakness of right lower extremity, swelling, fever or chills. Prescriptions: Gabapentin 300 mg [Neurontin 300 mg] 300 mg PO TID PRN 5 Days #15 capsule
[2020-08-02 00:06] VITALS: BP 120/56; PULSE 76
[2020-08-02 00:12] VITALS: O2SAT 96
== END 2020-08-02 00:05 | disposition home or self-care (01) ==
LOC: ED 21:53
DX: M25.551 Pain in right hip (principal)
CPT/HCPCS: 99283; 99291; A9270-GY

== ENCOUNTER 2020-11-21 14:57 | Emergency (ER) | payer OTHER ==
[2020-11-21 15:11] VITALS: BP 110/55
--- NOTE | 2020-11-21 16:07 | ERPHSYRPT ---
- History of Present Illness Time Seen by Provider: 11/21/20 15:25 Source: patient Exam Limitations: no limitations Patient Subjective Stated Complaint: here for cough, sore throat for 2 days, no fever, taken breathing treatments at home Triage Nursing Assessment: pt alert, resp easy, skin w/d/p. face mask in place, dry cough,no edema noted Physician History: Patient is a 35-year-old female who has a history of frequent pneumonias who started 3 days ago with tingling in her throat and cough and hoarseness and is all getting worse. She has had no fever her sense of smell and taste is okay she does continue to smoke she has no nausea vomiting or diarrhea she has not been vaccinated for Covid and does not want to be tested for Covid. Timing/Duration: day(s) (3), worse Cough Quality/Degree: dry cough Possible Cause: frequent episodes Modifying Factors: Improves With: albuterol nebulizer, coughing Associated Symptoms: cough, No fever Allergies/Adverse Reactions: strawberry Allergy (Severe, Verified 11/21/20 15:13) Tightness of Throat shrimp Allergy (Intermediate, Verified 11/21/20 15:13) itch Iodinated Contrast Media Allergy (Verified 11/21/20 15:13) Itching Penicillins Allergy (Verified 11/21/20 15:13) Anaphylactic Reaction sulfamethoxazole [From Bactrim] Adverse Reaction (Verified 11/21/20 15:13) Vomiting Home Medications: Metformin HCl 850 mg [Glucophage 850 MG] 1,000 mg PO BID 06/29/16 [History] Pnv,Calcium 72/Iron/Folic Acid [ Plus Tablet] 1 each PO DAILY 06/29/16 [History] Sertraline HCl 50 mg PO HS 03/21/17 [History] Amlodipine Besylate 5 mg [Norvasc 5 mg] 5 mg PO HS 01/02/19 [History] Carvedilol 3.125 mg [Coreg 3.125 MG] 3.125 mg PO BID 01/02/19 [History] Ergocalciferol (Vitamin D2) [Vitamin D2] 50,000 unit PO Q7D 01/02/19 [History] Ferrous Gluconate 324 mg PO DAILY 01/02/19 [History] Omeprazole 20 mg PO BID 04/08/19 [History] Meloxicam 15 mg PO Q12H PRN PRN 06/23/19 [History] Levetiracetam [Keppra 500 mg ] 500 mg PO BID 03/31/20 [History] Naratriptan HCl [Amerge] 2.5 mg PO UD 03/31/20 [History] Oxcarbazepine 300 mg [Trileptal 300 MG Tablet] 300 mg PO BID 03/31/20 [History] Topiramate 25 mg PO BID 07/18/20 [History] Hx Tetanus, Diphtheria Vaccination/Date Given: Yes Hx Influenza Vaccination/Date Given: No Hx Pneumococcal Vaccination/Date Given: No Immunizations Up to Date: Yes Travel Risk - International Travel Have you traveled outside of the country in past 3 weeks: No - Coronavirus Screening Are you exhibiting any of the following symptoms?: Yes Symptoms: Cough: New Onset, Shortness of Breath - Vaccine Status Have you recieved a Covid-19 vaccination: No - Review of Systems Constitutional: No Fever, No Chills Eyes: No Symptoms Ears, Nose, & Throat: No Symptoms Respiratory: Cough, Wheezing, No Dyspnea Cardiac: No Chest Pain, No Edema, No Syncope Abdominal/Gastrointestinal: No Abdominal Pain, No Nausea, No Vomiting, No Diarrhea Genitourinary Symptoms: No Dysuria Musculoskeletal: No Back Pain, No Neck Pain Skin: No Rash Neurological: No Dizziness, No Focal Weakness, No Sensory Changes Psychological: No Symptoms Endocrine: No Symptoms All Other Systems: Reviewed and Negative - Past Medical History Pertinent Past Medical History: Yes Neurological History: Migraines, Peripheral Neuropathy ENT History: No Pertinent History Cardiac History: No Pertinent History, Hypertension Respiratory History: Pneumonia Endocrine Medical History: Diabetes Type II Musculoskeletal History: No Pertinent History GI Medical History: No Pertinent History History: No Pertinent History Psycho-Social History: No Pertinent History Female Reproductive Disorders: Other Other Medical History: PCOS, HX Kidney Stone, Iron Def, VIT D DEF - Past Surgical History Past Surgical History: Yes Neuro Surgical History: No Pertinent History Cardiac: No Pertinent History Respiratory: No Pertinent History Gastrointestinal: Cholecystectomy Genitourinary: No Pertinent History Musculoskeletal: No Pertinent History Female Surgical History: No Pertinent History - Social History Smoking Status: Current every day smoker How long have you smoked: 12 years Exposure to second hand smoke: Yes Drug Use: none Patient Lives Alone: No - Female History Hx Last Menstrual Period: now Hx Now: No - Nursing Vital Signs Nursing Vital Signs: Initial Vital Signs Temperature 97.2 F 11/21/20 15:07 Pulse Rate 80 11/21/20 15:07 Respiratory Rate 18 11/21/20 15:07 Blood Pressure 110/55 11/21/20 15:07 O2 Sat by Pulse Oximetry 100 11/21/20 15:07 Pain Scale Pain Intensity 6 - Physical Exam General Appearance: mild distress, alert Eye Exam: PERRL/EOMI, eyes nml inspection Ears, Nose, Throat Exam: normal ENT inspection, TMs normal, pharynx normal, moist mucous membranes Neck Exam: normal inspection, non-tender, supple, full range of motion Respiratory Exam: lungs clear, rhonchi, wheezing, No respiratory distress Cardiovascular Exam: regular rate/rhythm, normal heart sounds Gastrointestinal/Abdomen Exam: soft, No tenderness Back Exam: normal inspection, No CVA tenderness, No vertebral tenderness Extremity Exam: normal inspection, normal range of motion Neurologic Exam: alert, oriented x 3, cooperative, normal mood/affect, sensation nml, No motor deficits Skin Exam: normal color, warm, dry, No rash Lymphatic Exam: No adenopathy SpO2: 100 - Course Nursing assessment & vital signs reviewed: Yes - Radiology Exams Chest X-ray Interpretation: Interpreted by me, Negative Ordered Tests: Active Orders 24 hr Category Date Time Status CHEST 1 VIEW (PORTABLE) Stat Exams 11/21/20 15:42 Taken - Progress Progress: unchanged Air Movement: good Blood Culture(s) Obtained: No Antibiotics given: Yes - Departure Departure Disposition: Home Clinical Impression: Bronchitis Condition: Stable Critical Care Time: No Referrals: PHILIPP EATON [Primary Care Provider] - Instructions: Cough, Adult (DC) Prescriptions: Azithromycin 250 mg [Zithromax 250 MG TABLET] 250 mg PO ZPACK #6 tablet
[2020-11-21 16:14] VITALS: PULSE 77; O2SAT 97
--- NOTE | 2020-11-21 16:57 | XRAY ---
Indication: Cough. Comparison: September 24, 2019. Portable chest again demonstrates normal heart, lungs, and bony thorax.
== END 2020-11-21 16:17 | disposition home or self-care (01) ==
LOC: ED 14:57
DX: J40 Bronchitis, not specified as acute or chronic (principal)
CPT/HCPCS: 71045; 99283